=== PATIENT | female | born 1950 | race American Indian/Alaskan Native ===

== ENCOUNTER 2017-04-28 21:53 | Emergency (ER) | payer MEDICARE, MEDICAID ==
[2017-04-28 22:04] VITALS: BP 128/60
--- NOTE | 2017-04-28 22:42 | EDM.PDOC ---
ED HPI GENERAL MEDICAL PROBLEM - General Chief Complaint: Respiratory Problem Stated Complaint: VALERIA, [id number] Time Seen by Provider: 04/28/17 22:39 Source of Information: Reports: Patient History Limitations: Reports: No Limitations - History of Present Illness INITIAL COMMENTS - FREE TEXT/NARRATIVE: SOB past 2 days, no chest pains, been using nebs at home but has no energy feels weak in legs, denies fever/chills but been feeling hot sometimes. had pneumonia last year and [facility] in [facility]. been nauseous on-off no vomiting. - Related Data Allergies Allergy/AdvReac Type Severity Reaction Status Date / Time codeine Allergy Unknown Cannot Verified 04/28/17 22:05 Remember simvastatin [From Zocor] Allergy Muscle Verified 04/28/17 22:05 Aches Home Meds: Home Meds Aspirin 81 mg PO DAILY 05/22/14 [History] Levothyroxine 125 mcg PO DAILY 05/22/14 [History] glipiZIDE [Glipizide] 10 mg PO BID 07/09/15 [History] Omeprazole 20 mg PO DAILY 04/15/16 [History] Albuterol [IJD: Ventolin HFA] 2 puff INH ASDIRECTED PRN 05/18/16 [History] Cyanocobalamin (Vitamin B-12) [Cyanocobalamin Injection] 1,000 mcg SUBCUT ASDIRECTED 05/18/16 [History] Carvedilol 6.25 mg PO BID 07/23/16 [History] Bumetanide [Bumex] 1 mg PO DAILY 08/07/16 [History] metFORMIN HCl [Metformin HCl] 500 mg PO BID 08/07/16 [History] Lisinopril 2.5 mg PO DAILY 11/13/16 [History] Past Medical History HEENT History: Reports: Impaired Vision Other HEENT History: wears glasses Cardiovascular History: Reports: Hypertension Respiratory History: Reports: Bronchitis, Recurrent, Other (See Below) Other Respiratory History: congested cough Gastrointestinal History: Reports: GERD Genitourinary History: Reports: UTI, Recurrent 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 Musculoskeletal History: Reports: Fracture Neurological History: Reports: None Psychiatric History: Reports: None Endocrine/Metabolic History: Reports: Hypothyroidism Hematologic History: Reports: B12 Deficiency, Iron Deficiency Immunologic History: Reports: None Oncologic (Cancer) History: Reports: None Dermatologic History: Reports: None - Infectious Disease History Infectious Disease History: Reports: Chicken Pox, Measles, Mumps - Past Surgical History Head Surgeries/Procedures: Reports: None Cardiovascular Surgical History: Reports: AICD GI Surgical History: Reports: Appendectomy, Cholecystectomy Social & Family History - Family History Family Medical History: Noncontributory - Tobacco Use Smoking Status *Q: Former Smoker Years of Tobacco use: 40 Packs/Tins Daily: 1.5 Used Tobacco, but Quit: Yes Month Tobacco Last Used: 03/2016 Second Hand Smoke Exposure: No - Caffeine Use Caffeine Use: Reports: Tea - Alcohol Use Days Per Week of Alcohol Use: 0 - Recreational Drug Use Recreational Drug Use: No - Living Situation & Occupation Occupation: Retired ED ROS GENERAL - Review of Systems Review Of Systems: ROS reveals no pertinent complaints other than HPI. ED EXAM, GENERAL - Physical Exam Exam: See Below Exam Limited By: Altered Mental Status General Appearance: Alert, WD/WN, Mild Distress, Other (distraught) Ears: Hearing Grossly Normal Throat/Mouth: Normal Voice, No Airway Compromise Head: Atraumatic Neck: Non-Tender, Full Range of Motion Respiratory/Chest: No Respiratory Distress, No Accessory Muscle Use, Rhonchi. No: Decreased Breath Sounds Cardiovascular: Regular Rate, Rhythm GI/Abdominal: Soft, Non-Tender Extremities: No Pedal Edema Neurological: Alert, Oriented, Normal Cognition, Normal Gait, No Motor/Sensory Deficits Psychiatric: Flat Affect Skin Exam: Warm, Dry, Normal Color Lymphatic: No Adenopathy Course - Vital Signs Last Recorded V/S: Last Vital Signs Temp 35.8 C 04/28/17 22:02 Pulse 75 04/28/17 22:02 Resp 20 04/28/17 22:02 BP 128/60 04/28/17 22:02 Pulse Ox 99 04/28/17 22:02 - Orders/Labs/Meds Orders: Active Orders 24 hr Category Date Time Status EKG 12 Lead [EKG Documentation Completion] [RC] STAT Care 04/28/17 23:29 Active Sodium Chloride 0.9% [Normal Saline] 1,000 ml Med 04/29/17 00:27 Active IV .BOLUS Medication Orders Sodium Chloride (Normal Saline) 1,000 mls @ 250 mls/hr IV .BOLUS ONE Stop: 04/29/17 04:26 Last Admin: 04/29/17 00:53 Dose: 250 mls/hr Labs: Laboratory Tests 04/28/17 04/28/17 04/28/17 Range/Units 22:55 22:55 22:55 WBC 8.9 (5.0-10.0) 10^3/uL RBC 3.29 L (4.2-5.4) 10^6/uL Hgb 7.3 L (12.0-16.0) g/dL Hct 24.5 L (37.0-47.0) % MCV 74.5 L (80-100) fL MCH 22.2 L (27.0-34.0) pg MCHC 29.8 L (33.0-35.0) g/dL Plt Count 374 (150-450) 10^3/uL Neut % (Auto) 65.8 (42.2-75.2) % Lymph % (Auto) 22.8 (20.5-50.1) % [place] % (Auto) 8.1 H (2-8) % Eos % (Auto) 2.9 (1.0-3.0) % Baso % (Auto) 0.4 (0.0-1.0) % D-Dimer, Quantitative 1170 H (0-400) ng/mL Sodium 131 L (135-145) mmol/L Potassium 4.4 (3.6-5.0) mmol/L Chloride 98 L (101-111) mmol/L Carbon Dioxide 22.0 (21.0-31.0) mmol/L Anion Gap 15.4 BUN 24 H (7-18) mg/dL Creatinine 1.1 (0.6-1.3) mg/dL Est Cr Clr Drug Dosing 42.27 mL/min Estimated GFR (MDRD) 49 BUN/Creatinine Ratio 21.81 Glucose 268 H (74-105) mg/dL Calcium 9.0 (8.4-10.2) mg/dl Total Bilirubin 0.5 (0.2-1.0) mg/dL AST 25 (10-42) IU/L ALT 23 (10-60) IU/L Alkaline Phosphatase 100 (42-121) IU/L Troponin I 0.04 H* (0.00-0.02) ng/ml B-Natriuretic Peptide 691 H (0-100) pg/ml Total Protein 8.1 (6.7-8.2) g/dl Albumin 3.6 (3.2-5.5) g/dl Globulin 4.5 Albumin/Globulin Ratio 0.80 Meds: Medications Generic Name Dose Route Start Last Admin Trade Name Freq PRN Reason Stop Dose Admin Sodium Chloride 1,000 mls @ 250 mls/hr 04/29/17 00:27 04/29/17 00:53 Normal Saline IV 04/29/17 04:26 250 mls/hr .BOLUS ONE Administration Discontinued Medications Generic Name Dose Route Start Last Admin Trade Name Freq PRN Reason Stop Dose Admin Iopamidol 100 ml 04/29/17 00:09 04/29/17 00:19 Isovue-370 (76%) IVPUSH 04/29/17 00:10 100 ml ONETIME ONE Administration - Re-Assessments/Exams Free Text/Narrative Re-Assessment/Exam: 04/29/17 01:[address] Kolb @ who kindly accepted pt. Departure - Departure Time of Disposition: 01:45 Disposition: DC/Tfer to Acute Hospital 02 Condition: Fair Clinical Impression: COPD exacerbation, Elevated troponin, Hyponatremia, Pleural effusion CHF (congestive heart failure) Qualifiers: Congestive heart failure type: unspecified congestive heart failure type Congestive heart failure chronicity: acute on chronic Qualified Code(s): I50.9 - Heart failure, unspecified Anemia Qualifiers: Anemia type: unspecified type Qualified Code(s): D64.9 - Anemia, unspecified - Discharge Information Forms: Interfacility Transfer EMTALA - My Orders Last 24 Hours: My Active Orders 04/28/17 23:29 EKG 12 Lead [EKG Documentation Completion] [RC] STAT 04/29/17 00:27 Sodium Chloride 0.9% [Normal Saline] 1,000 ml IV .BOLUS - Assessment/Plan Last 24 Hours: My Active Orders 04/28/17 23:29 EKG 12 Lead [EKG Documentation Completion] [RC] STAT 04/29/17 00:27 Sodium Chloride 0.9% [Normal Saline] 1,000 ml IV .BOLUS
[2017-04-29] MEDS ORDERED: Iopamidol 755 Mg/ML 100 ML Bottle IVPUSH ONE (00:09)
[2017-04-29] MEDS ORDERED: Sodium Chloride 0.9% 1,000 ML IV ONE (00:27)
--- NOTE | 2017-05-04 09:04 | EKG ---
04/28/2017- AMA CHILDRESS - EKG done on the 67-year-old female showing sinus rhythm, heart rate of 78 beats per minute, normal axis, normal intervals, no acute ST-T wave changes. [facility] /[id number]
== END 2017-04-29 02:29 ==
LOC: DL.ED 21:53
DX: J44.1 Chronic obstructive pulmonary disease with (acute) exacerbation (principal); E87.1 Hypo-osmolality and hyponatremia; J90 Pleural effusion, not elsewhere classified; D64.9 Anemia, unspecified; I11.0 Hypertensive heart disease with heart failure; I50.9 Heart failure, unspecified; K21.9 Gastro-esophageal reflux disease without esophagitis; E03.9 Hypothyroidism, unspecified; Z87.440 Personal history of urinary (tract) infections; Z90.49 Acquired absence of other specified parts of digestive tract; Z95.810 Presence of automatic (implantable) cardiac defibrillator; Z87.891 Personal history of nicotine dependence; Z79.899 Other long term (current) drug therapy; Z79.82 Long term (current) use of aspirin; Z88.5 Allergy status to narcotic agent; Z88.8 Allergy status to other drugs, medicaments and biological substances
CPT/HCPCS: 36415; 71010; 71260; 80053; 83880; 84484; 85025; 85379; 93005; 93010; 96365; 96366; 99285; J7030; Q9967

== ENCOUNTER 2017-08-09 08:58 | Day surgery (SDC) | payer MEDICARE, MEDICAID ==
[~2017-08-09 08:58] MED LIST: Cataract Ophth Solution EYELF ONE; Lidocaine 4% 5 ML Amp EYELF ONE; Moxifloxacin 0.5% Ophth Soln 3 ML Bottle EYELF ONE; Sodium Chloride 0.9% 10 ML Syringe FLUSH PRN
[2017-08-09] MEDS ORDERED: Midazolam 1 MG/ML 2 ML SDV IV ONE (08:59)
[2017-08-09] MEDS ORDERED: EPINEPHrine 1 MG/ML SDV ONE (11:50)
[2017-08-09] MEDS ORDERED: Povidone-Iodine 5% Sterile Ophth Soln 30 ML Bottle EYELF ONE (11:50)
[2017-08-09] MEDS ORDERED: prednisoLONE Acetate 1% Ophth Susp 5 ML Bottle EYELF ONE (11:50)
[2017-08-09] MEDS ORDERED: Lidocaine 1% 30 ML SDV ONE (11:51)
[2017-08-09] MEDS ORDERED: Balanced Salt Solution Ophth Irrig 500 ML Bottle IOCULAR ONE (11:51)
[2017-08-09] MEDS ORDERED: Moxifloxacin 0.5% Ophth Soln 3 ML Bottle EYELF ONE (11:51)
[2017-08-09] MEDS ORDERED: Lidocaine 4% 5 ML Amp EYELF ONE (11:51)
--- NOTE | 2017-08-09 12:07 | PCM.OPNOTE ---
- General Post-Op/Procedure Note Date of Surgery/Procedure: 08/09/17 Operative Procedure(s): Cataract extraction with lens implant, left eye Findings: As above Pre Op Diagnosis: Cataract left eye Post-Op Diagnosis: Same Anesthesia Technique: MAC Primary Surgeon: Cliff Nettles Anesthesia Provider: Angel Pathology: None EBL in mLs: 0 Complications: None Condition: Good Free Text/Narrative:: PROCEDURE: After the risks and benefits of the procedure were explained informed consent was obtained from the patient and the patient was taken to the operating room. The patient was given topical Lidocaine 4% drops in the left eye. The patient was then prepped and draped in the sterile [facility] fashion. A wire lid speculum was placed in the left eye. A clear cornea temporal approach was used. A 7515 [place] blade was used to make a paracentesis site around 5:00. Preservative-free Lidocaine 1% was injected intracamerally. Viscoelastic was placed in the anterior chamber. A 2.65 mm keratome blade was used to make a clear corneal incision around 3:00. A cystotome needle and Utrata forceps were used to perform continuous curvilinear capsulorhexis. Balanced Salt Solution was used to perform hydrodissection and hydrodelineation. The lens nucleus was removed using the divide and conquer phacoemulsification technique. Cumulative dissipated energy was 7.10. Remaining cortex was removed using irrigation- aspiration. Viscoelastic was placed in the capsular bag. PCBOO 19.0 diopter lens was then placed in the capsular bag. Remaining viscoelastic was removed using irrigation-aspiration. The lens was well centered in the capsular bag. The paracentesis and corneal incision were found to be water-tight. The patient was given topical Prednisolone and Vigamox drops. The speculum was removed and a shield was placed over the left eye. The patient was taken to recovery in stable condition. I certify that I was present for and performed the entire operative procedure. Cliff Nettles M.D.
[2017-08-09 13:44] VITALS: BP 109/52
== END 2017-08-09 13:01 | disposition home or self-care (01) ==
LOC: DL.SDS 08:58
PROVIDERS: ATTEND Ophthalmology
DX: H25.12 Age-related nuclear cataract, left eye (principal); I50.9 Heart failure, unspecified; E53.8 Deficiency of other specified B group vitamins; I10 Essential (primary) hypertension; E78.5 Hyperlipidemia, unspecified; E03.9 Hypothyroidism, unspecified; E11.9 Type 2 diabetes mellitus without complications; Z90.49 Acquired absence of other specified parts of digestive tract; Z95.810 Presence of automatic (implantable) cardiac defibrillator; Z88.8 Allergy status to other drugs, medicaments and biological substances; Z87.891 Personal history of nicotine dependence
CPT/HCPCS: 00142; 66984; A9270; J0171; J2250; J7050; V2632

== ENCOUNTER 2017-09-06 07:26 | Day surgery (SDC) | payer MEDICARE, MEDICAID ==
[~2017-09-06 07:26] MED LIST changes: -Cataract Ophth Solution EYELF ONE; +Cataract Ophth Solution EYERT SCH; -Lidocaine 4% 5 ML Amp EYELF ONE; +Lidocaine 4% 5 ML Amp EYERT SCH; -Moxifloxacin 0.5% Ophth Soln 3 ML Bottle EYELF ONE; +Moxifloxacin 0.5% Ophth Soln 3 ML Bottle EYERT SCH
[2017-09-06] MEDS ORDERED: Sodium Chloride 0.9% 10 ML Syringe IV ONE (07:27)
[2017-09-06] MEDS ORDERED: Midazolam 1 MG/ML 2 ML SDV IV ONE (07:27)
[2017-09-06] MEDS ORDERED: Cyclopentolate 2% Ophth Soln 5 ML Bottle ONE (09:18)
[2017-09-06] MEDS ORDERED: Cyclopentolate 2% Ophth Soln 5 ML Bottle EYERT ONE (09:20)
[2017-09-06] MEDS ORDERED: Lidocaine 4% 5 ML Amp ONE (09:38)
[2017-09-06] MEDS ORDERED: Lidocaine 1% 30 ML SDV INJECT ONE (09:39)
[2017-09-06] MEDS ORDERED: EPINEPHrine 1 MG/ML SDV ONE (09:40)
[2017-09-06] MEDS ORDERED: prednisoLONE Acetate 1% Ophth Susp 5 ML Bottle EYERT ONE (09:40)
[2017-09-06] MEDS ORDERED: Balanced Salt Solution Ophth Irrig 500 ML Bottle IOCULAR ONE (09:40)
[2017-09-06] MEDS ORDERED: Moxifloxacin 0.5% Ophth Soln 3 ML Bottle EYERT ONE (09:40)
[2017-09-06] MEDS ORDERED: Povidone-Iodine 5% Sterile Ophth Soln 30 ML Bottle EYERT ONE (09:41)
[2017-09-06] MEDS ORDERED: Chondroitin/Hyaluronate Sodium Ophth Inj 0.5/0.55 ML Kit IOCULAR ONE ×2 (09:41)
--- NOTE | 2017-09-06 10:00 | PCM.OPNOTE ---
- General Post-Op/Procedure Note Date of Surgery/Procedure: 09/06/17 Operative Procedure(s): Cataract extraction with intraocular lens implant right eye Findings: as above Pre Op Diagnosis: Cataract right eye Post-Op Diagnosis: Same Anesthesia Technique: MAC Primary Surgeon: Cliff Nettles Anesthesia Provider: Seamus Jones Pathology: None EBL in mLs: 0 Complications: None Condition: Good Free Text/Narrative:: PROCEDURE: After the risks and benefits of the procedure were explained informed consent was obtained from the patient and the patient was taken to the operating room. The patient was given topical Lidocaine 4% drops in the right eye. The patient was then prepped and draped in the sterile [facility] fashion. A wire lid speculum was placed in the right eye. A clear cornea temporal approach was used. A 7515 nez perce blade was used to make a paracentesis site around 11:00. Preservative-free Lidocaine 1% was injected intracamerally. Viscoelastic was placed in the anterior chamber. A 2.65 mm keratome blade was used to make a clear corneal incision around 9:00. A cystotome needle and Utrata forceps were used to perform continuous curvilinear capsulorhexis. Balanced Salt Solution was used to perform hydrodissection and hydrodelineation. The lens nucleus was removed using the divide and conquer phacoemulsification technique. Cumulative dissipated energy was 8.01. Remaining cortex was removed using irrigation- aspiration. Viscoelastic was placed in the capsular bag. PCBOO 19.5 diopter lens was then placed in the capsular bag. Remaining viscoelastic was removed using irrigation-aspiration. The lens was well centered in the capsular bag. The paracentesis and corneal incision were found to be water-tight. The patient was given topical Prednisolone and Vigamox drops. The speculum was removed and a shield was placed over the right eye. The patient was taken to recovery in stable condition. I certify that I was present for and performed the entire operative procedure. Cliff Nettles M.D.
[2017-09-06 10:56] VITALS: BP 141/73
== END 2017-09-06 10:57 | disposition home or self-care (01) ==
LOC: DL.SDS 07:26
PROVIDERS: ATTEND Ophthalmology
DX: H25.811 Combined forms of age-related cataract, right eye (principal); I10 Essential (primary) hypertension; E78.5 Hyperlipidemia, unspecified; E03.9 Hypothyroidism, unspecified; I50.9 Heart failure, unspecified; E53.8 Deficiency of other specified B group vitamins; J18.9 Pneumonia, unspecified organism; E11.9 Type 2 diabetes mellitus without complications; Z90.49 Acquired absence of other specified parts of digestive tract; Z95.810 Presence of automatic (implantable) cardiac defibrillator; Z87.891 Personal history of nicotine dependence; Z79.899 Other long term (current) drug therapy
CPT/HCPCS: 00142; 66984; 82962; A9270; J0171; J2250; J7050; V2632

== ENCOUNTER 2017-09-11 16:36 | Emergency (ER) | payer MEDICARE, MEDICAID ==
[2017-09-11] MEDS ORDERED: Sodium Chloride 0.9% 10 ML Syringe FLUSH PRN (16:46)
[2017-09-11 16:48] VITALS: BP 136/66
--- NOTE | 2017-09-11 17:30 | EDM.PDOC ---
ED HPI GENERAL MEDICAL PROBLEM - General Chief Complaint: General Stated Complaint: HARD TIME BREATHING [id number] Time Seen by Provider: 09/11/17 16:45 Source of Information: Reports: Patient, RN, RN Notes Reviewed - History of Present Illness INITIAL COMMENTS - FREE TEXT/NARRATIVE: Pt presents to the ER with c/o increased SOB and a burning "heartburn" sensation in the left chest. She states on morning she felt as if her heart pounded very hard for a few beats. She states she has become increasingly short of breath over the past few days. She denies fever, chills, N/V/D, sore throat. She admits to a cough at times, the burning chest pain, and sob. Pt admits to history of CHF, COPD, AR, and pacemaker, as well as diabetes. Onset: Gradual Onset Date: 09/09/17 Location: Reports: Chest Quality: Reports: Pressure Severity: Moderate Improves with: Reports: None Worsens with: Reports: None Associated Symptoms: Reports: Chest Pain - Related Data Allergies Allergy/AdvReac Type Severity Reaction Status Date / Time codeine Allergy Unknown Cannot Verified 09/11/17 16:43 Remember sacubitril [From Entresto] Allergy Dizziness Verified 09/11/17 16:43 simvastatin [From Zocor] Allergy Muscle Verified 09/11/17 16:43 Aches valsartan [From Entresto] Allergy Dizziness Verified 09/11/17 16:43 Home Meds: Home Meds Levothyroxine 112 mcg PO DAILY 05/22/14 [History] glipiZIDE [Glipizide] 10 mg PO BID 07/09/15 [History] Omeprazole 20 mg PO DAILY 04/15/16 [History] Albuterol [IJD: Ventolin HFA] 2 puff INH Q6H PRN 05/18/16 [History] Cyanocobalamin (Vitamin B-12) [Cyanocobalamin Injection] 1,000 mcg IM ASDIRECTED 05/18/16 [History] Carvedilol 6.25 mg PO BID 07/23/16 [History] Bumetanide [Bumex] 1 mg PO DAILY 08/07/16 [History] metFORMIN HCl [Metformin HCl] 500 mg PO BID 08/07/16 [History] Lisinopril 2.5 mg PO DAILY 11/13/16 [History] Acetaminophen 1 - 2 tab PO ASDIRECTED PRN 08/08/17 [History] Albuterol [Proventil Neb Soln] 1 unit NEB ASDIRECTED 08/08/17 [History] Ferrous Sulfate 325 mg PO BID 08/08/17 [History] Nepafenac [Nevanac] 1 drop EYELF DAILY 08/08/17 [History] Ofloxacin [Ocuflox 0.3% Ophth Soln] 1 drop EYELF DAILY 08/08/17 [History] prednisoLONE Acetate [Pred Forte 1% Ophth Susp] 1 drop EYELF DAILY 08/08/17 [ History] Past Medical History HEENT History: Reports: Cataract, Impaired Vision Other HEENT History: wears glasses Cardiovascular History: Reports: Cardiomyopathy, Heart Failure, High Cholesterol , Hypertension, Pacemaker Other Cardiovascular History: CARDIAC DIFIBRILLATOR PLACEMENT (2017), NONISCHEMIC CARDIOMYOPATHY Respiratory History: Reports: Bronchitis, Recurrent, COPD, Pneumonia, Recurrent , Other (See Below) Gastrointestinal History: Reports: Cholelithiasis, GERD Genitourinary History: Reports: Renal Disease, UTI, Recurrent Other Genitourinary History: CKD 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 OB/BYN History: HAS 3 KIDS Musculoskeletal History: Reports: Arthritis, Fracture Other Musculoskeletal History: SHOULDER PAIN, BILATERAL Neurological History: Reports: None Psychiatric History: Reports: None, Addiction Endocrine/Metabolic History: Reports: Diabetes, Type II, Hypothyroidism Hematologic History: Reports: Anemia, B12 Deficiency, Iron Deficiency Immunologic History: Reports: None Oncologic (Cancer) History: Reports: None Dermatologic History: Reports: None - Infectious Disease History Infectious Disease History: Reports: Chicken Pox, Measles, Mumps, Rubella - Past Surgical History Head Surgeries/Procedures: Reports: None HEENT Surgical History: Reports: Cataract Surgery Cardiovascular Surgical History: Reports: AICD GI Surgical History: Reports: Appendectomy, Cholecystectomy Social & Family History - Family History Family Medical History: Noncontributory - Tobacco Use Smoking Status *Q: Former Smoker Years of Tobacco use: 40 Packs/Tins Daily: 1 Used Tobacco, but Quit: Yes Month Tobacco Last Used: april Second Hand Smoke Exposure: No - Caffeine Use Caffeine Use: Reports: Coffee, Tea Caffeine Use Comment: decaf products - Alcohol Use Days Per Week of Alcohol Use: 0 - Recreational Drug Use Recreational Drug Use: No Drug Use in Last 12 Months: No - Living Situation & Occupation Occupation: Retired ED ROS GENERAL - Review of Systems Review Of Systems: ROS reveals no pertinent complaints other than HPI. ED EXAM, GENERAL - Physical Exam Exam: See Below Exam Limited By: No Limitations General Appearance: Alert, WD/WN, Mild Distress Eye Exam: Bilateral Eye: EOMI, Normal Inspection Ears: Normal External Exam, Hearing Grossly Normal Nose: Normal Inspection Throat/Mouth: Normal Inspection, Normal Lips, Normal Teeth, Normal Gums, Normal Oropharynx, Normal Voice, No Airway Compromise Head: Atraumatic, Normocephalic Neck: Normal Inspection, Supple, Non-Tender, Full Range of Motion Respiratory/Chest: No Accessory Muscle Use, Respiratory Distress (mild), Decreased Breath Sounds (throughout), Crackles (right base) Cardiovascular: Normal Peripheral Pulses, Regular Rate, Rhythm, No Edema, No Gallop, No JVD, No Murmur, No Rub Peripheral Pulses: 2+: Radial (L), Radial (R) GI/Abdominal: Normal Bowel Sounds, Soft, Non-Tender, No Organomegaly, No Abnormal Bruit, No Mass, Distended (Female) Exam: Deferred Rectal (Female) Exam: Deferred Back Exam: Normal Inspection, Full Range of Motion Extremities: Normal Inspection, Normal Range of Motion, Non-Tender, No Pedal Edema, Normal Capillary Refill Neurological: Alert, Oriented, Normal Cognition, Normal Gait, No Motor/Sensory Deficits Psychiatric: Normal Affect, Normal Mood Skin Exam: Warm, Dry, Intact, Normal Color, No Rash Lymphatic: No Adenopathy EKG INTERPRETATION EKG Date: 09/11/17 Time: 16:48 Rhythm: NSR Rate (Beats/Min): 69 [place]: Normal P-Wave: Present QRS: Normal ST-T: Normal QT: Normal Comparison: No Change Course - Vital Signs Last Recorded V/S: Last Vital Signs Temp 96.4 F 09/11/17 16:43 Pulse 71 09/11/17 16:43 Resp 16 09/11/17 16:43 BP 136/66 09/11/17 16:43 Pulse Ox 100 09/11/17 16:43 - Orders/Labs/Meds Orders: Active Orders 24 hr Category Date Time Status EKG Documentation Completion [RC] STAT Care 09/11/17 16:46 Active Peripheral IV Care [RC] . DIRECTED Care 09/11/17 16:48 Active Chest 1V Frontal [CR] Stat Exams 09/11/17 16:47 Taken Peripheral IV Insertion Adult [OM.PC] Stat Oth 09/11/17 16:46 Ordered Labs: Laboratory Tests 09/11/17 09/11/17 09/11/17 Range/Units 16:57 17:00 17:00 WBC 6.8 (5.0-10.0) 10^3/uL RBC 4.56 (4.2-5.4) 10^6/uL Hgb 11.7 L D (12.0-16.0) g/dL Hct 37.7 (37.0-47.0) % MCV 82.7 D (80-100) fL MCH 25.7 L (27.0-34.0) pg MCHC 31.0 L (33.0-35.0) g/dL Plt Count 120 L D (150-450) 10^3/uL Neut % (Auto) 70.4 (42.2-75.2) % Lymph % (Auto) 20.2 L (20.5-50.1) % [place] % (Auto) 7.4 (2-8) % Eos % (Auto) 1.9 (1.0-3.0) % Baso % (Auto) 0.1 (0.0-1.0) % D-Dimer, Quantitative (0-400) ng/mL Sodium 135 (135-145) mmol/L Potassium 3.9 (3.6-5.0) mmol/L Chloride 102 (101-111) mmol/L Carbon Dioxide 24.0 (21.0-31.0) mmol/L Anion Gap 12.9 BUN 23 H (7-18) mg/dL Creatinine 0.9 (0.6-1.3) mg/dL Est Cr Clr Drug Dosing 52.75 mL/min Estimated GFR (MDRD) > 60 BUN/Creatinine Ratio 25.55 Glucose 240 H (74-105) mg/dL Lactic Acid (0.5-2.2) mmol/L Calcium 9.1 (8.4-10.2) mg/dl Total Bilirubin 0.6 (0.2-1.0) mg/dL AST 18 (10-42) IU/L ALT 9 L (10-60) IU/L Alkaline Phosphatase 151 H (42-121) IU/L Troponin I 0.04 H* (0.00-0.02) ng/ml B-Natriuretic Peptide 726 H (0-100) pg/ml Total Protein 8.5 H (6.7-8.2) g/dl Albumin 3.8 (3.2-5.5) g/dl Globulin 4.7 Albumin/Globulin Ratio 0.81 Urine Color Yellow (YELLOW) Urine Appearance Slightly cloudy (CLEAR) Urine pH 5.5 (5.0-9.0) Ur Specific [place] 1.010 (1.005-1.030) Urine Protein 30 H (NEGATIVE) Urine Glucose (UA) Negative (NEGATIVE) Urine Ketones Negative (NEGATIVE) Urine Occult Blood Negative (NEGATIVE) Urine Nitrite Negative (NEGATIVE) Urine Bilirubin Negative (NEGATIVE) Urine Urobilinogen 0.2 (0.2-1.0) mg/dL Ur Leukocyte Esterase Small H (NEGATIVE) Urine RBC 0-5 /HPF Urine WBC 10-20 H (0-5/HPF) /HPF Ur Epithelial Cells Few /HPF Urine Bacteria Many H (0-FEW/HPF) /HPF 09/11/17 09/11/17 Range/Units 17:00 17:00 WBC (5.0-10.0) 10^3/uL RBC (4.2-5.4) 10^6/uL Hgb (12.0-16.0) g/dL Hct (37.0-47.0) % MCV (80-100) fL MCH (27.0-34.0) pg MCHC (33.0-35.0) g/dL Plt Count (150-450) 10^3/uL Neut % (Auto) (42.2-75.2) % Lymph % (Auto) (20.5-50.1) % [place] % (Auto) (2-8) % Eos % (Auto) (1.0-3.0) % Baso % (Auto) (0.0-1.0) % D-Dimer, Quantitative 942 H (0-400) ng/mL Sodium (135-145) mmol/L Potassium (3.6-5.0) mmol/L Chloride (101-111) mmol/L Carbon Dioxide (21.0-31.0) mmol/L Anion Gap BUN (7-18) mg/dL Creatinine (0.6-1.3) mg/dL Est Cr Clr Drug Dosing mL/min Estimated GFR (MDRD) BUN/Creatinine Ratio Glucose (74-105) mg/dL Lactic Acid 1.9 (0.5-2.2) mmol/L Calcium (8.4-10.2) mg/dl Total Bilirubin (0.2-1.0) mg/dL AST (10-42) IU/L ALT (10-60) IU/L Alkaline Phosphatase (42-121) IU/L Troponin I (0.00-0.02) ng/ml B-Natriuretic Peptide (0-100) pg/ml Total Protein (6.7-8.2) g/dl Albumin (3.2-5.5) g/dl Globulin Albumin/Globulin Ratio Urine Color (YELLOW) Urine Appearance (CLEAR) Urine pH (5.0-9.0) Ur Specific [place] (1.005-1.030) Urine Protein (NEGATIVE) Urine Glucose (UA) (NEGATIVE) Urine Ketones (NEGATIVE) Urine Occult Blood (NEGATIVE) Urine Nitrite (NEGATIVE) Urine Bilirubin (NEGATIVE) Urine Urobilinogen (0.2-1.0) mg/dL Ur Leukocyte Esterase (NEGATIVE) Urine RBC /HPF Urine WBC (0-5/HPF) /HPF Ur Epithelial Cells /HPF Urine Bacteria (0-FEW/HPF) /HPF Meds: Medications Discontinued Medications Generic Name Dose Route Start Last Admin Trade Name Freq PRN Reason Stop Dose Admin Sodium Chloride 10 ml 09/11/17 16:46 09/11/17 17:03 Saline Flush FLUSH 10 ml ASDIRECTED PRN Administration Keep Vein Open - Radiology Interpretation Free Text/Narrative:: Chest xray: diffuse heart enlargement See rad report Departure - Departure Time of Disposition: 18:03 Disposition: DC/Tfer to Acute Hospital 02 Condition: Fair Clinical Impression: Hyperglycemia, CHF, Congestive heart failure, Elevated troponin, Elevated d- dimer Diabetes Qualifiers: Diabetes mellitus type: type 2 Diabetes mellitus complication status: without complication Diabetes mellitus halfway insulin use: without terminal carman use Qualified Code(s): E11.9 - Type 2 diabetes mellitus without complications - Discharge Information Referrals: PCP,Unobtain [Primary Care Provider] - Forms: ED Department Discharge, Interfacility Transfer EMTALA - My Orders Last 24 Hours: My Active Orders 09/11/17 16:46 EKG Documentation Completion [RC] STAT Peripheral IV Insertion Adult [OM.PC] Stat 09/11/17 16:47 Chest 1V Frontal [CR] Stat 09/11/17 16:48 Peripheral IV Care [RC] . DIRECTED - Assessment/Plan Last 24 Hours: My Active Orders 09/11/17 16:46 EKG Documentation Completion [RC] STAT Peripheral IV Insertion Adult [OM.PC] Stat 09/11/17 16:47 Chest 1V Frontal [CR] Stat 09/11/17 16:48 Peripheral IV Care [RC] . DIRECTED
[2017-09-11 17:39] LABS: CHLORIDE,CL 102 mmol/L (101-111); SODIUM,NA 135 mmol/L (135-145)
--- NOTE | 2017-09-13 12:18 | EKG ---
09/11/2017 - AMA CHILDRESS - This 12-lead EKG shows normal sinus rhythm with no significant ST elevation or ST depression. Nonspecific ST-T wave changes noted on lead V2, V3. Heart rate of 69. [facility] /[id number]
== END 2017-09-11 18:39 ==
LOC: DL.ED 16:36
DX: I13.0 Hypertensive heart and chronic kidney disease with heart failure and stage 1 through stage 4 chronic kidney disease, or unspecified chronic kidney disease (principal); E11.65 Type 2 diabetes mellitus with hyperglycemia; E11.22 Type 2 diabetes mellitus with diabetic chronic kidney disease; I50.9 Heart failure, unspecified; N18.9 Chronic kidney disease, unspecified; Z88.5 Allergy status to narcotic agent; Z88.8 Allergy status to other drugs, medicaments and biological substances; Z87.891 Personal history of nicotine dependence; Z79.899 Other long term (current) drug therapy; Z79.84 Long term (current) use of oral hypoglycemic drugs
CPT/HCPCS: 36415; 71010; 80053; 81001; 83605; 83880; 84484; 85025; 85379; 93005; 93010; 99285; J7050; 99283

== ENCOUNTER 2017-10-23 09:43 | Emergency (ER) | payer MEDICARE, MEDICAID ==
[2017-10-23 11:00] VITALS: BP 125/68
--- NOTE | 2017-10-23 11:54 | EDM.PDOC ---
Scribed by Kristyn Abebe 10/23/17 1153 for Iris Dueñas NP ED HPI GENERAL MEDICAL PROBLEM - General Chief Complaint: Respiratory Problem Stated Complaint: [id number] TROUBLE BREATHING Time Seen by Provider: 10/23/17 11:15 Source of Information: Reports: Patient, RN, RN Notes Reviewed History Limitations: Reports: No Limitations - History of Present Illness INITIAL COMMENTS - FREE TEXT/NARRATIVE: Patient presents to ER with complaint of not feeling well beginning yesterday. Shortness of breath and productive cough which is green/white, chest pain only with cough. Nausea last night. Sore throat. Denies fever, chills,vomiting and diarrhea. She has tried inhaler,nebulizer, and cough medicine. Son is also sick. Onset Date: 10/22/17 Duration: Constant Location: Reports: Chest Quality: Reports: Ache Severity: Moderate Improves with: Reports: None Worsens with: Reports: None Associated Symptoms: Reports: No Other Symptoms - Related Data Allergies Allergy/AdvReac Type Severity Reaction Status Date / Time codeine Allergy Unknown Cannot Verified 09/11/17 16:43 Remember sacubitril [From Entresto] Allergy Dizziness Verified 09/11/17 16:43 simvastatin [From Zocor] Allergy Muscle Verified 09/11/17 16:43 Aches valsartan [From Entresto] Allergy Dizziness Verified 09/11/17 16:43 metal Allergy Mild Rash Uncoded 10/23/17 11:02 Home Meds: Home Meds Levothyroxine 112 mcg PO DAILY 05/22/14 [History] glipiZIDE [Glipizide] 10 mg PO BID 07/09/15 [History] Omeprazole 20 mg PO DAILY 04/15/16 [History] Albuterol [IJD: Ventolin HFA] 2 puff INH Q6H PRN 05/18/16 [History] Cyanocobalamin (Vitamin B-12) [Cyanocobalamin Injection] 1,000 mcg IM ASDIRECTED 05/18/16 [History] Carvedilol 6.25 mg PO BID 07/23/16 [History] Bumetanide [Bumex] 1 mg PO DAILY 08/07/16 [History] metFORMIN HCl [Metformin HCl] 500 mg PO BID 08/07/16 [History] Lisinopril 2.5 mg PO DAILY 11/13/16 [History] Acetaminophen 1 - 2 tab PO ASDIRECTED PRN 08/08/17 [History] Albuterol [Proventil Neb Soln] 1 unit NEB ASDIRECTED 08/08/17 [History] Ferrous Sulfate 325 mg PO BID 08/08/17 [History] Nepafenac [Nevanac] 1 drop EYERT DAILY 08/08/17 [History] Ofloxacin [Ocuflox 0.3% Ophth Soln] 1 drop EYERT DAILY 08/08/17 [History] prednisoLONE Acetate [Pred Forte 1% Ophth Susp] 1 drop EYELF DAILY 08/08/17 [ History] Potassium Chloride 2 tab PO BID 10/23/17 [History] Past Medical History HEENT History: Reports: Cataract, Impaired Vision Other HEENT History: wears glasses Cardiovascular History: Reports: Cardiomyopathy, Heart Failure, High Cholesterol , Hypertension, Pacemaker, Other (See Below) Other Cardiovascular History: CARDIAC DIFIBRILLATOR PLACEMENT (2017), NONISCHEMIC CARDIOMYOPATHY Respiratory History: Reports: Bronchitis, Recurrent, COPD, Pneumonia, Recurrent Gastrointestinal History: Reports: Cholelithiasis, GERD Genitourinary History: Reports: Renal Disease, UTI, Recurrent, Other (See Below) Other Genitourinary History: CKD 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 OB/BYN History: HAS 3 KIDS Musculoskeletal History: Reports: Arthritis, Fracture, Other (See Below) Other Musculoskeletal History: SHOULDER PAIN, BILATERAL Neurological History: Reports: None Psychiatric History: Reports: None, Addiction Endocrine/Metabolic History: Reports: Diabetes, Type II, Hypothyroidism Hematologic History: Reports: Anemia, B12 Deficiency, Iron Deficiency Immunologic History: Reports: None Oncologic (Cancer) History: Reports: None Dermatologic History: Reports: None - Infectious Disease History Infectious Disease History: Reports: Chicken Pox, Measles, Mumps, Rubella - Past Surgical History Head Surgeries/Procedures: Reports: None HEENT Surgical History: Reports: Cataract Surgery Cardiovascular Surgical History: Reports: AICD GI Surgical History: Reports: Appendectomy, Cholecystectomy Social & Family History - Family History Family Medical History: Noncontributory - Tobacco Use Smoking Status *Q: Former Smoker Years of Tobacco use: 40 Packs/Tins Daily: 1 Used Tobacco, but Quit: Yes Month Tobacco Last Used: 24 Second Hand Smoke Exposure: No - Caffeine Use Caffeine Use: Reports: Coffee, Tea Caffeine Use Comment: decaf products - Alcohol Use Days Per Week of Alcohol Use: 0 - Recreational Drug Use Recreational Drug Use: No Drug Use in Last 12 Months: No - Living Situation & Occupation Occupation: Retired ED ROS GENERAL - Review of Systems Review Of Systems: ROS reveals no pertinent complaints other than HPI. ED EXAM, GENERAL - Physical Exam Exam: See Below Exam Limited By: No Limitations General Appearance: Alert, WD/WN, No Apparent Distress Eye Exam: Bilateral Eye: Normal Inspection Ears: Other (TM without erythema. Right ear draining. ) Nose: Normal Inspection, Normal Mucosa, No Blood Throat/Mouth: Normal Inspection, Normal Lips, Normal Teeth, Normal Gums, Normal Oropharynx, Normal Voice, No Airway Compromise Head: Atraumatic, Normocephalic Neck: Normal Inspection, Supple, Non-Tender, Full Range of Motion Respiratory/Chest: Lungs Clear Cardiovascular: Other (pacemaker) GI/Abdominal: Normal Bowel Sounds, Soft, Non-Tender, No Organomegaly, No Distention, No Abnormal Bruit, No Mass (Female) Exam: Deferred Rectal (Female) Exam: Deferred Back Exam: Normal Inspection, Full Range of Motion, NT Extremities: Normal Inspection, Normal Range of Motion, Non-Tender, Normal Capillary Refill, No Pedal Edema Neurological: Alert, Oriented, CN II-XII Intact, Normal Cognition, Normal Gait, Normal Reflexes, No Motor/Sensory Deficits Psychiatric: Normal Affect, Normal Mood Skin Exam: Warm, Dry, Intact, Normal Color, No Rash Lymphatic: No Adenopathy Course - Vital Signs Last Recorded V/S: Last Vital Signs Temp 97.4 F 10/23/17 09:45 Pulse 78 10/23/17 09:45 Resp 20 10/23/17 09:45 BP 125/68 10/23/17 09:45 Pulse Ox 98 10/23/17 09:45 - Orders/Labs/Meds Orders: Active Orders 24 hr Category Date Time Status CULTURE STREP A CONFIRMATION [] Stat Lab 10/23/17 11:12 Results STREP SCRN A RAPID W CULT CONF [] Stat Lab 10/23/17 11:12 Results Labs: Rapid strep: Negative. Influenza A and B: Negative. Departure - Departure Time of Disposition: 11:47 Disposition: Home, Self-Care 01 Condition: Fair Clinical Impression: Upper respiratory infection Qualifiers: URI type: unspecified viral URI Qualified Code(s): J06.9 - Acute upper respiratory infection, unspecified; B97.89 - Other viral agents as the cause of diseases classified elsewhere; B97.89 - Other viral agents as the cause of diseases classified elsewhere - Discharge Information Instructions: Upper Respiratory Infection, Adult, [id number], Chronic Obstructive Pulmonary Disease Exacerbation, [id number] Forms: ED Department Discharge Additional Instructions: Continue using your albuterol inhaler and albuterol nebulizer RX: Prednisone Follow up with your primary care facility this week - My Orders Last 24 Hours: My Active Orders 10/23/17 11:12 CULTURE STREP A CONFIRMATION [RM] Stat STREP SCRN A RAPID W CULT CONF [RM] Stat - Assessment/Plan Last 24 Hours: My Active Orders 10/23/17 11:12 CULTURE STREP A CONFIRMATION [RM] Stat STREP SCRN A RAPID W CULT CONF [RM] Stat I have read and agree with the documentation that has been completed regarding this visit. By signing this record, I attest that the documentation was completed in my physical presence and is an accurate record of the encounter.
== END 2017-10-23 12:08 | disposition home or self-care (01) ==
LOC: DL.ED 09:43
DX: J06.9 Acute upper respiratory infection, unspecified (principal); I13.0 Hypertensive heart and chronic kidney disease with heart failure and stage 1 through stage 4 chronic kidney disease, or unspecified chronic kidney disease; E11.22 Type 2 diabetes mellitus with diabetic chronic kidney disease; N18.9 Chronic kidney disease, unspecified; I50.9 Heart failure, unspecified; K21.9 Gastro-esophageal reflux disease without esophagitis; E03.9 Hypothyroidism, unspecified; E78.00 Pure hypercholesterolemia, unspecified; Z87.891 Personal history of nicotine dependence; Z95.810 Presence of automatic (implantable) cardiac defibrillator; Z79.2 Long term (current) use of antibiotics; Z79.899 Other long term (current) drug therapy; Z79.84 Long term (current) use of oral hypoglycemic drugs; Z88.5 Allergy status to narcotic agent; Z88.8 Allergy status to other drugs, medicaments and biological substances; Z91.048 Other nonmedicinal substance allergy status
CPT/HCPCS: 87081; 87430; 87804; 99283; 99285

== ENCOUNTER 2017-10-28 23:10 | Emergency (ER) | payer MEDICARE, MEDICAID ==
--- NOTE | 2017-10-28 23:19 | EDM.PDOC ---
ED HPI GENERAL MEDICAL PROBLEM - General Chief Complaint: General Stated Complaint: AMBULANCE Time Seen by Provider: 10/28/17 23:16 Source of Information: Reports: Patient History Limitations: Reports: No Limitations - History of Present Illness INITIAL COMMENTS - FREE TEXT/NARRATIVE: states was here Tuesday for same and Dx with URI given ABX & pred but still not any better, now coughing more and back of chest hurts too. Upper Back Pain Score (Numeric/FACES): 6 - Related Data Allergies Allergy/AdvReac Type Severity Reaction Status Date / Time codeine Allergy Unknown Cannot Verified 10/28/17 23:20 Remember sacubitril [From Entresto] Allergy Dizziness Verified 10/28/17 23:20 simvastatin [From Zocor] Allergy Muscle Verified 10/28/17 23:20 Aches valsartan [From Entresto] Allergy Dizziness Verified 10/28/17 23:20 metal Allergy Mild Rash Uncoded 10/28/17 23:20 Home Meds: Home Meds Levothyroxine 112 mcg PO DAILY 05/22/14 [History] glipiZIDE [Glipizide] 10 mg PO BID 07/09/15 [History] Omeprazole 20 mg PO DAILY 04/15/16 [History] Albuterol [IJD: Ventolin HFA] 2 puff INH Q6H PRN 05/18/16 [History] Cyanocobalamin (Vitamin B-12) [Cyanocobalamin Injection] 1,000 mcg IM ASDIRECTED 05/18/16 [History] Carvedilol 6.25 mg PO BID 07/23/16 [History] Bumetanide [Bumex] 1 mg PO DAILY 08/07/16 [History] metFORMIN HCl [Metformin HCl] 500 mg PO BID 08/07/16 [History] Lisinopril 2.5 mg PO DAILY 11/13/16 [History] Acetaminophen 1 - 2 tab PO ASDIRECTED PRN 08/08/17 [History] Albuterol [Proventil Neb Soln] 1 unit NEB ASDIRECTED 08/08/17 [History] Ferrous Sulfate 325 mg PO BID 08/08/17 [History] prednisoLONE Acetate [Pred Forte 1% Ophth Susp] 1 drop EYELF DAILY 08/08/17 [ History] Potassium Chloride 2 tab PO BID 10/23/17 [History] Insulin Aspart [NovoLOG] 5 units SUBCUT TID 10/28/17 [History] Insulin Detemir [Levemir] 15 units SUBCUT DAILY 10/28/17 [History] Past Medical History HEENT History: Reports: Cataract, Impaired Vision Other HEENT History: wears glasses Cardiovascular History: Reports: Cardiomyopathy, Heart Failure, High Cholesterol , Hypertension, Pacemaker, Other (See Below) Other Cardiovascular History: CARDIAC DIFIBRILLATOR PLACEMENT (2017), NONISCHEMIC CARDIOMYOPATHY Respiratory History: Reports: Bronchitis, Recurrent, COPD, Pneumonia, Recurrent Gastrointestinal History: Reports: Cholelithiasis, GERD Genitourinary History: Reports: Renal Disease, UTI, Recurrent, Other (See Below) Other Genitourinary History: CKD 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/BYN History: HAS 3 KIDS Musculoskeletal History: Reports: Arthritis, Fracture, Other (See Below) Other Musculoskeletal History: SHOULDER PAIN, BILATERAL Neurological History: Reports: None Psychiatric History: Reports: None, Addiction Endocrine/Metabolic History: Reports: Diabetes, Type II, Hypothyroidism Hematologic History: Reports: Anemia, B12 Deficiency, Iron Deficiency Immunologic History: Reports: None Oncologic (Cancer) History: Reports: None Dermatologic History: Reports: None - Infectious Disease History Infectious Disease History: Reports: Chicken Pox, Measles, Mumps, Rubella - Past Surgical History Head Surgeries/Procedures: Reports: None HEENT Surgical History: Reports: Cataract Surgery Cardiovascular Surgical History: Reports: AICD GI Surgical History: Reports: Appendectomy, Cholecystectomy Social & Family History - Family History Family Medical History: Noncontributory - Tobacco Use Smoking Status *Q: Former Smoker Years of Tobacco use: 40 Packs/Tins Daily: 1 Used Tobacco, but Quit: Yes Month Tobacco Last Used: 24 Second Hand Smoke Exposure: No - Caffeine Use Caffeine Use: Reports: Coffee, Tea Caffeine Use Comment: decaf products - Alcohol Use Days Per Week of Alcohol Use: 0 - Recreational Drug Use Recreational Drug Use: No Drug Use in Last 12 Months: No - Living Situation & Occupation Occupation: Retired ED ROS GENERAL - Review of Systems Review Of Systems: ROS reveals no pertinent complaints other than HPI. ED EXAM, GENERAL - Physical Exam Exam: See Below Exam Limited By: No Limitations General Appearance: Alert, WD/WN, Mild Distress, Other (upset) Ears: Hearing Grossly Normal Throat/Mouth: Normal Voice, No Airway Compromise Head: Atraumatic Neck: Non-Tender, Full Range of Motion Respiratory/Chest: No Respiratory Distress, No Accessory Muscle Use, Rhonchi. No: Decreased Breath Sounds, Retractions Cardiovascular: Regular Rate, Rhythm GI/Abdominal: Soft, Non-Tender Neurological: Alert, Oriented, Normal Cognition, Normal Gait, No Motor/Sensory Deficits Psychiatric: Flat Affect Skin Exam: Warm, Dry, Normal Color Lymphatic: No Adenopathy Course - Vital Signs Last Recorded V/S: Last Vital Signs Temp 37.3 C 10/28/17 23:12 Pulse 86 10/28/17 23:12 Resp 20 10/28/17 23:12 BP 129/83 10/28/17 23:12 Pulse Ox 96 10/28/17 23:12 - Orders/Labs/Meds Orders: Active Orders 24 hr Category Date Time Status RT Aerosol Therapy [RC] ASDIRECTED Care 10/29/17 00:34 Ordered CULTURE BLOOD [BC] Stat Lab 10/28/17 23:30 Received Albuterol/Ipratropium [DuoNeb 3.0-0.5 MG/3 ML] Med 10/29/17 00:34 Once 3 ml NEB ONETIME ONE Levofloxacin [Levaquin] Med 10/29/17 00:34 Once 500 mg PO ONETIME ONE Medication Orders Levofloxacin (Levaquin) 500 mg PO ONETIME ONE Stop: 10/29/17 00:35 Labs: Laboratory Tests 10/28/17 10/28/17 10/28/17 Range/Units 23:30 23:30 23:30 WBC 10.1 H (5.0-10.0) 10^3/uL RBC 4.07 L (4.2-5.4) 10^6/uL Hgb 11.0 L (12.0-16.0) g/dL Hct 33.5 L (37.0-47.0) % MCV 82.3 (80-100) fL MCH 27.0 (27.0-34.0) pg MCHC 32.8 L (33.0-35.0) g/dL Plt Count 229 D (150-450) 10^3/uL Neut % (Auto) 73.2 (42.2-75.2) % Lymph % (Auto) 16.4 L (20.5-50.1) % Routt % (Auto) 7.7 (2-8) % Eos % (Auto) 2.5 (1.0-3.0) % Baso % (Auto) 0.2 (0.0-1.0) % Sodium 132 L (135-145) mmol/L Potassium 4.0 (3.6-5.0) mmol/L Chloride 101 (101-111) mmol/L Carbon Dioxide 24.0 (21.0-31.0) mmol/L Anion Gap 11.0 BUN 23 H (7-18) mg/dL Creatinine 0.9 (0.6-1.3) mg/dL Est Cr Clr Drug Dosing 51.66 mL/min Estimated GFR (MDRD) > 60 BUN/Creatinine Ratio 25.55 Glucose 207 H (74-105) mg/dL Lactic Acid 0.9 (0.5-2.2) mmol/L Calcium 8.5 (8.4-10.2) mg/dl Total Bilirubin 0.5 (0.2-1.0) mg/dL AST 12 (10-42) IU/L ALT 10 (10-60) IU/L Alkaline Phosphatase 126 H (42-121) IU/L Troponin I (0.00-0.02) ng/ml B-Natriuretic Peptide (0-100) pg/ml Total Protein 7.7 (6.7-8.2) g/dl Albumin 3.5 (3.2-5.5) g/dl Globulin 4.2 Albumin/Globulin Ratio 0.83 01/26/18 Range/Units 23:30 WBC (5.0-10.0) 10^3/uL RBC (4.2-5.4) 10^6/uL Hgb (12.0-16.0) g/dL Hct (37.0-47.0) % MCV (80-100) fL MCH (27.0-34.0) pg MCHC (33.0-35.0) g/dL Plt Count (150-450) 10^3/uL Neut % (Auto) (42.2-75.2) % Lymph % (Auto) (20.5-50.1) % Routt % (Auto) (2-8) % Eos % (Auto) (1.0-3.0) % Baso % (Auto) (0.0-1.0) % Sodium (135-145) mmol/L Potassium (3.6-5.0) mmol/L Chloride (101-111) mmol/L Carbon Dioxide (21.0-31.0) mmol/L Anion Gap BUN (7-18) mg/dL Creatinine (0.6-1.3) mg/dL Est Cr Clr Drug Dosing mL/min Estimated GFR (MDRD) BUN/Creatinine Ratio Glucose (74-105) mg/dL Lactic Acid (0.5-2.2) mmol/L Calcium (8.4-10.2) mg/dl Total Bilirubin (0.2-1.0) mg/dL AST (10-42) IU/L ALT (10-60) IU/L Alkaline Phosphatase (42-121) IU/L Troponin I 0.02 (0.00-0.02) ng/ml B-Natriuretic Peptide 454 H (0-100) pg/ml Total Protein (6.7-8.2) g/dl Albumin (3.2-5.5) g/dl Globulin Albumin/Globulin Ratio Meds: Medications Generic Name Dose Route Start Last Admin Trade Name Freq PRN Reason Stop Dose Admin Levofloxacin 500 mg 10/29/17 00:34 Levaquin PO 10/29/17 00:35 ONETIME ONE Discontinued Medications Generic Name Dose Route Start Last Admin Trade Name Freq PRN Reason Stop Dose Admin Albuterol/Ipratropium 3 ml 10/29/17 00:34 Duoneb 3.0-0.5 Mg/3 Ml NEB 10/29/17 00:35 ONETIME ONE - Re-Assessments/Exams Free Text/Narrative Re-Assessment/Exam: 10/29/17 00:40 results discussed with pt. Departure - Departure Time of Disposition: 00:37 Disposition: Home, Self-Care 01 Condition: Good Clinical Impression: COPD exacerbation, Acute bronchitis with bronchospasm, CHF, Congestive heart failure - Discharge Information Instructions: Acute Bronchitis, [id number] Forms: ED Department Discharge Additional Instructions: 1) rest 2) don't sleep flat at night 3) take neb treatment 3 times daily for cough 4) recheck as needed rx given; levaquin 250mg bid x 5 days - My Orders Last 24 Hours: My Active Orders 10/28/17 23:30 CULTURE BLOOD [BC] Stat 10/29/17 00:34 RT Aerosol Therapy [RC] ASDIRECTED Albuterol/Ipratropium [DuoNeb 3.0-0.5 MG/3 ML] 3 ml NEB ONETIME ONE Levofloxacin [Levaquin] 500 mg PO ONETIME ONE - Assessment/Plan Last 24 Hours: My Active Orders 10/28/17 23:30 CULTURE BLOOD [BC] Stat 10/29/17 00:34 RT Aerosol Therapy [RC] ASDIRECTED Albuterol/Ipratropium [DuoNeb 3.0-0.5 MG/3 ML] 3 ml NEB ONETIME ONE Levofloxacin [Levaquin] 500 mg PO ONETIME ONE
[2017-10-28 23:54] LABS: CHLORIDE,CL 101 mmol/L (101-111); SODIUM,NA 132 mmol/L (135-145)
[2017-10-29] MEDS ORDERED: Albuterol/Ipratropium 3.0-0.5 MG/3 ML Neb Soln NEB ONE (00:34)
[2017-10-29] MEDS ORDERED: Levofloxacin 500 MG Tab PO ONE (00:34)
[2017-10-29 00:41] VITALS: BP 121/67
== END 2017-10-29 00:54 | disposition home or self-care (01) ==
LOC: DL.ED 23:10
DX: J44.1 Chronic obstructive pulmonary disease with (acute) exacerbation (principal); J44.0 Chronic obstructive pulmonary disease with (acute) lower respiratory infection; J20.9 Acute bronchitis, unspecified; I13.0 Hypertensive heart and chronic kidney disease with heart failure and stage 1 through stage 4 chronic kidney disease, or unspecified chronic kidney disease; E11.22 Type 2 diabetes mellitus with diabetic chronic kidney disease; N18.9 Chronic kidney disease, unspecified; I50.9 Heart failure, unspecified; K21.9 Gastro-esophageal reflux disease without esophagitis; E03.9 Hypothyroidism, unspecified; E78.00 Pure hypercholesterolemia, unspecified; Z95.810 Presence of automatic (implantable) cardiac defibrillator; Z87.891 Personal history of nicotine dependence; Z79.4 Long term (current) use of insulin; Z79.899 Other long term (current) drug therapy; Z88.5 Allergy status to narcotic agent; Z88.8 Allergy status to other drugs, medicaments and biological substances; Z91.048 Other nonmedicinal substance allergy status
CPT/HCPCS: 36415; 71045; 80053; 83605; 83880; 84484; 85025; 87040; 99284; A9270; 99283

== ENCOUNTER 2017-11-13 14:11 | Emergency (ER) | payer MEDICARE, MEDICAID ==
[2017-11-13 14:21] VITALS: BP 122/57
[2017-11-13 15:40] LABS: ANION GAP 14.1; CHLORIDE,CL 98 mmol/L (101-111); SODIUM,NA 134 mmol/L (135-145)
--- NOTE | 2017-11-13 16:46 | EDM.PDOC ---
Scribed by Kristyn Abebe 11/13/17 [id number] for Dave Goyal MD ED HPI GENERAL MEDICAL PROBLEM - General Chief Complaint: ENT Problem Stated Complaint: DIZZY, FEELS FUNNY LIKE BLACKING OUT Time Seen by Provider: 11/13/17 14:31 Source of Information: Reports: Patient, RN, RN Notes Reviewed History Limitations: Reports: No Limitations - History of Present Illness INITIAL COMMENTS - FREE TEXT/NARRATIVE: Patient complained of recurrent dizziness x1 week. Patient reports left ear pain x4 days. Denies fever, chills, headache or cough. Admits to mild nausea with dizziness. Duration: Getting Worse Location: Reports: Head Quality: Reports: Ache Severity: Moderate Improves with: Reports: None Worsens with: Reports: None Associated Symptoms: Reports: No Other Symptoms - Related Data Allergies Allergy/AdvReac Type Severity Reaction Status Date / Time codeine Allergy Unknown Cannot Verified 11/13/17 14:17 Remember sacubitril [From Entresto] Allergy Dizziness Verified 11/13/17 14:17 simvastatin [From Zocor] Allergy Muscle Verified 11/13/17 14:17 Aches valsartan [From Entresto] Allergy Dizziness Verified 11/13/17 14:17 metal Allergy Mild Rash Uncoded 11/13/17 14:17 Home Meds: Home Meds Levothyroxine 112 mcg PO DAILY 05/22/14 [History] glipiZIDE [Glipizide] 10 mg PO BID 07/09/15 [History] Omeprazole 20 mg PO DAILY 04/15/16 [History] Albuterol [IJD: Ventolin HFA] 2 puff INH Q6H PRN 05/18/16 [History] Cyanocobalamin (Vitamin B-12) [Cyanocobalamin Injection] 1,000 mcg IM ASDIRECTED 05/18/16 [History] Carvedilol 6.25 mg PO BID 07/23/16 [History] Bumetanide [Bumex] 1 mg PO DAILY 08/07/16 [History] metFORMIN HCl [Metformin HCl] 500 mg PO BID 08/07/16 [History] Lisinopril 2.5 mg PO DAILY 11/13/16 [History] Acetaminophen 1 - 2 tab PO ASDIRECTED PRN 08/08/17 [History] Albuterol [Proventil Neb Soln] 1 unit NEB ASDIRECTED 08/08/17 [History] Ferrous Sulfate 325 mg PO BID 08/08/17 [History] prednisoLONE Acetate [Pred Forte 1% Ophth Susp] 1 drop EYELF DAILY 08/08/17 [ History] Potassium Chloride 2 tab PO BID 10/23/17 [History] Insulin Aspart [NovoLOG] 5 units SUBCUT TID 10/28/17 [History] Insulin Detemir [Levemir] 15 units SUBCUT DAILY 10/28/17 [History] Past Medical History HEENT History: Reports: Cataract, Impaired Vision Other HEENT History: wears glasses Cardiovascular History: Reports: Cardiomyopathy, Heart Failure, High Cholesterol , Hypertension, Pacemaker, Other (See Below) Other Cardiovascular History: CARDIAC DIFIBRILLATOR PLACEMENT (2017), NONISCHEMIC CARDIOMYOPATHY Respiratory History: Reports: Bronchitis, Recurrent, COPD, Pneumonia, Recurrent Gastrointestinal History: Reports: Cholelithiasis, GERD Genitourinary History: Reports: Renal Disease, UTI, Recurrent, Other (See Below) Other Genitourinary History: CKD 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 OB/BYN History: HAS 3 KIDS Musculoskeletal History: Reports: Arthritis, Fracture, Other (See Below) Other Musculoskeletal History: SHOULDER PAIN, BILATERAL Neurological History: Reports: None Psychiatric History: Reports: Addiction Endocrine/Metabolic History: Reports: Diabetes, Type II, Hypothyroidism Hematologic History: Reports: Anemia, B12 Deficiency, Iron Deficiency Immunologic History: Reports: None Oncologic (Cancer) History: Reports: None Dermatologic History: Reports: None - Infectious Disease History Infectious Disease History: Reports: Chicken Pox, Measles, Mumps, Rubella - Past Surgical History Head Surgeries/Procedures: Reports: None HEENT Surgical History: Reports: Cataract Surgery Cardiovascular Surgical History: Reports: AICD GI Surgical History: Reports: Appendectomy, Cholecystectomy Social & Family History - Family History Family Medical History: Noncontributory - Tobacco Use Smoking Status *Q: Never Smoker Years of Tobacco use: 40 Packs/Tins Daily: 1 Used Tobacco, but Quit: Yes Month Tobacco Last Used: 24 Second Hand Smoke Exposure: No - Caffeine Use Caffeine Use: Reports: None Caffeine Use Comment: decaf products - Alcohol Use Days Per Week of Alcohol Use: 0 - Recreational Drug Use Recreational Drug Use: No Drug Use in Last 12 Months: No - Living Situation & Occupation Occupation: Retired ED ROS GENERAL - Review of Systems Review Of Systems: ROS reveals no pertinent complaints other than HPI. ED EXAM, DIZZINESS - Physical Exam Exam: See Below Exam Limited By: No Limitations General Appearance: Alert, WD/WN, No Apparent Distress Eye Exam: Bilateral Eye: Nystagmus (lateral gaze ) Ears: Other (left TM with clear fluid,dull,noerythema. Right TM normal. ) Nose: Normal Inspection, Normal Mucosa, No Blood Throat/Mouth: Normal Inspection, Normal Lips, Normal Teeth, Normal Gums, Normal Oropharynx, Normal Voice, No Airway Compromise Head Exam: Atraumatic, Normocephalic Neck: Normal Inspection Respiratory/Chest: No Respiratory Distress, Lungs Clear, Normal Breath Sounds, No Accessory Muscle Use, Chest Non-Tender Cardiovascular: Normal Peripheral Pulses, Regular Rate, Rhythm, No Edema, No Gallop, No JVD, No Murmur, No Rub GI/Abdominal: Normal Bowel Sounds, Soft, Non-Tender, No Organomegaly, No Distention, No Abnormal Bruit, No Mass (Female) Exam: Deferred Rectal (Female) Exam: Deferred Neurological: Alert, Normal Mood/Affect, Normal Dorsiflexion, CN II-XII Intact, Normal Plantar Flexion, Normal Gait, Normal Reflexes, No Motor/Sensory Deficits , Oriented x 3 Back Exam: Normal Inspection, Full Range of Motion, NT Extremities: Normal Inspection, Normal Range of Motion, Non-Tender, No Pedal Edema, Normal Capillary Refill Psychiatric: Anxious Skin Exam: Warm, Dry, Intact, Normal Color, No Rash Course - Vital Signs Last Recorded V/S: Last Vital Signs Temp 36.4 C 11/13/17 14:19 Pulse 70 11/13/17 14:19 Resp 16 11/13/17 14:19 BP 122/57 L 11/13/17 14:19 Pulse Ox 98 11/13/17 14:19 Orthostatic Blood Pressure [ 130/54 Standing] Orthostatic Blood Pressure [ 123/46 Sitting] Orthostatic Blood Pressure [ 130/58 Supine] - Orders/Labs/Meds Orders: Active Orders 24 hr Category Date Time Status Orthostatic Vital Signs [RC] ASDIRECTED Care 11/13/17 15:01 Active Labs: Laboratory Tests 11/13/17 11/13/17 11/13/17 Range/Units 15:02 15:10 15:10 WBC 8.0 (5.0-10.0) 10^3/uL RBC 4.00 L (4.2-5.4) 10^6/uL Hgb 10.8 L (12.0-16.0) g/dL Hct 33.7 L (37.0-47.0) % MCV 84.3 (80-100) fL MCH 27.0 (27.0-34.0) pg MCHC 32.0 L (33.0-35.0) g/dL Plt Count 309 D (150-450) 10^3/uL Neut % (Auto) 70.6 (42.2-75.2) % Lymph % (Auto) 18.6 L (20.5-50.1) % [place] % (Auto) 7.5 (2-8) % Eos % (Auto) 3.0 (1.0-3.0) % Baso % (Auto) 0.3 (0.0-1.0) % Sodium 134 L (135-145) mmol/L Potassium 4.1 (3.6-5.0) mmol/L Chloride 98 L (101-111) mmol/L Carbon Dioxide 26.0 (21.0-31.0) mmol/L Anion Gap 14.1 BUN 14 (7-18) mg/dL Creatinine 0.9 (0.6-1.3) mg/dL Est Cr Clr Drug Dosing 51.66 mL/min Estimated GFR (MDRD) > 60 BUN/Creatinine Ratio 15.55 Glucose 119 H (74-105) mg/dL Calcium 9.4 (8.4-10.2) mg/dl Total Bilirubin 0.6 (0.2-1.0) mg/dL AST 20 (10-42) IU/L ALT 12 (10-60) IU/L Alkaline Phosphatase 127 H (42-121) IU/L Total Protein 8.5 H (6.7-8.2) g/dl Albumin 3.8 (3.2-5.5) g/dl Globulin 4.7 Albumin/Globulin Ratio 0.81 Urine Color Yellow (YELLOW) Urine Appearance Clear (CLEAR) Urine pH 5.5 (5.0-9.0) Ur Specific [place] <= 1.005 (1.005-1.030) Urine Protein Negative (NEGATIVE) Urine Glucose (UA) Negative (NEGATIVE) Urine Ketones Negative (NEGATIVE) Urine Occult Blood Negative (NEGATIVE) Urine Nitrite Negative (NEGATIVE) Urine Bilirubin Negative (NEGATIVE) Urine Urobilinogen 0.2 (0.2-1.0) mg/dL Ur Leukocyte Esterase Negative (NEGATIVE) Urine RBC Not seen /HPF Urine WBC 0-5 (0-5/HPF) /HPF Ur Epithelial Cells Rare /HPF Urine Bacteria Occasional (0-FEW/HPF) /HPF Departure - Departure Time of Disposition: 15:59 Disposition: Home, Self-Care 01 Condition: Good Clinical Impression: Vertigo, Labyrinthitis - Discharge Information Instructions: Vertigo, [id number], Labyrinthitis, [id number] Referrals: PCP,None [Primary Care Provider] - Forms: ED Department Discharge Additional Instructions: RX: Meclizine 25mg. Follow up in clinic for recheck in 3 to 4 days. - My Orders Last 24 Hours: My Active Orders 11/13/17 15:01 Orthostatic Vital Signs [RC] ASDIRECTED - Assessment/Plan Last 24 Hours: My Active Orders 11/13/17 15:01 Orthostatic Vital Signs [RC] ASDIRECTED I have read and agree with the documentation that has been completed regarding this visit. By signing this record, I attest that the documentation was completed in my physical presence and is an accurate record of the encounter.
== END 2017-11-13 16:10 | disposition home or self-care (01) ==
LOC: DL.ED 14:11
DX: H83.02 Labyrinthitis, left ear (principal); I11.0 Hypertensive heart disease with heart failure; I50.9 Heart failure, unspecified; E78.00 Pure hypercholesterolemia, unspecified; E11.9 Type 2 diabetes mellitus without complications; Z88.5 Allergy status to narcotic agent; Z88.8 Allergy status to other drugs, medicaments and biological substances; Z79.899 Other long term (current) drug therapy; Z79.4 Long term (current) use of insulin; Z87.891 Personal history of nicotine dependence
CPT/HCPCS: 36415; 80053; 81001; 85025; 99283; 99284

== ENCOUNTER 2017-12-06 23:48 | Emergency (ER) | payer MEDICARE, MEDICAID ==
[2017-12-06 23:55] VITALS: BP 128/65
--- NOTE | 2017-12-07 00:04 | EDM.PDOC ---
ED HPI GENERAL MEDICAL PROBLEM - General Chief Complaint: Respiratory Problem Stated Complaint: IN BY AMBULANCE Time Seen by Provider: 12/07/17 00:01 Source of Information: Reports: Patient, RN Notes Reviewed History Limitations: Reports: No Limitations - History of Present Illness INITIAL COMMENTS - FREE TEXT/NARRATIVE: ED with c/o headache back of neck across shoulders, that was relieved with tylenol, has been feeling weaker and dizzy. Is taking iron for low Hgb. Transfusion around xmas. No fever or chills. No cough. Hx DM, CHF, COPD. - Related Data Allergies Allergy/AdvReac Type Severity Reaction Status Date / Time codeine Allergy Unknown Cannot Verified 12/07/17 00:01 Remember sacubitril [From Entresto] Allergy Dizziness Verified 12/07/17 00:01 simvastatin [From Zocor] Allergy Muscle Verified 12/07/17 00:01 Aches valsartan [From Entresto] Allergy Dizziness Verified 12/07/17 00:01 metal Allergy Mild Rash Uncoded 12/07/17 00:01 Home Meds: Home Meds Levothyroxine 112 mcg PO DAILY 05/22/14 [History] glipiZIDE [Glipizide] 10 mg PO BID 07/09/15 [History] Omeprazole 20 mg PO DAILY 04/15/16 [History] Albuterol [IJD: Ventolin HFA] 2 puff INH Q6H PRN 05/18/16 [History] Cyanocobalamin (Vitamin B-12) [Cyanocobalamin Injection] 1,000 mcg IM ASDIRECTED 05/18/16 [History] Carvedilol 6.25 mg PO BID 07/23/16 [History] Bumetanide [Bumex] 1 mg PO DAILY 08/07/16 [History] metFORMIN HCl [Metformin HCl] 500 mg PO BID 08/07/16 [History] Lisinopril 2.5 mg PO DAILY 11/13/16 [History] Acetaminophen 1 - 2 tab PO ASDIRECTED PRN 08/08/17 [History] Albuterol [Proventil Neb Soln] 1 unit NEB ASDIRECTED 08/08/17 [History] Ferrous Sulfate 325 mg PO BID 08/08/17 [History] Insulin Aspart [NovoLOG] 5 units SUBCUT TID 10/28/17 [History] Insulin Detemir [Levemir] 15 units SUBCUT DAILY 10/28/17 [History] Past Medical History HEENT History: Reports: Cataract, Impaired Vision Other HEENT History: wears glasses Cardiovascular History: Reports: Cardiomyopathy, Heart Failure, High Cholesterol , Hypertension, Pacemaker, Other (See Below) Other Cardiovascular History: CARDIAC DIFIBRILLATOR PLACEMENT (2017), NONISCHEMIC CARDIOMYOPATHY Respiratory History: Reports: Bronchitis, Recurrent, COPD, Pneumonia, Recurrent Gastrointestinal History: Reports: Cholelithiasis, GERD Genitourinary History: Reports: Renal Disease, UTI, Recurrent, Other (See Below) Other Genitourinary History: CKD 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 OB/BYN History: HAS 3 KIDS Musculoskeletal History: Reports: Arthritis, Fracture, Other (See Below) Other Musculoskeletal History: SHOULDER PAIN, BILATERAL Neurological History: Reports: None Psychiatric History: Reports: Addiction Endocrine/Metabolic History: Reports: Diabetes, Type II, Hypothyroidism Hematologic History: Reports: Anemia, B12 Deficiency, Iron Deficiency Immunologic History: Reports: None Oncologic (Cancer) History: Reports: None Dermatologic History: Reports: None - Infectious Disease History Infectious Disease History: Reports: Chicken Pox, Measles, Mumps, Rubella - Past Surgical History Head Surgeries/Procedures: Reports: None HEENT Surgical History: Reports: Cataract Surgery Cardiovascular Surgical History: Reports: AICD GI Surgical History: Reports: Appendectomy, Cholecystectomy Social & Family History - Family History Family Medical History: Noncontributory - Tobacco Use Smoking Status *Q: Never Smoker Years of Tobacco use: 40 Packs/Tins Daily: 1 Used Tobacco, but Quit: Yes Month Tobacco Last Used: 24 Second Hand Smoke Exposure: No - Caffeine Use Caffeine Use: Reports: None Caffeine Use Comment: decaf products - Alcohol Use Days Per Week of Alcohol Use: 0 - Recreational Drug Use Recreational Drug Use: No Drug Use in Last 12 Months: No - Living Situation & Occupation Occupation: Retired ED ROS GENERAL - Review of Systems Review Of Systems: See Below Constitutional: Reports: Malaise, Weakness, Decreased Appetite HEENT: Reports: No Symptoms Respiratory: Reports: No Symptoms Cardiovascular: Reports: No Symptoms GI/Abdominal: Reports: Black Stool (on iron not noticed any blood or recent change in stool). Denies: Abdominal Pain : Reports: No Symptoms Musculoskeletal: Reports: Neck Pain ( radiating from right shoulder resolved with tylenol) Skin: Reports: No Symptoms Neurological: Reports: Headache ED EXAM, GENERAL - Physical Exam Exam: See Below Exam Limited By: No Limitations General Appearance: Alert, No Apparent Distress Eye Exam: Bilateral Eye: EOMI, PERRL Ears: Normal External Exam, Normal TMs Nose: Normal Inspection Throat/Mouth: Normal Inspection Head: Atraumatic, Normocephalic Neck: Normal Inspection, Full Range of Motion. No: Tender Lateral, Tender Midline Respiratory/Chest: Decreased Breath Sounds (bases), Other (exertional dyspnea when up to Bathroom) Cardiovascular: Normal Peripheral Pulses, Regular Rate, Rhythm GI/Abdominal: Normal Bowel Sounds, Soft, Non-Tender Rectal (Female) Exam: Heme + Stool Back Exam: Normal Inspection Extremities: Pedal Edema (trace) Psychiatric: Normal Affect, Normal Mood Skin Exam: Warm, Dry, Intact, Normal Color Course - Vital Signs Last Recorded V/S: Last Vital Signs Temp 97.5 F 12/06/17 23:55 Pulse 81 12/06/17 23:55 Resp 18 12/06/17 23:55 BP 128/65 12/06/17 23:55 Pulse Ox 94 L 12/06/17 23:55 Orthostatic Blood Pressure [ 136/57 Standing] Orthostatic Blood Pressure [ 134/61 Sitting] Orthostatic Blood Pressure [ 135/72 Supine] - Orders/Labs/Meds Orders: Active Orders 24 hr Category Date Time Status CXR [Chest 1V Frontal] [CR] Urgent Exams 12/07/17 00:16 Taken Head wo Cont [CT] Urgent Exams 12/07/17 00:19 Taken Labs: Laboratory Tests 12/07/17 12/07/17 12/07/17 Range/Units 00:20 00:20 00:29 WBC 7.8 (5.0-10.0) 10^3/uL RBC 3.27 L (4.2-5.4) 10^6/uL Hgb 8.8 L D (12.0-16.0) g/dL Hct 27.8 L (37.0-47.0) % MCV 85.0 (80-100) fL MCH 26.9 L (27.0-34.0) pg MCHC 31.7 L (33.0-35.0) g/dL Plt Count 307 (150-450) 10^3/uL Neut % (Auto) 75.5 H (42.2-75.2) % Lymph % (Auto) 13.9 L (20.5-50.1) % [place] % (Auto) 7.4 (2-8) % Eos % (Auto) 3.1 H (1.0-3.0) % Baso % (Auto) 0.1 (0.0-1.0) % Sodium 129 L (135-145) mmol/L Potassium 4.3 (3.6-5.0) mmol/L Chloride 96 L (101-111) mmol/L Carbon Dioxide 24.0 (21.0-31.0) mmol/L Anion Gap 13.3 BUN 20 H (7-18) mg/dL Creatinine 1.0 (0.6-1.3) mg/dL Est Cr Clr Drug Dosing 46.50 mL/min Estimated GFR (MDRD) 55 BUN/Creatinine Ratio 20.00 Glucose 258 H (74-105) mg/dL Calcium 8.5 (8.4-10.2) mg/dl Magnesium 1.2 L (1.8-2.5) mg/dL Total Bilirubin 0.5 (0.2-1.0) mg/dL AST 16 (10-42) IU/L ALT 7 L (10-60) IU/L Alkaline Phosphatase 131 H (42-121) IU/L B-Natriuretic Peptide 546 H (0-100) pg/ml Total Protein 7.7 (6.7-8.2) g/dl Albumin 2.8 L (3.2-5.5) g/dl Globulin 4.9 Albumin/Globulin Ratio 0.57 Urine Color Yellow (YELLOW) Urine Appearance Slightly cloudy (CLEAR) Urine pH 5.0 (5.0-9.0) Ur Specific [place] 1.020 (1.005-1.030) Urine Protein 100 H (NEGATIVE) Urine Glucose (UA) Negative (NEGATIVE) Urine Ketones Trace H (NEGATIVE) Urine Occult Blood Negative (NEGATIVE) Urine Nitrite Negative (NEGATIVE) Urine Bilirubin Small H (NEGATIVE) Urine Urobilinogen 0.2 (0.2-1.0) mg/dL Ur Leukocyte Esterase Negative (NEGATIVE) Urine RBC 0-5 /HPF Urine WBC 0-5 (0-5/HPF) /HPF Ur Epithelial Cells Moderate H /HPF Urine Bacteria Moderate H (0-FEW/HPF) /HPF Urine Mucus Few H /LPF - Radiology Interpretation Free Text/Narrative:: head CT:chronic changes, no acute intracranial process CXR:Suspect mild interstitial edema - Re-Assessments/Exams Free Text/Narrative Re-Assessment/Exam: 12/07/17 02:[address] Navarrete recommend patient be transferred for further evaluation of weakness with drop in Hgb in past 2 weeks (10.8 on 11/13/17) and recent hx of transfusion. Dr. Sim accepting of patient. Tx via [facility] in stable condition. 12/07/17 02:36 Departure - Departure Time of Disposition: 02:38 Disposition: DC/Tfer to Acute Hospital 02 Condition: Good Clinical Impression: Dizzy, Weakness, COPD not affecting current episode of care Anemia Qualifiers: Anemia type: unspecified type Qualified Code(s): D64.9 - Anemia, unspecified CHF (congestive heart failure) Qualifiers: Qualified Code(s): I50.9 - Heart failure, unspecified - Discharge Information Forms: ED Department Discharge - My Orders Last 24 Hours: My Active Orders 12/07/17 00:16 CXR [Chest 1V Frontal] [CR] Urgent 12/07/17 00:19 Head wo Cont [CT] Urgent - Assessment/Plan Last 24 Hours: My Active Orders 12/07/17 00:16 CXR [Chest 1V Frontal] [CR] Urgent 12/07/17 00:19 Head wo Cont [CT] Urgent
== END 2017-12-07 03:15 ==
LOC: DL.ED 23:48
DX: I13.0 Hypertensive heart and chronic kidney disease with heart failure and stage 1 through stage 4 chronic kidney disease, or unspecified chronic kidney disease (principal); I50.9 Heart failure, unspecified; N18.9 Chronic kidney disease, unspecified; D64.9 Anemia, unspecified; E11.22 Type 2 diabetes mellitus with diabetic chronic kidney disease; E03.9 Hypothyroidism, unspecified; J44.9 Chronic obstructive pulmonary disease, unspecified; Z88.5 Allergy status to narcotic agent; Z88.8 Allergy status to other drugs, medicaments and biological substances; Z79.899 Other long term (current) drug therapy; Z79.84 Long term (current) use of oral hypoglycemic drugs; Z79.4 Long term (current) use of insulin; Z87.891 Personal history of nicotine dependence
CPT/HCPCS: 36415; 70450; 71045; 80053; 81001; 82272; 83735; 83880; 85025; 99285

== ENCOUNTER 2017-12-29 17:29 | Emergency (ER) | payer MEDICARE, MEDICAID ==
[2017-12-29] MEDS ORDERED: Sodium Chloride 0.9% 10 ML Syringe FLUSH PRN (18:01)
--- NOTE | 2017-12-29 18:14 | EDM.PDOC ---
<DueñasAlexeyIris - Last Filed: 12/29/17 18:53> ED HPI GENERAL MEDICAL PROBLEM - General Chief Complaint: Chest Pain Stated Complaint: [id number] CHEST PAINS HEARTBURN Time Seen by Provider: 12/29/17 19:05 - History of Present Illness Treatments GARDE MANAGER: Reports: EKG, Other (see below) Other Treatments GARDE MANAGER: lab - Related Data Allergies Allergy/AdvReac Type Severity Reaction Status Date / Time codeine Allergy Unknown Cannot Verified 12/29/17 18:18 Remember sacubitril [From Entresto] Allergy Dizziness Verified 12/29/17 18:18 simvastatin [From Zocor] Allergy Muscle Verified 12/29/17 18:18 Aches valsartan [From Entresto] Allergy Dizziness Verified 12/29/17 18:18 metal Allergy Mild Rash Uncoded 12/29/17 18:18 Home Meds: Home Meds Levothyroxine 112 mcg PO DAILY 05/22/14 [History] glipiZIDE [Glipizide] 10 mg PO BID 07/09/15 [History] Omeprazole 20 mg PO DAILY 04/15/16 [History] Albuterol [IJD: Ventolin HFA] 2 puff INH Q6H PRN 05/18/16 [History] Cyanocobalamin (Vitamin B-12) [Cyanocobalamin Injection] 1,000 mcg IM ASDIRECTED 05/18/16 [History] Carvedilol 6.25 mg PO BID 07/23/16 [History] Bumetanide [Bumex] 1 mg PO DAILY 08/07/16 [History] metFORMIN HCl [Metformin HCl] 800 mg PO BID 08/07/16 [History] Lisinopril 2.5 mg PO DAILY 11/13/16 [History] Acetaminophen 1 - 2 tab PO ASDIRECTED PRN 08/08/17 [History] Albuterol [Proventil Neb Soln] 1 unit NEB ASDIRECTED 08/08/17 [History] Ferrous Sulfate 325 mg PO BID 08/08/17 [History] Insulin Aspart [NovoLOG] 5 units SUBCUT TID 10/28/17 [History] Past Medical History HEENT History: Reports: Cataract, Impaired Vision Other HEENT History: wears glasses Cardiovascular History: Reports: Cardiomyopathy, Heart Failure, High Cholesterol , Hypertension, Pacemaker, Other (See Below) Other Cardiovascular History: CARDIAC DIFIBRILLATOR PLACEMENT (2017), NONISCHEMIC CARDIOMYOPATHY Respiratory History: Reports: Bronchitis, Recurrent, COPD, Pneumonia, Recurrent Gastrointestinal History: Reports: Cholelithiasis, GERD Genitourinary History: Reports: Renal Disease, UTI, Recurrent, Other (See Below) Other Genitourinary History: CKD [employer] 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 OB/BYN History: HAS 3 KIDS Musculoskeletal History: Reports: Arthritis, Fracture, Other (See Below) Other Musculoskeletal History: SHOULDER PAIN, BILATERAL Neurological History: Reports: None Psychiatric History: Reports: Addiction Endocrine/Metabolic History: Reports: Diabetes, Type II, Hypothyroidism Hematologic History: Reports: Anemia, B12 Deficiency, Iron Deficiency Immunologic History: Reports: None Oncologic (Cancer) History: Reports: None Dermatologic History: Reports: None - Infectious Disease History Infectious Disease History: Reports: Chicken Pox, Measles, Mumps, Rubella - Past Surgical History Head Surgeries/Procedures: Reports: None HEENT Surgical History: Reports: Cataract Surgery Cardiovascular Surgical History: Reports: AICD GI Surgical History: Reports: Appendectomy, Cholecystectomy Social & Family History - Family History Family Medical History: Noncontributory - Tobacco Use Smoking Status *Q: Former Smoker Years of Tobacco use: 40 Packs/Tins Daily: 1 Used Tobacco, but Quit: Yes Month/Year Tobacco Last Used: 01 Second Hand Smoke Exposure: No - Caffeine Use Caffeine Use: Reports: Coffee Caffeine Use Comment: decaf products - Alcohol Use Days Per Week of Alcohol Use: 0 - Recreational Drug Use Recreational Drug Use: No Drug Use in Last 12 Months: No - Living Situation & Occupation Occupation: Retired EKG INTERPRETATION EKG Date: 12/29/17 Time: 17:54 Rhythm: NSR Rate (Beats/Min): 61 [place]: Normal P-Wave: Present QRS: Normal ST-T: Normal QT: Normal Comparison: No Change Course - Vital Signs Last Recorded V/S: Last Vital Signs Temp 36.3 C 12/29/17 17:55 Pulse 62 12/29/17 17:55 Resp 18 12/29/17 17:55 BP 119/45 L 12/29/17 17:55 Pulse Ox 97 12/29/17 17:55 - Orders/Labs/Meds Orders: Active Orders 24 hr Category Date Time Status EKG Documentation Completion [RC] STAT Care 12/29/17 18:00 Active Peripheral IV Care [RC] . DIRECTED Care 12/29/17 18:01 Active Chest 1V Frontal [CR] Stat Exams 12/29/17 18:01 Taken Sodium Chloride 0.9% [Saline Flush] Med 12/29/17 18:01 Active 10 ml FLUSH ASDIRECTED PRN Peripheral IV Insertion Adult [OM.PC] Stat Oth 12/29/17 18:01 Ordered Medication Orders Sodium Chloride (Saline Flush) 10 ml FLUSH ASDIRECTED PRN PRN Reason: Keep Vein Open Last Admin: 12/29/17 18:23 Dose: 10 ml Labs: Laboratory Tests 12/29/17 12/29/17 12/29/17 Range/Units 18:05 18:05 18:05 WBC 6.8 (5.0-10.0) 10^3/uL RBC 3.58 L (4.2-5.4) 10^6/uL Hgb 9.4 L (12.0-16.0) g/dL Hct 30.4 L (37.0-47.0) % MCV 84.9 (80-100) fL MCH 26.3 L (27.0-34.0) pg MCHC 30.9 L (33.0-35.0) g/dL Plt Count 245 (150-450) 10^3/uL Neut % (Auto) 77.5 H (42.2-75.2) % Lymph % (Auto) 13.0 L (20.5-50.1) % [place] % (Auto) 5.3 (2-8) % Eos % (Auto) 4.1 H (1.0-3.0) % Baso % (Auto) 0.1 (0.0-1.0) % Sodium 132 L (135-145) mmol/L Potassium 3.8 (3.6-5.0) mmol/L Chloride 100 L (101-111) mmol/L Carbon Dioxide 23.0 (21.0-31.0) mmol/L Anion Gap 12.8 BUN 31 H (7-18) mg/dL Creatinine 1.1 (0.6-1.3) mg/dL Est Cr Clr Drug Dosing 42.76 mL/min Estimated GFR (MDRD) 49 BUN/Creatinine Ratio 28.18 Glucose 164 H (74-105) mg/dL Calcium 8.4 (8.4-10.2) mg/dl Total Bilirubin 0.6 (0.2-1.0) mg/dL AST 18 (10-42) IU/L ALT 12 (10-60) IU/L Alkaline Phosphatase 139 H (42-121) IU/L Troponin I 0.02 (0.00-0.02) ng/ml B-Natriuretic Peptide 292 H (0-100) pg/ml Total Protein 7.5 (6.7-8.2) g/dl Albumin 2.8 L (3.2-5.5) g/dl Globulin 4.7 Albumin/Globulin Ratio 0.60 Meds: Medications Generic Name Dose Route Start Last Admin Trade Name Freq PRN Reason Stop Dose Admin Sodium Chloride 10 ml 12/29/17 18:01 12/29/17 18:23 Saline Flush FLUSH 10 ml ASDIRECTED PRN Administration Keep Vein Open - Radiology Interpretation Free Text/Narrative:: chest xray: See rad report Departure - Departure Disposition: Home, Self-Care 01 Clinical Impression: Esophagitis Instructions: Nonspecific Chest Pain, [id number] Forms: ED Department Discharge Additional Instructions: 1) avoid sports drinks or anything with too much salt 2) rest 3) follow up at clinic or recheck if there is any change or concern <Gerry Gomez - Last Filed: 12/29/17 19:31> ED HPI GENERAL MEDICAL PROBLEM - General Source of Information: Reports: Patient History Limitations: Reports: No Limitations - History of Present Illness INITIAL COMMENTS - FREE TEXT/NARRATIVE: states took a drink of gatorade which she normally doesn't, then noticed the bottle label said there is a lot of salt in it then suddenly she developed heartburn that wasn't going away, then called home health nurse who came to eval ' her and called EMS who came to re-eval' told her all's well but should get checked in ER and take some TUMS. took some TUMS and it must have finally worked because her heartburn is now gone and have no chest discomfort. ED ROS GENERAL - Review of Systems Review Of Systems: ROS reveals no pertinent complaints other than HPI. ED EXAM, GENERAL - Physical Exam Exam: See Below Exam Limited By: No Limitations General Appearance: Alert, WD/WN, No Apparent Distress, Anxious Ears: Hearing Grossly Normal Throat/Mouth: Normal Voice, No Airway Compromise Head: Atraumatic Neck: Non-Tender, Full Range of Motion Respiratory/Chest: No Respiratory Distress, No Accessory Muscle Use, Rhonchi. No: Decreased Breath Sounds Cardiovascular: Regular Rate, Rhythm GI/Abdominal: Soft, Non-Tender Neurological: Alert, Oriented, Normal Cognition, Normal Gait, No Motor/Sensory Deficits Psychiatric: Anxious Skin Exam: Warm, Dry, Normal Color Lymphatic: No Adenopathy Course - Re-Assessments/Exams Free Text/Narrative Re-Assessment/Exam: 12/29/17 19:28 results discussed with pt who remains discomfort free. Departure - Departure Time of Disposition: 19:30 Condition: Good
[2017-12-29 19:45] VITALS: BP 113/58
--- NOTE | 2018-01-01 12:37 | EKG ---
12/29/2017 - AMA CHILDRESS - This 12-lead EKG shows normal sinus rhythm with no significant ST elevation or ST depression noted on this 12-lead EKG. [facility] /[id number]
== END 2017-12-29 19:39 | disposition home or self-care (01) ==
LOC: DL.ED 17:29
DX: K20.9 Esophagitis, unspecified (principal); I13.0 Hypertensive heart and chronic kidney disease with heart failure and stage 1 through stage 4 chronic kidney disease, or unspecified chronic kidney disease; I50.9 Heart failure, unspecified; E78.00 Pure hypercholesterolemia, unspecified; E11.22 Type 2 diabetes mellitus with diabetic chronic kidney disease; N18.9 Chronic kidney disease, unspecified; E03.9 Hypothyroidism, unspecified; Z87.891 Personal history of nicotine dependence; Z88.5 Allergy status to narcotic agent; Z88.8 Allergy status to other drugs, medicaments and biological substances; Z91.048 Other nonmedicinal substance allergy status; Z79.899 Other long term (current) drug therapy
CPT/HCPCS: 36415; 71045; 80053; 83880; 84484; 85025; 93005; 93010; 99285; J7050; 99282

== ENCOUNTER 2018-11-24 08:56 | Emergency (ER) | payer MEDICARE, MEDICAID ==
--- NOTE | 2018-11-24 09:32 | EDM.PDOC ---
ED HPI GENERAL MEDICAL PROBLEM - General Chief Complaint: Gastrointestinal Problem Stated Complaint: POSSIBLE HERNIA [id number] Time Seen by Provider: 11/24/18 09:20 Source of Information: Reports: Patient History Limitations: Reports: No Limitations - History of Present Illness INITIAL COMMENTS - FREE TEXT/NARRATIVE: This 68 yo female patient reports to the ED with diffuse abdominal pain. The patient reports she has noticed her abdomen was tight for the past month, but today she had increased abdominal pain (mostly lateral abdominal pains). The patient reports she was seen by Dia Martins about 1 month ago due to some diffuse abdominal pain and tightness. The patient reports she was advised that she has a small hernia, but was sent to [place] for some fluid on her lungs and an infection in her kidneys. The patient reports she has continued to notice the tightness in her abdomen with some intermittent pains, but today her pains got worse. Onset: Gradual Duration: Constant, Getting Worse Location: Reports: Abdomen Quality: Reports: Ache, Dull Severity: Moderate Improves with: Reports: None Worsens with: Reports: None Context: 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 Associated Symptoms: Reports: No Other Symptoms - Related Data Allergies Allergy/AdvReac Type Severity Reaction Status Date / Time codeine Allergy Unknown Cannot Verified 11/24/18 09:08 Remember sacubitril [From Entresto] Allergy Dizziness Verified 11/24/18 09:08 simvastatin [From Zocor] Allergy Muscle Verified 11/24/18 09:08 Aches valsartan [From Entresto] Allergy Dizziness Verified 11/24/18 09:08 metal Allergy Mild Rash Uncoded 11/24/18 09:08 Home Meds: Home Meds Levothyroxine 112 mcg PO DAILY 05/22/14 [History] glipiZIDE [Glipizide] 10 mg PO BID 07/09/15 [History] Omeprazole 20 mg PO DAILY 04/15/16 [History] Albuterol [IJD: Ventolin HFA] 2 puff INH Q6H PRN 05/18/16 [History] Cyanocobalamin (Vitamin B-12) [Cyanocobalamin Injection] 1,000 mcg IM ASDIRECTED 05/18/16 [History] Carvedilol 6.25 mg PO BID 07/23/16 [History] Bumetanide [Bumex] 1 mg PO DAILY 08/07/16 [History] metFORMIN HCl [Metformin HCl] 800 mg PO BID 08/07/16 [History] Lisinopril 2.5 mg PO DAILY 11/13/16 [History] Acetaminophen 1 - 2 tab PO ASDIRECTED PRN 08/08/17 [History] Albuterol [Proventil Neb Soln] 1 unit NEB ASDIRECTED 08/08/17 [History] Ferrous Sulfate 325 mg PO BID 08/08/17 [History] Insulin Aspart [NovoLOG] 5 units SUBCUT TID 10/28/17 [History] Past Medical History HEENT History: Reports: Cataract, Impaired Vision Other HEENT History: wears glasses Cardiovascular History: Reports: Cardiomyopathy, Heart Failure, High Cholesterol , Hypertension, Pacemaker, Other (See Below) Other Cardiovascular History: CARDIAC DIFIBRILLATOR PLACEMENT (2017), NONISCHEMIC CARDIOMYOPATHY Respiratory History: Reports: Bronchitis, Recurrent, COPD, Pneumonia, Recurrent Gastrointestinal History: Reports: Cholelithiasis, GERD Genitourinary History: Reports: Renal Disease, UTI, Recurrent, Other (See Below) Other Genitourinary History: CKD [employer] 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 [employer] History: HAS 3 KIDS Musculoskeletal History: Reports: Arthritis, Fracture, Other (See Below) Other Musculoskeletal History: SHOULDER PAIN, BILATERAL Neurological History: Reports: None Psychiatric History: Reports: Addiction Endocrine/Metabolic History: Reports: Diabetes, Type II, Hypothyroidism Hematologic History: Reports: Anemia, B12 Deficiency, Iron Deficiency Immunologic History: Reports: None Oncologic (Cancer) History: Reports: None Dermatologic History: Reports: None - Infectious Disease History Infectious Disease History: Reports: Chicken Pox, Measles, Mumps, Rubella - Past Surgical History Head Surgeries/Procedures: Reports: None HEENT Surgical History: Reports: Cataract Surgery Cardiovascular Surgical History: Reports: AICD GI Surgical History: Reports: Appendectomy, Cholecystectomy Social & Family History - Family History Family Medical History: Noncontributory - Tobacco Use Smoking Status *Q: Never Smoker - Caffeine Use Caffeine Use: Reports: Coffee Caffeine Use Comment: decaf products - Recreational Drug Use Recreational Drug Use: No - Living Situation & Occupation Occupation: Retired ED ROS GENERAL - Review of Systems Review Of Systems: ROS reveals no pertinent complaints other than HPI. ED EXAM, GI/ABD - Physical Exam Exam: See Below Exam Limited By: No Limitations General Appearance: Alert, WD/WN, Moderate Distress Eyes: Bilateral: Normal Appearance, EOMI Ears: Normal External Exam, Normal Canal, Hearing Grossly Normal, Normal TMs Nose: Normal Inspection, Normal Mucosa, No Blood Throat/Mouth: Normal Inspection, Normal Lips, Normal Teeth, Normal Gums, Normal Oropharynx, Normal Voice, No Airway Compromise Head: Atraumatic, Normocephalic Neck: Normal Inspection, Supple, Non-Tender, Full Range of Motion Respiratory/Chest: No Respiratory Distress, Lungs Clear, Normal Breath Sounds, No Accessory Muscle Use, Chest Non-Tender Cardiovascular: Normal Peripheral Pulses, Regular Rate, Rhythm, No Edema, No Gallop, No JVD, No Murmur, No Rub GI/Abdominal Exam: Normal Bowel Sounds, Soft, Distended, Tender (Female) Exam: Deferred Rectal (Female) Exam: Deferred Back Exam: Normal Inspection, Full Range of Motion, NT Extremities: Normal Inspection, Normal Range of Motion, Non-Tender, Normal Capillary Refill, No Pedal Edema Neurological: Alert, Oriented, CN II-XII Intact, Normal Cognition, Normal Gait, Normal Reflexes, No Motor/Sensory Deficits Psychiatric: Normal Affect, Normal Mood Skin Exam: Warm, Dry, Intact, Normal Color, No Rash Lymphatic: No Adenopathy Course - Vital Signs Last Recorded V/S: Last Vital Signs Temp 36.2 C 11/24/18 10:43 Pulse 67 11/24/18 10:43 Resp 16 11/24/18 10:43 BP 120/55 L 11/24/18 10:43 Pulse Ox 96 11/24/18 10:43 - Orders/Labs/Meds Orders: Active Orders 24 hr Category Date Time Status Abdomen Pelvis w Cont [CT] Urgent Exams 11/24/18 09:58 Ordered CULTURE URINE [RM] Urgent Lab 11/24/18 09:27 Received Labs: Laboratory Tests 11/24/18 11/24/18 11/24/18 Range/Units 09:15 09:15 09:15 WBC 5.4 (5.0-10.0) 10^3/uL RBC 4.08 L (4.2-5.4) 10^6/uL Hgb 11.1 L D (12.0-16.0) g/dL Hct 35.1 L (37.0-47.0) % MCV 86.0 (80-100) fL MCH 27.2 (27.0-34.0) pg MCHC 31.6 L (33.0-35.0) g/dL Plt Count 122 L D (150-450) 10^3/uL Neut % (Auto) 74.2 (42.2-75.2) % Lymph % (Auto) 14.1 L (20.5-50.1) % [place] % (Auto) 7.2 (2-8) % Eos % (Auto) 4.3 H (1.0-3.0) % Baso % (Auto) 0.2 (0.0-1.0) % Sodium (135-145) mmol/L Potassium (3.6-5.0) mmol/L Chloride (101-111) mmol/L Carbon Dioxide (21.0-31.0) mmol/L Anion Gap BUN (7-18) mg/dL Creatinine (0.6-1.3) mg/dL Est Cr Clr Drug Dosing mL/min Estimated GFR (MDRD) BUN/Creatinine Ratio Glucose (74-105) mg/dL Calcium (8.4-10.2) mg/dl Total Bilirubin (0.2-1.0) mg/dL AST (10-42) IU/L ALT (10-60) IU/L Alkaline Phosphatase (42-121) IU/L Ammonia 27 (11-35) umol/L Total Protein (6.7-8.2) g/dl Albumin (3.2-5.5) g/dl Globulin Albumin/Globulin Ratio Amylase 36 (28-100) U/L Lipase 36 (22-51) U/L Urine Color (YELLOW) Urine Appearance (CLEAR) Urine pH (5.0-9.0) Ur Specific [place] (1.005-1.030) Urine Protein (NEGATIVE) Urine Glucose (UA) (NEGATIVE) Urine Ketones (NEGATIVE) Urine Occult Blood (NEGATIVE) Urine Nitrite (NEGATIVE) Urine Bilirubin (NEGATIVE) Urine Urobilinogen (0.2-1.0) mg/dL Ur Leukocyte Esterase (NEGATIVE) Urine RBC /HPF Urine WBC (0-5/HPF) /HPF Ur Epithelial Cells /HPF Urine Bacteria (0-FEW/HPF) /HPF Urinalysis Comment Acetaminophen < 10.0 ug/mL 11/24/18 11/24/18 Range/Units 09:15 09:27 WBC (5.0-10.0) 10^3/uL RBC (4.2-5.4) 10^6/uL Hgb (12.0-16.0) g/dL Hct (37.0-47.0) % MCV (80-100) fL MCH (27.0-34.0) pg MCHC (33.0-35.0) g/dL Plt Count (150-450) 10^3/uL Neut % (Auto) (42.2-75.2) % Lymph % (Auto) (20.5-50.1) % [place] % (Auto) (2-8) % Eos % (Auto) (1.0-3.0) % Baso % (Auto) (0.0-1.0) % Sodium 135 (135-145) mmol/L Potassium 4.2 (3.6-5.0) mmol/L Chloride 102 (101-111) mmol/L Carbon Dioxide 22.0 (21.0-31.0) mmol/L Anion Gap 15.2 BUN 33 H (7-18) mg/dL Creatinine 1.1 (0.6-1.3) mg/dL Est Cr Clr Drug Dosing 41.68 mL/min Estimated GFR (MDRD) 49 BUN/Creatinine Ratio 30.00 Glucose 109 H (74-105) mg/dL Calcium 8.9 (8.4-10.2) mg/dl Total Bilirubin 1.1 H (0.2-1.0) mg/dL AST 20 (10-42) IU/L ALT 8 L (10-60) IU/L Alkaline Phosphatase 185 H (42-121) IU/L Ammonia (11-35) umol/L Total Protein 8.1 (6.7-8.2) g/dl Albumin 3.6 (3.2-5.5) g/dl Globulin 4.5 Albumin/Globulin Ratio 0.80 Amylase (28-100) U/L Lipase (22-51) U/L Urine Color Yellow (YELLOW) Urine Appearance Cloudy (CLEAR) Urine pH 6.0 (5.0-9.0) Ur Specific [place] 1.010 (1.005-1.030) Urine Protein Trace H (NEGATIVE) Urine Glucose (UA) Negative (NEGATIVE) Urine Ketones Trace H (NEGATIVE) Urine Occult Blood Trace-intact H (NEGATIVE) Urine Nitrite Negative (NEGATIVE) Urine Bilirubin Small H (NEGATIVE) Urine Urobilinogen 2.0 H (0.2-1.0) mg/dL Ur Leukocyte Esterase Moderate H (NEGATIVE) Urine RBC 0-5 /HPF Urine WBC >100 H (0-5/HPF) /HPF Ur Epithelial Cells Many H /HPF Urine Bacteria Many H (0-FEW/HPF) /HPF Urinalysis Comment Acetaminophen ug/mL Meds: Medications Discontinued Medications Generic Name Dose Route Start Last Admin Trade Name Freq PRN Reason Stop Dose Admin Barium Sulfate 450 ml 11/24/18 10:00 11/24/18 10:41 Volumen 0.1% Susp PO 11/24/18 10:01 Not Given PREPRO ONE Barium Sulfate 450 ml 11/24/18 10:23 11/24/18 10:24 Readi-Cat 2 PO 11/24/18 10:24 225 ml ONETIME ONE Administration Iopamidol 75 ml 11/24/18 09:58 11/24/18 10:24 Isovue-300 (61%) IVPUSH 11/24/18 09:59 75 ml ONETIME ONE Administration Departure - Departure Time of Disposition: 11:11 Disposition: DC/Tfer to Acute Hospital 02 Condition: Poor Clinical Impression: Ascites Qualifiers: Ascites type: other type Qualified Code(s): R18.8 - Other ascites - Discharge Information *PRESCRIPTION DRUG MONITORING PROGRAM REVIEWED*: Not Applicable *COPY OF PRESCRIPTION DRUG MONITORING REPORT IN PATIENT VALERIE: Not Applicable Forms: Interfacility Transfer EMTALA Care Plan Goals: Discussed the examination, history, lab and CT results with Dr. Gaytan ( Hospitalist with [facility] in [place]). Dr. Gaytan accepted the patient for continued evaluation and further management. The patient will be transported by [facility]. - My Orders Last 24 Hours: My Active Orders 11/24/18 09:27 CULTURE URINE [RM] Urgent 11/24/18 09:58 Abdomen Pelvis w Cont [CT] Urgent - Assessment/Plan Last 24 Hours: My Active Orders 11/24/18 09:27 CULTURE URINE [RM] Urgent 11/24/18 09:58 Abdomen Pelvis w Cont [CT] Urgent
[2018-11-24 09:43] LABS: ANION GAP 15.2
[2018-11-24 09:45] LABS: ACETAMINOPHEN < 10.0 ug/mL
[2018-11-24] MEDS ORDERED: Iopamidol 612 MG/ML 75 ML Bottle IVPUSH ONE (09:58)
[2018-11-24] MEDS ORDERED: Barium Sulfate 0.1% Susp 450 ML Bottle PO ONE (10:00)
[2018-11-24] MEDS ORDERED: Barium Sulfate w/v 2.1% Oral Susp 450 ML Bottle PO ONE (10:23)
--- NOTE | 2018-11-24 11:21 | CT ---
Clinical history: 68-year-old hypertensive 133 pound diabetic female with abdominal pain and "bloating" who has had previous cholecystectomy and appendectomy (no known malignancies). Scan technique: Volume acquisition of data from the abdomen and pelvis obtained after oral ingestion 1 bottle Redicat barium and during/after intravenous infusion 75 cc nonionic Isovue contrast (3 cc/s via injector). Metformin should be withheld for 48 hours. All data archived in the [facility] system for storage, reformatting axial/sagittal/coronal planes and study. Interpretation: 1. Abnormally enlarged cardiac silhouette (pacemaker) and asymmetric dependent right subpulmonic pleural effusion. 2. Large volume free intraperitoneal ascitic fluid. 3. Enlarged liver is homogeneously dense without sign discrete intrahepatic cystic or solid mass lesion. No abnormal dilatation of the intra or extrahepatic biliary ducts. No epigastric varices and normal splenic size/configuration. 4. Densely calcified "cast" normal caliber aortoiliac vessels. No sign of aortic aneurysm or dissection. 5. Midline senescent uterus. No ovarian pelvic mass or abdominal lesion. No retroperitoneal lymphadenopathy. 6. No sign of mechanical bowel obstruction or free intraperitoneal air. Pancolonic diverticulosis. CONCLUSION: Abnormal liver and ascites. Pancolonic diverticulosis. Cholecystectomy. Cardiomegaly with right pleural effusion.
[2018-11-24 12:37] VITALS: BP 119/55
== END 2018-11-24 12:29 ==
LOC: DL.ED 08:56
DX: R18.8 Other ascites (principal); I11.0 Hypertensive heart disease with heart failure; I50.9 Heart failure, unspecified; Z95.0 Presence of cardiac pacemaker; E11.9 Type 2 diabetes mellitus without complications; E03.9 Hypothyroidism, unspecified; Z88.5 Allergy status to narcotic agent; Z88.8 Allergy status to other drugs, medicaments and biological substances; Z79.899 Other long term (current) drug therapy
CPT/HCPCS: 36415; 74177; 80053; 81001; 82140; 82150; 83690; 85025; 87086; 87088; 87186; 99285; G0480; Q9967

== ENCOUNTER 2019-01-21 19:38 | Emergency (ER) | payer MEDICARE, MEDICAID ==
[2019-01-21 20:56] VITALS: BP 140/46
[2019-01-21] MEDS ORDERED: Azithromycin 250 MG Tab PO ONE (21:32)
--- NOTE | 2019-01-21 21:36 | EDM.PDOC ---
ED HPI GENERAL MEDICAL PROBLEM - General Chief Complaint: Respiratory Problem Stated Complaint: BRONCHITIUS Time Seen by Provider: 01/21/19 21:33 Source of Information: Reports: Patient History Limitations: Reports: No Limitations - History of Present Illness INITIAL COMMENTS - FREE TEXT/NARRATIVE: gives recurrent h/o bronchitis and z-lashell did help. - Related Data Allergies Allergy/AdvReac Type Severity Reaction Status Date / Time codeine Allergy Unknown Cannot Verified 01/21/19 20:53 Remember sacubitril [From Entresto] Allergy Dizziness Verified 01/21/19 20:53 simvastatin [From Zocor] Allergy Muscle Verified 01/21/19 20:53 Aches valsartan [From Entresto] Allergy Dizziness Verified 01/21/19 20:53 metal Allergy Mild Rash Uncoded 01/21/19 20:53 Home Meds: Home Meds Levothyroxine 112 mcg PO DAILY 05/22/14 [History] glipiZIDE [Glipizide] 10 mg PO BID 07/09/15 [History] Omeprazole 20 mg PO DAILY 04/15/16 [History] Albuterol [IJD: Ventolin HFA] 2 puff INH Q6H PRN 05/18/16 [History] Cyanocobalamin (Vitamin B-12) [Cyanocobalamin Injection] 1,000 mcg IM ASDIRECTED 05/18/16 [History] Carvedilol 6.25 mg PO BID 07/23/16 [History] Bumetanide [Bumex] 1 mg PO DAILY 08/07/16 [History] metFORMIN HCl [Metformin HCl] 800 mg PO BID 08/07/16 [History] Lisinopril 2.5 mg PO DAILY 11/13/16 [History] Acetaminophen 1 - 2 tab PO ASDIRECTED PRN 08/08/17 [History] Albuterol [Proventil Neb Soln] 1 unit NEB ASDIRECTED 08/08/17 [History] Ferrous Sulfate 325 mg PO BID 08/08/17 [History] Insulin Aspart [NovoLOG] 5 units SUBCUT TID 10/28/17 [History] Past Medical History HEENT History: Reports: Cataract, Impaired Vision Other HEENT History: wears glasses Cardiovascular History: Reports: Cardiomyopathy, Heart Failure, High Cholesterol , Hypertension, Pacemaker, Other (See Below) Other Cardiovascular History: CARDIAC DIFIBRILLATOR PLACEMENT (2017), NONISCHEMIC CARDIOMYOPATHY Respiratory History: Reports: Bronchitis, Recurrent, COPD, Pneumonia, Recurrent Gastrointestinal History: Reports: Cholelithiasis, GERD Genitourinary History: Reports: Renal Disease, UTI, Recurrent, Other (See Below) Other Genitourinary History: CKD 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 Musculoskeletal History: Reports: Arthritis, Fracture, Other (See Below) Other Musculoskeletal History: SHOULDER PAIN, BILATERAL Neurological History: Reports: None Psychiatric History: Reports: Addiction Endocrine/Metabolic History: Reports: Diabetes, Type II, Hypothyroidism Hematologic History: Reports: Anemia, B12 Deficiency, Iron Deficiency Immunologic History: Reports: None Oncologic (Cancer) History: Reports: None Dermatologic History: Reports: None - Infectious Disease History Infectious Disease History: Reports: Chicken Pox, Measles, Mumps, Rubella - Past Surgical History Head Surgeries/Procedures: Reports: None HEENT Surgical History: Reports: Cataract Surgery Cardiovascular Surgical History: Reports: AICD GI Surgical History: Reports: Appendectomy, Cholecystectomy Social & Family History - Family History Family Medical History: Noncontributory - Tobacco Use Smoking Status *Q: Former Smoker Used Tobacco, but Quit: Yes Month/Year Tobacco Last Used: 2013 - Caffeine Use Caffeine Use: Reports: Coffee Caffeine Use Comment: decaf products - Recreational Drug Use Recreational Drug Use: No - Living Situation & Occupation Occupation: Retired ED ROS GENERAL - Review of Systems Review Of Systems: ROS reveals no pertinent complaints other than HPI. ED EXAM, GENERAL - Physical Exam Exam: See Below Exam Limited By: No Limitations General Appearance: Alert, WD/WN, No Apparent Distress Ears: Hearing Grossly Normal Throat/Mouth: Normal Voice, No Airway Compromise Head: Atraumatic Neck: Non-Tender, Full Range of Motion Respiratory/Chest: No Respiratory Distress, No Accessory Muscle Use, Rhonchi. No: Decreased Breath Sounds Cardiovascular: Regular Rate, Rhythm GI/Abdominal: Soft, Non-Tender Neurological: Alert, Oriented, Normal Cognition, Normal Gait, No Motor/Sensory Deficits Psychiatric: Normal Affect, Normal Mood Skin Exam: Warm, Dry, Normal Color Lymphatic: No Adenopathy Course - Vital Signs Last Recorded V/S: Last Vital Signs Temp 37.3 C 01/21/19 20:53 Pulse 66 01/21/19 20:53 Resp 18 01/21/19 20:53 BP 140/46 L 01/21/19 20:53 Pulse Ox 97 01/21/19 20:53 - Orders/Labs/Meds Meds: Medications Discontinued Medications Generic Name Dose Route Start Last Admin Trade Name Linh PRN Reason Stop Dose Admin Azithromycin 500 mg 01/21/19 21:32 Zithromax PO 01/21/19 21:33 ONETIME ONE Departure - Departure Time of Disposition: 21:34 Disposition: Home, Self-Care 01 Condition: Good Clinical Impression: COPD exacerbation, Bronchitis - Discharge Information Instructions: Acute Bronchitis, Adult, [id number] Additional Instructions: 1) continue with nebs 2) follow up at clinic rx given; z-lashell
== END 2019-01-21 21:41 | disposition home or self-care (01) ==
LOC: DL.ED 19:38
DX: J44.1 Chronic obstructive pulmonary disease with (acute) exacerbation (principal); I13.2 Hypertensive heart and chronic kidney disease with heart failure and with stage 5 chronic kidney disease, or end stage renal disease; I50.9 Heart failure, unspecified; E11.22 Type 2 diabetes mellitus with diabetic chronic kidney disease; N18.9 Chronic kidney disease, unspecified; D63.1 Anemia in chronic kidney disease; Z88.5 Allergy status to narcotic agent; Z88.8 Allergy status to other drugs, medicaments and biological substances; Z79.899 Other long term (current) drug therapy; Z87.891 Personal history of nicotine dependence
CPT/HCPCS: 99283; A9270

== ENCOUNTER 2019-06-26 17:44 | Emergency (ER) | payer MEDICARE, MEDICAID ==
--- NOTE | 2019-06-26 18:49 | EDM.PDOC ---
<Iris Dueñas - Last Filed: 06/26/19 18:44> ED HPI GENERAL MEDICAL PROBLEM - General Chief Complaint: Headache Stated Complaint: DIZZINESS, COUGHING Time Seen by Provider: 06/26/19 18:25 Source of Information: Reports: Patient, RN, RN Notes Reviewed History Limitations: Reports: No Limitations - History of Present Illness INITIAL COMMENTS - FREE TEXT/NARRATIVE: Pt to ER with c/o headache, dizziness, productive cough, fever, and low BP. Patient states she was at [facility] today and her BP was low. Patient states she has been feeling tired. States a month ago she was discharged from [facility] and her Bumex was doubled. Onset: Gradual Chest Pain Score (Numeric/FACES): 3 - Related Data Allergies Allergy/AdvReac Type Severity Reaction Status Date / Time codeine Allergy Unknown Cannot Verified 06/26/19 18:03 Remember adhesive tape Allergy Rash Verified 06/26/19 18:03 sacubitril [From Entresto] Allergy Dizziness Verified 06/26/19 18:03 simvastatin [From Zocor] Allergy Muscle Verified 06/26/19 18:03 Aches valsartan [From Entresto] Allergy Dizziness Verified 06/26/19 18:03 metal Allergy Mild Rash Uncoded 06/26/19 18:03 Home Meds: Home Meds glipiZIDE [Glipizide] 10 mg PO BIDMEALS 07/09/15 [History] Omeprazole 20 mg PO ACBREAKFAST 04/15/16 [History] Albuterol [IJD: Ventolin HFA] 2 puff INH Q6H PRN 05/18/16 [History] Carvedilol 6.25 mg PO BID 07/23/16 [History] metFORMIN HCl [Metformin HCl] 500 mg PO BIDMEALS 08/07/16 [History] Acetaminophen 1,000 mg PO BID PRN 08/08/17 [History] Albuterol [Proventil Neb Soln] 3 ml NEB Q6H PRN 08/08/17 [History] SitaGLIPtin [Januvia] 50 mg PO BEDTIME 04/11/19 [History] Insulin Detemir [Levemir Flextouch] 8 units SQ BEDTIME 04/30/19 [History] Ipratropium/Albuterol Sulfate [Iprat-Albut 0.5-3(2.5) mg/3 ml] 3 ml INH QID [History] Levothyroxine 150 mcg PO ACBREAKFAST 04/30/19 [History] Losartan [Cozaar] 12.5 mg PO BEDTIME 04/30/19 [History] Pravastatin Sodium 10 mg PO BEDTIME 04/30/19 [History] Bumetanide 1 mg PO BID 06/26/19 [History] Past Medical History HEENT History: Reports: Cataract, Impaired Vision Other HEENT History: wears glasses Cardiovascular History: Reports: Cardiomyopathy, Heart Failure, High Cholesterol , Hypertension, Pacemaker, Other (See Below) Other Cardiovascular History: CARDIAC DIFIBRILLATOR PLACEMENT (2017), NONISCHEMIC CARDIOMYOPATHY Respiratory History: Reports: Bronchitis, Recurrent, COPD, Pneumonia, Recurrent Gastrointestinal History: Reports: Cholelithiasis, GERD Genitourinary History: Reports: Renal Disease, UTI, Recurrent, Other (See Below) Other Genitourinary History: CKD CHUTE MAN 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 CHUTE MAN History: HAS 3 KIDS Musculoskeletal History: Reports: Arthritis, Fracture, Other (See Below) Other Musculoskeletal History: SHOULDER PAIN, BILATERAL Neurological History: Reports: None Psychiatric History: Reports: Addiction Endocrine/Metabolic History: Reports: Diabetes, Type II, Hypothyroidism Hematologic History: Reports: Anemia, B12 Deficiency, Iron Deficiency Immunologic History: Reports: None Oncologic (Cancer) History: Reports: None Dermatologic History: Reports: None - Infectious Disease History Infectious Disease History: Reports: Chicken Pox, Measles, Mumps, Rubella - Past Surgical History Head Surgeries/Procedures: Reports: None HEENT Surgical History: Reports: Cataract Surgery Cardiovascular Surgical History: Reports: AICD GI Surgical History: Reports: Appendectomy, Cholecystectomy Social & Family History - Family History Family Medical History: Noncontributory - Tobacco Use Smoking Status *Q: Never Smoker Second Hand Smoke Exposure: No - Caffeine Use Caffeine Use: Reports: None Caffeine Use Comment: decaf products - Recreational Drug Use Recreational Drug Use: No - Living Situation & Occupation Living situation: Reports: Alone Occupation: Employed ED ROS GENERAL - Review of Systems Review Of Systems: ROS reveals no pertinent complaints other than HPI. ED EXAM, GENERAL - Physical Exam Exam: See Below Exam Limited By: No Limitations General Appearance: Alert, WD/WN, No Apparent Distress Eye Exam: Bilateral Eye: EOMI, Normal Inspection Ears: Normal External Exam, Hearing Grossly Normal Nose: Normal Inspection Throat/Mouth: Normal Inspection, Normal Voice, No Airway Compromise Head: Atraumatic, Normocephalic Neck: Normal Inspection, Supple, Non-Tender, Full Range of Motion Respiratory/Chest: No Respiratory Distress, Crackles (bases bilaterally) Cardiovascular: Normal Peripheral Pulses, Regular Rate, Rhythm, No Edema, No Gallop, No JVD, No Murmur, No Rub Peripheral Pulses: 2+: Radial (L), Radial (R) GI/Abdominal: Normal Bowel Sounds, Soft, Non-Tender (Female) Exam: Deferred Rectal (Female) Exam: Deferred Back Exam: Normal Inspection, Full Range of Motion, NT Extremities: Normal Inspection, Normal Range of Motion, Non-Tender, Normal Capillary Refill, No Pedal Edema Neurological: Alert, Oriented, CN II-XII Intact, Normal Cognition, Normal Gait, Normal Reflexes, No Motor/Sensory Deficits Psychiatric: Normal Affect, Normal Mood Skin Exam: Warm, Dry, Intact, Normal Color, No Rash Lymphatic: No Adenopathy Course - Vital Signs Last Recorded V/S: Last Vital Signs Temp 98.4 F 06/26/19 20:18 Pulse 61 06/26/19 20:18 Resp 17 06/26/19 20:18 BP 107/61 06/26/19 20:18 Pulse Ox 100 06/26/19 20:18 - Orders/Labs/Meds Orders: Active Orders 24 hr Category Date Time Status RT Aerosol Therapy [RC] ASDIRECTED Care 06/26/19 20:04 Active Chest 2V [CR] Urgent Exams 06/26/19 18:43 Taken CULTURE URINE [RM] Stat Lab 06/26/19 19:32 Received Labs: Laboratory Tests 06/26/19 06/26/19 06/26/19 Range/Units 19:04 19:04 19:32 WBC 8.1 (5.0-10.0) 10^3/uL RBC 3.99 L (4.2-5.4) 10^6/uL Hgb 9.8 L (12.0-16.0) g/dL Hct 31.3 L (37.0-47.0) % MCV 78.4 L (80-100) fL MCH 24.6 L (27.0-34.0) pg MCHC 31.3 L (33.0-35.0) g/dL Plt Count 255 (150-450) 10^3/uL Neut % (Auto) 76.2 H (42.2-75.2) % Lymph % (Auto) 14.9 L (20.5-50.1) % [place] % (Auto) 4.5 (2-8) % Eos % (Auto) 4.3 H (1.0-3.0) % Baso % (Auto) 0.1 (0.0-1.0) % Sodium 134 L (135-145) mmol/L Potassium 4.1 (3.6-5.0) mmol/L Chloride 101 (101-111) mmol/L Carbon Dioxide 23.0 (21.0-31.0) mmol/L Anion Gap 14.1 BUN 38 H (7-18) mg/dL Creatinine 1.4 H (0.6-1.3) mg/dL Est Cr Clr Drug Dosing 32.29 mL/min Estimated GFR (MDRD) 37 BUN/Creatinine Ratio 27.14 Glucose 113 H (74-105) mg/dL Calcium 8.8 (8.4-10.2) mg/dl Total Bilirubin 0.5 (0.2-1.0) mg/dL AST 18 (10-42) IU/L ALT 11 (10-60) IU/L Alkaline Phosphatase 151 H (42-121) IU/L B-Natriuretic Peptide 121 H (0-100) pg/ml Total Protein 8.6 H (6.7-8.2) g/dl Albumin 3.5 (3.2-5.5) g/dl Globulin 5.1 Albumin/Globulin Ratio 0.69 Urine Color Yellow (YELLOW) Urine Appearance Cloudy (CLEAR) Urine pH 5.0 (5.0-9.0) Ur Specific [place] 1.015 (1.005-1.030) Urine Protein 30 H (NEGATIVE) Urine Glucose (UA) Negative (NEGATIVE) Urine Ketones Negative (NEGATIVE) Urine Occult Blood Negative (NEGATIVE) Urine Nitrite Negative (NEGATIVE) Urine Bilirubin Negative (NEGATIVE) Urine Urobilinogen 0.2 (0.2-1.0) mg/dL Ur Leukocyte Esterase Large H (NEGATIVE) Urine RBC 0-5 /HPF Urine WBC >100 H (0-5/HPF) /HPF Ur Epithelial Cells Few (NOT SEEN) /HPF Amorphous Sediment Occasional (NOT SEEN) /HPF Urine Bacteria Many H (0-FEW/HPF) /HPF Urine Mucus Not seen (NOT SEEN) /LPF Meds: Medications Discontinued Medications Generic Name Dose Route Start Last Admin Trade Name Linh PRN Reason Stop Dose Admin Albuterol/Ipratropium 3 ml 06/26/19 20:04 06/26/19 20:09 Duoneb 3.0-0.5 Mg/3 Ml NEB 06/26/19 20:05 3 ml ONETIME ONE Administration Amoxicillin/Clavulanate Potassium 1 tab 06/26/19 20:18 06/26/19 20:24 Augmentin 500 Mg\125 Mg PO 06/26/19 20:19 1 tab ONETIME ONE Administration Departure - Departure Disposition: Home, Self-Care 01 Clinical Impression: Cough, Bronchitis UTI (urinary tract infection) Qualifiers: Urinary tract infection type: site unspecified Hematuria presence: without hematuria Qualified Code(s): N39.0 - Urinary tract infection, site not specified - Discharge Information Instructions: Upper Respiratory Infection, Adult, [id number], Urinary Tract Infection, Adult, [id number] Forms: ED Department Discharge Additional Instructions: augmentin 500/125 one twice daily Nebulizer three times daily as needed for cough follow up with Tricia this week urgent follow up if symptoms worsen tylenol 500mg every 4 hours as needed continue tussin, may use every 4 hours as needed continue daily weight and bring to clinic appointment - My Orders Last 24 Hours: My Active Orders 06/26/19 20:04 RT Aerosol Therapy [RC] ASDIRECTED - Assessment/Plan Last 24 Hours: My Active Orders 06/26/19 20:04 RT Aerosol Therapy [RC] ASDIRECTED <Jovana Martinez - Last Filed: 06/26/19 20:39> Departure - Departure Time of Disposition: 20:34 Condition: Good - Discharge Information *PRESCRIPTION DRUG MONITORING PROGRAM REVIEWED*: No *COPY OF PRESCRIPTION DRUG MONITORING REPORT IN PATIENT VALERIE: No
[2019-06-26 19:42] LABS: ANION GAP 14.1
[2019-06-26] MEDS ORDERED: Albuterol/Ipratropium 3.0-0.5 MG/3 ML Neb Soln NEB ONE (20:04)
[2019-06-26] MEDS ORDERED: Amoxicillin/Clavulanate K 500-125 MG Tab PO ONE (20:18)
[2019-06-26 20:19] VITALS: BP 107/61; PULSE 61
== END 2019-06-26 20:45 | disposition home or self-care (01) ==
LOC: DL.ED 17:44
DX: J40 Bronchitis, not specified as acute or chronic (principal); N39.0 Urinary tract infection, site not specified; I13.0 Hypertensive heart and chronic kidney disease with heart failure and stage 1 through stage 4 chronic kidney disease, or unspecified chronic kidney disease; E11.22 Type 2 diabetes mellitus with diabetic chronic kidney disease; N18.9 Chronic kidney disease, unspecified; I50.9 Heart failure, unspecified; K21.9 Gastro-esophageal reflux disease without esophagitis; E03.9 Hypothyroidism, unspecified; Z88.8 Allergy status to other drugs, medicaments and biological substances; Z88.5 Allergy status to narcotic agent; Z91.048 Other nonmedicinal substance allergy status; Z79.899 Other long term (current) drug therapy; Z79.4 Long term (current) use of insulin
CPT/HCPCS: 36415; 71046; 80053; 81001; 83880; 85025; 87086; 87088; 87186; 94640; 99284-25; A9270-GY; J7620-GY

== ENCOUNTER 2019-08-05 20:26 | Emergency (ER) | payer MEDICARE, MEDICAID ==
[2019-08-05] MEDS ORDERED: Sodium Chloride 0.9% 10 ML Syringe FLUSH PRN (20:35)
[2019-08-05 21:04] LABS: ANION GAP 15.3; CHLORIDE,CL 97 mmol/L (101-111); SODIUM,NA 131 mmol/L (135-145)
--- NOTE | 2019-08-05 21:44 | EDM.PDOC ---
ED HPI GENERAL MEDICAL PROBLEM - General Chief Complaint: Neurological Problem Stated Complaint: AMBULANCE Time Seen by Provider: 08/05/19 20:45 Source of Information: Reports: Patient, EMS, EMS Notes Reviewed, RN, RN Notes Reviewed History Limitations: Reports: No Limitations - History of Present Illness INITIAL COMMENTS - FREE TEXT/NARRATIVE: patient presents to ER. [facility] with complaint of "strange" headache, and left earache. Patient states she took Tylenol at that time without help. Patient states at 5 PM this evening she was watching the news, when she felt her left hand became numb and tingly. This has resolved at this time, patient denies any numbness tingling. Patient denies chest pain, shortness of breath, nausea, vomiting, fever or chills. NIH scale was 0. Onset: Today, Sudden Left Ear Pain Score (Numeric/FACES): 1 - Related Data Allergies Allergy/AdvReac Type Severity Reaction Status Date / Time codeine Allergy Unknown Cannot Verified 08/05/19 20:27 Remember adhesive tape Allergy Rash Verified 08/05/19 20:27 sacubitril [From Entresto] Allergy Dizziness Verified 08/05/19 20:27 simvastatin [From Zocor] Allergy Muscle Verified 08/05/19 20:27 Aches valsartan [From Entresto] Allergy Dizziness Verified 08/05/19 20:27 metal Allergy Mild Rash Uncoded 08/05/19 20:27 Home Meds: Home Meds glipiZIDE [Glipizide] 10 mg PO BIDMEALS 07/09/15 [History] Omeprazole 20 mg PO ACBREAKFAST 04/15/16 [History] Albuterol [IJD: Ventolin HFA] 2 puff INH Q6H PRN 05/18/16 [History] Carvedilol 6.25 mg PO BID 07/23/16 [History] metFORMIN HCl [Metformin HCl] 500 mg PO BIDMEALS 08/07/16 [History] Acetaminophen 1,000 mg PO BID PRN 08/08/17 [History] Albuterol [Proventil Neb Soln] 3 ml NEB Q6H PRN 08/08/17 [History] SitaGLIPtin [Januvia] 50 mg PO BEDTIME 04/11/19 [History] Insulin Detemir [Levemir Flextouch] 8 units SQ BEDTIME 04/30/19 [History] Ipratropium/Albuterol Sulfate [Iprat-Albut 0.5-3(2.5) mg/3 ml] 3 ml INH QID [History] Levothyroxine 150 mcg PO ACBREAKFAST 04/30/19 [History] Losartan [Cozaar] 12.5 mg PO BEDTIME 04/30/19 [History] Pravastatin Sodium 10 mg PO BEDTIME 04/30/19 [History] Bumetanide 1 mg PO BID 06/26/19 [History] Past Medical History HEENT History: Reports: Cataract, Impaired Vision Other HEENT History: wears glasses Cardiovascular History: Reports: Cardiomyopathy, Heart Failure, High Cholesterol , Hypertension, Pacemaker, Other (See Below) Other Cardiovascular History: CARDIAC DIFIBRILLATOR PLACEMENT (2017), NONISCHEMIC CARDIOMYOPATHY Respiratory History: Reports: Bronchitis, Recurrent, COPD, Pneumonia, Recurrent Gastrointestinal History: Reports: Cholelithiasis, GERD Genitourinary History: Reports: Renal Disease, UTI, Recurrent, Other (See Below) Other Genitourinary History: CKD 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 Musculoskeletal History: Reports: Arthritis, Fracture, Other (See Below) Other Musculoskeletal History: SHOULDER PAIN, BILATERAL Neurological History: Reports: None Psychiatric History: Reports: Addiction Endocrine/Metabolic History: Reports: Diabetes, Type II, Hypothyroidism Hematologic History: Reports: Anemia, B12 Deficiency, Iron Deficiency Immunologic History: Reports: None Oncologic (Cancer) History: Reports: None Dermatologic History: Reports: None - Infectious Disease History Infectious Disease History: Reports: Chicken Pox, Measles, Mumps, Rubella - Past Surgical History Head Surgeries/Procedures: Reports: None HEENT Surgical History: Reports: Cataract Surgery Cardiovascular Surgical History: Reports: AICD GI Surgical History: Reports: Appendectomy, Cholecystectomy Social & Family History - Family History Family Medical History: Noncontributory - Tobacco Use Smoking Status *Q: Never Smoker - Caffeine Use Caffeine Use: Reports: None Caffeine Use Comment: decaf products - Recreational Drug Use Recreational Drug Use: No - Living Situation & Occupation Living situation: Reports: Alone Occupation: Employed ED ROS ENT - Review of Systems Review Of Systems: ROS reveals no pertinent complaints other than HPI. ED EXAM, ENT - Physical Exam Exam: See Below Exam Limited By: No Limitations General Appearance: Alert, WD/WN, No Apparent Distress Eye Exam: Bilateral Eye: EOMI, Normal Inspection Ears: Normal External Exam, Normal Canal, Hearing Grossly Normal, Normal TMs Nose: Normal Inspection Mouth/Throat: Normal Inspection, Normal Gums, Normal Lips, Normal Oropharynx Head: Atraumatic, Normocephalic Neck: Normal Inspection, Supple, Non-Tender, Full Range of Motion Respiratory/Chest: No Respiratory Distress, Lungs Clear, Normal Breath Sounds, No Accessory Muscle Use, Chest Non-Tender Cardiovascular: Normal Peripheral Pulses, Regular Rate, Rhythm, No Edema, No Gallop, No JVD, No Murmur, No Rub GI/Abdominal: Normal Bowel Sounds, Soft, Non-Tender (Female) Exam: Deferred Rectal (Female) Exam: Deferred Back: Normal Inspection, Full Range of Motion Extremities: Normal Inspection, Normal Range of Motion, Non-Tender, No Pedal Edema, Normal Capillary Refill Neurological: Alert, Oriented, Normal Cognition, No Motor/Sensory Deficits Psychiatric: Normal Affect, Normal Mood Skin: Warm, Dry, Intact, Normal Color, No Rash Lymphatic: No Adenopathy Course - Vital Signs Last Recorded V/S: Last Vital Signs Temp 96.8 F 08/05/19 23:39 Pulse 68 08/05/19 23:39 Resp 17 08/05/19 23:39 BP 143/76 H 08/05/19 23:39 Pulse Ox 96 08/05/19 23:39 - Orders/Labs/Meds Orders: Active Orders 24 hr Category Date Time Status EKG Documentation Completion [RC] STAT Care 08/05/19 20:35 Active Peripheral IV Care [RC] . DIRECTED Care 08/05/19 20:35 Active CULTURE URINE [RM] Stat Lab 08/05/19 21:58 Received Peripheral IV Insertion Adult [OM.PC] Stat Oth 08/05/19 20:35 Ordered Labs: Laboratory Tests 08/05/19 08/05/19 08/05/19 Range/Units 20:30 20:40 20:40 WBC 8.1 (5.0-10.0) 10^3/uL RBC 3.84 L (4.2-5.4) 10^6/uL Hgb 9.4 L (12.0-16.0) g/dL Hct 29.7 L (37.0-47.0) % MCV 77.3 L (80-100) fL MCH 24.5 L (27.0-34.0) pg MCHC 31.6 L (33.0-35.0) g/dL Plt Count 281 (150-450) 10^3/uL Neut % (Auto) 69.6 (42.2-75.2) % Lymph % (Auto) 20.4 L (20.5-50.1) % [place] % (Auto) 5.3 (2-8) % Eos % (Auto) 4.6 H (1.0-3.0) % Baso % (Auto) 0.1 (0.0-1.0) % PT 9.9 (9.0-12.0) SEC INR 1.0 (0.9-1.2) Sodium (135-145) mmol/L Potassium (3.6-5.0) mmol/L Chloride (101-111) mmol/L Carbon Dioxide (21.0-31.0) mmol/L Anion Gap BUN (7-18) mg/dL Creatinine (0.6-1.3) mg/dL Est Cr Clr Drug Dosing mL/min Estimated GFR (MDRD) BUN/Creatinine Ratio Glucose (74-105) mg/dL POC Glucose 98 (83-110) mg/dl Calcium (8.4-10.2) mg/dl Total Bilirubin (0.2-1.0) mg/dL AST (10-42) IU/L ALT (10-60) IU/L Alkaline Phosphatase (42-121) IU/L Troponin I (0.00-0.02) ng/ml Total Protein (6.7-8.2) g/dl Albumin (3.2-5.5) g/dl Globulin Albumin/Globulin Ratio Urine Color (YELLOW) Urine Appearance (CLEAR) Urine pH (5.0-9.0) Ur Specific [place] (1.005-1.030) Urine Protein (NEGATIVE) Urine Glucose (UA) (NEGATIVE) Urine Ketones (NEGATIVE) Urine Occult Blood (NEGATIVE) Urine Nitrite (NEGATIVE) Urine Bilirubin (NEGATIVE) Urine Urobilinogen (0.2-1.0) mg/dL Ur Leukocyte Esterase (NEGATIVE) Urine RBC /HPF Urine WBC (0-5/HPF) /HPF Ur Epithelial Cells (NOT SEEN) /HPF Urine Bacteria (0-FEW/HPF) /HPF Urine Opiates Screen (NEGATIVE) Ur Oxycodone Screen (NEGATIVE) Urine Methadone Screen (NEGATIVE) Ur Barbiturates Screen (NEGATIVE) U Tricyclic Antidepress (NEGATIVE) Ur Phencyclidine Scrn (NEGATIVE) Ur Amphetamine Screen (NEGATIVE) U Methamphetamines Scrn (NEGATIVE) Urine MDMA Screen (NEGATIVE) U Benzodiazepines Scrn (NEGATIVE) Urine Cocaine Screen (NEGATIVE) U Marijuana (THC) Screen (NEGATIVE) Ethyl Alcohol mg/dL 08/05/19 08/05/19 08/05/19 Range/Units 20:40 21:58 21:58 WBC (5.0-10.0) 10^3/uL RBC (4.2-5.4) 10^6/uL Hgb (12.0-16.0) g/dL Hct (37.0-47.0) % MCV (80-100) fL MCH (27.0-34.0) pg MCHC (33.0-35.0) g/dL Plt Count (150-450) 10^3/uL Neut % (Auto) (42.2-75.2) % Lymph % (Auto) (20.5-50.1) % [place] % (Auto) (2-8) % Eos % (Auto) (1.0-3.0) % Baso % (Auto) (0.0-1.0) % PT (9.0-12.0) SEC INR (0.9-1.2) Sodium 131 L (135-145) mmol/L Potassium 4.3 (3.6-5.0) mmol/L Chloride 97 L (101-111) mmol/L Carbon Dioxide 23.0 (21.0-31.0) mmol/L Anion Gap 15.3 BUN 37 H (7-18) mg/dL Creatinine 1.3 (0.6-1.3) mg/dL Est Cr Clr Drug Dosing 34.77 mL/min Estimated GFR (MDRD) 40 BUN/Creatinine Ratio 28.46 Glucose 109 H (74-105) mg/dL POC Glucose (83-110) mg/dl Calcium 8.9 (8.4-10.2) mg/dl Total Bilirubin 0.6 (0.2-1.0) mg/dL AST 19 (10-42) IU/L ALT 12 (10-60) IU/L Alkaline Phosphatase 154 H (42-121) IU/L Troponin I 0.02 (0.00-0.02) ng/ml Total Protein 8.4 H (6.7-8.2) g/dl Albumin 3.4 (3.2-5.5) g/dl Globulin 5.0 Albumin/Globulin Ratio 0.68 Urine Color Yellow (YELLOW) Urine Appearance Slightly cloudy (CLEAR) Urine pH 5.5 (5.0-9.0) Ur Specific [place] 1.010 (1.005-1.030) Urine Protein Negative (NEGATIVE) Urine Glucose (UA) Negative (NEGATIVE) Urine Ketones Negative (NEGATIVE) Urine Occult Blood Negative (NEGATIVE) Urine Nitrite Negative (NEGATIVE) Urine Bilirubin Negative (NEGATIVE) Urine Urobilinogen 0.2 (0.2-1.0) mg/dL Ur Leukocyte Esterase Moderate H (NEGATIVE) Urine RBC Not seen /HPF Urine WBC 20-30 H (0-5/HPF) /HPF Ur Epithelial Cells Few (NOT SEEN) /HPF Urine Bacteria Many H (0-FEW/HPF) /HPF Urine Opiates Screen Negative (NEGATIVE) Ur Oxycodone Screen Negative (NEGATIVE) Urine Methadone Screen Negative (NEGATIVE) Ur Barbiturates Screen Negative (NEGATIVE) U Tricyclic Antidepress Negative (NEGATIVE) Ur Phencyclidine Scrn Negative (NEGATIVE) Ur Amphetamine Screen Negative (NEGATIVE) U Methamphetamines Scrn Negative (NEGATIVE) Urine MDMA Screen Negative (NEGATIVE) U Benzodiazepines Scrn Negative (NEGATIVE) Urine Cocaine Screen Negative (NEGATIVE) U Marijuana (THC) Screen Negative (NEGATIVE) Ethyl Alcohol < 5 mg/dL Meds: Medications Discontinued Medications Generic Name Dose Route Start Last Admin Trade Name Freq PRN Reason Stop Dose Admin Nitrofurantoin Macrocrystals 100 mg 08/05/19 23:31 08/05/19 23:38 Macrobid PO 08/05/19 23:32 100 mg ONETIME ONE Administration Sodium Chloride 10 ml 08/05/19 20:35 08/05/19 20:58 Saline Flush FLUSH 10 ml ASDIRECTED PRN Administration Keep Vein Open - Radiology Interpretation Free Text/Narrative:: Head CT wo contrast: FINDINGS: Brain: Typical for age. No hemorrhage. No evidence of acute infarct. No mass. Ventricles: No ventriculomegaly. Bones/joints: Unremarkable. Sinuses: No sinus fluid. Mastoid air cells: Unremarkable. Soft tissues: Unremarkable. IMPRESSION: No acute intracranial abnormality. Thank you for allowing us to participate in the care of your patient. Dictated and Authenticated by: Seamus Rey MD 08/05/2019 10:42 PM Central Time ([place] & [place]) See rad report Departure - Departure Time of Disposition: 23:29 Disposition: Home, Self-Care 01 Condition: Fair Clinical Impression: Ear pain, left UTI (urinary tract infection) Qualifiers: Urinary tract infection type: site unspecified Hematuria presence: without hematuria Qualified Code(s): N39.0 - Urinary tract infection, site not specified - Discharge Information *PRESCRIPTION DRUG MONITORING PROGRAM REVIEWED*: No *COPY OF PRESCRIPTION DRUG MONITORING REPORT IN PATIENT VALERIE: No Instructions: Urinary Tract Infection, Adult, [id number], Earache, Adult Referrals: PCP,None [Ordering Only Provider] - Forms: ED Department Discharge Additional Instructions: Rx: Macrobid 100 mg twice daily orally for 10 days Follow-up with your primary care provider Jannie HAHN over the counter as directed - My Orders Last 24 Hours: My Active Orders 08/05/19 20:35 EKG Documentation Completion [RC] STAT Peripheral IV Care [RC] . DIRECTED Peripheral IV Insertion Adult [OM.PC] Stat 08/05/19 21:58 CULTURE URINE [RM] Stat - Assessment/Plan Last 24 Hours: My Active Orders 08/05/19 20:35 EKG Documentation Completion [RC] STAT Peripheral IV Care [RC] . DIRECTED Peripheral IV Insertion Adult [OM.PC] Stat 08/05/19 21:58 CULTURE URINE [RM] Stat
[2019-08-05 22:11] VITALS: PULSE 68
[2019-08-05] MEDS ORDERED: Nitrofurantoin Monohydrate/Macrocrystalline 100 MG Cap PO ONE (23:31)
[2019-08-05 23:40] VITALS: BP 143/76
== END 2019-08-05 23:48 | disposition home or self-care (01) ==
LOC: DL.ED 20:26
DX: H92.02 Otalgia, left ear (principal); N39.0 Urinary tract infection, site not specified; I13.0 Hypertensive heart and chronic kidney disease with heart failure and stage 1 through stage 4 chronic kidney disease, or unspecified chronic kidney disease; N18.9 Chronic kidney disease, unspecified; I50.9 Heart failure, unspecified; J44.9 Chronic obstructive pulmonary disease, unspecified; K21.9 Gastro-esophageal reflux disease without esophagitis; E78.00 Pure hypercholesterolemia, unspecified; Z88.5 Allergy status to narcotic agent; Z91.048 Other nonmedicinal substance allergy status; Z88.8 Allergy status to other drugs, medicaments and biological substances; Z79.899 Other long term (current) drug therapy; Z79.4 Long term (current) use of insulin
CPT/HCPCS: 36415; 70450; 80053; 80305; 81001; 82962; 84484; 85025; 85610; 87086; 87088; 87186; 93005; 99283; 99284; A9270; G0480

== ENCOUNTER 2019-09-01 11:07 | Emergency (ER) | payer MEDICARE, MEDICAID ==
[2019-09-01 11:19] VITALS: PULSE 60
[2019-09-01 11:48] LABS: ANION GAP 13.3
--- NOTE | 2019-09-01 12:41 | EDM.PDOC ---
Scribed by Kristyn Abebe 09/01/19 1237 for Kenneth Casillas PA ED HPI GENERAL MEDICAL PROBLEM - General Chief Complaint: ENT Problem Stated Complaint: STREP THROAT Time Seen by Provider: 09/01/19 11:30 Source of Information: Reports: Patient, RN, RN Notes Reviewed History Limitations: Reports: No Limitations - History of Present Illness INITIAL COMMENTS - FREE TEXT/NARRATIVE: Patient is a 69-year-old female who presents to ER with a sore throat that started this a.m. and cough. She had chest pain this a.m. as well. Her grandson was diagnosed with strep throat. She took a cough drop last night. This a.m. she took an Tylenol which helped her chest. She also took a neb treatment. She took Robitussin cough medication and an inhaler on the way here. She is also complaining of left ear pain x1 month. The patient has an appointment to see Dia Martins on Tuesday. Onset Date: 08/31/19 Duration: Getting Worse Location: Reports: Generalized Quality: Reports: Ache Severity: Moderate Improves with: Reports: None Worsens with: Reports: None Associated Symptoms: Reports: No Other Symptoms Epigastric Pain Score (Numeric/FACES): 2 - Related Data Allergies Allergy/AdvReac Type Severity Reaction Status Date / Time codeine Allergy Unknown Cannot Verified 09/01/19 11:21 Remember adhesive tape Allergy Rash Verified 09/01/19 11:21 sacubitril [From Entresto] Allergy Dizziness Verified 09/01/19 11:21 simvastatin [From Zocor] Allergy Muscle Verified 09/01/19 11:21 Aches valsartan [From Entresto] Allergy Dizziness Verified 09/01/19 11:21 metal Allergy Mild Rash Uncoded 09/01/19 11:21 Home Meds: Home Meds glipiZIDE [Glipizide] 10 mg PO BIDMEALS 07/09/15 [History] Omeprazole 20 mg PO ACBREAKFAST 04/15/16 [History] Albuterol [IJD: Ventolin HFA] 2 puff INH Q6H PRN 05/18/16 [History] carvediloL [Carvedilol] 6.25 mg PO BID 07/23/16 [History] metFORMIN HCl [Metformin HCl] 500 mg PO BIDMEALS 08/07/16 [History] Acetaminophen 1,000 mg PO BID PRN 08/08/17 [History] Albuterol [Proventil Neb Soln] 3 ml NEB Q6H PRN 08/08/17 [History] SitaGLIPtin [Januvia] 50 mg PO BEDTIME 04/11/19 [History] Insulin Detemir [Levemir Flextouch] 8 units SQ BEDTIME 04/30/19 [History] Ipratropium/Albuterol Sulfate [Iprat-Albut 0.5-3(2.5) mg/3 ml] 3 ml INH QID [History] Levothyroxine 150 mcg PO ACBREAKFAST 04/30/19 [History] Losartan [Cozaar] 12.5 mg PO BEDTIME 04/30/19 [History] Pravastatin Sodium 10 mg PO BEDTIME 04/30/19 [History] Bumetanide 1 mg PO BID 06/26/19 [History] Past Medical History HEENT History: Reports: Cataract, Impaired Vision Other HEENT History: wears glasses Cardiovascular History: Reports: Cardiomyopathy, Heart Failure, High Cholesterol , Hypertension, Pacemaker, Other (See Below) Other Cardiovascular History: CARDIAC DIFIBRILLATOR PLACEMENT (2017), NONISCHEMIC CARDIOMYOPATHY Respiratory History: Reports: Bronchitis, Recurrent, COPD, Pneumonia, Recurrent Gastrointestinal History: Reports: Cholelithiasis, GERD Genitourinary History: Reports: Renal Disease, UTI, Recurrent, Other (See Below) Other Genitourinary History: CKD [employer]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 Musculoskeletal History: Reports: Arthritis, Fracture, Other (See Below) Other Musculoskeletal History: SHOULDER PAIN, BILATERAL Neurological History: Reports: None Psychiatric History: Reports: Addiction Endocrine/Metabolic History: Reports: Diabetes, Type II, Hypothyroidism Hematologic History: Reports: Anemia, B12 Deficiency, Iron Deficiency Immunologic History: Reports: None Oncologic (Cancer) History: Reports: None Dermatologic History: Reports: None - Infectious Disease History Infectious Disease History: Reports: Chicken Pox, Measles, Mumps, Rubella - Past Surgical History Head Surgeries/Procedures: Reports: None HEENT Surgical History: Reports: Cataract Surgery Cardiovascular Surgical History: Reports: AICD GI Surgical History: Reports: Appendectomy, Cholecystectomy Social & Family History - Family History Family Medical History: Noncontributory - Tobacco Use Smoking Status *Q: Never Smoker - Caffeine Use Caffeine Use: Reports: Tea Caffeine Use Comment: decaf products - Recreational Drug Use Recreational Drug Use: No - Living Situation & Occupation Living situation: Reports: Alone Occupation: Employed ED ROS GENERAL - Review of Systems Review Of Systems: Comprehensive ROS is negative, except as noted in HPI. ED EXAM, GENERAL - Physical Exam Exam: See Below Exam Limited By: No Limitations General Appearance: Alert, WD/WN, No Apparent Distress Eye Exam: Bilateral Eye: EOMI, Normal Inspection, PERRL Ears: Normal External Exam, Normal Canal, Hearing Grossly Normal, Normal TMs Nose: Normal Inspection, Normal Mucosa, No Blood Throat/Mouth: Normal Inspection, Normal Lips, Normal Teeth, Normal Gums, Normal Oropharynx, Normal Voice, No Airway Compromise Head: Atraumatic, Normocephalic Neck: Normal Inspection, Supple, Non-Tender, Full Range of Motion Respiratory/Chest: Other (atilectatic bases. ). No: Rales, Rhonchi Cardiovascular: Normal Peripheral Pulses, Regular Rate, Rhythm, No Edema, No Gallop, No JVD, No Murmur, No Rub GI/Abdominal: Normal Bowel Sounds, Soft, Non-Tender, No Organomegaly, No Distention, No Abnormal Bruit, No Mass (Female) Exam: Deferred Rectal (Female) Exam: Deferred Back Exam: Normal Inspection, Full Range of Motion, NT Extremities: Normal Inspection, Normal Range of Motion, Non-Tender, Normal Capillary Refill, No Pedal Edema Neurological: Alert, Oriented, CN II-XII Intact, Normal Cognition, Normal Gait, Normal Reflexes, No Motor/Sensory Deficits Psychiatric: Normal Affect, Normal Mood Skin Exam: Warm, Dry, Intact, Normal Color, No Rash Lymphatic: No Adenopathy Course - Vital Signs Last Recorded V/S: Last Vital Signs Temp 36.6 C 09/01/19 11:10 Pulse 60 09/01/19 11:10 Resp 20 09/01/19 11:10 BP 130/42 L 09/01/19 11:10 Pulse Ox 94 L 09/01/19 11:10 - Orders/Labs/Meds Orders: Active Orders 24 hr Category Date Time Status EKG Documentation Completion [RC] URGENT Care 09/01/19 11:17 Active CULTURE STREP A CONFIRMATION [RM] Stat Lab 09/01/19 11:13 Results STREP SCRN A RAPID W CULT CONF [RM] Stat Lab 09/01/19 11:13 Results Labs: Laboratory Tests 09/01/19 09/01/19 Range/Units 11:24 11:24 WBC 8.8 (5.0-10.0) 10^3/uL RBC 3.51 L (4.2-5.4) 10^6/uL Hgb 8.7 L (12.0-16.0) g/dL Hct 27.5 L (37.0-47.0) % MCV 78.3 L (80-100) fL MCH 24.8 L (27.0-34.0) pg MCHC 31.6 L (33.0-35.0) g/dL Plt Count 290 (150-450) 10^3/uL Neut % (Auto) 80.5 H (42.2-75.2) % Lymph % (Auto) 12.7 L (20.5-50.1) % [place] % (Auto) 3.5 (2-8) % Eos % (Auto) 3.2 H (1.0-3.0) % Baso % (Auto) 0.1 (0.0-1.0) % Sodium 131 L (135-145) mmol/L Potassium 4.3 (3.6-5.0) mmol/L Chloride 98 L (101-111) mmol/L Carbon Dioxide 24.0 (21.0-31.0) mmol/L Anion Gap 13.3 BUN 31 H (7-18) mg/dL Creatinine 1.2 (0.6-1.3) mg/dL Est Cr Clr Drug Dosing 37.67 mL/min Estimated GFR (MDRD) 44 BUN/Creatinine Ratio 25.83 Glucose 166 H (74-105) mg/dL Calcium 8.9 (8.4-10.2) mg/dl Total Bilirubin 0.5 (0.2-1.0) mg/dL AST 15 (10-42) IU/L ALT 9 L (10-60) IU/L Alkaline Phosphatase 141 H (42-121) IU/L Troponin I 0.02 (0.00-0.02) ng/ml Total Protein 8.8 H (6.7-8.2) g/dl Albumin 3.2 (3.2-5.5) g/dl Globulin 5.6 Albumin/Globulin Ratio 0.57 Departure - Departure Time of Disposition: 12:39 Disposition: Home, Self-Care 01 Condition: Fair Clinical Impression: COPD exacerbation - Discharge Information *PRESCRIPTION DRUG MONITORING PROGRAM REVIEWED*: Not Applicable *COPY OF PRESCRIPTION DRUG MONITORING REPORT IN PATIENT VALERIE: Not Applicable Instructions: Chronic Obstructive Pulmonary Disease, [id number] Forms: ED Department Discharge Care Plan Goals: The patient was advised of the examination, lab and EKG results during the visit. The patient was discharged with a script for Augmentin (500/125) to take 1 by mouth 2 times per day for 10 days. The patient should continue to take her home medications as directed. If the patient has any additional symptoms or concerns, the patient should either return to the emergency department or visit her primary care facility. - My Orders Last 24 Hours: My Active Orders 09/01/19 11:13 CULTURE STREP A CONFIRMATION [RM] Stat STREP SCRN A RAPID W CULT CONF [RM] Stat 09/01/19 11:17 EKG Documentation Completion [RC] URGENT - Assessment/Plan Last 24 Hours: My Active Orders 09/01/19 11:13 CULTURE STREP A CONFIRMATION [RM] Stat STREP SCRN A RAPID W CULT CONF [RM] Stat 09/01/19 11:17 EKG Documentation Completion [RC] URGENT I have read and agree with the documentation that has been completed regarding this visit. By signing this record, I attest that the documentation was completed in my physical presence and is an accurate record of the encounter.
[2019-09-01 12:59] VITALS: BP 110/43
== END 2019-09-01 12:59 | disposition home or self-care (01) ==
LOC: DL.ED 11:07
DX: J44.1 Chronic obstructive pulmonary disease with (acute) exacerbation (principal); I13.0 Hypertensive heart and chronic kidney disease with heart failure and stage 1 through stage 4 chronic kidney disease, or unspecified chronic kidney disease; E11.22 Type 2 diabetes mellitus with diabetic chronic kidney disease; N18.9 Chronic kidney disease, unspecified; I50.9 Heart failure, unspecified; D64.9 Anemia, unspecified; E03.9 Hypothyroidism, unspecified; E78.00 Pure hypercholesterolemia, unspecified
CPT/HCPCS: 36415; 80053; 84484; 85025; 87081; 87430; 93005; 99283; 99285-25

== ENCOUNTER 2019-10-08 23:33 | Emergency (ER) | payer MEDICARE, MEDICAID ==
[2019-10-08 23:38] VITALS: BP 153/48; PULSE 60
--- NOTE | 2019-10-09 00:24 | EDM.PDOC ---
ED HPI GENERAL MEDICAL PROBLEM - General Chief Complaint: Cardiovascular Problem Stated Complaint: UNKNOWN Time Seen by Provider: 10/09/19 00:15 Source of Information: Reports: Patient History Limitations: Reports: No Limitations - History of Present Illness INITIAL COMMENTS - FREE TEXT/NARRATIVE: This 69 yo female patient reports to the ED with dizziness this evening. The patient was seen with similar symptoms on 09/21/19. The patient was supposed to follow-up with Dia Martins in the clinic, but missed her appointment. The patient reports she forgot to take her Coreg this morning and took 2 this evening just prior to her symptom onset. The patient also reports she has a headache at this time. Onset: Today Duration: Minutes:, Other Quality: 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 Severity: Moderate Improves with: Reports: None Worsens with: Reports: None Context: 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 Associated Symptoms: Reports: No Other Symptoms - Related Data Allergies Allergy/AdvReac Type Severity Reaction Status Date / Time codeine Allergy Unknown Cannot Verified 09/21/19 17:10 Remember adhesive tape Allergy Rash Verified 09/21/19 17:10 sacubitril [From Entresto] Allergy Dizziness Verified 09/21/19 17:10 simvastatin [From Zocor] Allergy Muscle Verified 09/21/19 17:10 Aches valsartan [From Entresto] Allergy Dizziness Verified 09/21/19 17:10 metal Allergy Mild Rash Uncoded 09/01/19 11:21 Home Meds: Home Meds glipiZIDE [Glipizide] 10 mg PO BIDMEALS 07/09/15 [History] Omeprazole 20 mg PO ACBREAKFAST 04/15/16 [History] Albuterol [IJD: Ventolin HFA] 2 puff INH Q6H PRN 05/18/16 [History] carvediloL [Carvedilol] 6.25 mg PO BID 07/23/16 [History] metFORMIN HCl [Metformin HCl] 500 mg PO BIDMEALS 08/07/16 [History] Acetaminophen 1,000 mg PO BID PRN 08/08/17 [History] Albuterol [Proventil Neb Soln] 3 ml NEB Q6H PRN 08/08/17 [History] SitaGLIPtin [Januvia] 50 mg PO BEDTIME 04/11/19 [History] Insulin Detemir [Levemir Flextouch] 8 units SQ BEDTIME 04/30/19 [History] Ipratropium/Albuterol Sulfate [Iprat-Albut 0.5-3(2.5) mg/3 ml] 3 ml INH QID [History] Levothyroxine 150 mcg PO ACBREAKFAST 04/30/19 [History] Losartan [Cozaar] 12.5 mg PO BEDTIME 04/30/19 [History] Pravastatin Sodium 10 mg PO BEDTIME 04/30/19 [History] Bumetanide 1 mg PO DAILY 06/26/19 [History] Past Medical History HEENT History: Reports: Cataract, Impaired Vision Other HEENT History: wears glasses Cardiovascular History: Reports: Cardiomyopathy, Heart Failure, High Cholesterol , Hypertension, Pacemaker, Other (See Below) Other Cardiovascular History: CARDIAC DIFIBRILLATOR PLACEMENT (2017), NONISCHEMIC CARDIOMYOPATHY Respiratory History: Reports: Bronchitis, Recurrent, COPD, Pneumonia, Recurrent Gastrointestinal History: Reports: Cholelithiasis, GERD Genitourinary History: Reports: Renal Disease, UTI, Recurrent, Other (See Below) Other Genitourinary History: CKD 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 Musculoskeletal History: Reports: Arthritis, Fracture, Other (See Below) Other Musculoskeletal History: SHOULDER PAIN, BILATERAL Neurological History: Reports: None Psychiatric History: Reports: Addiction Endocrine/Metabolic History: Reports: Diabetes, Type II, Hypothyroidism Hematologic History: Reports: Anemia, B12 Deficiency, Iron Deficiency Immunologic History: Reports: None Oncologic (Cancer) History: Reports: None Dermatologic History: Reports: None - Infectious Disease History Infectious Disease History: Reports: Chicken Pox, Measles, Mumps, Rubella - Past Surgical History Head Surgeries/Procedures: Reports: None HEENT Surgical History: Reports: Cataract Surgery Cardiovascular Surgical History: Reports: AICD GI Surgical History: Reports: Appendectomy, Cholecystectomy Social & Family History - Family History Family Medical History: Noncontributory - Tobacco Use Smoking Status *Q: Never Smoker Second Hand Smoke Exposure: No - Caffeine Use Caffeine Use: Reports: Tea Caffeine Use Comment: decaf products - Recreational Drug Use Recreational Drug Use: No - Living Situation & Occupation Living situation: Reports: Alone Occupation: Employed ED ROS GENERAL - Review of Systems Review Of Systems: Comprehensive ROS is negative, except as noted in HPI. ED EXAM, GENERAL - Physical Exam Exam: See Below Exam Limited By: No Limitations General Appearance: Alert, WD/WN, No Apparent Distress, Thin Eye Exam: Bilateral Eye: EOMI, Normal Inspection, PERRL Ears: Normal External Exam, Normal Canal, Hearing Grossly Normal, Normal TMs Nose: Normal Inspection, Normal Mucosa, No Blood Throat/Mouth: Normal Inspection, Normal Lips, Normal Teeth, Normal Gums, Normal Oropharynx, Normal Voice, No Airway Compromise Head: Atraumatic, Normocephalic Neck: Normal Inspection, Supple, Non-Tender, Full Range of Motion Respiratory/Chest: No Respiratory Distress, Lungs Clear, Normal Breath Sounds, No Accessory Muscle Use, Chest Non-Tender Cardiovascular: Normal Peripheral Pulses, Regular Rate, Rhythm, No Edema, No Gallop, No JVD, No Murmur, No Rub GI/Abdominal: Normal Bowel Sounds, Soft, Non-Tender, No Organomegaly, No Distention, No Abnormal Bruit, No Mass (Female) Exam: Deferred Rectal (Female) Exam: Deferred Back Exam: Normal Inspection, Full Range of Motion, NT Extremities: Normal Inspection, Normal Range of Motion, Non-Tender, Normal Capillary Refill, No Pedal Edema Neurological: Alert, Oriented, CN II-XII Intact, Normal Cognition, Normal Gait, Normal Reflexes, No Motor/Sensory Deficits Psychiatric: Normal Affect, Normal Mood Skin Exam: Warm, Dry, Intact, Normal Color, No Rash Lymphatic: No Adenopathy Course - Vital Signs Last Recorded V/S: Last Vital Signs Temp 36.6 C 10/08/19 23:33 Pulse 60 10/08/19 23:33 Resp 18 10/08/19 23:33 BP 153/48 H 10/08/19 23:33 Pulse Ox 96 10/08/19 23:33 Orthostatic Blood Pressure [ 143/42 Standing] Orthostatic Blood Pressure [ 137/47 Sitting] Orthostatic Blood Pressure [ 144/50 Supine] - Orders/Labs/Meds Orders: Active Orders 24 hr Category Date Time Status EKG Documentation Completion [RC] URGENT Care 10/08/19 23:49 Active Labs: Laboratory Tests 10/08/19 10/08/19 Range/Units 00:00 00:00 WBC 8.0 (5.0-10.0) 10^3/uL RBC 3.19 L (4.2-5.4) 10^6/uL Hgb 7.9 L (12.0-16.0) g/dL Hct 25.1 L (37.0-47.0) % MCV 78.7 L (80-100) fL MCH 24.8 L (27.0-34.0) pg MCHC 31.5 L (33.0-35.0) g/dL Plt Count 309 (150-450) 10^3/uL Neut % (Auto) 77.2 H (42.2-75.2) % Lymph % (Auto) 12.9 L (20.5-50.1) % [place] % (Auto) 6.3 (2-8) % Eos % (Auto) 3.6 H (1.0-3.0) % Baso % (Auto) 0.0 (0.0-1.0) % Sodium 133 L (135-145) mmol/L Potassium 3.9 (3.6-5.0) mmol/L Chloride 103 (101-111) mmol/L Carbon Dioxide 22.0 (21.0-31.0) mmol/L Anion Gap 11.9 BUN 17 (7-18) mg/dL Creatinine 0.9 (0.6-1.3) mg/dL Est Cr Clr Drug Dosing 50.23 mL/min Estimated GFR (MDRD) > 60 BUN/Creatinine Ratio 18.88 Glucose 167 H (74-105) mg/dL Calcium 8.5 (8.4-10.2) mg/dl Total Bilirubin 0.5 (0.2-1.0) mg/dL AST 14 (10-42) IU/L ALT 10 (10-60) IU/L Alkaline Phosphatase 148 H (42-121) IU/L Troponin I < 0.02 (0.00-0.02) ng/ml Total Protein 8.0 (6.7-8.2) g/dl Albumin 2.9 L (3.2-5.5) g/dl Globulin 5.1 Albumin/Globulin Ratio 0.57 Departure - Departure Time of Disposition: 00:33 Disposition: Home, Self-Care 01 Condition: Fair Clinical Impression: Near syncope Instructions: Near-Syncope, [id number] Forms: ED Department Discharge Care Plan Goals: The patient was advised of the examination, lab and EKG results during the visit. The patient was encouraged to take her medications as prescribed. The patient should follow-up with her primary care facility for continued evaluation and further management. If the patient has any additional symptoms or concerns, the patient should either return to the emergency department or visit her primary care facility. Sepsis Event Note - Evaluation Sepsis Screening Result: No Definite Risk - Focused Exam Vital Signs: Vital Signs Temp Pulse Resp BP Pulse Ox 10/08/19 23:33 36.6 C 60 18 153/48 H 96 Date Exam was Performed: 10/09/19 Time Exam was Performed: 00:37 - My Orders Last 24 Hours: My Active Orders 10/08/19 23:49 EKG Documentation Completion [RC] URGENT - Assessment/Plan Last 24 Hours: My Active Orders 10/08/19 23:49 EKG Documentation Completion [RC] URGENT
[2019-10-09 00:28] LABS: ANION GAP 11.9; CHLORIDE,CL 103 mmol/L (101-111); SODIUM,NA 133 mmol/L (135-145)
== END 2019-10-09 00:40 | disposition home or self-care (01) ==
LOC: DL.ED 23:33
DX: R55 Syncope and collapse (principal); I11.0 Hypertensive heart disease with heart failure; I50.9 Heart failure, unspecified; E11.22 Type 2 diabetes mellitus with diabetic chronic kidney disease; N18.9 Chronic kidney disease, unspecified; Z79.4 Long term (current) use of insulin; Z91.048 Other nonmedicinal substance allergy status; Z88.8 Allergy status to other drugs, medicaments and biological substances; Z88.5 Allergy status to narcotic agent; Z79.899 Other long term (current) drug therapy
CPT/HCPCS: 36415; 80053; 84484; 85025; 93005; 99284-25

== ENCOUNTER 2019-11-03 17:54 | Emergency (ER) | payer MEDICARE, MEDICAID ==
[2019-11-03 18:32] VITALS: BP 118/32; PULSE 59
[2019-11-03 19:06] LABS: ANION GAP 10.1; CHLORIDE,CL 103 mmol/L (101-111); SODIUM,NA 133 mmol/L (135-145)
--- NOTE | 2019-11-03 19:44 | EDM.PDOC ---
ED HPI GENERAL MEDICAL PROBLEM - General Chief Complaint: Respiratory Problem Stated Complaint: RIGHT SIDE IS HURTING, SICK, AMONIA Time Seen by Provider: 11/03/19 19:00 Source of Information: Reports: Patient History Limitations: Reports: No Limitations - History of Present Illness INITIAL COMMENTS - FREE TEXT/NARRATIVE: patient comes emergency department today with complaints of right-sided chest pain increasing shortness breath cough and wheezing. this patient for the past week has had increasing wheezing and shortness of breath with physical exertion. She does have a history of COPD. She has been using her nebulizers without much improvement. Over the past couple of days she has had some sharp shooting stabb pain on the right midaxillary line about the fifth 6 intercostal space. She has no more cough. She has subjective fever and chills. No midsternal chest pain. No weakness dizziness lightheadedness. No syncope. No abdominal pain. No fever no chills.No recent falls trauma or injury to her chest. No hemoptysis. Right Chest Pain Score (Numeric/FACES): 6 - Related Data Allergies Allergy/AdvReac Type Severity Reaction Status Date / Time codeine Allergy Unknown Cannot Verified 11/03/19 18:37 Remember adhesive tape Allergy Rash Verified 11/03/19 18:37 sacubitril [From Entresto] Allergy Dizziness Verified 11/03/19 18:37 simvastatin [From Zocor] Allergy Muscle Verified 11/03/19 18:37 Aches valsartan [From Entresto] Allergy Dizziness Verified 11/03/19 18:37 metal Allergy Mild Rash Uncoded 09/01/19 11:21 Home Meds: Home Meds glipiZIDE [Glipizide] 10 mg PO BIDMEALS 07/09/15 [History] Omeprazole 20 mg PO ACBREAKFAST 04/15/16 [History] Albuterol [IJD: Ventolin HFA] 2 puff INH Q6H PRN 05/18/16 [History] carvediloL [Carvedilol] 6.25 mg PO BID 07/23/16 [History] metFORMIN HCl [Metformin HCl] 500 mg PO BIDMEALS 08/07/16 [History] Acetaminophen 1,000 mg PO BID PRN 08/08/17 [History] Albuterol [Proventil Neb Soln] 3 ml NEB Q6H PRN 08/08/17 [History] SitaGLIPtin [Januvia] 50 mg PO BEDTIME 04/11/19 [History] Insulin Detemir [Levemir Flextouch] 8 units SQ BEDTIME 04/30/19 [History] Ipratropium/Albuterol Sulfate [Iprat-Albut 0.5-3(2.5) mg/3 ml] 3 ml INH QID [History] Levothyroxine 150 mcg PO ACBREAKFAST 04/30/19 [History] Losartan [Cozaar] 12.5 mg PO BEDTIME 04/30/19 [History] Pravastatin Sodium 10 mg PO BEDTIME 04/30/19 [History] Bumetanide 1 mg PO DAILY 06/26/19 [History] Past Medical History HEENT History: Reports: Cataract, Impaired Vision Other HEENT History: wears glasses Cardiovascular History: Reports: Cardiomyopathy, Heart Failure, High Cholesterol , Hypertension, Pacemaker, Other (See Below) Other Cardiovascular History: CARDIAC DIFIBRILLATOR PLACEMENT (2016), NONISCHEMIC CARDIOMYOPATHY Respiratory History: Reports: Bronchitis, Recurrent, COPD, Pneumonia, Recurrent Gastrointestinal History: Reports: Cholelithiasis, GERD Genitourinary History: Reports: Renal Disease, UTI, Recurrent, Other (See Below) Other Genitourinary History: CKD 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 Musculoskeletal History: Reports: Arthritis, Fracture, Other (See Below) Other Musculoskeletal History: SHOULDER PAIN, BILATERAL Neurological History: Reports: None Psychiatric History: Reports: Addiction Endocrine/Metabolic History: Reports: Diabetes, Type II, Hypothyroidism Hematologic History: Reports: Anemia, B12 Deficiency, Iron Deficiency Immunologic History: Reports: None Oncologic (Cancer) History: Reports: None Dermatologic History: Reports: None - Infectious Disease History Infectious Disease History: Reports: Chicken Pox, Measles, Mumps, Rubella - Past Surgical History Head Surgeries/Procedures: Reports: None HEENT Surgical History: Reports: Cataract Surgery Cardiovascular Surgical History: Reports: AICD GI Surgical History: Reports: Appendectomy, Cholecystectomy Social & Family History - Family History Family Medical History: Noncontributory - Tobacco Use Smoking Status *Q: Former Smoker Used Tobacco, but Quit: Yes Month/Year Tobacco Last Used: 2013 - Caffeine Use Caffeine Use: Reports: Tea Caffeine Use Comment: decaf products - Recreational Drug Use Recreational Drug Use: No - Living Situation & Occupation Living situation: Reports: Alone Occupation: Employed ED ROS GENERAL - Review of Systems Review Of Systems: Comprehensive ROS is negative, except as noted in HPI. ED EXAM, GENERAL - Physical Exam Exam: See Below Exam Limited By: No Limitations General Appearance: Alert, WD/WN, No Apparent Distress Throat/Mouth: Normal Inspection, Normal Lips Head: Atraumatic, Normocephalic Neck: Normal Inspection, Supple Respiratory/Chest: No Respiratory Distress, Lungs Clear, No Accessory Muscle Use , Chest Non-Tender (no bruising swelling ecchymosis tenderness on the superficial aspect of the rib cage.), Decreased Breath Sounds (throughout without any wheezes rhonchi or rales.). No: Accessory Muscle Use Cardiovascular: Normal Peripheral Pulses, Regular Rate, Rhythm, Bradycardia Peripheral Pulses: 2+: Radial (L), Radial (R), Posterior Tibial (L), Posterior Tibial (R), Dorsalis Pedis (L), Dorsalis Pedis (R) GI/Abdominal: Normal Bowel Sounds, Soft, Non-Tender Back Exam: Normal Inspection Extremities: Normal Inspection, Normal Range of Motion, Normal Capillary Refill Neurological: Alert, Oriented, Normal Cognition, No Motor/Sensory Deficits Psychiatric: Normal Affect Skin Exam: Warm, Dry, Intact, Normal Color Lymphatic: No Adenopathy Course - Vital Signs Last Recorded V/S: Last Vital Signs Temp 36.9 C 11/03/19 18:30 Pulse 59 L 11/03/19 18:30 Resp 18 11/03/19 18:30 BP 118/32 L 11/03/19 18:30 Pulse Ox 98 11/03/19 18:30 - Orders/Labs/Meds Labs: Laboratory Tests 11/03/19 11/03/19 Range/Units 18:25 18:38 WBC 9.6 (5.0-10.0) 10^3/uL RBC 3.15 L (4.2-5.4) 10^6/uL Hgb 7.8 L (12.0-16.0) g/dL Hct 25.1 L (37.0-47.0) % MCV 79.7 L (80-100) fL MCH 24.8 L (27.0-34.0) pg MCHC 31.1 L (33.0-35.0) g/dL Plt Count 286 (150-450) 10^3/uL Neut % (Auto) 82.5 H (42.2-75.2) % Lymph % (Auto) 10.7 L (20.5-50.1) % [place] % (Auto) 3.8 (2-8) % Eos % (Auto) 3.0 (1.0-3.0) % Baso % (Auto) 0.0 (0.0-1.0) % Sodium 133 L (135-145) mmol/L Potassium 4.1 (3.6-5.0) mmol/L Chloride 103 (101-111) mmol/L Carbon Dioxide 24.0 (21.0-31.0) mmol/L Anion Gap 10.1 BUN 18 (7-18) mg/dL Creatinine 0.9 (0.6-1.3) mg/dL Est Cr Clr Drug Dosing 50.23 mL/min Estimated GFR (MDRD) > 60 BUN/Creatinine Ratio 20.00 Glucose 126 H (74-105) mg/dL Calcium 8.5 (8.4-10.2) mg/dl Total Bilirubin 0.3 (0.2-1.0) mg/dL AST 12 (10-42) IU/L ALT 7 L (10-60) IU/L Alkaline Phosphatase 130 H (42-121) IU/L Total Protein 7.8 (6.7-8.2) g/dl Albumin 2.7 L (3.2-5.5) g/dl Globulin 5.1 Albumin/Globulin Ratio 0.53 Meds: Medications Discontinued Medications Generic Name Dose Route Start Last Admin Trade Name Freq PRN Reason Stop Dose Admin Prednisone 40 mg 11/03/19 19:54 11/03/19 19:58 Prednisone PO 11/03/19 19:55 40 mg ONETIME ONE Administration - Radiology Interpretation Free Text/Narrative:: chest x-ray per radiology an enlarging mass noted to the right mid chest Currently 7+ centimeters in diameter. suspect malignancy. Moderate COPD emphysema noted which places this patient at risk for malignancy. This mass was noted previously June 26, 2019 although it is substantially larger strongly suspect neoplastic mass or process. - Re-Assessments/Exams Free Text/Narrative Re-Assessment/Exam: 11/03/19 23:08 I reviewed the laboratory evaluation with the patient. As well as the finding of the expanding mass in her chest. She was not aware of a mass previously in her chest. We'll treat her with some prednisone steroids inhalers and antibiotics for COPD exacerbation. She has a appointment with her primary care doctor on Tuesday and she would rather have her CAT scan completed at that time for further evaluation of this possible malignancy. I feel is appropriate at this time. Nothing new or worse she is to return. She is comfortable with this plan and her her questions were answered. Departure - Departure Time of Disposition: 19:44 Disposition: Home, Self-Care Clinical Impression: COPD exacerbation, Mass of right lung - Discharge Information Instructions: Chronic Obstructive Pulmonary Disease Exacerbation, [id number] Forms: ED Department Discharge Additional Instructions: Doxycycline 1 capsule twice daily for the next 7 days. RX given to the patient. #14. Prednisone 40mg a day for the next 5 days. RX given to the patient. Start Budesonide 0.5mg nebulizer twice daily for maintenance of your COPD. #60. Continue with other previous nebulizers and therapies. Tylenol as needed for pain. If pain not controlled with above. Tramadol 1 tablet twice daily as needed for pain caution sedation. #10, no refills. See your PCP on tuesday as planned and start evaluation of the growing mass in your right lung. Return to the ED if new or worsening symptoms. Sepsis Event Note - Evaluation Sepsis Screening Result: No Definite Risk - Focused Exam Vital Signs: Vital Signs Temp Pulse Resp BP Pulse Ox 11/03/19 18:30 36.9 C 59 L 18 118/32 L 98 Date Exam was Performed: 11/03/19 Time Exam was Performed: 23:05 - Assessment/Plan Assessment:: COPD exacerbation mild Enlarging right lung mass concerning for malignancy. Plan: Doxycycline 1 capsule twice daily for the next 7 days. RX given to the patient. #14. Prednisone 40mg a day for the next 5 days. RX given to the patient. Start Budesonide 0.5mg nebulizer twice daily for maintenance of your COPD. #60. Continue with other previous nebulizers and therapies. Tylenol as needed for pain. If pain not controlled with above. Tramadol 1 tablet twice daily as needed for pain caution sedation. #10, no refills. See your PCP on tuesday as planned and start evaluation of the growing mass in your right lung. Return to the ED if new or worsening symptoms.
[2019-11-03] MEDS ORDERED: predniSONE 20 MG Tab PO ONE (19:54)
== END 2019-11-03 20:05 | disposition home or self-care (01) ==
LOC: DL.ED 17:54
DX: J44.1 Chronic obstructive pulmonary disease with (acute) exacerbation (principal); R91.8 Other nonspecific abnormal finding of lung field; E03.9 Hypothyroidism, unspecified; M19.90 Unspecified osteoarthritis, unspecified site; E78.00 Pure hypercholesterolemia, unspecified; I12.9 Hypertensive chronic kidney disease with stage 1 through stage 4 chronic kidney disease, or unspecified chronic kidney disease; E11.22 Type 2 diabetes mellitus with diabetic chronic kidney disease; N18.9 Chronic kidney disease, unspecified; K21.9 Gastro-esophageal reflux disease without esophagitis; Z79.4 Long term (current) use of insulin; Z79.899 Other long term (current) drug therapy; Z88.5 Allergy status to narcotic agent; Z87.891 Personal history of nicotine dependence
CPT/HCPCS: 36415; 71046; 80053; 85025; 87804; 99285; A9270; 99284

== ENCOUNTER 2019-11-26 12:51 | Emergency (ER) | payer MEDICARE, MEDICAID ==
[2019-11-26 13:22] VITALS: BP 141/43; PULSE 63
--- NOTE | 2019-11-26 14:03 | EDM.PDOC ---
<Rojelio Davis - Last Filed: 11/26/19 17:47> ED HPI GENERAL MEDICAL PROBLEM - General Chief Complaint: Respiratory Problem Stated Complaint: CANT BREATH Time Seen by Provider: 11/26/19 13:51 Source of Information: Reports: Patient, RN, RN Notes Reviewed History Limitations: Reports: No Limitations - History of Present Illness INITIAL COMMENTS - FREE TEXT/NARRATIVE: Patient presents to the ER for complaint of shortness of breath, RUQ pain. She reports having been diagnosed for possible pneumonia in October and was also told she has a mass in her right lung. She was seen in clinic on Tuesday the and was given a prescription for Azithromycin and was told she had bronchitis. She only took part of Tuesday and Tuesday morning dose of her azithromycin and hasn't taken it since because she "has not felt quite right". She has an appointment in [place] for her mass on her right lung on the 05 of December. She states that she has not had fevers but has had chills. The pain is in her RUQ and rates it at an 8/10. It is in the same spot as her lung mass and has had this pain since June. She has not taken anything for the pain other than tylenol and it has not helped the pain much. She also states that she is constipated and hasn't had a BM in 4-5 days. Has taken tramadol for her RUQ pain but stopped taking due to constipation and is also on iron supplements. Right Abdomen Pain Score (Numeric/FACES): 8 - Related Data Allergies Allergy/AdvReac Type Severity Reaction Status Date / Time codeine Allergy Unknown Cannot Verified 11/26/19 13:22 Remember adhesive tape Allergy Rash Verified 11/26/19 13:22 sacubitril [From Entresto] Allergy Dizziness Verified 11/26/19 13:22 simvastatin [From Zocor] Allergy Muscle Verified 11/26/19 13:22 Aches valsartan [From Entresto] Allergy Dizziness Verified 11/26/19 13:22 metal Allergy Mild Rash Uncoded 11/26/19 13:22 Home Meds: Home Meds glipiZIDE [Glipizide] 10 mg PO BIDMEALS 07/09/15 [History] Omeprazole 20 mg PO ACBREAKFAST 04/15/16 [History] Albuterol [IJD: Ventolin HFA] 2 puff INH Q6H PRN 05/18/16 [History] carvediloL [Carvedilol] 6.25 mg PO BID 07/23/16 [History] metFORMIN HCl [Metformin HCl] 500 mg PO BIDMEALS 08/07/16 [History] Acetaminophen 1,000 mg PO BID PRN 08/08/17 [History] Albuterol [Proventil Neb Soln] 3 ml NEB Q6H PRN 08/08/17 [History] SitaGLIPtin [Januvia] 50 mg PO BEDTIME 04/11/19 [History] Insulin Detemir [Levemir Flextouch] 8 units SQ BEDTIME 04/30/19 [History] Ipratropium/Albuterol Sulfate [Iprat-Albut 0.5-3(2.5) mg/3 ml] 3 ml INH QID [History] Levothyroxine 150 mcg PO ACBREAKFAST 04/30/19 [History] Losartan [Cozaar] 12.5 mg PO BEDTIME 04/30/19 [History] Pravastatin Sodium 10 mg PO BEDTIME 04/30/19 [History] Bumetanide 1 mg PO DAILY 06/26/19 [History] Past Medical History HEENT History: Reports: Cataract, Impaired Vision Other HEENT History: wears glasses Cardiovascular History: Reports: Cardiomyopathy, Heart Failure, High Cholesterol , Hypertension, Pacemaker, Other (See Below) Other Cardiovascular History: CARDIAC DIFIBRILLATOR PLACEMENT (2017), NONISCHEMIC CARDIOMYOPATHY Respiratory History: Reports: Bronchitis, Recurrent, COPD, Pneumonia, Recurrent Gastrointestinal History: Reports: Cholelithiasis, GERD Genitourinary History: Reports: Renal Disease, UTI, Recurrent, Other (See Below) Other Genitourinary History: CKD SUPPLY PERSON 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 SUPPLY PERSON History: HAS 3 KIDS Musculoskeletal History: Reports: Arthritis, Fracture, Other (See Below) Other Musculoskeletal History: SHOULDER PAIN, BILATERAL Neurological History: Reports: None Psychiatric History: Reports: Addiction Endocrine/Metabolic History: Reports: Diabetes, Type II, Hypothyroidism Hematologic History: Reports: Anemia, B12 Deficiency, Iron Deficiency Immunologic History: Reports: None Oncologic (Cancer) History: Reports: None Dermatologic History: Reports: None - Infectious Disease History Infectious Disease History: Reports: Chicken Pox, Measles, Mumps, Rubella - Past Surgical History Head Surgeries/Procedures: Reports: None HEENT Surgical History: Reports: Cataract Surgery Cardiovascular Surgical History: Reports: AICD GI Surgical History: Reports: Appendectomy, Cholecystectomy Social & Family History - Family History Family Medical History: Noncontributory - Tobacco Use Smoking Status *Q: Former Smoker Years of Tobacco use: 40 Packs/Tins Daily: 0.5 Used Tobacco, but Quit: Yes Month/Year Tobacco Last Used: october Second Hand Smoke Exposure: No - Caffeine Use Caffeine Use: Reports: None Caffeine Use Comment: decaf products - Recreational Drug Use Recreational Drug Use: No - Living Situation & Occupation Living situation: Reports: Alone Occupation: Employed ED ROS GENERAL - Review of Systems Review Of Systems: Comprehensive ROS is negative, except as noted in HPI. ED EXAM, GENERAL - Physical Exam Exam: See Below Exam Limited By: No Limitations General Appearance: Alert, WD/WN, No Apparent Distress Throat/Mouth: Normal Inspection, Normal Lips, Normal Teeth, Normal Gums, Normal Oropharynx, Normal Voice, No Airway Compromise Head: Atraumatic, Normocephalic Neck: Normal Inspection, Supple, Non-Tender, Full Range of Motion Respiratory/Chest: No Respiratory Distress, Lungs Clear, Normal Breath Sounds, No Accessory Muscle Use, Chest Non-Tender Cardiovascular: Normal Peripheral Pulses, Regular Rate, Rhythm, No Edema, No Gallop, No JVD, No Murmur, No Rub GI/Abdominal: Normal Bowel Sounds, Soft, Non-Tender, No Organomegaly, No Distention, No Abnormal Bruit, No Mass Neurological: Alert, Oriented, CN II-XII Intact, Normal Cognition, Normal Gait, Normal Reflexes, No Motor/Sensory Deficits Course - Vital Signs Last Recorded V/S: Last Vital Signs Temp 37.3 C 11/26/19 13:16 Pulse 63 11/26/19 13:16 Resp 16 11/26/19 13:16 BP 141/43 H 11/26/19 13:16 Pulse Ox 96 11/26/19 13:16 - Orders/Labs/Meds Labs: Laboratory Tests 11/26/19 11/26/19 Range/Units 14:07 14:07 WBC 14.2 H (5.0-10.0) 10^3/uL RBC 3.45 L (4.2-5.4) 10^6/uL Hgb 8.3 L (12.0-16.0) g/dL Hct 26.9 L (37.0-47.0) % MCV 78.0 L (80-100) fL MCH 24.1 L (27.0-34.0) pg MCHC 30.9 L (33.0-35.0) g/dL Plt Count 296 (150-450) 10^3/uL Neut % (Auto) 88.4 H (42.2-75.2) % Lymph % (Auto) 6.3 L (20.5-50.1) % [place] % (Auto) 3.8 (2-8) % Eos % (Auto) 1.4 (1.0-3.0) % Baso % (Auto) 0.1 (0.0-1.0) % Sodium 130 L (135-145) mmol/L Potassium 4.0 (3.6-5.0) mmol/L Chloride 97 L (101-111) mmol/L Carbon Dioxide 26.0 (21.0-31.0) mmol/L Anion Gap 11.0 BUN 19 H (7-18) mg/dL Creatinine 0.8 (0.6-1.3) mg/dL Est Cr Clr Drug Dosing 56.50 mL/min Estimated GFR (MDRD) > 60 BUN/Creatinine Ratio 23.75 Glucose 227 H (74-105) mg/dL Calcium 8.8 (8.4-10.2) mg/dl Total Bilirubin 0.6 (0.2-1.0) mg/dL AST 12 (10-42) IU/L ALT 8 L (10-60) IU/L Alkaline Phosphatase 105 (42-121) IU/L Total Protein 7.7 (6.7-8.2) g/dl Albumin 2.7 L (3.2-5.5) g/dl Globulin 5.0 Albumin/Globulin Ratio 0.54 Amylase 17 L (28-100) U/L Lipase 24 (22-51) U/L Meds: Medications Discontinued Medications Generic Name Dose Route Start Last Admin Trade Name Freq PRN Reason Stop Dose Admin Ceftriaxone Sodium 1 gm/ 50 mls @ 100 mls/hr 11/26/19 16:46 11/26/19 17:04 Sodium Chloride IV 11/26/19 17:15 100 mls/hr ONETIME ONE Administration Departure - Departure Time of Disposition: 17:49 Disposition: Home, Self-Care 01 Condition: Good Clinical Impression: Bronchitis, Pneumonia - Discharge Information *PRESCRIPTION DRUG MONITORING PROGRAM REVIEWED*: Not Applicable *COPY OF PRESCRIPTION DRUG MONITORING REPORT IN PATIENT VALERIE: Not Applicable Instructions: Community-Acquired Pneumonia, Adult, Acute Bronchitis, Adult Forms: ED Department Discharge Additional Instructions: Rx: Keflex 500 mg Take the full course of the antibiotic Keflex 3 times daily for 10 days. Follow- up with your primary care provider tomorrow about refilling your Nebulizer supplies and medications. Follow-up with appointment in [place] regarding the mass on your lung for biopsy. If symptoms of shortness of breath or worsening of pain arise, either return to the ER or clinic for further evaluation. Sepsis Event Note - Evaluation Sepsis Screening Result: No Definite Risk - Focused Exam Vital Signs: Vital Signs Temp Pulse Resp BP Pulse Ox 11/26/19 13:16 37.3 C 63 16 141/43 H 96 Date Exam was Performed: 11/26/19 Time Exam was Performed: 17:47 <Kenneth Casillas - Last Filed: 11/26/19 18:12> Course - Re-Assessments/Exams Free Text/Narrative Re-Assessment/Exam: 11/26/19 18:11 I have examined the patient. I have discussed findings and treatment plan with the PA student. I agree with the assessment and plan in the following students note. Sepsis Event Note - Focused Exam Date Exam was Performed: 11/26/19 Time Exam was Performed: 18:11
[2019-11-26 14:42] LABS: CHLORIDE,CL 97 mmol/L (101-111); SODIUM,NA 130 mmol/L (135-145)
--- NOTE | 2019-11-26 16:39 | CR ---
EXAMINATION: Chest 2V SEX: Female AGE: 69 years CLINICAL HISTORY: 69-year-old hypertensive and diabetic female with COPD reported on 26 June 2019 and 03 November 2019 to have "enlarging mass lateral mid right hemithorax". INTERPRETATION: Abnormal but relatively stable and unchanged compared directly to one November 22, 2019 exam. 1. Peripheral wedge-shaped masslike infiltrate laterally right mid chest as noted. Some ipsilateral pleural reactive changes in the right base less prominent. 2. No new lung mass, peripheral infarct, focal lobar infiltrate or atelectasis. 3. Borderline cardiomegaly without increase venous congestion new cephalization of flow or signs of alveolar edema. 4. No dependent pleural effusion on the left. 5. Cardiac pacemaker leads (x2) intact. CONCLUSION: Decreased dependent right pleural effusion and pulmonary vascularity less congested i.e. improved. Peripheral midlung "mass" relatively unchanged (pseudotumor?).
[2019-11-26] MEDS ORDERED: cefTRIAXone 1 GM in Sodium Chloride 0.9% 50 ML IV ONE (16:46)
== END 2019-11-26 17:52 | disposition home or self-care (01) ==
LOC: DL.ED 12:51
DX: J18.9 Pneumonia, unspecified organism (principal); J40 Bronchitis, not specified as acute or chronic; I13.0 Hypertensive heart and chronic kidney disease with heart failure and stage 1 through stage 4 chronic kidney disease, or unspecified chronic kidney disease; E11.22 Type 2 diabetes mellitus with diabetic chronic kidney disease; N18.9 Chronic kidney disease, unspecified; I50.9 Heart failure, unspecified; Z88.5 Allergy status to narcotic agent; Z88.8 Allergy status to other drugs, medicaments and biological substances; Z91.048 Other nonmedicinal substance allergy status; Z79.899 Other long term (current) drug therapy; Z79.4 Long term (current) use of insulin; Z87.891 Personal history of nicotine dependence
CPT/HCPCS: 36415; 71046; 80053; 82150; 83690; 85025; 96365; 99284; J0696; J7050

== ENCOUNTER 2019-12-03 10:28 | Emergency (ER) | payer MEDICARE, MEDICAID ==
[2019-12-03 10:51] VITALS: BP 143/52; PULSE 58
[2019-12-03] MEDS ORDERED: Acetaminophen/oxyCODONE 325-5 MG Tab PO ONE (10:51)
--- NOTE | 2019-12-03 10:58 | EDM.PDOC ---
ED HPI GENERAL MEDICAL PROBLEM - General Chief Complaint: General Stated Complaint: PAIN IN RIB AND LUNG Time Seen by Provider: 12/03/19 10:55 Source of Information: Reports: Patient, Family, Old Records, RN, RN Notes Reviewed History Limitations: Reports: No Limitations - History of Present Illness INITIAL COMMENTS - FREE TEXT/NARRATIVE: Pt presents to ER from home with c/o ongoing right chest/rib/lung pain. 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 She has an appointment to see a specialist for evaluation of the mass in 3 days from now. She was prescribed Tramadol, but is caused stomach upset, constipation, and did not relieve her pain so she discontinued it. She denies cough, fever, or hemoptysis. Pt rates the pain 8/10. The pain is aggravated by breathing, exertion, and some movements of the chest wall. 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: Acetaminophen Left Thoracic Pain Score (Numeric/FACES): 10 - Related Data Allergies Allergy/AdvReac Type Severity Reaction Status Date / Time codeine Allergy Unknown Cannot Verified 11/26/19 13:22 Remember adhesive tape Allergy Rash Verified 11/26/19 13:22 sacubitril [From Entresto] Allergy Dizziness Verified 11/26/19 13:22 simvastatin [From Zocor] Allergy Muscle Verified 11/26/19 13:22 Aches valsartan [From Entresto] Allergy Dizziness Verified 11/26/19 13:22 metal Allergy Mild Rash Uncoded 11/26/19 13:22 Home Meds: Home Meds glipiZIDE [Glipizide] 10 mg PO BIDMEALS 07/09/15 [History] Omeprazole 20 mg PO ACBREAKFAST 04/15/16 [History] Albuterol [IJD: Ventolin HFA] 2 puff INH Q6H PRN 05/18/16 [History] carvediloL [Carvedilol] 6.25 mg PO BID 07/23/16 [History] metFORMIN HCl [Metformin HCl] 500 mg PO BIDMEALS 08/07/16 [History] Acetaminophen 1,000 mg PO BID PRN 08/08/17 [History] Albuterol [Proventil Neb Soln] 3 ml NEB Q6H PRN 08/08/17 [History] SitaGLIPtin [Januvia] 50 mg PO BEDTIME 04/11/19 [History] Insulin Detemir [Levemir Flextouch] 8 units SQ BEDTIME 04/30/19 [History] Ipratropium/Albuterol Sulfate [Iprat-Albut 0.5-3(2.5) mg/3 ml] 3 ml INH QID [History] Levothyroxine 150 mcg PO ACBREAKFAST 04/30/19 [History] Losartan [Cozaar] 12.5 mg PO BEDTIME 04/30/19 [History] Pravastatin Sodium 10 mg PO BEDTIME 04/30/19 [History] Bumetanide 1 mg PO DAILY 06/26/19 [History] Past Medical History HEENT History: Reports: Cataract, Impaired Vision Other HEENT History: wears glasses Cardiovascular History: Reports: Cardiomyopathy, Heart Failure, High Cholesterol , Hypertension, Pacemaker, Other (See Below) Other Cardiovascular History: CARDIAC DIFIBRILLATOR PLACEMENT (2017), NONISCHEMIC CARDIOMYOPATHY Respiratory History: Reports: Bronchitis, Recurrent, COPD, Pneumonia, Recurrent , Other (See Below) (Rt lung mass.) Gastrointestinal History: Reports: Cholelithiasis, GERD Genitourinary History: Reports: Renal Disease, UTI, Recurrent, Other (See Below) Other Genitourinary History: CKD GEOLOGIST PETROLEUM 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 GEOLOGIST PETROLEUM History: HAS 3 KIDS Musculoskeletal History: Reports: Arthritis, Fracture, Other (See Below) Other Musculoskeletal History: SHOULDER PAIN, BILATERAL Neurological History: Reports: None Psychiatric History: Reports: Addiction Endocrine/Metabolic History: Reports: Diabetes, Type II, Hypothyroidism Hematologic History: Reports: Anemia, B12 Deficiency, Iron Deficiency Immunologic History: Reports: None Oncologic (Cancer) History: Reports: None Dermatologic History: Reports: None - Infectious Disease History Infectious Disease History: Reports: Chicken Pox, Measles, Mumps, Rubella - Past Surgical History Head Surgeries/Procedures: Reports: None HEENT Surgical History: Reports: Cataract Surgery Cardiovascular Surgical History: Reports: AICD GI Surgical History: Reports: Appendectomy, Cholecystectomy Social & Family History - Family History Family Medical History: Noncontributory - Caffeine Use Caffeine Use: Reports: None Caffeine Use Comment: decaf products - Living Situation & Occupation Living situation: Reports: Alone Occupation: Employed ED ROS GENERAL - Review of Systems Review Of Systems: Comprehensive ROS is negative, except as noted in HPI. ED EXAM, GENERAL - Physical Exam Exam: See Below Exam Limited By: No Limitations General Appearance: Alert, No Apparent Distress, Thin Eye Exam: Bilateral Eye: Normal Inspection Nose: Normal Inspection Throat/Mouth: Normal Inspection, Normal Voice, No Airway Compromise Head: Atraumatic, Normocephalic Neck: Normal Inspection, Non-Tender, Full Range of Motion Respiratory/Chest: No Respiratory Distress, No Accessory Muscle Use, Decreased Breath Sounds, Crackles, Other (Rt lateral chest wall tenderness, no swelling, visible bruising, or deformity). No: Rales, Rhonchi, Wheezing, Stridor Cardiovascular: Regular Rate, Rhythm, No Edema GI/Abdominal: Normal Bowel Sounds, Soft, Non-Tender Back Exam: Normal Inspection Extremities: Normal Inspection Neurological: Alert, Oriented, No Motor/Sensory Deficits Psychiatric: Normal Mood Skin Exam: Warm, Dry, Intact, Normal Color, No Rash Course - Vital Signs Last Recorded V/S: Last Vital Signs Temp 97.8 F 12/03/19 10:46 Pulse 58 L 12/03/19 10:46 Resp 20 12/03/19 10:46 BP 143/52 H 12/03/19 10:46 Pulse Ox 98 12/03/19 10:46 - Orders/Labs/Meds Orders: Active Orders 24 hr Category Date Time Status B-TYPE NATRIURETIC PEPTIDE,BNP [CHEM] Stat Lab 12/03/19 11:00 Results COMPREHENSIVE METABOLIC PN,CMP [CHEM] Stat Lab 12/03/19 11:00 Results Labs: Laboratory Tests 12/03/19 12/03/19 Range/Units 11:00 11:00 WBC 12.4 H (5.0-10.0) 10^3/uL RBC 3.61 L (4.2-5.4) 10^6/uL Hgb 8.7 L (12.0-16.0) g/dL Hct 28.2 L (37.0-47.0) % MCV 78.1 L (80-100) fL MCH 24.1 L (27.0-34.0) pg MCHC 30.9 L (33.0-35.0) g/dL Plt Count 271 (150-450) 10^3/uL Neut % (Auto) 87.0 H (42.2-75.2) % Lymph % (Auto) 6.7 L (20.5-50.1) % [place] % (Auto) 4.2 (2-8) % Eos % (Auto) 2.0 (1.0-3.0) % Baso % (Auto) 0.1 (0.0-1.0) % Sodium 131 L (135-145) mmol/L Potassium 4.1 (3.6-5.0) mmol/L Chloride 95 L (101-111) mmol/L Carbon Dioxide 25.0 (21.0-31.0) mmol/L Anion Gap 15.1 BUN 24 H (7-18) mg/dL Creatinine 1.0 (0.6-1.3) mg/dL Est Cr Clr Drug Dosing 43.86 mL/min Estimated GFR (MDRD) 55 BUN/Creatinine Ratio 24.00 Glucose 250 H (74-105) mg/dL Calcium 8.9 (8.4-10.2) mg/dl Total Bilirubin 0.5 (0.2-1.0) mg/dL AST 10 (10-42) IU/L ALT 8 L (10-60) IU/L Alkaline Phosphatase 162 H (42-121) IU/L Total Protein 8.2 (6.7-8.2) g/dl Albumin 2.8 L (3.2-5.5) g/dl Globulin 5.4 Albumin/Globulin Ratio 0.52 Meds: Medications Discontinued Medications Generic Name Dose Route Start Last Admin Trade Name Freq PRN Reason Stop Dose Admin Oxycodone/Acetaminophen 1 tab 12/03/19 10:51 12/03/19 11:18 Percocet 325-5 Mg PO 12/03/19 10:52 1 tab ONETIME ONE Administration - Radiology Interpretation Free Text/Narrative:: XR Chest: stable Rt lung mass, no acute process, improved pulm. vasc. congestion compared to prior study, see Rad. report. Departure - Departure Time of Disposition: 11:58 Disposition: Home, Self-Care 01 Condition: Fair Clinical Impression: Mass of right lung, Pleuritic chest pain - Discharge Information *PRESCRIPTION DRUG MONITORING PROGRAM REVIEWED*: No *COPY OF PRESCRIPTION DRUG MONITORING REPORT IN PATIENT VALERIE: No Instructions: Chest Wall Pain, Pleurisy Forms: ED Department Discharge Additional Instructions: Rx: Percocet (Acetaminophen-Oxycodone) 5mg/325mg Rx: Lactulose Syrup as needed for constipation. Use over the counter Colace stool softener one capsule three times a day as needed. Eat prunes, drink prune juice, and drink plenty of water. Follow up with specialist in [place] this week as scheduled. Sepsis Event Note - Evaluation Sepsis Screening Result: No Definite Risk - Focused Exam Vital Signs: Vital Signs Temp Pulse Resp BP Pulse Ox 12/03/19 10:46 97.8 F 58 L 20 143/52 H 98 Date Exam was Performed: 12/03/19 Time Exam was Performed: 11:48 - My Orders Last 24 Hours: My Active Orders 12/03/19 11:00 B-TYPE NATRIURETIC PEPTIDE,BNP [CHEM] Stat COMPREHENSIVE METABOLIC PN,CMP [CHEM] Stat - Assessment/Plan Last 24 Hours: My Active Orders 12/03/19 11:00 B-TYPE NATRIURETIC PEPTIDE,BNP [CHEM] Stat COMPREHENSIVE METABOLIC PN,CMP [CHEM] Stat
--- NOTE | 2019-12-03 11:15 | CR ---
EXAMINATION: Chest 1V Frontal SEX: Female AGE: 69 years CLINICAL HISTORY: 69-year-old female with CHEST PAIN (Hx Rt lung mass). INTERPRETATION: 1. Reproducible pleural-based lobular mass lesion laterally right midlung probably unchanged since comparison films 26 November. 2. Chronic cardiomegaly and cardiac pacemaker (leads intact and unchanged). 3. No new pulmonary vascular congestion, cephalization of flow, alveolar edema or dependent pleural fluid accumulation. 4. No new lung mass, hilar lymphadenopathy or focal lobar consolidation (infiltrate/atelectasis). 5. No sign of pneumothorax or pneumomediastinum. CONCLUSION: No acute new cardiopulmonary abnormality (definite improvement pulmonary vascular congestion since November 22, 2019).
[2019-12-03 11:40] LABS: ANION GAP 15.1
== END 2019-12-03 12:25 | disposition home or self-care (01) ==
LOC: DL.ED 10:28
DX: R07.81 Pleurodynia (principal); R91.8 Other nonspecific abnormal finding of lung field; I13.0 Hypertensive heart and chronic kidney disease with heart failure and stage 1 through stage 4 chronic kidney disease, or unspecified chronic kidney disease; E11.22 Type 2 diabetes mellitus with diabetic chronic kidney disease; N18.9 Chronic kidney disease, unspecified; I50.9 Heart failure, unspecified; E78.00 Pure hypercholesterolemia, unspecified; J44.9 Chronic obstructive pulmonary disease, unspecified; K21.9 Gastro-esophageal reflux disease without esophagitis; M19.90 Unspecified osteoarthritis, unspecified site; E11.9 Type 2 diabetes mellitus without complications; E03.9 Hypothyroidism, unspecified; Z88.8 Allergy status to other drugs, medicaments and biological substances; Z88.5 Allergy status to narcotic agent; Z91.048 Other nonmedicinal substance allergy status; Z79.899 Other long term (current) drug therapy; Z79.84 Long term (current) use of oral hypoglycemic drugs
CPT/HCPCS: 36415; 71045; 80053; 83880; 85025; 99283; 99285; A9270

== ENCOUNTER 2019-12-09 07:48 | Emergency (ER) | payer MEDICARE, MEDICAID ==
[2019-12-09 07:27] VITALS: BP 142/46; PULSE 60
--- NOTE | 2019-12-09 08:04 | EDM.PDOC ---
ED HPI GENERAL MEDICAL PROBLEM - General Chief Complaint: Respiratory Problem Stated Complaint: UNKNOWN Time Seen by Provider: 12/09/19 07:59 Source of Information: Reports: Patient History Limitations: Reports: No Limitations - History of Present Illness INITIAL COMMENTS - FREE TEXT/NARRATIVE: states been having this chest pain on-off since Tuesday. was here and given Rx but made her feel weird. gives h/o lung mass and thought was suppose to have biopsy but didn't and isn't happy about it. hopes it's not cancer. did take tylenol yesterday and pain got better but it came back again. then this AM unable to breath, took neb got better for short time then felt worse, so called EMS. Right Pain Score (Numeric/FACES): 9 - Related Data Allergies Allergy/AdvReac Type Severity Reaction Status Date / Time codeine Allergy Unknown Cannot Verified 12/09/19 07:29 Remember adhesive tape Allergy Rash Verified 12/09/19 07:29 sacubitril [From Entresto] Allergy Dizziness Verified 12/09/19 07:29 simvastatin [From Zocor] Allergy Muscle Verified 12/09/19 07:29 Aches valsartan [From Entresto] Allergy Dizziness Verified 12/09/19 07:29 metal Allergy Mild Rash Uncoded 12/09/19 07:29 Home Meds: Home Meds glipiZIDE [Glipizide] 10 mg PO BIDMEALS 07/09/15 [History] Omeprazole 20 mg PO ACBREAKFAST 04/15/16 [History] Albuterol [IJD: Ventolin HFA] 2 puff INH Q6H PRN 05/18/16 [History] carvediloL [Carvedilol] 6.25 mg PO BID 07/23/16 [History] metFORMIN HCl [Metformin HCl] 500 mg PO BIDMEALS 08/07/16 [History] Acetaminophen 1,000 mg PO BID PRN 08/08/17 [History] Albuterol [Proventil Neb Soln] 3 ml NEB Q6H PRN 08/08/17 [History] SitaGLIPtin [Januvia] 50 mg PO BEDTIME 04/11/19 [History] Insulin Detemir [Levemir Flextouch] 8 units SQ BEDTIME 04/30/19 [History] Ipratropium/Albuterol Sulfate [Iprat-Albut 0.5-3(2.5) mg/3 ml] 3 ml INH QID [History] Levothyroxine 150 mcg PO ACBREAKFAST 04/30/19 [History] Losartan [Cozaar] 12.5 mg PO BEDTIME 04/30/19 [History] Pravastatin Sodium 10 mg PO BEDTIME 04/30/19 [History] Bumetanide 1 mg PO DAILY 06/26/19 [History] Past Medical History HEENT History: Reports: Cataract, Impaired Vision Other HEENT History: wears glasses Cardiovascular History: Reports: Cardiomyopathy, Heart Failure, High Cholesterol , Hypertension, Pacemaker, Other (See Below) Other Cardiovascular History: CARDIAC DIFIBRILLATOR PLACEMENT (2017), NONISCHEMIC CARDIOMYOPATHY Respiratory History: Reports: Bronchitis, Recurrent, COPD, Pneumonia, Recurrent , Other (See Below) Gastrointestinal History: Reports: Cholelithiasis, GERD Genitourinary History: Reports: Renal Disease, UTI, Recurrent, Other (See Below) Other Genitourinary History: CKD 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 Musculoskeletal History: Reports: Arthritis, Fracture, Other (See Below) Other Musculoskeletal History: SHOULDER PAIN, BILATERAL Neurological History: Reports: None Psychiatric History: Reports: Addiction Endocrine/Metabolic History: Reports: Diabetes, Type II, Hypothyroidism Hematologic History: Reports: Anemia, B12 Deficiency, Iron Deficiency Immunologic History: Reports: None Oncologic (Cancer) History: Reports: None Dermatologic History: Reports: None - Infectious Disease History Infectious Disease History: Reports: Chicken Pox, Measles, Mumps, Rubella - Past Surgical History Head Surgeries/Procedures: Reports: None HEENT Surgical History: Reports: Cataract Surgery Cardiovascular Surgical History: Reports: AICD GI Surgical History: Reports: Appendectomy, Cholecystectomy Social & Family History - Family History Family Medical History: Noncontributory - Tobacco Use Smoking Status *Q: Former Smoker Years of Tobacco use: 40 Packs/Tins Daily: 1 Used Tobacco, but Quit: Yes Month/Year Tobacco Last Used: october Second Hand Smoke Exposure: No - Caffeine Use Caffeine Use: Reports: None Caffeine Use Comment: decaf products - Recreational Drug Use Recreational Drug Use: No - Living Situation & Occupation Living situation: Reports: Alone Occupation: Employed ED ROS GENERAL - Review of Systems Review Of Systems: Comprehensive ROS is negative, except as noted in HPI. ED EXAM, GENERAL - Physical Exam Exam: See Below Exam Limited By: No Limitations General Appearance: Alert, WD/WN, Anxious, Mild Distress, Other (distraught) Ears: Hearing Grossly Normal Throat/Mouth: Normal Voice, No Airway Compromise Head: Atraumatic Neck: Non-Tender, Full Range of Motion Respiratory/Chest: No Accessory Muscle Use, Rales, Rhonchi Cardiovascular: Regular Rate, Rhythm GI/Abdominal: Soft, Non-Tender Neurological: Alert, Oriented, Normal Cognition, No Motor/Sensory Deficits Psychiatric: Anxious, Flat Affect Skin Exam: Warm, Dry, Normal Color Lymphatic: No Adenopathy Course - Vital Signs Last Recorded V/S: Last Vital Signs Temp 36.6 C 12/09/19 07:19 Pulse 60 12/09/19 07:19 Resp 18 12/09/19 07:19 BP 142/46 H 12/09/19 07:19 Pulse Ox 89 L 12/09/19 07:19 - Orders/Labs/Meds Orders: Active Orders 24 hr Category Date Time Status CULTURE BLOOD [BC] Stat Lab 12/09/19 08:08 Received Acetaminophen [Tylenol] Med 12/09/19 08:54 Once 325 mg PO NOW ONE Labs: Laboratory Tests 12/09/19 12/09/19 12/09/19 Range/Units 08:08 08:08 08:08 WBC 14.0 H (5.0-10.0) 10^3/uL RBC 4.09 L (4.2-5.4) 10^6/uL Hgb 9.8 L (12.0-16.0) g/dL Hct 32.2 L (37.0-47.0) % MCV 78.7 L (80-100) fL MCH 24.0 L (27.0-34.0) pg MCHC 30.4 L (33.0-35.0) g/dL Plt Count 333 (150-450) 10^3/uL Neut % (Auto) 86.6 H (42.2-75.2) % Lymph % (Auto) 7.6 L (20.5-50.1) % [place] % (Auto) 4.0 (2-8) % Eos % (Auto) 1.7 (1.0-3.0) % Baso % (Auto) 0.1 (0.0-1.0) % Sodium 129 L (135-145) mmol/L Potassium 4.1 (3.6-5.0) mmol/L Chloride 93 L (101-111) mmol/L Carbon Dioxide 26.0 (21.0-31.0) mmol/L Anion Gap 14.1 BUN 19 H (7-18) mg/dL Creatinine 1.0 (0.6-1.3) mg/dL Est Cr Clr Drug Dosing 43.26 mL/min Estimated GFR (MDRD) 55 BUN/Creatinine Ratio 19.00 Glucose 178 H (74-105) mg/dL Lactic Acid 0.9 (0.5-2.0) mmol/L Calcium 10.0 (8.4-10.2) mg/dl Total Bilirubin 1.0 (0.2-1.0) mg/dL AST 12 (10-42) IU/L ALT 7 L (10-60) IU/L Alkaline Phosphatase 165 H (42-121) IU/L Troponin I < 0.02 (0.00-0.02) ng/ml B-Natriuretic Peptide 128 H (0-100) pg/ml Total Protein 8.5 H (6.7-8.2) g/dl Albumin 2.7 L (3.2-5.5) g/dl Globulin 5.8 Albumin/Globulin Ratio 0.47 - Re-Assessments/Exams Free Text/Narrative Re-Assessment/Exam: 12/09/19 08:55 results discussed with pt who states feels better presently, will continue with tylenol since that doesn't cause her to have bad side effects like tramadol & percocet. Departure - Departure Time of Disposition: 08:56 Disposition: Home, Self-Care 01 Condition: Good Clinical Impression: Pleuritic chest pain, Lung mass - Discharge Information Instructions: Nonspecific Chest Pain, [id number] Forms: ED Department Discharge Additional Instructions: 1) continue with tylenol for chest pains 2) continue with neb treatments for shortness of breath 3) follow up with [place] specialist 4) recheck if there is any change or concern Sepsis Event Note - Evaluation Sepsis Screening Result: No Definite Risk - Focused Exam Vital Signs: Vital Signs Temp Pulse Resp BP Pulse Ox 12/09/19 07:19 36.6 C 60 18 142/46 H 89 L Date Exam was Performed: 12/09/19 Time Exam was Performed: 08:55 - My Orders Last 24 Hours: My Active Orders 12/09/19 08:08 CULTURE BLOOD [BC] Stat 12/09/19 08:54 Acetaminophen [Tylenol] 325 mg PO NOW ONE - Assessment/Plan Last 24 Hours: My Active Orders 12/09/19 08:08 CULTURE BLOOD [BC] Stat 12/09/19 08:54 Acetaminophen [Tylenol] 325 mg PO NOW ONE
[2019-12-09 08:45] LABS: ANION GAP 14.1; CHLORIDE,CL 93 mmol/L (101-111); SODIUM,NA 129 mmol/L (135-145)
[2019-12-09] MEDS ORDERED: Acetaminophen 325 MG Tab PO ONE (08:54)
== END 2019-12-09 09:50 | disposition home or self-care (01) ==
LOC: DL.ED 07:48
DX: R07.81 Pleurodynia (principal); R91.8 Other nonspecific abnormal finding of lung field; I13.0 Hypertensive heart and chronic kidney disease with heart failure and stage 1 through stage 4 chronic kidney disease, or unspecified chronic kidney disease; I50.9 Heart failure, unspecified; N18.9 Chronic kidney disease, unspecified; E78.00 Pure hypercholesterolemia, unspecified; K21.9 Gastro-esophageal reflux disease without esophagitis; E03.9 Hypothyroidism, unspecified; E11.22 Type 2 diabetes mellitus with diabetic chronic kidney disease; J44.9 Chronic obstructive pulmonary disease, unspecified; Z88.5 Allergy status to narcotic agent; Z88.8 Allergy status to other drugs, medicaments and biological substances; Z79.4 Long term (current) use of insulin; Z79.899 Other long term (current) drug therapy; Z87.891 Personal history of nicotine dependence
CPT/HCPCS: 36415; 80053; 83605; 83880; 84484; 85025; 87040; 99284; 99285; A9270

== ENCOUNTER 2019-12-22 11:56 | Observation (INO) | payer MEDICARE, MEDICAID ==
--- NOTE | 2019-12-22 14:19 | CR ---
EXAMINATION: Chest 2V SEX: Female AGE: 69 years CLINICAL HISTORY: 69-year-old female with peripheral pleural-based right lung mass documented 26 November and 03 December 2019 chest radiographs presents now with SOB (bronchoscopy three days ago). INTERPRETATION: Abnormal but relatively stable i.e. radiographic appearance unchanged since recent films.. 1. Lobular, smoothly contoured, peripheral pleural-based mass lesion, mid-lateral right hemithorax. 2. Borderline cardiomegaly also unchanged this patient with cardiac pacemaker (leads intact). No new evidence heart failure i.e. no pulmonary vascular congestion, alveolar edema or dependent pleural fluid accumulation. 3. No sign of post procedural pneumothorax or pneumomediastinum. Midline tracheal airway unremarkable. 4. No new lung mass (tiny triangular scar lingula), hilar lymphadenopathy or focal lobar pneumonia. (Chronic mild bronchitic pattern) 5. No atelectasis/collapse.
[2019-12-22 15:09] LABS: ANION GAP 9.6 mEq/L (7-13)
[2019-12-22] MEDS ORDERED: Sodium Chloride 0.9% 1,000 ML IV SCH (15:45)
--- NOTE | 2019-12-22 16:47 | EDM.PDOC ---
Scribed by Kristyn Abebe 12/22/19 [id number] for Faiza Verma NP ED HPI GENERAL MEDICAL PROBLEM - General Chief Complaint: Cardiovascular Problem Stated Complaint: DIZZY, HIGH BP Time Seen by Provider: 12/22/19 13:19 Source of Information: Reports: Patient, RN, RN Notes Reviewed History Limitations: Reports: No Limitations - History of Present Illness INITIAL COMMENTS - FREE TEXT/NARRATIVE: Patient presents to ER with her niece with complaint of the presence of hypotension. Patient reports EMS checked her blood pressure this morning and told her it was running in the 100/40. She states she had a bronchoscopy 2 days ago. She has been having dizzy ever since. Autology visit 4 days ago and it everything was normal. Her niece reports increased weakness for the past 3 weeks. Denies any fevers, chills but admits to shortness of breath. No chest pain except with coughing after the bronchoscopy. Cough is present but nonproductive. Onset: Gradual - Related Data Allergies Allergy/AdvReac Type Severity Reaction Status Date / Time codeine Allergy Unknown Cannot Verified 12/22/19 12:36 Remember adhesive tape Allergy Rash Verified 12/22/19 12:36 sacubitril [From Entresto] Allergy Dizziness Verified 12/22/19 12:36 simvastatin [From Zocor] Allergy Muscle Verified 12/22/19 12:36 Aches valsartan [From Entresto] Allergy Dizziness Verified 12/22/19 12:36 metal Allergy Mild Rash Uncoded 12/22/19 12:36 Home Meds: Home Meds glipiZIDE [Glipizide] 10 mg PO BIDMEALS 07/09/15 [History] Omeprazole 20 mg PO ACBREAKFAST 04/15/16 [History] Albuterol [IJD: Ventolin HFA] 2 puff INH Q6H PRN 05/18/16 [History] carvediloL [Carvedilol] 6.25 mg PO BID 07/23/16 [History] metFORMIN HCl [Metformin HCl] 500 mg PO BIDMEALS 08/07/16 [History] Acetaminophen 1,000 mg PO BID PRN 08/08/17 [History] Albuterol [Proventil Neb Soln] 3 ml NEB Q6H PRN 08/08/17 [History] SitaGLIPtin [Januvia] 50 mg PO BEDTIME 04/11/19 [History] Insulin Detemir [Levemir Flextouch] 8 units SQ BEDTIME 04/30/19 [History] Ipratropium/Albuterol Sulfate [Iprat-Albut 0.5-3(2.5) mg/3 ml] 3 ml INH QID [History] Levothyroxine 150 mcg PO ACBREAKFAST 04/30/19 [History] Losartan [Cozaar] 12.5 mg PO BEDTIME 04/30/19 [History] Pravastatin Sodium 10 mg PO BEDTIME 04/30/19 [History] Bumetanide 1 mg PO DAILY 06/26/19 [History] Past Medical History HEENT History: Reports: Cataract, Impaired Vision Other HEENT History: wears glasses Cardiovascular History: Reports: Cardiomyopathy, Heart Failure, High Cholesterol , Hypertension, Pacemaker, Other (See Below) Other Cardiovascular History: CARDIAC DIFIBRILLATOR PLACEMENT (2017), NONISCHEMIC CARDIOMYOPATHY Respiratory History: Reports: Bronchitis, Recurrent, COPD, Pneumonia, Recurrent , Other (See Below) Gastrointestinal History: Reports: Cholelithiasis, GERD Genitourinary History: Reports: Renal Disease, UTI, Recurrent, Other (See Below) Other Genitourinary History: CKD 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 Musculoskeletal History: Reports: Arthritis, Fracture, Other (See Below) Other Musculoskeletal History: SHOULDER PAIN, BILATERAL Neurological History: Reports: None Psychiatric History: Reports: Addiction Endocrine/Metabolic History: Reports: Diabetes, Type II, Hypothyroidism Hematologic History: Reports: Anemia, B12 Deficiency, Iron Deficiency Immunologic History: Reports: None Oncologic (Cancer) History: Reports: None Dermatologic History: Reports: None - Infectious Disease History Infectious Disease History: Reports: Chicken Pox, Measles, Mumps, Rubella - Past Surgical History Head Surgeries/Procedures: Reports: None HEENT Surgical History: Reports: Cataract Surgery Cardiovascular Surgical History: Reports: AICD GI Surgical History: Reports: Appendectomy, Cholecystectomy Social & Family History - Family History Family Medical History: Noncontributory - Tobacco Use Smoking Status *Q: Former Smoker Packs/Tins Daily: 1 Used Tobacco, but Quit: Yes Month/Year Tobacco Last Used: 10/2013 - Caffeine Use Caffeine Use: Reports: None Caffeine Use Comment: decaf products - Recreational Drug Use Recreational Drug Use: No - Living Situation & Occupation Living situation: Reports: Alone Occupation: Employed ED ROS GENERAL - Review of Systems Review Of Systems: Comprehensive ROS is negative, except as noted in HPI. ED EXAM, GENERAL - Physical Exam Exam: See Below Exam Limited By: No Limitations General Appearance: Alert, Mild Distress Eye Exam: Bilateral Eye: Normal Inspection Ears: Normal External Exam, Normal Canal, Hearing Grossly Normal, Normal TMs Head: Atraumatic, Normocephalic Neck: Normal Inspection, Supple, Non-Tender, Full Range of Motion Respiratory/Chest: No Respiratory Distress, Lungs Clear, No Accessory Muscle Use , Crackles (mild basilar crackles) Cardiovascular: Normal Peripheral Pulses, Regular Rate, Rhythm, No Edema, No Gallop, No JVD, No Murmur, No Rub Peripheral Pulses: 3+: Posterior Tibial (L), Posterior Tibial (R), Dorsalis Pedis (L), Dorsalis Pedis (R) GI/Abdominal: Normal Bowel Sounds, Soft, Non-Tender, No Organomegaly, No Distention, No Abnormal Bruit, No Mass (Female) Exam: Deferred Rectal (Female) Exam: Deferred Extremities: Non-Tender, No Pedal Edema, Normal Capillary Refill Neurological: Alert, Oriented Psychiatric: Normal Affect, Normal Mood Skin Exam: Warm, Dry Lymphatic: No Adenopathy EKG INTERPRETATION EKG Date: 12/22/19 Time: 12:41 Rate (Beats/Min): 60 EKG Interpretation Comments: paced rhythm. Course - Vital Signs Last Recorded V/S: Last Vital Signs Temp 97.3 F 12/22/19 16:07 Pulse 65 12/22/19 16:07 Resp 20 12/22/19 16:07 BP 141/56 H 12/22/19 16:07 Pulse Ox 93 L 12/22/19 16:07 - Orders/Labs/Meds Orders: Active Orders 24 hr Category Date Time Status Admission Diagnosis [ADT] Routine ADT 12/22/19 16:27 Ordered Patient Status [ADT] Routine ADT 12/22/19 16:27 Active Blood Glucose Check, Bedside [RC] ONETIME Care 12/22/19 12:36 Active EKG Documentation Completion [RC] STAT Care 12/22/19 12:36 Active Sodium Chloride 0.9% [Normal Saline] 1,000 ml Med 12/22/19 15:45 Active IV ASDIRECTED Medication Orders Sodium Chloride (Normal Saline) 1,000 mls @ 250 mls/hr IV ASDIRECTED HIGINIO Last Admin: 12/22/19 15:57 Dose: 250 mls/hr Labs: Laboratory Tests 12/22/19 12/22/19 12/22/19 Range/Units 13:45 13:49 13:49 WBC 15.3 H (5.0-10.0) 10^3/uL RBC 3.51 L (4.2-5.4) 10^6/uL Hgb 8.4 L (12.0-16.0) g/dL Hct 27.3 L (37.0-47.0) % MCV 77.8 L (80-100) fL MCH 23.9 L (27.0-34.0) pg MCHC 30.8 L (33.0-35.0) g/dL Plt Count 295 (150-450) 10^3/uL Neut % (Auto) 83.0 H (42.2-75.2) % Lymph % (Auto) 10.1 L (20.5-50.1) % [place] % (Auto) 5.2 (2-8) % Eos % (Auto) 1.6 (1.0-3.0) % Baso % (Auto) 0.1 (0.0-1.0) % Sodium 126 L (136-145) mmol/L Potassium 4.6 (3.5-5.1) mmol/L Chloride 91 L (98-107) mmol/L Carbon Dioxide 30 (21-32) mmol/L Anion Gap 9.6 (7-13) mEq/L BUN 24 H (7-18) mg/dL Creatinine 1.15 H (0.55-1.02) mg/dL Est Cr Clr Drug Dosing 36.44 mL/min Estimated GFR (MDRD) 47 BUN/Creatinine Ratio 20.9 (No establ ref range) Glucose 199 H (74-99) mg/dL Calcium 9.3 (8.5-10.1) mg/dL Total Bilirubin 0.4 (0.2-1.0) mg/dL AST 13 L (15-37) U/L ALT 7 L (14-59) U/L Alkaline Phosphatase 133 H (46-116) U/L Troponin I < 0.017 (0.000-0.056) ng/mL Total Protein 7.3 (6.4-8.2) g/dL Albumin 2.1 L (3.4-5.0) g/dL Globulin 5.2 Albumin/Globulin Ratio 0.40 Urine Color (YELLOW) Urine Appearance (CLEAR) Urine pH (5.0-9.0) Ur Specific [place] (1.005-1.030) Urine Protein (NEGATIVE) Urine Glucose (UA) (NEGATIVE) Urine Ketones (NEGATIVE) Urine Occult Blood (NEGATIVE) Urine Nitrite (NEGATIVE) Urine Bilirubin (NEGATIVE) Urine Urobilinogen (0.2-1.0) mg/dL Ur Leukocyte Esterase (NEGATIVE) 12/22/19 Range/Units 14:08 WBC (5.0-10.0) 10^3/uL RBC (4.2-5.4) 10^6/uL Hgb (12.0-16.0) g/dL Hct (37.0-47.0) % MCV (80-100) fL MCH (27.0-34.0) pg MCHC (33.0-35.0) g/dL Plt Count (150-450) 10^3/uL Neut % (Auto) (42.2-75.2) % Lymph % (Auto) (20.5-50.1) % [place] % (Auto) (2-8) % Eos % (Auto) (1.0-3.0) % Baso % (Auto) (0.0-1.0) % Sodium (136-145) mmol/L Potassium (3.5-5.1) mmol/L Chloride (98-107) mmol/L Carbon Dioxide (21-32) mmol/L Anion Gap (7-13) mEq/L BUN (7-18) mg/dL Creatinine (0.55-1.02) mg/dL Est Cr Clr Drug Dosing mL/min Estimated GFR (MDRD) BUN/Creatinine Ratio (No establ ref range) Glucose (74-99) mg/dL Calcium (8.5-10.1) mg/dL Total Bilirubin (0.2-1.0) mg/dL AST (15-37) U/L ALT (14-59) U/L Alkaline Phosphatase (46-116) U/L Troponin I (0.000-0.056) ng/mL Total Protein (6.4-8.2) g/dL Albumin (3.4-5.0) g/dL Globulin Albumin/Globulin Ratio Urine Color Dark yellow (YELLOW) Urine Appearance Slightly cloudy (CLEAR) Urine pH 5.0 (5.0-9.0) Ur Specific [place] 1.025 (1.005-1.030) Urine Protein Negative (NEGATIVE) Urine Glucose (UA) Negative (NEGATIVE) Urine Ketones Negative (NEGATIVE) Urine Occult Blood Negative (NEGATIVE) Urine Nitrite Negative (NEGATIVE) Urine Bilirubin Negative (NEGATIVE) Urine Urobilinogen 0.2 (0.2-1.0) mg/dL Ur Leukocyte Esterase Negative (NEGATIVE) Meds: Medications Generic Name Dose Route Start Last Admin Trade Name Freq PRN Reason Stop Dose Admin Sodium Chloride 1,000 mls @ 250 mls/hr 12/22/19 15:45 12/22/19 15:57 Normal Saline IV 250 mls/hr ASDIRECTED HIGINIO Administration - Radiology Interpretation Free Text/Narrative:: Chest x-ray: Abnormal but relatively stable i.e. radiographic appearance unchanged since recent films. Lobular, smoothly contoured, peripheral pleural- based mass lesions, mid-lateral right hemithorax. Borderline cardiomegaly also unchanged this patient with cardiac pacemaker (leads intact). No new evidence heart failure i.e. no pulmonary vascular congestion, alveolar edema or dependent pleural fluid accumulation. No sign of post procedural pneumothorax or pneumomediastinum. Midline tracheal airway unremarkable. No new lung mass ( tiny triangular scar lingula), hilar lymphadenopathy or focal lobar pneumonia. ( Chronic mild bronchitic pattern). No atelectasis/collapse. See rad report. - Re-Assessments/Exams Free Text/Narrative Re-Assessment/Exam: Reviewed lab results, UA and chest x-ray with patient and her son. Consulted with Dr. Ryan who accepted patient for observation. Departure - Departure Time of Disposition: 15:48 Disposition: Refer to Observation Condition: Fair, Poor Clinical Impression: Hyponatremia, Chronic anemia, Acute kidney injury Instructions: Acute Kidney Injury, Adult, Anemia Forms: ED Department Discharge Sepsis Event Note - Evaluation Sepsis Screening Result: No Definite Risk - Focused Exam Vital Signs: Vital Signs Temp Pulse Resp BP Pulse Ox 12/22/19 16:07 97.3 F 65 20 141/56 H 93 L 12/22/19 13:30 61 18 133/48 L 98 12/22/19 12:37 98.2 F 59 L 18 124/45 L 90 L Date Exam was Performed: 12/22/19 Time Exam was Performed: 16:44 - My Orders Last 24 Hours: My Active Orders 12/22/19 12:36 Blood Glucose Check, Bedside [RC] ONETIME EKG Documentation Completion [RC] STAT 12/22/19 15:45 Sodium Chloride 0.9% [Normal Saline] 1,000 ml IV ASDIRECTED 12/22/19 16:27 Admission Diagnosis [ADT] Routine Patient Status [ADT] Routine - Assessment/Plan Last 24 Hours: My Active Orders 12/22/19 12:36 Blood Glucose Check, Bedside [RC] ONETIME EKG Documentation Completion [RC] STAT 12/22/19 15:45 Sodium Chloride 0.9% [Normal Saline] 1,000 ml IV ASDIRECTED 12/22/19 16:27 Admission Diagnosis [ADT] Routine Patient Status [ADT] Routine I have read and agree with the documentation that has been completed regarding this visit. By signing this record, I attest that the documentation was completed in my physical presence and is an accurate record of the encounter.
--- NOTE | 2019-12-22 17:10 | PCM.HP ---
H&P History of Present Illness - General Date of Service: 12/22/19 Admit Problem/Dx: Admission Diagnosis/Problem Admission Diagnosis/Problem Hyponatremia Source of Information: Patient, Old Records History Limitations: Reports: No Limitations - History of Present Illness Initial Comments - Free Text/Narative: Ms. Gage is 69 years old and is found to have an enlarging peripheral right lung mass. She had a right pleural effusion last summer with a smaller mass which has enlarged. Pleural fluid last summer with increased mesothelial cells, and cytology negative. She also has AICD and history of Non-ischemic Cardiomyopathy, marked Anemia of chronic illness, Hypertension and Hypelipidemia , Diabetes II and history of CHF Ms. Gage is a lifelong smoker ( >40 years of smoking history) but also had some asbestos exposure from housing in old [employer] buildings used as housing in [facility]. Today she came with dizziness but later got better and her BP was in 120's, and has received IV fluids. on admission sodium was at 126 meq/L and she is chronically low in sodium pt had Rt Lung Biopsy by IR on 12/19/19 Onset of Symptoms: Reports: Gradual Duration of Symptoms: Reports: Getting Worse Severity: Mild Associated Symptoms: Reports: Weakness - Related Data Allergies/Adverse Reactions: Allergies Allergy/AdvReac Type Severity Reaction Status Date / Time codeine Allergy Unknown Cannot Verified 12/22/19 12:36 Remember adhesive tape Allergy Rash Verified 12/22/19 12:36 sacubitril [From Entresto] Allergy Dizziness Verified 12/22/19 12:36 simvastatin [From Zocor] Allergy Muscle Verified 12/22/19 12:36 Aches valsartan [From Entresto] Allergy Dizziness Verified 12/22/19 12:36 metal Allergy Mild Rash Uncoded 12/22/19 12:36 Home Medications: Home Meds glipiZIDE [Glipizide] 10 mg PO BIDMEALS 07/09/15 [History] Omeprazole 20 mg PO ACBREAKFAST 04/15/16 [History] Albuterol [IJD: Ventolin HFA] 2 puff INH Q6H PRN 05/18/16 [History] carvediloL [Carvedilol] 6.25 mg PO BID 07/23/16 [History] metFORMIN HCl [Metformin HCl] 500 mg PO BIDMEALS 08/07/16 [History] Acetaminophen 1,000 mg PO BID PRN 08/08/17 [History] Albuterol [Proventil Neb Soln] 3 ml NEB Q6H PRN 08/08/17 [History] SitaGLIPtin [Januvia] 50 mg PO BEDTIME 04/11/19 [History] Insulin Detemir [Levemir Flextouch] 8 units SQ BEDTIME 04/30/19 [History] Ipratropium/Albuterol Sulfate [Iprat-Albut 0.5-3(2.5) mg/3 ml] 3 ml INH QID [History] Levothyroxine 150 mcg PO ACBREAKFAST 04/30/19 [History] Losartan [Cozaar] 12.5 mg PO BEDTIME 04/30/19 [History] Pravastatin Sodium 10 mg PO BEDTIME 04/30/19 [History] Bumetanide 1 mg PO DAILY 06/26/19 [History] Past Medical History HEENT History: Reports: Cataract, Impaired Vision Other HEENT History: wears glasses Cardiovascular History: Reports: Cardiomyopathy, Heart Failure, High Cholesterol , Hypertension, Pacemaker, Other (See Below) Other Cardiovascular History: CARDIAC DIFIBRILLATOR PLACEMENT (2017), NONISCHEMIC CARDIOMYOPATHY Respiratory History: Reports: Bronchitis, Recurrent, COPD, Pneumonia, Recurrent , Other (See Below) Gastrointestinal History: Reports: Cholelithiasis, GERD Genitourinary History: Reports: Renal Disease, UTI, Recurrent, Other (See Below) Other Genitourinary History: CKD [employer] 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 OB/BYN History: HAS 3 KIDS Musculoskeletal History: Reports: Arthritis, Fracture, Other (See Below) Other Musculoskeletal History: SHOULDER PAIN, BILATERAL Neurological History: Reports: None Psychiatric History: Reports: Addiction Endocrine/Metabolic History: Reports: Diabetes, Type II, Hypothyroidism Hematologic History: Reports: Anemia, B12 Deficiency, Iron Deficiency Immunologic History: Reports: None Oncologic (Cancer) History: Reports: None Dermatologic History: Reports: None - Infectious Disease History Infectious Disease History: Reports: Chicken Pox, Measles, Mumps, Rubella - Past Surgical History Head Surgeries/Procedures: Reports: None HEENT Surgical History: Reports: Cataract Surgery Cardiovascular Surgical History: Reports: AICD GI Surgical History: Reports: Appendectomy, Cholecystectomy Social & Family History - Family History Family Medical History: Noncontributory - Tobacco Use Smoking Status *Q: Former Smoker Packs/Tins Daily: 1 Used Tobacco, but Quit: Yes Month/Year Tobacco Last Used: 10/2013 - Caffeine Use Caffeine Use: Reports: None Caffeine Use Comment: decaf products - Recreational Drug Use Recreational Drug Use: No - Living Situation & Occupation Living situation: Reports: Alone Occupation: Employed H&P Review of Systems - Review of Systems: Review Of Systems: See Below General: Reports: Weakness. Denies: Fever, Chills HEENT: Denies: Headaches, Sinus Congestion, Sore Throat Pulmonary: Reports: Cough. Denies: Shortness of Breath, Wheezing, Sputum Cardiovascular: Reports: Lightheadedness. Denies: Chest Pain, Dyspnea on Exertion Gastrointestinal: Denies: Abdominal Pain, Diarrhea, Nausea, Vomiting Genitourinary: Denies: Dysuria, Burning, Urgency, Flank Pain Skin: Denies: Cyanosis, Jaundice, Bruising Psychiatric: Denies: Confusion, Anxiety Neurological: Reports: Dizziness, Weakness. Denies: Confusion Hematologic/Lymphatic: Reports: Anemia (chronic) Immunologic: Reports: No Symptoms Exam - Exam Exam: See Below - Vital Signs Vital Signs: Last Vital Signs Temp 36.3 C 12/22/19 16:07 Pulse 65 12/22/19 16:07 Resp 20 12/22/19 16:07 BP 141/56 H 12/22/19 16:07 Pulse Ox 93 L 12/22/19 16:07 Weight: 50.712 kg - Exam Quality Assessment: DVT Prophylaxis. No: Supplemental Oxygen, Urinary Catheter General: Alert, Oriented, Cooperative HEENT: Conjunctiva Clear, EOMI, Hearing Intact, Mucosa Moist & [place] Neck: No: Lymphadenopathy, JVD, Thyromegaly Lungs: Clear to Auscultation, Normal Respiratory Effort. No: Crackles, Wheezing Cardiovascular: Irregular Rhythm, Systolic Murmur GI/Abdominal Exam: Normal Bowel Sounds, Soft, Non-Tender, No Distention (Female) Exam: Deferred Rectal (Female) Exam: Deferred Back Exam: Normal Inspection, Full Range of Motion Extremities: Normal Inspection, No Pedal Edema Neurological: Cranial Nerves Intact, Reflexes Equal Bilateral Neuro Extensive - Mental Status: Alert, Oriented x3, Normal Mood/Affect, Normal Cognition, Memory Intact Neuro Extensive - Motor, Sensory, Reflexes: CN II-XII Intact Psychiatric: Alert, Normal Affect, Normal Mood - Patient Data Lab Results Last 24 hrs: Laboratory Results - last 24 hr 12/22/19 12/22/19 12/22/19 Range/Units 13:45 13:49 13:49 WBC 15.3 H (5.0-10.0) 10^3/uL RBC 3.51 L (4.2-5.4) 10^6/uL Hgb 8.4 L (12.0-16.0) g/dL Hct 27.3 L (37.0-47.0) % MCV 77.8 L (80-100) fL MCH 23.9 L (27.0-34.0) pg MCHC 30.8 L (33.0-35.0) g/dL Plt Count 295 (150-450) 10^3/uL Neut % (Auto) 83.0 H (42.2-75.2) % Lymph % (Auto) 10.1 L (20.5-50.1) % [place] % (Auto) 5.2 (2-8) % Eos % (Auto) 1.6 (1.0-3.0) % Baso % (Auto) 0.1 (0.0-1.0) % Sodium 126 L (136-145) mmol/L Potassium 4.6 (3.5-5.1) mmol/L Chloride 91 L (98-107) mmol/L Carbon Dioxide 30 (21-32) mmol/L Anion Gap 9.6 (7-13) mEq/L BUN 24 H (7-18) mg/dL Creatinine 1.15 H (0.55-1.02) mg/dL Est Cr Clr Drug Dosing 36.44 mL/min Estimated GFR (MDRD) 47 BUN/Creatinine Ratio 20.9 (No establ ref range) Glucose 199 H (74-99) mg/dL Calcium 9.3 (8.5-10.1) mg/dL Total Bilirubin 0.4 (0.2-1.0) mg/dL AST 13 L (15-37) U/L ALT 7 L (14-59) U/L Alkaline Phosphatase 133 H (46-116) U/L Troponin I < 0.017 (0.000-0.056) ng/mL Total Protein 7.3 (6.4-8.2) g/dL Albumin 2.1 L (3.4-5.0) g/dL Globulin 5.2 Albumin/Globulin Ratio 0.40 Urine Color (YELLOW) Urine Appearance (CLEAR) Urine pH (5.0-9.0) Ur Specific [place] (1.005-1.030) Urine Protein (NEGATIVE) Urine Glucose (UA) (NEGATIVE) Urine Ketones (NEGATIVE) Urine Occult Blood (NEGATIVE) Urine Nitrite (NEGATIVE) Urine Bilirubin (NEGATIVE) Urine Urobilinogen (0.2-1.0) mg/dL Ur Leukocyte Esterase (NEGATIVE) 12/22/19 Range/Units 14:08 WBC (5.0-10.0) 10^3/uL RBC (4.2-5.4) 10^6/uL Hgb (12.0-16.0) g/dL Hct (37.0-47.0) % MCV (80-100) fL MCH (27.0-34.0) pg MCHC (33.0-35.0) g/dL Plt Count (150-450) 10^3/uL Neut % (Auto) (42.2-75.2) % Lymph % (Auto) (20.5-50.1) % [place] % (Auto) (2-8) % Eos % (Auto) (1.0-3.0) % Baso % (Auto) (0.0-1.0) % Sodium (136-145) mmol/L Potassium (3.5-5.1) mmol/L Chloride (98-107) mmol/L Carbon Dioxide (21-32) mmol/L Anion Gap (7-13) mEq/L BUN (7-18) mg/dL Creatinine (0.55-1.02) mg/dL Est Cr Clr Drug Dosing mL/min Estimated GFR (MDRD) BUN/Creatinine Ratio (No establ ref range) Glucose (74-99) mg/dL Calcium (8.5-10.1) mg/dL Total Bilirubin (0.2-1.0) mg/dL AST (15-37) U/L ALT (14-59) U/L Alkaline Phosphatase (46-116) U/L Troponin I (0.000-0.056) ng/mL Total Protein (6.4-8.2) g/dL Albumin (3.4-5.0) g/dL Globulin Albumin/Globulin Ratio Urine Color Dark yellow (YELLOW) Urine Appearance Slightly cloudy (CLEAR) Urine pH 5.0 (5.0-9.0) Ur Specific [place] 1.025 (1.005-1.030) Urine Protein Negative (NEGATIVE) Urine Glucose (UA) Negative (NEGATIVE) Urine Ketones Negative (NEGATIVE) Urine Occult Blood Negative (NEGATIVE) Urine Nitrite Negative (NEGATIVE) Urine Bilirubin Negative (NEGATIVE) Urine Urobilinogen 0.2 (0.2-1.0) mg/dL Ur Leukocyte Esterase Negative (NEGATIVE) Result Diagrams: 12/22/19 13:49 12/22/19 13:45 - Problem List (1) Hyponatremia SNOMED Code(s): 60114577 ICD Code: E87.1 - HYPO-OSMOLALITY AND HYPONATREMIA Status: Acute Current Visit: Yes (2) Mass of right lung SNOMED Code(s): 301155599 ICD Code: R91.8 - OTHER NONSPECIFIC ABNORMAL FINDING OF LUNG FIELD Status: Acute Current Visit: Yes (3) Weakness SNOMED Code(s): 95383608 ICD Code: R53.1 - WEAKNESS Status: Acute Current Visit: No (4) Hypertension SNOMED Code(s): 45803411 ICD Code: I10 - ESSENTIAL (PRIMARY) HYPERTENSION Status: Chronic Current Visit: No Problem List Initiated/Reviewed/Updated: Yes Orders Last 24hrs: Active Orders 24 hr Category Date Time Status Admission Diagnosis [ADT] Routine ADT 12/22/19 16:27 Ordered Patient Status [ADT] Routine ADT 12/22/19 16:27 Active Blood Glucose Check, Bedside [RC] ONETIME Care 12/22/19 12:36 Active EKG Documentation Completion [RC] STAT Care 12/22/19 12:36 Active Sodium Chloride 0.9% [Normal Saline] 1,000 ml Med 12/22/19 15:45 Active IV ASDIRECTED Medication Orders Sodium Chloride (Normal Saline) 1,000 mls @ 250 mls/hr IV ASDIRECTED HIGINIO Last Admin: 12/22/19 15:57 Dose: 250 mls/hr Assessment/Plan Comment:: Ms. Gage is 69 years old and is found to have an enlarging peripheral right lung mass. She had a right pleural effusion last summer with a smaller mass which has enlarged. Pleural fluid last summer with increased mesothelial cells, and cytology negative. She also has AICD and history of Non-ischemic Cardiomyopathy, marked Anemia of chronic illness, Hypertension and Hyperlipidemia, Diabetes II and history of CHF Ms. Gage is a lifelong smoker ( >40 years of smoking history) but also had some asbestos exposure from housing in old [employer] buildings used as housing in [facility].pt had Rt Lung Biopsy by IR on 12/19/19 Today she came with dizziness but later got better and her BP was in 120's, and has received IV fluids. on admission sodium was at 126 meq/L and she is chronically low in sodium Impression and Plan: 1. Hyponatremia: Pt has chronically lower sodium but now it is at lowest level and it is likely secondary to lung mass ( which is enlarging) - Will send labs for urine sodium, Urine osmolality, serum osmolality, and uric acid level ( these labs not done here, it is send out lab) -Will place her on fluid restriction 1200 ml/24 hrs -Will give IVF ( NS) only at 50 ml/hr and check sodium if not improving then will stop NS ( if the urine osmolality is >300 mOsm/kg then NS will lower sodium ) -will start her on salt tablet after monitoring the sodium trend ( if not improving with NS then will start salt tablet), she will not need 3% saline infusion as she does not have symptom of acute Hyponatremia 2. Hypertension: Her BP was acceptable and will continue coreg at 6.25 mg BID but will stop Losartan [ was at 25 mg daily] 3. Diabetes II ( Insulin Dependent): will continue Metformin and Glipizide, and also Levemit nightly 4. Rt Lung Mass: pt has long history of smoking and had Biopsy of Rt Lung mass on 12/19/19, she has tenderness at the biopsy site, continue Tylenol for pain control 5. DVT prophylaxis: continue subq heparin Code Status: discussed with pt and she is Full code.
[2019-12-22] MEDS ORDERED: Docusate Sodium 100 MG Cap PO PRN (17:34)
[2019-12-22] MEDS ORDERED: Albuterol 6.7 GM Inhaler INH PRN (17:40)
[2019-12-22] MEDS ORDERED: Albuterol 0.083% 2.5 MG/3 ML Neb Soln NEB PRN (17:40)
[2019-12-22] MEDS: glipiZIDE 5 MG Tab PO SCH (18:40)
[2019-12-22] MEDS: metFORMIN 500 MG Tab PO SCH (18:40)
[2019-12-22] MEDS: Bumetanide 1 MG Tab PO SCH (18:41)
[2019-12-22] MEDS: Carvedilol 6.25 MG Tab PO SCH (18:42)
[2019-12-22] MEDS: Insulin Lispro 100 Units/ML 3 ML Vial SUBCUT SCH ×2 (18:42→21:33)
[2019-12-22] MEDS ORDERED: Insulin Glarg,Human.Rec.Analog 100 Unit/ML SUBCUT SCH (21:00)
[2019-12-22] MEDS: Heparin Sodium 5,000 Units/ML Vial SUBCUT SCH (21:29)
[2019-12-22] MEDS: Acetaminophen 325 MG Tab PO PRN (21:30)
[2019-12-22] MEDS: Sodium Chloride 1 GM Tab PO SCH (21:50)
[2019-12-23] MEDS: Acetaminophen 325 MG Tab PO PRN ×2 (00:45→08:28)
[2019-12-23] MEDS: Heparin Sodium 5,000 Units/ML Vial SUBCUT SCH (05:23)
[2019-12-23] MEDS ORDERED: Omeprazole 20 MG Cap.CR PO SCH (06:00)
[2019-12-23] MEDS ORDERED: Levothyroxine 150 MCG Tab PO SCH (06:00)
[2019-12-23] MEDS: Bumetanide 1 MG Tab PO SCH (08:27)
[2019-12-23] MEDS: Sodium Chloride 1 GM Tab PO SCH (08:27)
[2019-12-23] MEDS ORDERED: Pravastatin 20 MG Tab PO SCH (09:00)
[2019-12-23 09:19] LABS: ANION GAP 10.7 mEq/L (7-13)
[2019-12-23] MEDS: glipiZIDE 5 MG Tab PO SCH (09:47)
[2019-12-23] MEDS: Insulin Lispro 100 Units/ML 3 ML Vial SUBCUT SCH (09:48)
[2019-12-23] MEDS: metFORMIN 500 MG Tab PO SCH (09:48)
[2019-12-23] MEDS: Carvedilol 6.25 MG Tab PO SCH (09:48)
--- NOTE | 2019-12-23 10:30 | PCM.DCSUM1 ---
Discharge Summary - Hospital Course Free Text/Narrative:: Ms. Gage is 69 years old and is found to have an enlarging peripheral right lung mass. She had a right pleural effusion last summer with a smaller mass which has enlarged. Pleural fluid last summer with increased mesothelial cells, and cytology negative. She also has AICD and history of Non-ischemic Cardiomyopathy, marked Anemia of chronic illness, Hypertension and Hypelipidemia , Diabetes II and history of CHF Ms. Gage is a lifelong smoker ( >40 years of smoking history) but also had some asbestos exposure from housing in old [employer] buildings used as housing in [facility]. she came to ER with dizziness but later got better and her BP was in 120's, and has received IV fluids. on admission sodium was at 126 meq/L and she is chronically low in sodium pt had Rt Lung Biopsy by IR on 12/19/19 After admission her losartan was placed on hold and NS continued only at 50 mlhr and started her on salt tablet at 1 gm 2 times a day. her sodium is improving and she needs to continue oral salt tablet and continue fluid restriction at 1500 ml/24 hrs ( 50 ounce/24 hrs). She needs to follow ith PMD in this week with BMP and needs close monitoring of her sodium. Likely Lung Mass causing Abnormal ADH release and that leads to free water retention by the kidney and lowering of sodium - Discharge Data Discharge Date: 12/23/19 Discharge Disposition: Home, Self-Care 01 Condition: Stable - Referral to Home Health Primary Care Physician: PCP Unobtainable - Discharge Diagnosis/Problem(s) (1) Hyponatremia SNOMED Code(s): 79596401 ICD Code: E87.1 - HYPO-OSMOLALITY AND HYPONATREMIA Status: Acute Current Visit: Yes (2) Mass of right lung SNOMED Code(s): 299074575 ICD Code: R91.8 - OTHER NONSPECIFIC ABNORMAL FINDING OF LUNG FIELD Status: Acute Current Visit: Yes (3) Weakness SNOMED Code(s): 63122502 ICD Code: R53.1 - WEAKNESS Status: Acute Current Visit: No (4) Hypertension SNOMED Code(s): 69539094 ICD Code: I10 - ESSENTIAL (PRIMARY) HYPERTENSION Status: Chronic Current Visit: No Qualifiers: Hypertension type: essential hypertension Qualified Code(s): I10 - Essential (primary) hypertension - Patient Instructions Diet: Diabetic Diet Fluid Restriction: 1500 mL Activity: As Tolerated Driving: Do Not Drive (today) Showering/Bathing: May Shower Notify Provider of: Fever, Nausea and/or Vomiting Other/Special Instructions: Ms. Gage is 69 years old and is found to have an enlarging peripheral right lung mass. She had a right pleural effusion last summer with a smaller mass which has enlarged. Pleural fluid last summer with increased mesothelial cells, and cytology negative. She also has AICD and history of Non-ischemic Cardiomyopathy, marked Anemia of chronic illness, Hypertension and Hypelipidemia, Diabetes II and history of CHF. Ms. Gage is a lifelong smoker ( >40 years of smoking history) but also had some asbestos exposure from housing in old [employer] buildings used as housing in [facility].. she came to ER with dizziness but later got better and her BP was in 120's, and has received IV fluids. on admission sodium was at 126 meq/ L and she is chronically low in sodium. pt had Rt Lung Biopsy by IR on . After admission her losartan was placed on hold and NS continued only at 50 mlhr and started her on salt tablet at 1 gm 2 times a day. her sodium is improving and she needs to continue oral salt tablet and continue fluid restriction at 1500 ml/24 hrs ( 50 ounce/24 hrs). She needs to follow ith PMD in this week with LISBETH and needs close monitoring of her sodium. Likely Lung Mass causing Abnormal ADH release and that leads to free water retention by the kidney and lowering of sodium. She will go home today and will follow with PMD this week with BMP and Labs need to be monitored by PMD initially every 3-4 days later weekly, she will go home on salt tablet 1 gm 2 times a day with meals - Discharge Plan Prescriptions/Med Rec: Sodium Chloride 1 gm PO BID #30 tablet Home Medications: Home Meds glipiZIDE [Glipizide] 10 mg PO BIDMEALS 07/09/15 [History] Omeprazole 20 mg PO ACBREAKFAST 04/15/16 [History] Albuterol [IJD: Ventolin HFA] 2 puff INH Q6H PRN 05/18/16 [History] carvediloL [Carvedilol] 6.25 mg PO BID 07/23/16 [History] metFORMIN HCl [Metformin HCl] 500 mg PO BIDMEALS 08/07/16 [History] Acetaminophen 1,000 mg PO BID PRN 08/08/17 [History] Albuterol [Proventil Neb Soln] 3 ml NEB Q6H PRN 08/08/17 [History] SitaGLIPtin [Januvia] 50 mg PO BEDTIME 04/11/19 [History] Insulin Detemir [Levemir Flextouch] 8 units SQ BEDTIME 04/30/19 [History] Levothyroxine 150 mcg PO ACBREAKFAST 04/30/19 [History] Pravastatin Sodium 10 mg PO DAILY 04/30/19 [History] Bumetanide 1 mg PO BIDMEALS 06/26/19 [History] Sodium Chloride 1 gm PO BID #30 tablet 12/23/19 [Rx] Oxygen Therapy Mode: Room Air Patient Handouts: Acute Kidney Injury, Adult, Anemia - Discharge Summary/Plan Comment DC Time >30 min.: Yes Discharge Summary/Plan Comment: Ms. Gage is 69 years old and is found to have an enlarging peripheral right lung mass. She had a right pleural effusion last summer with a smaller mass which has enlarged. Pleural fluid last summer with increased mesothelial cells, and cytology negative. She also has AICD and history of Non-ischemic Cardiomyopathy, marked Anemia of chronic illness, Hypertension and Hyperlipidemia, Diabetes II and history of CHF Ms. Gage is a lifelong smoker ( >40 years of smoking history) but also had some asbestos exposure from housing in old [employer] buildings used as housing in [facility].pt had Rt Lung Biopsy by IR on 12/19/19 She came to ER on 12/22/19 with dizziness but later got better and her BP was in 120's, and has received IV fluids. on admission sodium was at 126 meq/L and she is chronically low in sodium Impression and Plan: 1. Hyponatremia: Pt has chronically lower sodium but now it is at lowest level and it is likely secondary to lung mass ( which is enlarging) - labs for urine sodium, Urine osmolality, serum osmolality, and uric acid level ( were dayana but result no available, these labs not done here, it is send out lab) -Will continue her on fluid restriction 1500 ml/24 hrs ( 50 ounce/day) -Will continue salt tablet 1 gm 2 times a day with meals -Labs need to be monitored by PMD initially every 3-4 days later weekly 2. Hypertension: Her BP was acceptable and will continue coreg at 6.25 mg BID but will stop Losartan [ was at 25 mg daily] ( because of Low BP and dizziness] 3. Diabetes II ( Insulin Dependent): will continue Metformin and Glipizide, and also Levemit nightly 4. Rt Lung Mass: pt has long history of smoking and had Biopsy of Rt Lung mass on 12/19/19, she has tenderness at the biopsy site, continue Tylenol for pain control Disposition: She will go home today and will follow with PMD this week with BMP and Labs need to be monitored by PMD initially every 3-4 days later weekly - General Info Date of Service: 12/23/19 Admission Dx/Problem (Free Text: Admission Diagnosis/Problem Admission Diagnosis/Problem Hyponatremia Subjective Update: Today she is doing better, slept well and appetite is better and will be going home Functional Status: Reports: Pain Controlled - Review of Systems General: Reports: Weakness, Appetite (acceptable). Denies: Fever, Chills HEENT: Denies: Headaches, Sinus Congestion, Sore Throat, Visual Changes Pulmonary: Denies: Shortness of Breath, Cough, Wheezing Cardiovascular: Denies: Chest Pain, Lightheadedness Gastrointestinal: Denies: Abdominal Pain, Difficulty Swallowing, Nausea, Vomiting Genitourinary: Denies: Dysuria, Burning, Urgency, Flank Pain Musculoskeletal: Denies: Neck Pain, Shoulder Pain, Leg Pain Neurological: Denies: Confusion, Numbness, Tremors Psychiatric: Denies: Confusion, Anxiety - Patient Data Vitals - Most Recent: Last Vital Signs Temp 37.3 C 12/23/19 00:00 Pulse 60 12/23/19 09:48 Resp 20 12/23/19 00:00 BP 132/49 L 12/23/19 09:48 Pulse Ox 92 L 12/23/19 00:00 Weight - Most Recent: 50.712 kg I&O - Last 24 hours: Intake & Output 12/22/19 12/23/19 12/23/19 22:59 06:59 14:59 Intake Total 240 Output Total 450 Balance 240 -450 Lab Results - Last 24 hrs: Laboratory Results - last 24 hr 12/22/19 12/22/19 12/22/19 Range/Units 12:33 13:45 13:49 WBC 15.3 H (5.0-10.0) 10^3/uL RBC 3.51 L (4.2-5.4) 10^6/uL Hgb 8.4 L (12.0-16.0) g/dL Hct 27.3 L (37.0-47.0) % MCV 77.8 L (80-100) fL MCH 23.9 L (27.0-34.0) pg MCHC 30.8 L (33.0-35.0) g/dL Plt Count 295 (150-450) 10^3/uL Neut % (Auto) 83.0 H (42.2-75.2) % Lymph % (Auto) 10.1 L (20.5-50.1) % [place] % (Auto) 5.2 (2-8) % Eos % (Auto) 1.6 (1.0-3.0) % Baso % (Auto) 0.1 (0.0-1.0) % Sodium 126 L (136-145) mmol/L Potassium 4.6 (3.5-5.1) mmol/L Chloride 91 L (98-107) mmol/L Carbon Dioxide 30 (21-32) mmol/L Anion Gap 9.6 (7-13) mEq/L BUN 24 H (7-18) mg/dL Creatinine 1.15 H (0.55-1.02) mg/dL Est Cr Clr Drug Dosing 36.44 mL/min Estimated GFR (MDRD) 47 BUN/Creatinine Ratio 20.9 (No establ ref range) Glucose 199 H (74-99) mg/dL POC Glucose 190 H (83-110) mg/dl Uric Acid (2.6-6.0) mg/dL Calcium 9.3 (8.5-10.1) mg/dL Total Bilirubin 0.4 (0.2-1.0) mg/dL AST 13 L (15-37) U/L ALT 7 L (14-59) U/L Alkaline Phosphatase 133 H (46-116) U/L Troponin I (0.000-0.056) ng/mL Total Protein 7.3 (6.4-8.2) g/dL Albumin 2.1 L (3.4-5.0) g/dL Globulin 5.2 Albumin/Globulin Ratio 0.40 Urine Color (YELLOW) Urine Appearance (CLEAR) Urine pH (5.0-9.0) Ur Specific [place] (1.005-1.030) Urine Protein (NEGATIVE) Urine Glucose (UA) (NEGATIVE) Urine Ketones (NEGATIVE) Urine Occult Blood (NEGATIVE) Urine Nitrite (NEGATIVE) Urine Bilirubin (NEGATIVE) Urine Urobilinogen (0.2-1.0) mg/dL Ur Leukocyte Esterase (NEGATIVE) Ur Random Sodium (No establ.ref range) mmol/L 12/22/19 12/22/19 12/22/19 Range/Units 13:49 14:08 17:11 WBC (5.0-10.0) 10^3/uL RBC (4.2-5.4) 10^6/uL Hgb (12.0-16.0) g/dL Hct (37.0-47.0) % MCV (80-100) fL MCH (27.0-34.0) pg MCHC (33.0-35.0) g/dL Plt Count (150-450) 10^3/uL Neut % (Auto) (42.2-75.2) % Lymph % (Auto) (20.5-50.1) % Callahan % (Auto) (2-8) % Eos % (Auto) (1.0-3.0) % Baso % (Auto) (0.0-1.0) % Sodium (136-145) mmol/L Potassium (3.5-5.1) mmol/L Chloride (98-107) mmol/L Carbon Dioxide (21-32) mmol/L Anion Gap (7-13) mEq/L BUN (7-18) mg/dL Creatinine (0.55-1.02) mg/dL Est Cr Clr Drug Dosing mL/min Estimated GFR (MDRD) BUN/Creatinine Ratio (No establ ref range) Glucose (74-99) mg/dL POC Glucose 164 H (83-110) mg/dl Uric Acid (2.6-6.0) mg/dL Calcium (8.5-10.1) mg/dL Total Bilirubin (0.2-1.0) mg/dL AST (15-37) U/L ALT (14-59) U/L Alkaline Phosphatase (46-116) U/L Troponin I < 0.017 (0.000-0.056) ng/mL Total Protein (6.4-8.2) g/dL Albumin (3.4-5.0) g/dL Globulin Albumin/Globulin Ratio Urine Color Dark yellow (YELLOW) Urine Appearance Slightly cloudy (CLEAR) Urine pH 5.0 (5.0-9.0) Ur Specific [place] 1.025 (1.005-1.030) Urine Protein Negative (NEGATIVE) Urine Glucose (UA) Negative (NEGATIVE) Urine Ketones Negative (NEGATIVE) Urine Occult Blood Negative (NEGATIVE) Urine Nitrite Negative (NEGATIVE) Urine Bilirubin Negative (NEGATIVE) Urine Urobilinogen 0.2 (0.2-1.0) mg/dL Ur Leukocyte Esterase Negative (NEGATIVE) Ur Random Sodium (No establ.ref range) mmol/L 12/22/19 12/22/19 12/23/19 Range/Units 20:50 21:14 02:50 WBC (5.0-10.0) 10^3/uL RBC (4.2-5.4) 10^6/uL Hgb (12.0-16.0) g/dL Hct (37.0-47.0) % MCV (80-100) fL MCH (27.0-34.0) pg MCHC (33.0-35.0) g/dL Plt Count (150-450) 10^3/uL Neut % (Auto) (42.2-75.2) % Lymph % (Auto) (20.5-50.1) % Callahan % (Auto) (2-8) % Eos % (Auto) (1.0-3.0) % Baso % (Auto) (0.0-1.0) % Sodium 127 L 130 L (136-145) mmol/L Potassium (3.5-5.1) mmol/L Chloride (98-107) mmol/L Carbon Dioxide (21-32) mmol/L Anion Gap (7-13) mEq/L BUN (7-18) mg/dL Creatinine (0.55-1.02) mg/dL Est Cr Clr Drug Dosing mL/min Estimated GFR (MDRD) BUN/Creatinine Ratio (No establ ref range) Glucose (74-99) mg/dL POC Glucose 147 H (83-110) mg/dl Uric Acid (2.6-6.0) mg/dL Calcium (8.5-10.1) mg/dL Total Bilirubin (0.2-1.0) mg/dL AST (15-37) U/L ALT (14-59) U/L Alkaline Phosphatase (46-116) U/L Troponin I (0.000-0.056) ng/mL Total Protein (6.4-8.2) g/dL Albumin (3.4-5.0) g/dL Globulin Albumin/Globulin Ratio Urine Color (YELLOW) Urine Appearance (CLEAR) Urine pH (5.0-9.0) Ur Specific [place] (1.005-1.030) Urine Protein (NEGATIVE) Urine Glucose (UA) (NEGATIVE) Urine Ketones (NEGATIVE) Urine Occult Blood (NEGATIVE) Urine Nitrite (NEGATIVE) Urine Bilirubin (NEGATIVE) Urine Urobilinogen (0.2-1.0) mg/dL Ur Leukocyte Esterase (NEGATIVE) Ur Random Sodium (No establ.ref range) mmol/L 12/23/19 12/23/19 12/23/19 Range/Units 06:00 08:10 08:50 WBC (5.0-10.0) 10^3/uL RBC (4.2-5.4) 10^6/uL Hgb (12.0-16.0) g/dL Hct (37.0-47.0) % MCV (80-100) fL MCH (27.0-34.0) pg MCHC (33.0-35.0) g/dL Plt Count (150-450) 10^3/uL Neut % (Auto) (42.2-75.2) % Lymph % (Auto) (20.5-50.1) % [place]ahan % (Auto) (2-8) % Eos % (Auto) (1.0-3.0) % Baso % (Auto) (0.0-1.0) % Sodium 131 L (136-145) mmol/L Potassium 3.7 (3.5-5.1) mmol/L Chloride 97 L (98-107) mmol/L Carbon Dioxide 27 (21-32) mmol/L Anion Gap 10.7 (7-13) mEq/L BUN 16 (7-18) mg/dL Creatinine 1.01 (0.55-1.02) mg/dL Est Cr Clr Drug Dosing 41.49 mL/min Estimated GFR (MDRD) 54 BUN/Creatinine Ratio (No establ ref range) Glucose 103 H (74-99) mg/dL POC Glucose 66 L (83-110) mg/dl Uric Acid 8.0 H (2.6-6.0) mg/dL Calcium 9.4 (8.5-10.1) mg/dL Total Bilirubin (0.2-1.0) mg/dL AST (15-37) U/L ALT (14-59) U/L Alkaline Phosphatase (46-116) U/L Troponin I (0.000-0.056) ng/mL Total Protein (6.4-8.2) g/dL Albumin (3.4-5.0) g/dL Globulin Albumin/Globulin Ratio Urine Color (YELLOW) Urine Appearance (CLEAR) Urine pH (5.0-9.0) Ur Specific [place] (1.005-1.030) Urine Protein (NEGATIVE) Urine Glucose (UA) (NEGATIVE) Urine Ketones (NEGATIVE) Urine Occult Blood (NEGATIVE) Urine Nitrite (NEGATIVE) Urine Bilirubin (NEGATIVE) Urine Urobilinogen (0.2-1.0) mg/dL Ur Leukocyte Esterase (NEGATIVE) Ur Random Sodium 39 (No establ.ref range) mmol/L Med Orders - Current: Current Medications Acetaminophen (Tylenol) 650 mg PO Q4H PRN PRN Reason: Pain (mild 1-3 )/fever Last Admin: 12/23/19 08:28 Dose: 650 mg Albuterol (Proventil Hfa) 0 gm INH Q6H PRN PRN Reason: Dyspnea Albuterol (Proventil Neb Soln) 2.5 mg NEB Q6H PRN PRN Reason: Shortness of Breath Bumetanide (Bumex) 1 mg PO BIDMEALS [facility] Last Admin: 12/23/19 08:27 Dose: 1 mg Carvedilol (Coreg) 6.25 mg PO BIDMEALS [facility] Last Admin: 12/23/19 09:48 Dose: 6.25 mg Docusate Sodium (Colace) 100 mg PO DAILY PRN PRN Reason: Constipation Last Admin: 12/22/19 21:30 Dose: 100 mg Glipizide (Glucotrol) 10 mg PO BIDMEALS [facility] Last Admin: 12/23/19 09:47 Dose: 10 mg Heparin Sodium (Porcine) (Heparin Sodium) 5,000 units SUBCUT Q8H [facility] Last Admin: 12/23/19 05:23 Dose: 5,000 units Sodium Chloride (Normal Saline) 1,000 mls @ 50 mls/hr IV ASDIRECTED [facility] Last Infusion: 12/22/19 17:00 Dose: 50 mls/hr Insulin Glargine (Lantus) 8 unit SUBCUT BEDTIME [facility] Last Admin: 12/22/19 21:28 Dose: 8 units Insulin Human Lispro (Humalog) 0 unit SUBCUT WITHMEALSANDBED [facility]; Protocol Last Admin: 12/23/19 09:48 Dose: Not Given Levothyroxine Sodium (Levothyroxine) 150 mcg PO ACBREAKFAST [facility] Last Admin: 12/23/19 05:23 Dose: 150 mcg Metformin HCl (Glucophage) 500 mg PO BIDMEALS [facility] Last Admin: 12/23/19 09:48 Dose: 500 mg Omeprazole (Omeprazole) 20 mg PO ACBREAKFAST [facility] Last Admin: 12/23/19 05:23 Dose: 20 mg Pravastatin Sodium (Pravachol) 10 mg PO DAILY [facility] Last Admin: 12/23/19 08:27 Dose: 10 mg Sodium Chloride (Sodium Chloride) 1 gm PO BID [facility] Last Admin: 12/23/19 08:27 Dose: 1 gm - Exam Quality Assessment: Reports: DVT Prophylaxis. Denies: Supplemental Oxygen, Urine Catheter General: Reports: Alert, Oriented, Cooperative, No Acute Distress HEENT: Reports: Pupils Equal, Pupils Reactive, Mucous Membr. Moist/[place] Neck: Reports: Supple, No JVD, No Thyromegaly Lungs: Reports: Clear to Auscultation, Normal Respiratory Effort. Denies: Crackles, Wheezing Cardiovascular: Reports: Irregular Rhythm, Murmurs GI/Abdominal Exam: Normal Bowel Sounds, No Organomegaly, No Distention (Female) Exam: Deferred Rectal (Female) Exam: Deferred Back Exam: Reports: Normal Inspection, Full Range of Motion Extremities: Normal Inspection, No Pedal Edema Skin: Reports: Warm, Dry, Intact Neurological: Reports: No New Focal Deficit Psy/Mental Status: Reports: Alert, Normal Affect, Normal Mood
[2019-12-23 11:11] VITALS: BP 132/49; PULSE 60
== END 2019-12-23 11:51 | disposition home or self-care (01) ==
LOC: DL.ED 11:56 → DL.MS 16:27 → DL.ED 16:38
PROVIDERS: ADMIT Internal Medicine Nephrology; ATTEND Internal Medicine Nephrology
DX: E87.1 Hypo-osmolality and hyponatremia (principal); R91.8 Other nonspecific abnormal finding of lung field; J44.9 Chronic obstructive pulmonary disease, unspecified; E03.9 Hypothyroidism, unspecified; I13.0 Hypertensive heart and chronic kidney disease with heart failure and stage 1 through stage 4 chronic kidney disease, or unspecified chronic kidney disease; E11.22 Type 2 diabetes mellitus with diabetic chronic kidney disease; N18.9 Chronic kidney disease, unspecified; D63.1 Anemia in chronic kidney disease; N17.9 Acute kidney failure, unspecified; Z87.891 Personal history of nicotine dependence; Z79.4 Long term (current) use of insulin; Z79.899 Other long term (current) drug therapy; Z88.5 Allergy status to narcotic agent; Z88.8 Allergy status to other drugs, medicaments and biological substances; Z91.048 Other nonmedicinal substance allergy status; Z79.890 Hormone replacement therapy; Z86.79 Personal history of other diseases of the circulatory system; Z98.890 Other specified postprocedural states; Z95.810 Presence of automatic (implantable) cardiac defibrillator
CPT/HCPCS: 36415; 71046; 80048; 80053; 81003; 82962; 83930; 83935; 84295; 84300; 84484; 84550; 85025; 93005; 99284; 99285-25; A9270-GY; J1644; J1815; J1815-GY; J7050

== ENCOUNTER 2020-01-04 00:20 | Emergency (ER) | payer MEDICARE, MEDICAID ==
[2020-01-04 00:30] VITALS: BP 109/43; PULSE 73
--- NOTE | 2020-01-04 00:41 | EDM.PDOC ---
ED HPI GENERAL MEDICAL PROBLEM - General Stated Complaint: AMBULANCE Time Seen by Provider: 01/04/20 00:20 Source of Information: Reports: Patient, EMS History Limitations: Reports: No Limitations - History of Present Illness INITIAL COMMENTS - FREE TEXT/NARRATIVE: ED via [facility] with c/o high blood sugar, Recent chemo today first round for lung CA. Home health reportedly to have dropped off medications and did not. Patient Did not take evening Levimir. Initially stating did not have any then reported that she did have a bottle but family cleaned her room and she was not sure where it was at. BS for EMS 411. Recent placement of port cath for chemo on Tuesday at [facility]. Brief episode of discomfort around catheter after coughing. Resolved Had called son to check BP and 90/40 initially. RENAN 100-110 systolic for EMS. - Related Data Allergies Allergy/AdvReac Type Severity Reaction Status Date / Time codeine Allergy Unknown Cannot Verified 01/04/20 00:30 Remember adhesive tape Allergy Rash Verified 01/04/20 00:30 sacubitril [From Entresto] Allergy Dizziness Verified 01/04/20 00:30 simvastatin [From Zocor] Allergy Muscle Verified 01/04/20 00:30 Aches valsartan [From Entresto] Allergy Dizziness Verified 01/04/20 00:30 metal Allergy Mild Rash Uncoded 01/04/20 00:30 Home Meds: Home Meds glipiZIDE [Glipizide] 10 mg PO BIDMEALS 07/09/15 [History] Omeprazole 20 mg PO ACBREAKFAST 04/15/16 [History] Albuterol [IJD: Ventolin HFA] 2 puff INH Q6H PRN 05/18/16 [History] carvediloL [Carvedilol] 6.25 mg PO BID 07/23/16 [History] metFORMIN HCl [Metformin HCl] 500 mg PO BIDMEALS 08/07/16 [History] Acetaminophen 1,000 mg PO BID PRN 08/08/17 [History] Albuterol [Proventil Neb Soln] 3 ml NEB Q6H PRN 08/08/17 [History] SitaGLIPtin [Januvia] 50 mg PO BEDTIME 04/11/19 [History] Insulin Detemir [Levemir Flextouch] 8 units SQ BEDTIME 04/30/19 [History] Levothyroxine 150 mcg PO ACBREAKFAST 04/30/19 [History] Pravastatin Sodium 10 mg PO DAILY 04/30/19 [History] Bumetanide 1 mg PO BIDMEALS 06/26/19 [History] Sodium Chloride 1 gm PO BID #30 tablet 12/23/19 [Rx] Past Medical History HEENT History: Reports: Cataract, Impaired Vision Other HEENT History: wears glasses Cardiovascular History: Reports: Cardiomyopathy, Heart Failure, High Cholesterol , Hypertension, Pacemaker, Other (See Below) Other Cardiovascular History: CARDIAC DIFIBRILLATOR PLACEMENT (2017), NONISCHEMIC CARDIOMYOPATHY Respiratory History: Reports: Bronchitis, Recurrent, COPD, Pneumonia, Recurrent , Other (See Below) Gastrointestinal History: Reports: Cholelithiasis, GERD Genitourinary History: Reports: Renal Disease, UTI, Recurrent, Other (See Below) Other Genitourinary History: CKD 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 Musculoskeletal History: Reports: Arthritis, Fracture, Other (See Below) Other Musculoskeletal History: SHOULDER PAIN, BILATERAL Neurological History: Reports: None Psychiatric History: Reports: Addiction Other Psychiatric History: patient states she doesn't know if she was addicted to anything Endocrine/Metabolic History: Reports: Diabetes, Type II, Hypothyroidism Hematologic History: Reports: Anemia, B12 Deficiency, Iron Deficiency Immunologic History: Reports: None Oncologic (Cancer) History: Reports: None Dermatologic History: Reports: None - Infectious Disease History Infectious Disease History: Reports: Chicken Pox, Measles, Mumps, Rubella - Past Surgical History Head Surgeries/Procedures: Reports: None HEENT Surgical History: Reports: Cataract Surgery Cardiovascular Surgical History: Reports: AICD GI Surgical History: Reports: Appendectomy, Cholecystectomy Social & Family History - Family History Family Medical History: Noncontributory - Caffeine Use Caffeine Use: Reports: None Caffeine Use Comment: decaf products - Living Situation & Occupation Living situation: Reports: Alone Occupation: Employed ED ROS GENERAL - Review of Systems Review Of Systems: Comprehensive ROS is negative, except as noted in HPI. ED EXAM, GENERAL - Physical Exam Exam: See Below Exam Limited By: No Limitations General Appearance: Alert, No Apparent Distress, Thin Eye Exam: Bilateral Eye: EOMI Ears: Normal External Exam, Hearing Grossly Normal Nose: Normal Inspection Throat/Mouth: Normal Inspection Head: Atraumatic, Normocephalic Neck: Normal Inspection Respiratory/Chest: No Respiratory Distress, Decreased Breath Sounds (right) Cardiovascular: Normal Peripheral Pulses GI/Abdominal: Normal Bowel Sounds, Soft Back Exam: Full Range of Motion Extremities: Normal Range of Motion Neurological: Alert, Oriented, Normal Cognition Psychiatric: Normal Affect Skin Exam: Warm, Dry, Intact, Normal Color Course - Vital Signs Last Recorded V/S: Last Vital Signs Temp 97.9 F 01/04/20 00:48 Pulse 73 01/04/20 00:26 Resp 18 01/04/20 00:26 BP 109/43 L 01/04/20 00:26 Pulse Ox 92 L 01/04/20 00:26 - Orders/Labs/Meds Orders: Active Orders 24 hr Category Date Time Status Blood Glucose Check, Bedside [RC] ONETIME Care 01/04/20 00:21 Active Glucose [Blood Glucose Check, Bedside] [RC] ONETIME Care 01/04/20 01:44 Active CXR [Chest 1V Frontal] [CR] Urgent Exams 01/04/20 00:53 Taken CULTURE BLOOD [BC] Stat Lab 01/04/20 01:07 Received Labs: Laboratory Tests 01/04/20 01/04/20 01/04/20 Range/Units 00:25 00:29 00:29 WBC 41.9 H* (5.0-10.0) 10^3/uL RBC 3.26 L (4.2-5.4) 10^6/uL Hgb 8.2 L (12.0-16.0) g/dL Hct 25.9 L (37.0-47.0) % MCV 79.4 L (80-100) fL MCH 25.2 L (27.0-34.0) pg MCHC 31.7 L (33.0-35.0) g/dL Plt Count 337 (150-450) 10^3/uL Neut % (Auto) 96.8 H (42.2-75.2) % Lymph % (Auto) 1.4 L (20.5-50.1) % [place] % (Auto) 1.7 L (2-8) % Eos % (Auto) 0.0 L (1.0-3.0) % Baso % (Auto) 0.1 (0.0-1.0) % Add Manual Diff Yes Neutrophils % (Manual) 88 H (42-75) % Band Neutrophils % 9 % Lymphocytes % (Manual) 1 L (20-50) % Monocytes % (Manual) 2 (2-8) % Sodium 131 L (136-145) mmol/L Potassium 4.1 (3.5-5.1) mmol/L Chloride 95 L (98-107) mmol/L Carbon Dioxide 28 (21-32) mmol/L Anion Gap 12.1 (7-13) mEq/L BUN 31 H (7-18) mg/dL Creatinine 1.41 H (0.55-1.02) mg/dL Est Cr Clr Drug Dosing 30.04 mL/min Estimated GFR (MDRD) 37 BUN/Creatinine Ratio 22.0 (No establ ref range) Glucose 356 H (74-99) mg/dL POC Glucose 329 H (83-110) mg/dl Lactic Acid (0.4-2.0) mmol/L Calcium 7.9 L D (8.5-10.1) mg/dL Total Bilirubin 0.2 (0.2-1.0) mg/dL AST 14 L (15-37) U/L ALT 9 L (14-59) U/L Alkaline Phosphatase 195 H (46-116) U/L B-Natriuretic Peptide (0-100) pg/ml Total Protein 7.7 (6.4-8.2) g/dL Albumin 2.1 L (3.4-5.0) g/dL Globulin 5.6 Albumin/Globulin Ratio 0.38 Amylase 11 L (25-115) U/L Lipase 53 L (73-393) U/L Urine Color (YELLOW) Urine Appearance (CLEAR) Urine pH (5.0-9.0) Ur Specific [place] (1.005-1.030) Urine Protein (NEGATIVE) Urine Glucose (UA) (NEGATIVE) Urine Ketones (NEGATIVE) Urine Occult Blood (NEGATIVE) Urine Nitrite (NEGATIVE) Urine Bilirubin (NEGATIVE) Urine Urobilinogen (0.2-1.0) mg/dL Ur Leukocyte Esterase (NEGATIVE) Urine RBC /HPF Urine WBC (0-5/HPF) /HPF Ur Epithelial Cells (NOT SEEN) /HPF Amorphous Sediment (NOT SEEN) /HPF Urine Bacteria (0-FEW/HPF) /HPF Urine Mucus (NOT SEEN) /LPF 04/03/20 04/03/20 04/03/20 Range/Units 00:29 01:07 01:23 WBC (5.0-10.0) 10^3/uL RBC (4.2-5.4) 10^6/uL Hgb (12.0-16.0) g/dL Hct (37.0-47.0) % MCV (80-100) fL MCH (27.0-34.0) pg MCHC (33.0-35.0) g/dL Plt Count (150-450) 10^3/uL Neut % (Auto) (42.2-75.2) % Lymph % (Auto) (20.5-50.1) % [place] % (Auto) (2-8) % Eos % (Auto) (1.0-3.0) % Baso % (Auto) (0.0-1.0) % Add Manual Diff Neutrophils % (Manual) (42-75) % Band Neutrophils % % Lymphocytes % (Manual) (20-50) % Monocytes % (Manual) (2-8) % Sodium (136-145) mmol/L Potassium (3.5-5.1) mmol/L Chloride (98-107) mmol/L Carbon Dioxide (21-32) mmol/L Anion Gap (7-13) mEq/L BUN (7-18) mg/dL Creatinine (0.55-1.02) mg/dL Est Cr Clr Drug Dosing mL/min Estimated GFR (MDRD) BUN/Creatinine Ratio (No establ ref range) Glucose (74-99) mg/dL POC Glucose (83-110) mg/dl Lactic Acid 2.2 H* (0.4-2.0) mmol/L Calcium (8.5-10.1) mg/dL Total Bilirubin (0.2-1.0) mg/dL AST (15-37) U/L ALT (14-59) U/L Alkaline Phosphatase (46-116) U/L B-Natriuretic Peptide 239 H (0-100) pg/ml Total Protein (6.4-8.2) g/dL Albumin (3.4-5.0) g/dL Globulin Albumin/Globulin Ratio Amylase (25-115) U/L Lipase (73-393) U/L Urine Color Yellow (YELLOW) Urine Appearance Slightly cloudy (CLEAR) Urine pH 6.0 (5.0-9.0) Ur Specific [place] 1.020 (1.005-1.030) Urine Protein Trace H (NEGATIVE) Urine Glucose (UA) Negative (NEGATIVE) Urine Ketones Negative (NEGATIVE) Urine Occult Blood Negative (NEGATIVE) Urine Nitrite Negative (NEGATIVE) Urine Bilirubin Negative (NEGATIVE) Urine Urobilinogen 0.2 (0.2-1.0) mg/dL Ur Leukocyte Esterase Negative (NEGATIVE) Urine RBC Not seen /HPF Urine WBC 0-5 (0-5/HPF) /HPF Ur Epithelial Cells Few (NOT SEEN) /HPF Amorphous Sediment Rare (NOT SEEN) /HPF Urine Bacteria Few (0-FEW/HPF) /HPF Urine Mucus Few H (NOT SEEN) /LPF 01/04/20 Range/Units 01:51 WBC (5.0-10.0) 10^3/uL RBC (4.2-5.4) 10^6/uL Hgb (12.0-16.0) g/dL Hct (37.0-47.0) % MCV (80-100) fL MCH (27.0-34.0) pg MCHC (33.0-35.0) g/dL Plt Count (150-450) 10^3/uL Neut % (Auto) (42.2-75.2) % Lymph % (Auto) (20.5-50.1) % [place] % (Auto) (2-8) % Eos % (Auto) (1.0-3.0) % Baso % (Auto) (0.0-1.0) % Add Manual Diff Neutrophils % (Manual) (42-75) % Band Neutrophils % % Lymphocytes % (Manual) (20-50) % Monocytes % (Manual) (2-8) % Sodium (136-145) mmol/L Potassium (3.5-5.1) mmol/L Chloride (98-107) mmol/L Carbon Dioxide (21-32) mmol/L Anion Gap (7-13) mEq/L BUN (7-18) mg/dL Creatinine (0.55-1.02) mg/dL Est Cr Clr Drug Dosing mL/min Estimated GFR (MDRD) BUN/Creatinine Ratio (No establ ref range) Glucose (74-99) mg/dL POC Glucose 280 H (83-110) mg/dl Lactic Acid (0.4-2.0) mmol/L Calcium (8.5-10.1) mg/dL Total Bilirubin (0.2-1.0) mg/dL AST (15-37) U/L ALT (14-59) U/L Alkaline Phosphatase (46-116) U/L B-Natriuretic Peptide (0-100) pg/ml Total Protein (6.4-8.2) g/dL Albumin (3.4-5.0) g/dL Globulin Albumin/Globulin Ratio Amylase (25-115) U/L Lipase (73-393) U/L Urine Color (YELLOW) Urine Appearance (CLEAR) Urine pH (5.0-9.0) Ur Specific [place] (1.005-1.030) Urine Protein (NEGATIVE) Urine Glucose (UA) (NEGATIVE) Urine Ketones (NEGATIVE) Urine Occult Blood (NEGATIVE) Urine Nitrite (NEGATIVE) Urine Bilirubin (NEGATIVE) Urine Urobilinogen (0.2-1.0) mg/dL Ur Leukocyte Esterase (NEGATIVE) Urine RBC /HPF Urine WBC (0-5/HPF) /HPF Ur Epithelial Cells (NOT SEEN) /HPF Amorphous Sediment (NOT SEEN) /HPF Urine Bacteria (0-FEW/HPF) /HPF Urine Mucus (NOT SEEN) /LPF Meds: Medications Discontinued Medications Generic Name Dose Route Start Last Admin Trade Name Freq PRN Reason Stop Dose Admin Insulin Human Regular 5 unit 01/04/20 01:00 01/04/20 01:23 Humulin R SUBCUT 01/04/20 01:01 5 units ONETIME ONE Administration - Re-Assessments/Exams Free Text/Narrative Re-Assessment/Exam: 01/04/20 01:57 FARZAD Marrufo [employer] Oncology. Patient received Decadron and likely Neupogen with treatment. Patient does not appear septic. Discharge home glucose improving. Departure - Departure Time of Disposition: 01:45 Disposition: Home, Self-Care 01 Condition: Good Clinical Impression: Hyperglycemia due to diabetes mellitus Lung cancer Qualifiers: Laterality: right Lung location: middle lobe of lung Qualified Code(s): C34.2 - Malignant neoplasm of middle lobe, bronchus or lung Leukocytosis, unspecified Qualifiers: Leukocytosis type: unspecified Qualified Code(s): D72.829 - Elevated white blood cell count, unspecified - Discharge Information *PRESCRIPTION DRUG MONITORING PROGRAM REVIEWED*: No *COPY OF PRESCRIPTION DRUG MONITORING REPORT IN PATIENT VALERIE: No Instructions: Hyperglycemia Referrals: Angella Canseco MD [Primary Care Provider] - Forms: ED Department Discharge Additional Instructions: follow up with oncology tomorrow Recheck WBC take insulin as ordered urgent follow up if fever or sever shortness of breath Sepsis Event Note - Focused Exam Vital Signs: Vital Signs Temp Pulse Resp BP Pulse Ox 01/04/20 00:48 97.9 F 01/04/20 00:26 99.1 F 73 18 109/43 L 92 L Date Exam was Performed: 01/04/20 Time Exam was Performed: 02:54 - My Orders Last 24 Hours: My Active Orders 01/04/20 00:21 Blood Glucose Check, Bedside [RC] ONETIME 01/04/20 00:53 CXR [Chest 1V Frontal] [CR] Urgent 01/04/20 01:07 CULTURE BLOOD [BC] Stat 01/04/20 01:44 Glucose [Blood Glucose Check, Bedside] [RC] ONETIME - Assessment/Plan Last 24 Hours: My Active Orders 01/04/20 00:21 Blood Glucose Check, Bedside [RC] ONETIME 01/04/20 00:53 CXR [Chest 1V Frontal] [CR] Urgent 01/04/20 01:07 CULTURE BLOOD [BC] Stat 01/04/20 01:44 Glucose [Blood Glucose Check, Bedside] [RC] ONETIME
[2020-01-04 00:57] LABS: ANION GAP 12.1 mEq/L (7-13)
[2020-01-04] MEDS ORDERED: Insulin Regular, Human 100 Units/ML 3 ML Vial SUBCUT ONE (01:00)
== END 2020-01-04 01:58 | disposition home or self-care (01) ==
LOC: DL.ED 00:20
DX: I11.0 Hypertensive heart disease with heart failure (principal); I50.9 Heart failure, unspecified; E11.65 Type 2 diabetes mellitus with hyperglycemia; D72.829 Elevated white blood cell count, unspecified; C34.2 Malignant neoplasm of middle lobe, bronchus or lung; Z88.5 Allergy status to narcotic agent; Z88.8 Allergy status to other drugs, medicaments and biological substances; Z91.048 Other nonmedicinal substance allergy status; Z79.899 Other long term (current) drug therapy; Z79.4 Long term (current) use of insulin
CPT/HCPCS: 36415; 71045; 80053; 81001; 82150; 82962; 83605; 83690; 83880; 85025; 87040; 99284; 99285; J1815

== ENCOUNTER 2020-02-15 15:10 | Emergency (ER) | payer MEDICARE, MEDICAID ==
[2020-02-15 15:26] VITALS: BP 115/49; PULSE 66
--- NOTE | 2020-02-15 15:46 | EDM.PDOC ---
ED HPI GENERAL MEDICAL PROBLEM - General Chief Complaint: Diabetic Complaint Stated Complaint: SUGAR LEVEL LOW THEN UP AND DOWN PER PT Time Seen by Provider: 02/15/20 15:40 Source of Information: Reports: Patient History Limitations: Reports: No Limitations - History of Present Illness INITIAL COMMENTS - FREE TEXT/NARRATIVE: This 69 yo female patient reports to the ED due to a low blood sugar. The patient reports she called Dr. Canseco's nurse and told her that her blood sugar level was 128 and was advised to go to the ED due to a low blood sugar. The patient reports she had drank some grapefruit juice and had some chocolate covered raisins prior to calling the clinic. The patient reports she had eaten a peanut butter sandwich on her way to the ED and now feels fine. Onset: Today Duration: Constant Location: 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 Quality: 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 Severity: Moderate Improves with: Reports: None Worsens with: Reports: None Context: 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 Associated Symptoms: Reports: No Other Symptoms - Related Data Allergies Allergy/AdvReac Type Severity Reaction Status Date / Time codeine Allergy Unknown Cannot Verified 02/09/20 12:53 Remember adhesive tape Allergy Rash Verified 02/09/20 12:53 sacubitril [From Entresto] Allergy Dizziness Verified 02/09/20 12:53 simvastatin [From Zocor] Allergy Muscle Verified 02/09/20 12:53 Aches valsartan [From Entresto] Allergy Dizziness Verified 02/09/20 12:53 metal Allergy Mild Rash Uncoded 02/08/20 15:19 Home Meds: Home Meds glipiZIDE [Glipizide] 10 mg PO BIDMEALS 07/09/15 [History] Omeprazole 20 mg PO ACBREAKFAST 04/15/16 [History] Albuterol [IJD: Ventolin HFA] 2 puff INH Q6H PRN 05/18/16 [History] carvediloL [Carvedilol] 6.25 mg PO BID 07/23/16 [History] metFORMIN HCl [Metformin HCl] 500 mg PO BIDMEALS 08/07/16 [History] Acetaminophen 1,000 mg PO BID PRN 08/08/17 [History] Albuterol [Proventil Neb Soln] 3 ml NEB Q6H PRN 08/08/17 [History] SitaGLIPtin [Januvia] 50 mg PO BEDTIME 04/11/19 [History] Insulin Detemir [Levemir Flextouch] 8 units SQ BEDTIME 04/30/19 [History] Levothyroxine 150 mcg PO ACBREAKFAST 04/30/19 [History] Pravastatin Sodium 10 mg PO DAILY 04/30/19 [History] Bumetanide 1 mg PO BIDMEALS 06/26/19 [History] Sodium Chloride 1 gm PO BID #30 tablet 12/23/19 [Rx] B Complex With Vitamin C [B-Complex Plus Vitamin C] 1 each PO DAILY 02/09/20 [ History] Ferrous Sulfate 325 mg PO DAILY 02/09/20 [History] Folic Acid 1 mg PO DAILY 02/09/20 [History] Magnesium Oxide 400 mg PO DAILY 02/09/20 [History] Ondansetron [Zofran] 8 mg PO Q8H PRN 02/09/20 [History] Potassium Chloride [Klor-Con M20] 20 meq PO DAILY 02/09/20 [History] Prochlorperazine [Compazine] 10 mg PO Q6H PRN 02/09/20 [History] traMADol [Ultram] 50 mg PO BID PRN 02/09/20 [History] Past Medical History HEENT History: Reports: Cataract, Impaired Vision, Otitis Media Other HEENT History: wears glasses Cardiovascular History: Reports: Cardiomyopathy, Heart Failure, High Cholesterol , Hypertension, Pacemaker, Other (See Below) Other Cardiovascular History: CARDIAC DIFIBRILLATOR PLACEMENT (2017), NONISCHEMIC CARDIOMYOPATHY Respiratory History: Reports: Bronchitis, Recurrent, COPD, Pneumonia, Recurrent Gastrointestinal History: Reports: Cholelithiasis, GERD Genitourinary History: Reports: Renal Disease, UTI, Recurrent, Other (See Below) Other Genitourinary History: CKD 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 Musculoskeletal History: Reports: Arthritis, Fracture, Other (See Below) Other Musculoskeletal History: SHOULDER PAIN, BILATERAL Neurological History: Reports: None Psychiatric History: Reports: Addiction Other Psychiatric History: patient states she doesn't know if she was addicted to anything Endocrine/Metabolic History: Reports: Diabetes, Type II, Hypothyroidism Hematologic History: Reports: Anemia, B12 Deficiency, Iron Deficiency Immunologic History: Reports: None Oncologic (Cancer) History: Reports: Lung Dermatologic History: Reports: None - Infectious Disease History Infectious Disease History: Reports: Chicken Pox, Measles, Mumps, Rubella - Past Surgical History Head Surgeries/Procedures: Reports: None HEENT Surgical History: Reports: Cataract Surgery Cardiovascular Surgical History: Reports: AICD Respiratory Surgical History: Reports: None GI Surgical History: Reports: Appendectomy, Cholecystectomy Female Surgical History: Reports: None Endocrine Surgical History: Reports: None Musculoskeletal Surgical History: Reports: None Social & Family History - Family History Family Medical History: Noncontributory - Tobacco Use Smoking Status *Q: Never Smoker Second Hand Smoke Exposure: No - Caffeine Use Caffeine Use: Reports: None Caffeine Use Comment: decaf products - Recreational Drug Use Recreational Drug Use: No - Living Situation & Occupation Living situation: Reports: Alone Occupation: Employed ED ROS GENERAL - Review of Systems Review Of Systems: Comprehensive ROS is negative, except as noted in HPI. ED EXAM GENERAL NO PERIP PULSE - Physical Exam Exam: See Below Exam Limited By: No Limitations General Appearance: Alert, WD/WN, Anxious, Mild Distress, Thin Eye Exam: Bilateral Eye: EOMI, Normal Inspection, PERRL Ears: Normal External Exam, Normal Canal, Hearing Grossly Normal, Normal TMs Nose: Normal Inspection, Normal Mucosa, No Blood Throat/Mouth: Normal Inspection, Normal Lips, Normal Teeth, Normal Gums, Normal Oropharynx, Normal Voice, No Airway Compromise Head: Atraumatic, Normocephalic Neck: Normal Inspection, Supple, Non-Tender, Full Range of Motion Respiratory/Chest: No Respiratory Distress, Lungs Clear, Normal Breath Sounds, No Accessory Muscle Use, Chest Non-Tender Cardiovascular: Normal Peripheral Pulses, Regular Rate, Rhythm, No Edema, No Gallop, No JVD, No Murmur, No Rub GI/Abdominal: Normal Bowel Sounds, Soft, Non-Tender, No Organomegaly, No Distention, No Abnormal Bruit, No Mass (Female) Exam: Deferred Rectal (Female) Exam: Deferred Back Exam: Normal Inspection, Full Range of Motion, NT Extremities: Normal Inspection, Normal Range of Motion, Non-Tender, Normal Capillary Refill, No Pedal Edema Neurological: Alert, Oriented, CN II-XII Intact, Normal Cognition, Normal Gait, Normal Reflexes, No Motor/Sensory Deficits Psychiatric: Normal Affect, Normal Mood Skin Exam: Warm, Dry, Intact, Normal Color, No Rash Lymphatic: No Adenopathy Course - Vital Signs Last Recorded V/S: Last Vital Signs Temp 36.8 C 02/15/20 15:15 Pulse 66 02/15/20 15:15 Resp 18 02/15/20 15:15 BP 115/49 L 02/15/20 15:15 Pulse Ox 94 L 02/15/20 15:15 - Orders/Labs/Meds Orders: Active Orders 24 hr Category Date Time Status CBC WITH AUTO DIFF [HEME] Stat Lab 02/15/20 15:30 Ordered MANUAL DIFFERENTIAL QA/NC [HEME] Stat Lab 02/15/20 15:40 Results Labs: Laboratory Tests 02/15/20 02/15/20 Range/Units 15:40 15:40 WBC 4.6 L (5.0-10.0) 10^3/uL RBC 3.01 L (4.2-5.4) 10^6/uL Hgb 8.5 L (12.0-16.0) g/dL Hct 27.1 L (37.0-47.0) % MCV 90.0 D (80-100) fL MCH 28.2 (27.0-34.0) pg MCHC 31.4 L (33.0-35.0) g/dL Plt Count 155 D (150-450) 10^3/uL Neut % (Auto) 57.1 (42.2-75.2) % Lymph % (Auto) 27.6 (20.5-50.1) % [place] % (Auto) 12.7 H (2-8) % Eos % (Auto) 2.4 (1.0-3.0) % Baso % (Auto) 0.2 (0.0-1.0) % Add Manual Diff Yes Sodium 138 (136-145) mmol/L Potassium 4.3 (3.5-5.1) mmol/L Chloride 99 (98-107) mmol/L Carbon Dioxide 28 (21-32) mmol/L Anion Gap 15.3 H (7-13) mEq/L BUN 28 H (7-18) mg/dL Creatinine 1.38 H (0.55-1.02) mg/dL Est Cr Clr Drug Dosing 28.83 mL/min Estimated GFR (MDRD) 38 BUN/Creatinine Ratio 20.3 (No establ ref range) Glucose 84 (74-99) mg/dL Calcium 8.5 (8.5-10.1) mg/dL Total Bilirubin 0.2 (0.2-1.0) mg/dL AST 25 (15-37) U/L ALT 24 (14-59) U/L Alkaline Phosphatase 297 H (46-116) U/L Total Protein 8.3 H (6.4-8.2) g/dL Albumin 3.1 L (3.4-5.0) g/dL Globulin 5.2 Albumin/Globulin Ratio 0.60 Departure - Departure Time of Disposition: 16:35 Disposition: Home, Self-Care 01 Condition: Good Clinical Impression: Worried well - Discharge Information *PRESCRIPTION DRUG MONITORING PROGRAM REVIEWED*: Not Applicable *COPY OF PRESCRIPTION DRUG MONITORING REPORT IN PATIENT VALERIE: Not Applicable Forms: ED Department Discharge Care Plan Goals: The patient was advised of the examination and lab results during the visit. The patient was advised to visit her primary care facility for continued evaluation and management. The patient should eat a well balanced meal. If the patient has any additional symptoms or concerns, the patient should either visit her primary care facility or return to the emergency department. Sepsis Event Note - Evaluation Sepsis Screening Result: No Definite Risk - Focused Exam Vital Signs: Vital Signs Temp Pulse Resp BP Pulse Ox 02/15/20 15:15 36.8 C 66 18 115/49 L 94 L Date Exam was Performed: 02/15/20 Time Exam was Performed: 16:28 - My Orders Last 24 Hours: My Active Orders 02/15/20 15:30 CBC WITH AUTO DIFF [HEME] Stat 02/15/20 15:40 MANUAL DIFFERENTIAL QA/NC [HEME] Stat - Assessment/Plan Last 24 Hours: My Active Orders 02/15/20 15:30 CBC WITH AUTO DIFF [HEME] Stat 02/15/20 15:40 MANUAL DIFFERENTIAL QA/NC [HEME] Stat
[2020-02-15 16:08] LABS: ANION GAP 15.3 mEq/L (7-13)
== END 2020-02-15 16:41 | disposition home or self-care (01) ==
LOC: DL.ED 15:10
DX: Z71.1 Person with feared health complaint in whom no diagnosis is made (principal); Z88.5 Allergy status to narcotic agent; Z91.048 Other nonmedicinal substance allergy status; Z88.8 Allergy status to other drugs, medicaments and biological substances; Z91.09 Other allergy status, other than to drugs and biological substances; I13.0 Hypertensive heart and chronic kidney disease with heart failure and stage 1 through stage 4 chronic kidney disease, or unspecified chronic kidney disease; I50.9 Heart failure, unspecified; N18.9 Chronic kidney disease, unspecified; E78.00 Pure hypercholesterolemia, unspecified; J44.9 Chronic obstructive pulmonary disease, unspecified; K21.9 Gastro-esophageal reflux disease without esophagitis; E11.22 Type 2 diabetes mellitus with diabetic chronic kidney disease; E03.9 Hypothyroidism, unspecified; Z79.899 Other long term (current) drug therapy; Z79.4 Long term (current) use of insulin
CPT/HCPCS: 36415; 80053; 85025; 99282; 99284

== ENCOUNTER 2020-03-04 20:02 | Emergency (ER) | payer MEDICARE, MEDICAID ==
[2020-03-04 20:18] VITALS: BP 143/44; PULSE 68
[2020-03-04 21:29] LABS: ANION GAP 15.1 mEq/L (7-13); CHLORIDE,CL 105 mmol/L (98-107); SODIUM,NA 140 mmol/L (136-145)
--- NOTE | 2020-03-04 21:42 | CR ---
PROCEDURE INFORMATION: Exam: XR Chest, 1 View Exam date and time: 03/04/2020 8:37 PM Age: 70 years old Clinical indication: Other: Chest pain; Prior surgery; Surgery date: 6+ months; Surgery type: Pacemaker, history of lung cancer TECHNIQUE: Imaging protocol: XR of the chest Views: 1 view. COMPARISON: CR Chest 1V Frontal 01/04/2020 1:04 AM FINDINGS: Tubes, catheters and devices: Pacemaker, unchanged in position. Right internal jugular port catheter, unchanged in position. Lungs: 5.7 x 2.8 cm soft tissue density mass in the lateral right mid lung, smaller than on the prior study where it measured 7.7 x 5.4 cm. Pleural space: No pneumothorax. Heart/Mediastinum: Unremarkable. Vasculature: Atherosclerotic calcifications of the aorta. Bones/joints: 2 cm long defect in the posterior lateral right 6th rib, new, larger or better visualized than on the prior study. Mildly displaced fracture deformity of the posterior right 7th rib, new or better visualized compared to the prior study. Soft tissues: Unremarkable. IMPRESSION: 1. 5.7 x 2.8 cm soft tissue density mass in the lateral right mid lung, smaller than on the prior study where it measured 7.7 x 5.4 cm. Given the reported history of lung cancer, this finding is suspicious for malignancy. 2. 2 cm long defect in the posterior lateral right 6th rib, new, larger or better visualized than on the prior study. This may be postsurgical or may represent erosion of the rib by adjacent malignancy. 3. Mildly displaced fracture deformity of the posterior right 7th rib, new or better visualized compared to the prior study. This may be postsurgical or posttraumatic. Cannot exclude pathologic fracture.
--- NOTE | 2020-03-04 21:56 | EDM.PDOC ---
ED HPI GENERAL MEDICAL PROBLEM - General Chief Complaint: General Stated Complaint: CHEST COLD Time Seen by Provider: 03/04/20 20:30 Source of Information: Reports: Patient, RN, RN Notes Reviewed - History of Present Illness INITIAL COMMENTS - FREE TEXT/NARRATIVE: Patient presents to ER with complaint of cough with production of green thick sputum, some pain in the chest with breathing and coughing. Patient states she is currently undergoing chemo for lung cancer, and this week her chemo was canceled. Patient generally does chemo on a weekly basis on Wednesdays. Patient states she recently got a new dehumidifier which her grandson set up for her, but she does not feel it is working appropriately, and is putting off quite a bit of cold air, causing her to develop a bronchitis. Patient does have history of COPD. Patient states she does not have oxygen at home, uses inhalers and nebulizers. Patient does not appear short of breath, oxygen saturations 92-95% on room air. Onset: Gradual Duration: Constant, Getting Worse Location: Reports: Chest Severity: Mild Improves with: Reports: None Worsens with: Reports: None Associated Symptoms: Reports: Cough, cough w sputum, Fever/Chills, Headaches, Shortness of Breath Treatments SPECIAL ORDER JEWELER: Reports: Home Treatments - Related Data Allergies Allergy/AdvReac Type Severity Reaction Status Date / Time codeine Allergy Unknown Cannot Verified 03/04/20 21:00 Remember adhesive tape Allergy Rash Verified 03/04/20 21:00 sacubitril [From Entresto] Allergy Dizziness Verified 03/04/20 21:00 simvastatin [From Zocor] Allergy Muscle Verified 03/04/20 21:00 Aches valsartan [From Entresto] Allergy Dizziness Verified 03/04/20 21:00 metal Allergy Mild Rash Uncoded 03/04/20 21:00 Home Meds: Home Meds glipiZIDE [Glipizide] 10 mg PO BIDMEALS 07/09/15 [History] Omeprazole 20 mg PO ACBREAKFAST 04/15/16 [History] Albuterol [IJD: Ventolin HFA] 2 puff INH Q6H PRN 05/18/16 [History] carvediloL [Carvedilol] 6.25 mg PO BID 07/23/16 [History] metFORMIN HCl [Metformin HCl] 500 mg PO BIDMEALS 08/07/16 [History] Acetaminophen 1,000 mg PO BID PRN 08/08/17 [History] Albuterol [Proventil Neb Soln] 3 ml NEB Q6H PRN 08/08/17 [History] SitaGLIPtin [Januvia] 50 mg PO BEDTIME 04/11/19 [History] Insulin Detemir [Levemir Flextouch] 8 units SQ BEDTIME 04/30/19 [History] Levothyroxine 150 mcg PO ACBREAKFAST 04/30/19 [History] Pravastatin Sodium 10 mg PO DAILY 04/30/19 [History] Bumetanide 1 mg PO BIDMEALS 06/26/19 [History] Sodium Chloride 1 gm PO BID #30 tablet 12/23/19 [Rx] B Complex With Vitamin C [B-Complex Plus Vitamin C] 1 each PO DAILY 02/09/20 [ History] Ferrous Sulfate 325 mg PO DAILY 02/09/20 [History] Magnesium Oxide 400 mg PO DAILY 02/09/20 [History] Ondansetron [Zofran] 8 mg PO Q8H PRN 02/09/20 [History] Potassium Chloride [Klor-Con M20] 20 meq PO DAILY 02/09/20 [History] Prochlorperazine [Compazine] 10 mg PO Q6H PRN 02/09/20 [History] traMADol [Ultram] 50 mg PO BID PRN 02/09/20 [History] Past Medical History HEENT History: Reports: Cataract, Impaired Vision, Otitis Media Other HEENT History: wears glasses Cardiovascular History: Reports: Cardiomyopathy, Heart Failure, High Cholesterol , Hypertension, Pacemaker, Other (See Below) Other Cardiovascular History: CARDIAC DIFIBRILLATOR PLACEMENT (2017), NONISCHEMIC CARDIOMYOPATHY Respiratory History: Reports: Bronchitis, Recurrent, COPD, Pneumonia, Recurrent Gastrointestinal History: Reports: Cholelithiasis, GERD Genitourinary History: Reports: Renal Disease, UTI, Recurrent, Other (See Below) Other Genitourinary History: CKD FACING BASTER 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 FACING BASTER History: HAS 3 KIDS Musculoskeletal History: Reports: Arthritis, Fracture, Other (See Below) Other Musculoskeletal History: SHOULDER PAIN, BILATERAL Neurological History: Reports: None Psychiatric History: Reports: Addiction Other Psychiatric History: patient states she doesn't know if she was addicted to anything Endocrine/Metabolic History: Reports: Diabetes, Type II, Hypothyroidism Hematologic History: Reports: Anemia, B12 Deficiency, Iron Deficiency Immunologic History: Reports: None Oncologic (Cancer) History: Reports: Lung Dermatologic History: Reports: None - Infectious Disease History Infectious Disease History: Reports: Chicken Pox, Measles, Mumps, Rubella - Past Surgical History Head Surgeries/Procedures: Reports: None HEENT Surgical History: Reports: Cataract Surgery Cardiovascular Surgical History: Reports: AICD Respiratory Surgical History: Reports: None GI Surgical History: Reports: Appendectomy, Cholecystectomy Female Surgical History: Reports: None Endocrine Surgical History: Reports: None Musculoskeletal Surgical History: Reports: None Social & Family History - Family History Family Medical History: Noncontributory - Tobacco Use Smoking Status *Q: Former Smoker Used Tobacco, but Quit: Yes Month/Year Tobacco Last Used: 2011 - Caffeine Use Caffeine Use: Reports: None Caffeine Use Comment: decaf products - Recreational Drug Use Recreational Drug Use: No - Living Situation & Occupation Living situation: Reports: Alone Occupation: Employed ED ROS GENERAL - Review of Systems Review Of Systems: Comprehensive ROS is negative, except as noted in HPI. ED EXAM, GENERAL - Physical Exam Exam: See Below Exam Limited By: No Limitations General Appearance: Alert, WD/WN, No Apparent Distress Eye Exam: Bilateral Eye: EOMI, Normal Inspection Ears: Normal External Exam, Hearing Grossly Normal Nose: Normal Inspection Throat/Mouth: Normal Inspection, Normal Lips, Normal Teeth, Normal Gums, Normal Oropharynx, Normal Voice, No Airway Compromise Head: Atraumatic, Normocephalic Neck: Normal Inspection, Supple, Non-Tender, Full Range of Motion Respiratory/Chest: No Respiratory Distress, No Accessory Muscle Use, Chest Non- Tender, Crackles (Fine to the bases bilaterally) Cardiovascular: Normal Peripheral Pulses, Regular Rate, Rhythm, No Edema, No Gallop, No JVD, No Murmur, No Rub Peripheral Pulses: 2+: Radial (L), Radial (R) GI/Abdominal: Normal Bowel Sounds, Soft, Non-Tender (Female) Exam: Deferred Rectal (Female) Exam: Deferred Back Exam: Normal Inspection, Full Range of Motion Extremities: Normal Inspection, Normal Range of Motion, Non-Tender, Normal Capillary Refill, No Pedal Edema Neurological: Alert, Oriented, CN II-XII Intact, Normal Cognition, Normal Gait, Normal Reflexes, No Motor/Sensory Deficits Psychiatric: Normal Affect, Normal Mood Skin Exam: Warm, Dry, Intact, Normal Color, No Rash Lymphatic: No Adenopathy Course - Vital Signs Last Recorded V/S: Last Vital Signs Temp 98.1 F 03/04/20 20:16 Pulse 68 03/04/20 20:16 Resp 18 03/04/20 20:16 BP 143/44 H 03/04/20 20:16 Pulse Ox 94 L 03/04/20 20:16 - Orders/Labs/Meds Orders: Active Orders 24 hr Category Date Time Status EKG Documentation Completion [RC] STAT Care 03/04/20 20:36 Active Implanted Port Access [RC] QSHIFT Care 03/04/20 22:11 Active Implanted Port De-Access [RC] QSHIFT Care 03/04/20 22:11 Active CULTURE BLOOD [BC] Stat Lab 03/04/20 20:51 Received CULTURE BLOOD [BC] Stat Lab 03/04/20 21:59 Received CULTURE SPUTUM + SMEAR [RM] Stat Lab 03/04/20 21:21 Results Blood Culture x2 Reflex Set [OM.PC] Stat Oth 03/04/20 20:36 Ordered Labs: Laboratory Tests 03/04/20 03/04/20 03/04/20 Range/Units 20:38 20:51 20:51 WBC (5.0-10.0) 10^3/uL RBC (4.2-5.4) 10^6/uL Hgb (12.0-16.0) g/dL Hct (37.0-47.0) % MCV (80-100) fL MCH (27.0-34.0) pg MCHC (33.0-35.0) g/dL Plt Count (150-450) 10^3/uL Neut % (Auto) (42.2-75.2) % Lymph % (Auto) (20.5-50.1) % [place] % (Auto) (2-8) % Eos % (Auto) (1.0-3.0) % Baso % (Auto) (0.0-1.0) % Sodium 140 (136-145) mmol/L Potassium 4.1 (3.5-5.1) mmol/L Chloride 105 (98-107) mmol/L Carbon Dioxide 24 (21-32) mmol/L Anion Gap 15.1 H (7-13) mEq/L BUN 30 H (7-18) mg/dL Creatinine 1.27 H (0.55-1.02) mg/dL Est Cr Clr Drug Dosing TNP Estimated GFR (MDRD) 41 BUN/Creatinine Ratio 23.6 (No establ ref range) Glucose 115 H (74-99) mg/dL Lactic Acid 0.6 (0.4-2.0) mmol/L Calcium 8.8 (8.5-10.1) mg/dL Total Bilirubin 0.4 (0.2-1.0) mg/dL AST 20 (15-37) U/L ALT 24 (14-59) U/L Alkaline Phosphatase 250 H (46-116) U/L Troponin I < 0.017 (0.000-0.056) ng/mL B-Natriuretic Peptide 215 H (0-100) pg/ml Total Protein 7.7 (6.4-8.2) g/dL Albumin 2.8 L (3.4-5.0) g/dL Globulin 4.9 Albumin/Globulin Ratio 0.57 SARS-CoV-2 RNA (RT-PCR) Negative (NEGATIVE) 03/04/20 Range/Units 20:51 WBC 5.5 (5.0-10.0) 10^3/uL RBC 3.05 L (4.2-5.4) 10^6/uL Hgb 9.2 L (12.0-16.0) g/dL Hct 29.1 L (37.0-47.0) % MCV 95.4 D (80-100) fL MCH 30.2 (27.0-34.0) pg MCHC 31.6 L (33.0-35.0) g/dL Plt Count 81 L (150-450) 10^3/uL Neut % (Auto) 71.5 (42.2-75.2) % Lymph % (Auto) 16.4 L (20.5-50.1) % [place] % (Auto) 8.4 H (2-8) % Eos % (Auto) 3.5 H (1.0-3.0) % Baso % (Auto) 0.2 (0.0-1.0) % Sodium (136-145) mmol/L Potassium (3.5-5.1) mmol/L Chloride (98-107) mmol/L Carbon Dioxide (21-32) mmol/L Anion Gap (7-13) mEq/L BUN (7-18) mg/dL Creatinine (0.55-1.02) mg/dL Est Cr Clr Drug Dosing Estimated GFR (MDRD) BUN/Creatinine Ratio (No establ ref range) Glucose (74-99) mg/dL Lactic Acid (0.4-2.0) mmol/L Calcium (8.5-10.1) mg/dL Total Bilirubin (0.2-1.0) mg/dL AST (15-37) U/L ALT (14-59) U/L Alkaline Phosphatase (46-116) U/L Troponin I (0.000-0.056) ng/mL B-Natriuretic Peptide (0-100) pg/ml Total Protein (6.4-8.2) g/dL Albumin (3.4-5.0) g/dL Globulin Albumin/Globulin Ratio SARS-CoV-2 RNA (RT-PCR) (NEGATIVE) Meds: Medications Discontinued Medications Generic Name Dose Route Start Last Admin Trade Name Freq PRN Reason Stop Dose Admin Azithromycin 500 mg 03/04/20 22:04 03/04/20 22:13 Zithromax PO 03/04/20 22:05 500 mg ONETIME ONE Administration Heparin Sodium (Porcine) 500 units 03/04/20 22:12 03/04/20 22:15 Heparin Lock Flush 100 Units/Ml FLUSH 03/04/20 22:13 500 units ASDIRECTED ONE Administration - Radiology Interpretation Free Text/Narrative:: Chest xray: FINDINGS: Tubes, catheters and devices: Pacemaker, unchanged in position. Right internal jugular port catheter, unchanged in position. Lungs: 5.7 x 2.8 cm soft tissue density mass in the lateral right mid lung, smaller than on the prior study where it measured 7.7 x 5.4 cm. Pleural space: No pneumothorax. Heart/Mediastinum: Unremarkable. Vasculature: Atherosclerotic calcifications of the aorta. Bones/joints: 2 cm long defect in the posterior lateral right 6th rib, new, larger or better visualized than on the prior study. Mildly displaced fracture deformity of the posterior right 7th rib, new or better visualized compared to the prior study. Soft tissues: Unremarkable. IMPRESSION: 1. 5.7 x 2.8 cm soft tissue density mass in the lateral right mid lung, smaller than on the prior study where it measured 7.7 x 5.4 cm. Given the reported history of lung cancer, this finding is suspicious for malignancy. 2. 2 cm long defect in the posterior lateral right 6th rib, new, larger or better visualized than on the prior study. This may be postsurgical or may represent erosion of the rib by adjacent malignancy. 3. Mildly displaced fracture deformity of the posterior right 7th rib, new or better visualized compared to the prior study. This may be postsurgical or posttraumatic. Cannot exclude pathologic fracture. Thank you for allowing us to participate in the care of your patient. Dictated and Authenticated by: Bridgett Nguyen MD 03/04/2020 9:41 PM Central Time ([place] & [place]) See rad report Departure - Departure Time of Disposition: 22:05 Disposition: Home, Self-Care 01 Condition: Fair Clinical Impression: COPD exacerbation, Bronchitis - Discharge Information *PRESCRIPTION DRUG MONITORING PROGRAM REVIEWED*: No *COPY OF PRESCRIPTION DRUG MONITORING REPORT IN PATIENT VALERIE: No Instructions: Chronic Obstructive Pulmonary Disease Exacerbation, [id number] , Cough, Adult, [id number], Upper Respiratory Infection, Adult, [id number] Forms: ED Department Discharge Additional Instructions: RX: Azithromycin Continue taking nebulizers and inhalers as prescribed Rest Follow up with your primary care facility if no improvement Sepsis Event Note - Evaluation Sepsis Screening Result: No Definite Risk - Focused Exam Vital Signs: Vital Signs Temp Pulse Resp BP Pulse Ox 03/04/20 20:16 98.1 F 68 18 143/44 H 94 L Date Exam was Performed: 03/05/20 Time Exam was Performed: 05:41 - My Orders Last 24 Hours: My Active Orders 03/04/20 20:36 EKG Documentation Completion [RC] STAT Blood Culture x2 Reflex Set [OM.PC] Stat 03/04/20 20:51 CULTURE BLOOD [BC] Stat 03/04/20 21:21 CULTURE SPUTUM + SMEAR [RM] Stat 03/04/20 21:59 CULTURE BLOOD [BC] Stat 03/04/20 22:11 Implanted Port Access [RC] QSHIFT Implanted Port De-Access [RC] QSHIFT - Assessment/Plan Last 24 Hours: My Active Orders 03/04/20 20:36 EKG Documentation Completion [RC] STAT Blood Culture x2 Reflex Set [OM.PC] Stat 03/04/20 20:51 CULTURE BLOOD [BC] Stat 03/04/20 21:21 CULTURE SPUTUM + SMEAR [RM] Stat 03/04/20 21:59 CULTURE BLOOD [BC] Stat 03/04/20 22:11 Implanted Port Access [RC] QSHIFT Implanted Port De-Access [RC] QSHIFT
[2020-03-04] MEDS ORDERED: Azithromycin 250 MG Tab PO ONE (22:04)
== END 2020-03-04 22:23 | disposition home or self-care (01) ==
LOC: DL.ED 20:02
DX: J44.1 Chronic obstructive pulmonary disease with (acute) exacerbation (principal); J40 Bronchitis, not specified as acute or chronic; I13.0 Hypertensive heart and chronic kidney disease with heart failure and stage 1 through stage 4 chronic kidney disease, or unspecified chronic kidney disease; E11.22 Type 2 diabetes mellitus with diabetic chronic kidney disease; I50.9 Heart failure, unspecified; N18.9 Chronic kidney disease, unspecified; E78.00 Pure hypercholesterolemia, unspecified; E03.9 Hypothyroidism, unspecified; Z20.828 Contact with and (suspected) exposure to other viral communicable diseases; Z88.5 Allergy status to narcotic agent; Z88.8 Allergy status to other drugs, medicaments and biological substances; Z91.048 Other nonmedicinal substance allergy status; Z79.4 Long term (current) use of insulin; Z79.899 Other long term (current) drug therapy
CPT/HCPCS: 36415; 71045; 80053; 83605; 83880; 84484; 85025; 87040; 87070; 87077; 87205; 93005; 99284; A9270; J1642; U0002; 99283

== ENCOUNTER 2020-04-08 14:59 | Emergency (ER) | payer MEDICARE, MEDICAID ==
[2020-04-08 15:28] VITALS: BP 147/46; PULSE 63
--- NOTE | 2020-04-08 15:57 | EDM.PDOC ---
ED HPI GENERAL MEDICAL PROBLEM - General Chief Complaint: Respiratory Problem Stated Complaint: SOB/THINKS BRONCHITIS Time Seen by Provider: 04/08/20 15:40 Source of Information: Reports: Patient, RN, RN Notes Reviewed History Limitations: Reports: No Limitations - History of Present Illness INITIAL COMMENTS - FREE TEXT/NARRATIVE: Patient presents to ER with complaint of chest cold. Patient states she is prone to bronchitis. States she has history of lung cancer, is through with chemotherapy, and is getting immunotherapy every 3 weeks. Patient states she has not had fever chills, no nausea or vomiting, no diarrhea, no chest pains or shortness of breath. Patient states she has had somewhat productive cough. Patient states she has been using her albuterol nebulizers, and this helps for a while. Patient states since the heat and the humidity has been so bad the breathing has been worse. Onset: Gradual - Related Data Allergies Allergy/AdvReac Type Severity Reaction Status Date / Time codeine Allergy Unknown Cannot Verified 03/04/20 21:00 Remember adhesive tape Allergy Rash Verified 03/04/20 21:00 sacubitril [From Entresto] Allergy Dizziness Verified 03/04/20 21:00 simvastatin [From Zocor] Allergy Muscle Verified 03/04/20 21:00 Aches valsartan [From Entresto] Allergy Dizziness Verified 03/04/20 21:00 metal Allergy Mild Rash Uncoded 03/04/20 21:00 Home Meds: Home Meds glipiZIDE [Glipizide] 10 mg PO BIDMEALS 07/09/15 [History] Omeprazole 20 mg PO ACBREAKFAST 04/15/16 [History] Albuterol [IJD: Ventolin HFA] 2 puff INH Q6H PRN 05/18/16 [History] carvediloL [Carvedilol] 6.25 mg PO BID 07/23/16 [History] metFORMIN HCl [Metformin HCl] 500 mg PO BIDMEALS 08/07/16 [History] Acetaminophen 1,000 mg PO BID PRN 08/08/17 [History] Albuterol [Proventil Neb Soln] 3 ml NEB Q6H PRN 08/08/17 [History] SitaGLIPtin [Januvia] 50 mg PO BEDTIME 04/11/19 [History] Insulin Detemir [Levemir Flextouch] 8 units SQ BEDTIME 04/30/19 [History] Levothyroxine 150 mcg PO ACBREAKFAST 04/30/19 [History] Pravastatin Sodium 10 mg PO DAILY 04/30/19 [History] Bumetanide 1 mg PO BIDMEALS 06/26/19 [History] Sodium Chloride 1 gm PO BID #30 tablet 12/23/19 [Rx] B Complex With Vitamin C [B-Complex Plus Vitamin C] 1 each PO DAILY 02/09/20 [History] Ferrous Sulfate 325 mg PO DAILY 02/09/20 [History] Magnesium Oxide 400 mg PO DAILY 02/09/20 [History] Ondansetron [Zofran] 8 mg PO Q8H PRN 02/09/20 [History] Potassium Chloride [Klor-Con M20] 20 meq PO DAILY 02/09/20 [History] Prochlorperazine [Compazine] 10 mg PO Q6H PRN 02/09/20 [History] traMADol [Ultram] 50 mg PO BID PRN 02/09/20 [History] Past Medical History HEENT History: Reports: Cataract, Impaired Vision, Otitis Media Other HEENT History: wears glasses Cardiovascular History: Reports: Cardiomyopathy, Heart Failure, High Cholesterol, Hypertension, Pacemaker, Other (See Below) Other Cardiovascular History: CARDIAC DIFIBRILLATOR PLACEMENT (2017), NONISCHEMIC CARDIOMYOPATHY Respiratory History: Reports: Bronchitis, Recurrent, COPD, Pneumonia, Recurrent Gastrointestinal History: Reports: Cholelithiasis, GERD Genitourinary History: Reports: Renal Disease, UTI, Recurrent, Other (See Below) Other Genitourinary History: CKD PLASTICS HEAT WELDER 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 PLASTICS HEAT WELDER History: HAS 3 KIDS Musculoskeletal History: Reports: Arthritis, Fracture, Other (See Below) Other Musculoskeletal History: SHOULDER PAIN, BILATERAL Neurological History: Reports: None Psychiatric History: Reports: Addiction Other Psychiatric History: patient states she doesn't know if she was addicted to anything Endocrine/Metabolic History: Reports: Diabetes, Type II, Hypothyroidism Hematologic History: Reports: Anemia, B12 Deficiency, Iron Deficiency Immunologic History: Reports: None Oncologic (Cancer) History: Reports: Lung Dermatologic History: Reports: None - Infectious Disease History Infectious Disease History: Reports: Chicken Pox, Measles, Mumps, Rubella - Past Surgical History Head Surgeries/Procedures: Reports: None HEENT Surgical History: Reports: Cataract Surgery Cardiovascular Surgical History: Reports: AICD Respiratory Surgical History: Reports: None GI Surgical History: Reports: Appendectomy, Cholecystectomy Female Surgical History: Reports: None Endocrine Surgical History: Reports: None Musculoskeletal Surgical History: Reports: None Social & Family History - Family History Family Medical History: Noncontributory - Tobacco Use Smoking Status *Q: Never Smoker - Caffeine Use Caffeine Use: Reports: None Caffeine Use Comment: decaf products - Recreational Drug Use Recreational Drug Use: No - Living Situation & Occupation Living situation: Reports: Alone Occupation: Employed ED ROS GENERAL - Review of Systems Review Of Systems: Comprehensive ROS is negative, except as noted in HPI. ED EXAM, GENERAL - Physical Exam Exam: See Below Exam Limited By: No Limitations General Appearance: Alert, WD/WN, No Apparent Distress Eye Exam: Bilateral Eye: EOMI, Normal Inspection Ears: Normal External Exam, Hearing Grossly Normal Nose: Normal Inspection Throat/Mouth: Normal Inspection, Normal Voice, No Airway Compromise Head: Atraumatic, Normocephalic Neck: Normal Inspection, Supple, Non-Tender, Full Range of Motion Respiratory/Chest: No Respiratory Distress, Lungs Clear, No Accessory Muscle Use, Chest Non-Tender, Decreased Breath Sounds Cardiovascular: Normal Peripheral Pulses, Regular Rate, Rhythm, No Edema, No Gallop, No JVD, No Rub, Systolic Murmur GI/Abdominal: Normal Bowel Sounds, Soft, Non-Tender (Female) Exam: Deferred Rectal (Female) Exam: Deferred Back Exam: Normal Inspection, Full Range of Motion, NT Extremities: Normal Inspection, Normal Range of Motion, Non-Tender, Normal Capillary Refill, No Pedal Edema Neurological: Alert, Oriented, CN II-XII Intact, Normal Cognition, Normal Gait, Normal Reflexes, No Motor/Sensory Deficits Psychiatric: Normal Affect, Normal Mood Skin Exam: Warm, Dry, Intact, Normal Color, No Rash Lymphatic: No Adenopathy Course - Vital Signs Last Recorded V/S: Last Vital Signs Temp 99.1 F 04/08/20 15:26 Pulse 63 04/08/20 15:26 Resp 20 04/08/20 15:26 BP 147/46 H 04/08/20 15:26 Pulse Ox 93 L 04/08/20 15:26 - Orders/Labs/Meds Labs: Laboratory Tests 04/08/20 04/08/20 04/08/20 Range/Units 15:15 15:57 15:57 WBC 5.0 (5.0-10.0) 10^3/uL RBC 2.88 L (4.2-5.4) 10^6/uL Hgb 9.6 L (12.0-16.0) g/dL Hct 28.8 L (37.0-47.0) % MCV 100.0 D (80-100) fL MCH 33.3 (27.0-34.0) pg MCHC 33.3 (33.0-35.0) g/dL Plt Count 106 L (150-450) 10^3/uL Neut % (Auto) 68.9 (42.2-75.2) % Lymph % (Auto) 19.4 L (20.5-50.1) % [place] % (Auto) 6.7 (2-8) % Eos % (Auto) 4.8 H (1.0-3.0) % Baso % (Auto) 0.2 (0.0-1.0) % Sodium 130 L D (136-145) mmol/L Potassium 4.8 (3.5-5.1) mmol/L Chloride 96 L (98-107) mmol/L Carbon Dioxide 25 (21-32) mmol/L Anion Gap 13.8 H (7-13) mEq/L BUN 27 H (7-18) mg/dL Creatinine 1.27 H (0.55-1.02) mg/dL Est Cr Clr Drug Dosing 38.03 mL/min Estimated GFR (MDRD) 41 BUN/Creatinine Ratio 21.3 (No establ ref range) Glucose 116 H (74-99) mg/dL Lactic Acid (0.4-2.0) mmol/L Calcium 8.8 (8.5-10.1) mg/dL Total Bilirubin 0.4 (0.2-1.0) mg/dL AST 24 (15-37) U/L ALT 27 (14-59) U/L Alkaline Phosphatase 336 H (46-116) U/L Troponin I < 0.017 (0.000-0.056) ng/mL B-Natriuretic Peptide 236 H (0-100) pg/ml Total Protein 8.4 H (6.4-8.2) g/dL Albumin 3.3 L (3.4-5.0) g/dL Globulin 5.1 Albumin/Globulin Ratio 0.65 COVID-19 ([facility]) Negative (NEGATIVE) 04/08/20 Range/Units 15:57 WBC (5.0-10.0) 10^3/uL RBC (4.2-5.4) 10^6/uL Hgb (12.0-16.0) g/dL Hct (37.0-47.0) % MCV (80-100) fL MCH (27.0-34.0) pg MCHC (33.0-35.0) g/dL Plt Count (150-450) 10^3/uL Neut % (Auto) (42.2-75.2) % Lymph % (Auto) (20.5-50.1) % [place] % (Auto) (2-8) % Eos % (Auto) (1.0-3.0) % Baso % (Auto) (0.0-1.0) % Sodium (136-145) mmol/L Potassium (3.5-5.1) mmol/L Chloride (98-107) mmol/L Carbon Dioxide (21-32) mmol/L Anion Gap (7-13) mEq/L BUN (7-18) mg/dL Creatinine (0.55-1.02) mg/dL Est Cr Clr Drug Dosing mL/min Estimated GFR (MDRD) BUN/Creatinine Ratio (No establ ref range) Glucose (74-99) mg/dL Lactic Acid 0.5 (0.4-2.0) mmol/L Calcium (8.5-10.1) mg/dL Total Bilirubin (0.2-1.0) mg/dL AST (15-37) U/L ALT (14-59) U/L Alkaline Phosphatase (46-116) U/L Troponin I (0.000-0.056) ng/mL B-Natriuretic Peptide (0-100) pg/ml Total Protein (6.4-8.2) g/dL Albumin (3.4-5.0) g/dL Globulin Albumin/Globulin Ratio COVID-19 ([facility]) (NEGATIVE) - Radiology Interpretation Free Text/Narrative:: Chest x-ray: No acute new cardiopulmonary abnormality. No lobar pneumonia or new signs of heart failure. Chronic borderline cardiomegaly, pacemaker. Departure - Departure Time of Disposition: 16:56 Disposition: Home, Self-Care 01 Condition: Fair Clinical Impression: Bronchitis - Discharge Information *PRESCRIPTION DRUG MONITORING PROGRAM REVIEWED*: No *COPY OF PRESCRIPTION DRUG MONITORING REPORT IN PATIENT VALERIE: No Instructions: Chronic Obstructive Pulmonary Disease Exacerbation, [id number], Acute Bronchitis, Adult, [id number], Upper Respiratory Infection, Adult, [id number] Referrals: Angella Canseco MD [Primary Care Provider] - Forms: ED Department Discharge Additional Instructions: RX: Azithromycin, Prednisone Follow up with your primary care facility Continue to take other meds and nebulizers as directed Sepsis Event Note (ED) - Evaluation Sepsis Screening Result: No Definite Risk
--- NOTE | 2020-04-08 16:06 | CR ---
EXAMINATION: Chest 2V SEX: Female AGE: 70 years CLINICAL HISTORY: 70-year-old female complaining of COUGH (2 weeks). Patient is covid negative. INTERPRETATION: (Comparison exam to March 22, 2020) 1. Borderline cardiomegaly this patient with cardiac pacemaker (leads intact) and right supraclavicular central venous chemoinfusion catheter. 2. Lateral right chest deformity (old fractures and pleural reactive fibrosis) unchanged. Disc disease. 3. No new pulmonary vascular congestion, cephalization of flow, alveolar edema or dependent pleural fluid accumulation. 4. No new lung mass, hilar lymphadenopathy or focal lobar pneumonia. Mild peribronchial "cuffing". 5. No atelectasis/collapse. No pneumothorax or pneumomediastinum. CONCLUSION: No acute new cardiopulmonary abnormality. No lobar pneumonia or new signs of heart failure Chronic borderline cardiomegaly (pacemaker).
[2020-04-08 16:31] LABS: ANION GAP 13.8 mEq/L (7-13); CHLORIDE,CL 96 mmol/L (98-107); SODIUM,NA 130 mmol/L (136-145)
== END 2020-04-08 17:09 | disposition home or self-care (01) ==
LOC: DL.ED 14:59
DX: J40 Bronchitis, not specified as acute or chronic (principal); I13.0 Hypertensive heart and chronic kidney disease with heart failure and stage 1 through stage 4 chronic kidney disease, or unspecified chronic kidney disease; E11.22 Type 2 diabetes mellitus with diabetic chronic kidney disease; N18.9 Chronic kidney disease, unspecified; I50.9 Heart failure, unspecified; E78.00 Pure hypercholesterolemia, unspecified; K21.9 Gastro-esophageal reflux disease without esophagitis; M19.90 Unspecified osteoarthritis, unspecified site; E03.9 Hypothyroidism, unspecified; E53.8 Deficiency of other specified B group vitamins; D50.9 Iron deficiency anemia, unspecified; Z20.828 Contact with and (suspected) exposure to other viral communicable diseases; Z88.5 Allergy status to narcotic agent; Z88.8 Allergy status to other drugs, medicaments and biological substances; Z91.048 Other nonmedicinal substance allergy status; Z79.4 Long term (current) use of insulin; Z79.899 Other long term (current) drug therapy
CPT/HCPCS: 36415; 71046; 80053; 83605; 83880; 84484; 85025; 99285; U0002; 99283

== ENCOUNTER 2020-04-24 16:25 | Emergency (ER) | payer MEDICARE, MEDICAID ==
[2020-04-24 17:31] VITALS: BP 105/44; PULSE 74
--- NOTE | 2020-04-24 17:52 | EDM.PDOC ---
ED HPI GENERAL MEDICAL PROBLEM - General Chief Complaint: Respiratory Problem Stated Complaint: SOB Time Seen by Provider: 04/24/20 17:40 Source of Information: Reports: Patient History Limitations: Reports: No Limitations - History of Present Illness INITIAL COMMENTS - FREE TEXT/NARRATIVE: This 70 yo female patient reports to the ED due to a cough and shortness of breath. The patient reports her home health worker advised her to come to the ED due to the shortness of breath and cough. The patient reports she was tested for COVID yesterday (negative) in [facility] and wanted to go to the drive up testing again today. The patient reports she has been visiting family and one of her family members had a cough and coughed in her presence 2 days ago. The patient was at her primary care facility 1 week ago and was advised that things looked good. The patient did not attempt to get into the clinic today. Onset Date: 04/23/20 Duration: Constant Location: Reports: Chest Quality: 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 Severity: Moderate Improves with: Reports: Rest Worsens with: Reports: Movement Context: 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 Associated Symptoms: Reports: Cough - Related Data Allergies Allergy/AdvReac Type Severity Reaction Status Date / Time codeine Allergy Unknown Cannot Verified 04/24/20 17:31 Remember adhesive tape Allergy Rash Verified 04/24/20 17:31 sacubitril [From Entresto] Allergy Dizziness Verified 04/24/20 17:31 simvastatin [From Zocor] Allergy Muscle Verified 04/24/20 17:31 Aches valsartan [From Entresto] Allergy Dizziness Verified 04/24/20 17:31 metal Allergy Mild Rash Uncoded 04/24/20 17:31 Home Meds: Home Meds glipiZIDE [Glipizide] 10 mg PO BIDMEALS 07/09/15 [History] Omeprazole 20 mg PO ACBREAKFAST 04/15/16 [History] Albuterol [IJD: Ventolin HFA] 2 puff INH Q6H PRN 05/18/16 [History] carvediloL [Carvedilol] 6.25 mg PO BID 07/23/16 [History] metFORMIN HCl [Metformin HCl] 500 mg PO BIDMEALS 08/07/16 [History] Acetaminophen 1,000 mg PO BID PRN 08/08/17 [History] Albuterol [Proventil Neb Soln] 3 ml NEB Q6H PRN 08/08/17 [History] SitaGLIPtin [Januvia] 50 mg PO BEDTIME 04/11/19 [History] Insulin Detemir [Levemir Flextouch] 8 units SQ BEDTIME 04/30/19 [History] Levothyroxine 150 mcg PO ACBREAKFAST 04/30/19 [History] Pravastatin Sodium 10 mg PO DAILY 04/30/19 [History] Bumetanide 1 mg PO BIDMEALS 06/26/19 [History] Sodium Chloride 1 gm PO BID #30 tablet 12/23/19 [Rx] B Complex With Vitamin C [B-Complex Plus Vitamin C] 1 each PO DAILY 02/09/20 [History] Ferrous Sulfate 325 mg PO DAILY 02/09/20 [History] Magnesium Oxide 400 mg PO DAILY 02/09/20 [History] Ondansetron [Zofran] 8 mg PO Q8H PRN 02/09/20 [History] Potassium Chloride [Klor-Con M20] 20 meq PO DAILY 02/09/20 [History] Prochlorperazine [Compazine] 10 mg PO Q6H PRN 02/09/20 [History] traMADol [Ultram] 50 mg PO BID PRN 02/09/20 [History] Past Medical History HEENT History: Reports: Cataract, Impaired Vision, Otitis Media Other HEENT History: wears glasses Cardiovascular History: Reports: Cardiomyopathy, Heart Failure, High Cholesterol, Hypertension, Pacemaker, Other (See Below) Other Cardiovascular History: CARDIAC DIFIBRILLATOR PLACEMENT (2017), NONISCHEM IC CARDIOMYOPATHY Respiratory History: Reports: Bronchitis, Recurrent, COPD, Pneumonia, Recurrent Gastrointestinal History: Reports: Cholelithiasis, GERD Genitourinary History: Reports: Renal Disease, UTI, Recurrent, Other (See Below) Other Genitourinary History: CKD DATA SME 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 DATA SME History: HAS 3 KIDS Musculoskeletal History: Reports: Arthritis, Fracture, Other (See Below) Other Musculoskeletal History: SHOULDER PAIN, BILATERAL Neurological History: Reports: None Psychiatric History: Reports: Addiction Other Psychiatric History: patient states she doesn't know if she was addicted to anything Endocrine/Metabolic History: Reports: Diabetes, Type II, Hypothyroidism Hematologic History: Reports: Anemia, B12 Deficiency, Iron Deficiency Immunologic History: Reports: None Oncologic (Cancer) History: Reports: Lung Dermatologic History: Reports: None - Infectious Disease History Infectious Disease History: Reports: Chicken Pox, Measles, Mumps, Rubella - Past Surgical History Head Surgeries/Procedures: Reports: None HEENT Surgical History: Reports: Cataract Surgery Cardiovascular Surgical History: Reports: AICD Respiratory Surgical History: Reports: None GI Surgical History: Reports: Appendectomy, Cholecystectomy Female Surgical History: Reports: None Endocrine Surgical History: Reports: None Musculoskeletal Surgical History: Reports: None Social & Family History - Family History Family Medical History: Noncontributory - Tobacco Use Smoking Status *Q: Former Smoker Years of Tobacco use: 40 Packs/Tins Daily: 0.5 Used Tobacco, but Quit: Yes Month/Year Tobacco Last Used: october Hand Smoke Exposure: No - Caffeine Use Caffeine Use: Reports: None Caffeine Use Comment: decaf products - Recreational Drug Use Recreational Drug Use: No - Living Situation & Occupation Living situation: Reports: Alone Occupation: Employed ED ROS GENERAL - Review of Systems Review Of Systems: Comprehensive ROS is negative, except as noted in HPI. ED EXAM, GENERAL - Physical Exam Exam: See Below Exam Limited By: No Limitations General Appearance: Alert, WD/WN, No Apparent Distress Eye Exam: Bilateral Eye: EOMI, Normal Inspection, PERRL Ears: Normal External Exam, Normal Canal, Hearing Grossly Normal, Normal TMs Nose: Normal Inspection, Normal Mucosa, No Blood Throat/Mouth: Normal Inspection, Normal Lips, Normal Teeth, Normal Gums, Normal Oropharynx, Normal Voice, No Airway Compromise Head: Atraumatic, Normocephalic Neck: Normal Inspection, Supple, Non-Tender, Full Range of Motion Respiratory/Chest: Decreased Breath Sounds. No: Rales, Rhonchi, Wheezing Cardiovascular: Normal Peripheral Pulses, Regular Rate, Rhythm, No Edema, No Gallop, No JVD, No Murmur, No Rub GI/Abdominal: Normal Bowel Sounds, Soft, Non-Tender, No Organomegaly, No Distention, No Abnormal Bruit, No Mass (Female) Exam: Deferred Rectal (Female) Exam: Deferred Back Exam: Normal Inspection, Full Range of Motion, NT Extremities: Normal Inspection, Normal Range of Motion, Non-Tender, Normal Capillary Refill, No Pedal Edema Neurological: Alert, Oriented, CN II-XII Intact, Normal Cognition, Normal Gait, Normal Reflexes, No Motor/Sensory Deficits Psychiatric: Normal Affect, Normal Mood Skin Exam: Warm, Dry, Intact, Normal Color, No Rash Lymphatic: No Adenopathy Course - Vital Signs Last Recorded V/S: Last Vital Signs Temp 37.2 C 04/24/20 17:21 Pulse 74 04/24/20 17:21 Resp 16 04/24/20 17:21 BP 105/44 L 04/24/20 17:21 Pulse Ox 93 L 04/24/20 17:21 - Orders/Labs/Meds Orders: Active Orders 24 hr Category Date Time Status cephALEXin [Keflex] Med 04/24/20 18:29 Once 500 mg PO ONETIME ONE Labs: Laboratory Tests 04/24/20 04/24/20 Range/Units 18:00 18:00 WBC 8.8 (5.0-10.0) 10^3/uL RBC 3.33 L (4.2-5.4) 10^6/uL Hgb 11.4 L D (12.0-16.0) g/dL Hct 33.5 L (37.0-47.0) % MCV 100.6 H (80-100) fL MCH 34.2 H (27.0-34.0) pg MCHC 34.0 (33.0-35.0) g/dL Plt Count 173 (150-450) 10^3/uL Neut % (Auto) 81.0 H (42.2-75.2) % Lymph % (Auto) 9.5 L (20.5-50.1) % Bath % (Auto) 5.2 (2-8) % Eos % (Auto) 3.8 H (1.0-3.0) % Baso % (Auto) 0.5 (0.0-1.0) % Sodium 133 L (136-145) mmol/L Potassium 4.7 (3.5-5.1) mmol/L Chloride 97 L (98-107) mmol/L Carbon Dioxide 25 (21-32) mmol/L Anion Gap 15.7 H (7-13) mEq/L BUN 55 H D (7-18) mg/dL Creatinine 1.61 H (0.55-1.02) mg/dL Est Cr Clr Drug Dosing 25.47 mL/min Estimated GFR (MDRD) 32 BUN/Creatinine Ratio 34.2 (No establ ref range) Glucose 169 H (74-99) mg/dL Calcium 9.3 (8.5-10.1) mg/dL Total Bilirubin 0.4 (0.2-1.0) mg/dL AST 26 (15-37) U/L ALT 29 (14-59) U/L Alkaline Phosphatase 278 H (46-116) U/L Total Protein 8.7 H (6.4-8.2) g/dL Albumin 3.6 (3.4-5.0) g/dL Globulin 5.1 Albumin/Globulin Ratio 0.7 Departure - Departure Time of Disposition: 18:30 Disposition: Home, Self-Care 01 Condition: Fair Clinical Impression: COPD exacerbation - Discharge Information *PRESCRIPTION DRUG MONITORING PROGRAM REVIEWED*: Not Applicable *COPY OF PRESCRIPTION DRUG MONITORING REPORT IN PATIENT VALERIE: Not Applicable Instructions: Chronic Obstructive Pulmonary Disease Exacerbation, [id number] Forms: ED Department Discharge Care Plan Goals: The patient was advised of the examination, lab and x-ray results during the visit. The patient was given an oral dose of Keflex (500 mg) while in the ED. The patient was discharged with a script for Keflex (500 mg) #14 to take 1 by mouth 2 times per day for 7 days. The patient was advised to stay home and stay safe. If the patient has any additional symptoms or concerns, the patient should either visit her primary care facility or return to the emergency department. Sepsis Event Note (ED) - Evaluation Sepsis Screening Result: No Definite Risk - Focused Exam Vital Signs: Vital Signs Temp Pulse Resp BP Pulse Ox 04/24/20 17:21 37.2 C 74 16 105/44 L 93 L - My Orders Last 24 Hours: My Active Orders 04/24/20 18:29 cephALEXin [Keflex] 500 mg PO ONETIME ONE - Assessment/Plan Last 24 Hours: My Active Orders 04/24/20 18:29 cephALEXin [Keflex] 500 mg PO ONETIME ONE
[2020-04-24 18:24] LABS: ANION GAP 15.7 mEq/L (7-13)
--- NOTE | 2020-04-24 18:25 | CR ---
PROCEDURE INFORMATION: Exam: XR Chest, 1 View Exam date and time: 04/24/2020 6:12 PM Age: 70 years old Clinical indication: Shortness of breath; Additional info: Short of breath TECHNIQUE: Imaging protocol: XR of the chest Views: 1 view. COMPARISON: CR Chest 2V 04/08/2020 3:42 PM FINDINGS: Tubes, catheters and devices: A right infusion port is present. A pacemaker device is present and its leads are in appropriate position. Lungs: The lungs are normal. Pleural space: There are no pleural effusions present. Heart/Mediastinum: The heart is not enlarged. Bones/joints: There are healed right rib fractures. IMPRESSION: No acute abnormality.
[2020-04-24] MEDS ORDERED: Cephalexin 500 MG Cap PO ONE (18:29)
== END 2020-04-24 18:48 | disposition home or self-care (01) ==
LOC: DL.ED 16:25
DX: J44.1 Chronic obstructive pulmonary disease with (acute) exacerbation (principal); E78.00 Pure hypercholesterolemia, unspecified; K21.9 Gastro-esophageal reflux disease without esophagitis; I13.0 Hypertensive heart and chronic kidney disease with heart failure and stage 1 through stage 4 chronic kidney disease, or unspecified chronic kidney disease; E11.22 Type 2 diabetes mellitus with diabetic chronic kidney disease; I50.9 Heart failure, unspecified; N18.9 Chronic kidney disease, unspecified; E03.9 Hypothyroidism, unspecified; Z87.891 Personal history of nicotine dependence; Z88.5 Allergy status to narcotic agent; Z91.048 Other nonmedicinal substance allergy status; Z88.8 Allergy status to other drugs, medicaments and biological substances; Z79.899 Other long term (current) drug therapy
CPT/HCPCS: 36415; 71045; 80053; 85025; 99283; 99285; A9270

== ENCOUNTER 2020-04-25 02:28 | Emergency (ER) | payer MEDICARE, MEDICAID ==
--- NOTE | 2020-04-25 02:38 | EDM.PDOC ---
ED HPI GENERAL MEDICAL PROBLEM - General Chief Complaint: Respiratory Problem Stated Complaint: AMBULANCE Time Seen by Provider: 04/25/20 02:35 Source of Information: Reports: Patient, Old Records History Limitations: Reports: No Limitations - History of Present Illness INITIAL COMMENTS - FREE TEXT/NARRATIVE: pt states was here yesterday and eval and sent home with ABX but still feels SOB like before. had negative covid day before. states can't sleep. denies being anxious. states she doesn't feel good and can't catch her breath. gives h/o lung cancer and worried about covid. - Related Data Allergies Allergy/AdvReac Type Severity Reaction Status Date / Time codeine Allergy Unknown Cannot Verified 04/25/20 02:39 Remember adhesive tape Allergy Rash Verified 04/25/20 02:39 sacubitril [From Entresto] Allergy Dizziness Verified 04/25/20 02:39 simvastatin [From Zocor] Allergy Muscle Verified 04/25/20 02:39 Aches valsartan [From Entresto] Allergy Dizziness Verified 04/25/20 02:39 metal Allergy Mild Rash Uncoded 04/25/20 02:39 Home Meds: Home Meds glipiZIDE [Glipizide] 10 mg PO BIDMEALS 07/09/15 [History] Omeprazole 20 mg PO ACBREAKFAST 04/15/16 [History] Albuterol [IJD: Ventolin HFA] 2 puff INH Q6H PRN 05/18/16 [History] carvediloL [Carvedilol] 6.25 mg PO BID 07/23/16 [History] metFORMIN HCl [Metformin HCl] 500 mg PO BIDMEALS 08/07/16 [History] Acetaminophen 1,000 mg PO BID PRN 08/08/17 [History] Albuterol [Proventil Neb Soln] 3 ml NEB Q6H PRN 08/08/17 [History] SitaGLIPtin [Januvia] 50 mg PO BEDTIME 04/11/19 [History] Insulin Detemir [Levemir Flextouch] 8 units SQ BEDTIME 04/30/19 [History] Levothyroxine 150 mcg PO ACBREAKFAST 04/30/19 [History] Pravastatin Sodium 10 mg PO DAILY 04/30/19 [History] Bumetanide 1 mg PO BIDMEALS 06/26/19 [History] Sodium Chloride 1 gm PO BID #30 tablet 12/23/19 [Rx] B Complex With Vitamin C [B-Complex Plus Vitamin C] 1 each PO DAILY 02/09/20 [History] Ferrous Sulfate 325 mg PO DAILY 02/09/20 [History] Magnesium Oxide 400 mg PO DAILY 02/09/20 [History] Ondansetron [Zofran] 8 mg PO Q8H PRN 02/09/20 [History] Potassium Chloride [Klor-Con M20] 20 meq PO DAILY 02/09/20 [History] Prochlorperazine [Compazine] 10 mg PO Q6H PRN 02/09/20 [History] traMADol [Ultram] 50 mg PO BID PRN 02/09/20 [History] Past Medical History HEENT History: Reports: Cataract, Impaired Vision, Otitis Media Other HEENT History: wears glasses Cardiovascular History: Reports: Cardiomyopathy, Heart Failure, High Cholesterol, Hypertension, Pacemaker, Other (See Below) Other Cardiovascular History: CARDIAC DIFIBRILLATOR PLACEMENT (2017), NONISCHEMIC CARDIOMYOPATHY Respiratory History: Reports: Bronchitis, Recurrent, COPD, Pneumonia, Recurrent Gastrointestinal History: Reports: Cholelithiasis, GERD Genitourinary History: Reports: Renal Disease, UTI, Recurrent, Other (See Below) Other Genitourinary History: CKD MANAGEMENT REP 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 MANAGEMENT REP History: HAS 3 KIDS Musculoskeletal History: Reports: Arthritis, Fracture, Other (See Below) Other Musculoskeletal History: SHOULDER PAIN, BILATERAL Neurological History: Reports: None Psychiatric History: Reports: Addiction Other Psychiatric History: patient states she doesn't know if she was addicted to anything Endocrine/Metabolic History: Reports: Diabetes, Type II, Hypothyroidism Hematologic History: Reports: Anemia, B12 Deficiency, Iron Deficiency Immunologic History: Reports: None Oncologic (Cancer) History: Reports: Lung Dermatologic History: Reports: None - Infectious Disease History Infectious Disease History: Reports: Chicken Pox, Measles, Mumps, Rubella - Past Surgical History Head Surgeries/Procedures: Reports: None HEENT Surgical History: Reports: Cataract Surgery Cardiovascular Surgical History: Reports: AICD Respiratory Surgical History: Reports: None GI Surgical History: Reports: Appendectomy, Cholecystectomy Female Surgical History: Reports: None Endocrine Surgical History: Reports: None Musculoskeletal Surgical History: Reports: None Social & Family History - Family History Family Medical History: Noncontributory - Caffeine Use Caffeine Use: Reports: None Caffeine Use Comment: decaf products - Living Situation & Occupation Living situation: Reports: Alone Occupation: Employed ED ROS GENERAL - Review of Systems Review Of Systems: Comprehensive ROS is negative, except as noted in HPI. ED EXAM, GENERAL - Physical Exam Exam: See Below Exam Limited By: No Limitations General Appearance: Alert, WD/WN, Anxious, Mild Distress Ears: Hearing Grossly Normal Throat/Mouth: Normal Voice, No Airway Compromise Head: Atraumatic Neck: Non-Tender, Full Range of Motion Respiratory/Chest: No Respiratory Distress, No Accessory Muscle Use, Rhonchi Cardiovascular: Regular Rate, Rhythm GI/Abdominal: Soft, Non-Tender Neurological: Alert, Oriented, Normal Cognition, No Motor/Sensory Deficits Psychiatric: Normal Affect, Normal Mood Skin Exam: Warm, Dry, Normal Color Lymphatic: No Adenopathy Course - Vital Signs Last Recorded V/S: Last Vital Signs Temp 36.1 C 04/25/20 03:35 Pulse 71 04/25/20 03:35 Resp 21 H 04/25/20 03:35 BP 163/52 H 04/25/20 03:35 Pulse Ox 95 04/25/20 03:35 - Orders/Labs/Meds Labs: Laboratory Tests 04/25/20 04/25/20 04/25/20 Range/Units 02:45 02:45 02:45 WBC 8.4 (5.0-10.0) 10^3/uL RBC 3.17 L (4.2-5.4) 10^6/uL Hgb 10.8 L (12.0-16.0) g/dL Hct 31.8 L (37.0-47.0) % MCV 100.3 H (80-100) fL MCH 34.1 H (27.0-34.0) pg MCHC 34.0 (33.0-35.0) g/dL Plt Count 169 (150-450) 10^3/uL Neut % (Auto) 69.5 (42.2-75.2) % Lymph % (Auto) 15.9 L (20.5-50.1) % Johnson % (Auto) 7.5 (2-8) % Eos % (Auto) 6.6 H (1.0-3.0) % Baso % (Auto) 0.5 (0.0-1.0) % D-Dimer, Quantitative 930 H (0-400) ng/mL Sodium 134 L (136-145) mmol/L Potassium 4.2 (3.5-5.1) mmol/L Chloride 98 (98-107) mmol/L Carbon Dioxide 23 (21-32) mmol/L Anion Gap 17.2 H (7-13) mEq/L BUN 57 H (7-18) mg/dL Creatinine 1.57 H (0.55-1.02) mg/dL Est Cr Clr Drug Dosing 28.38 mL/min Estimated GFR (MDRD) 32 BUN/Creatinine Ratio 36.3 (No establ ref range) Glucose 176 H (74-99) mg/dL Lactic Acid (0.4-2.0) mmol/L Calcium 9.1 (8.5-10.1) mg/dL Total Bilirubin 0.5 (0.2-1.0) mg/dL AST 20 (15-37) U/L ALT 26 (14-59) U/L Alkaline Phosphatase 272 H (46-116) U/L Troponin I < 0.017 (0.000-0.056) ng/mL Total Protein 8.4 H (6.4-8.2) g/dL Albumin 3.4 (3.4-5.0) g/dL Globulin 5.0 Albumin/Globulin Ratio 0.7 07/24/20 Range/Units 02:45 WBC (5.0-10.0) 10^3/uL RBC (4.2-5.4) 10^6/uL Hgb (12.0-16.0) g/dL Hct (37.0-47.0) % MCV (80-100) fL MCH (27.0-34.0) pg MCHC (33.0-35.0) g/dL Plt Count (150-450) 10^3/uL Neut % (Auto) (42.2-75.2) % Lymph % (Auto) (20.5-50.1) % Johnson % (Auto) (2-8) % Eos % (Auto) (1.0-3.0) % Baso % (Auto) (0.0-1.0) % D-Dimer, Quantitative (0-400) ng/mL Sodium (136-145) mmol/L Potassium (3.5-5.1) mmol/L Chloride (98-107) mmol/L Carbon Dioxide (21-32) mmol/L Anion Gap (7-13) mEq/L BUN (7-18) mg/dL Creatinine (0.55-1.02) mg/dL Est Cr Clr Drug Dosing mL/min Estimated GFR (MDRD) BUN/Creatinine Ratio (No establ ref range) Glucose (74-99) mg/dL Lactic Acid 0.3 L (0.4-2.0) mmol/L Calcium (8.5-10.1) mg/dL Total Bilirubin (0.2-1.0) mg/dL AST (15-37) U/L ALT (14-59) U/L Alkaline Phosphatase (46-116) U/L Troponin I (0.000-0.056) ng/mL Total Protein (6.4-8.2) g/dL Albumin (3.4-5.0) g/dL Globulin Albumin/Globulin Ratio - Re-Assessments/Exams Free Text/Narrative Re-Assessment/Exam: 04/25/20 03:[address] Powers @ [facility] who kindly accepted pt for r/o PE. Departure - Departure Time of Disposition: 03:43 Disposition: DC/Tfer to Acute Hospital 02 Condition: Fair Clinical Impression: Hypoxemia, Elevated d-dimer Dyspnea Qualifiers: Dyspnea type: shortness of breath Qualified Code(s): R06.02 - Shortness of breath; R06.00 - Dyspnea, unspecified; R06.01 - Orthopnea - Discharge Information Forms: Interfacility Transfer EMTALA Sepsis Event Note (ED) - Focused Exam Vital Signs: Vital Signs Temp Pulse Resp BP Pulse Ox 04/25/20 03:35 36.1 C 71 21 H 163/52 H 95 04/25/20 02:33 35.6 C L 78 22 H 159/56 H 92 L
[2020-04-25 03:11] LABS: ANION GAP 17.2 mEq/L (7-13); CHLORIDE,CL 98 mmol/L (98-107); SODIUM,NA 134 mmol/L (136-145)
[2020-04-25 03:37] VITALS: BP 163/52; PULSE 71
== END 2020-04-25 04:20 ==
LOC: DL.ED 02:28
DX: R06.02 Shortness of breath (principal); R06.01 Orthopnea; R09.02 Hypoxemia; R79.1 Abnormal coagulation profile; I13.0 Hypertensive heart and chronic kidney disease with heart failure and stage 1 through stage 4 chronic kidney disease, or unspecified chronic kidney disease; I50.9 Heart failure, unspecified; N18.9 Chronic kidney disease, unspecified; E11.22 Type 2 diabetes mellitus with diabetic chronic kidney disease; E78.00 Pure hypercholesterolemia, unspecified; J44.9 Chronic obstructive pulmonary disease, unspecified; K21.9 Gastro-esophageal reflux disease without esophagitis; E03.9 Hypothyroidism, unspecified; Z88.5 Allergy status to narcotic agent; Z91.048 Other nonmedicinal substance allergy status; Z88.8 Allergy status to other drugs, medicaments and biological substances; Z91.09 Other allergy status, other than to drugs and biological substances; Z79.4 Long term (current) use of insulin
CPT/HCPCS: 36415; 80053; 83605; 84484; 85025; 85379; 99284; 99285

== ENCOUNTER 2020-08-09 14:45 | Emergency (ER) | payer MEDICARE, MEDICAID ==
[2020-08-09] MEDS ORDERED: Sodium Chloride 0.9% 10 ML Syringe FLUSH PRN (14:53)
--- NOTE | 2020-08-09 15:05 | CT ---
PROCEDURE INFORMATION: Exam: CT Head Without Contrast Exam date and time: 08/09/2020 2:43 PM Age: 70 years old Clinical indication: Other: Acute aphasia; Additional info: Stroke code: Acute aphasia TECHNIQUE: Imaging protocol: Computed tomography of the head without contrast. Radiation optimization: All CT scans at this facility use at least one of these dose optimization techniques: automated exposure control; mA and/or kV adjustment per patient size (includes targeted exams where dose is matched to clinical indication); or iterative reconstruction. Other technique: STROKE PROTOCOL was implemented. COMPARISON: CT Head wo Cont 08/05/2019 10:22 PM FINDINGS: Brain: No acute intracerebral abnormality or injury. No acute infarct or intracerebral bleed. Moderate generalized cerebral atrophy with extensive patchy periventricular leukomalacia in both cerebral hemispheres, consistent most likely with chronic underlying small vessel / microvascular ischemic disease. No significant interval change since the previous head CT from 08/05/2019. [place] Stroke Program Early CT Score (ASPECTS score) = 10. Cerebral ventricles: No ventriculomegaly. Bones/joints: Unremarkable. No acute fracture. Paranasal sinuses: Visualized sinuses are unremarkable. No fluid levels. Mastoid air cells: Visualized mastoid air cells are well aerated. Soft tissues: Unremarkable. IMPRESSION: 1. No acute intracerebral abnormality or injury. No acute infarct or intracerebral bleed. 2. Moderate generalized cerebral atrophy with extensive patchy periventricular leukomalacia in both cerebral hemispheres, consistent most likely with chronic underlying small vessel / microvascular ischemic disease. No significant interval change since the previous head CT from 08/05/2019. 3. [place] Stroke Program Early CT Score (ASPECTS score) = 10.
[2020-08-09 15:08] VITALS: BP 132/47; PULSE 67
--- NOTE | 2020-08-09 15:32 | CR ---
PROCEDURE INFORMATION: Exam: XR Chest, 1 View Exam date and time: 08/09/2020 2:57 PM Age: 70 years old Clinical indication: Other: Acute aphasia; Additional info: Acute aphasia, eval. For aspiration TECHNIQUE: Imaging protocol: XR of the chest Views: 1 view. COMPARISON: CT Chest w Cont 07/08/2020 2:13 PM FINDINGS: Tubes, catheters and devices: A right internal jugular central line is present with the distal tip of the line in the distal SVC. Lungs: Both lungs are otherwise slightly hyperinflated consistent with underlying COPD. Pleural space: Unremarkable. No pleural effusion. No pneumothorax. Heart/Mediastinum: The heart size is normal. A left subclavian dual-chamber pacemaker appears in satisfactory position. 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 Bony destructive changes of the right side ribs 7 and 8 are present with widening of the pleural space probably posterior to the mass. IMPRESSION: 1. 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 Bony destructive changes of the right side ribs 7 and 8 are present with widening of the pleural space probably posterior to the mass. 2. Both lungs are otherwise slightly hyperinflated consistent with underlying COPD. 3. The heart size is normal. A left subclavian dual-chamber pacemaker appears in satisfactory position. 4. A right internal jugular central line is present with the distal tip of the line in the distal SVC.
--- NOTE | 2020-08-09 15:35 | EDM.PDOC ---
"Scribed by Kristyn Abebe 08/09/20 1511 for Antonio Goyal MD ED HPI GENERAL MEDICAL PROBLEM - General Chief Complaint: Neurological Problem Stated Complaint: STROKE CODE AMBULANCE Time Seen by Provider: 08/09/20 14:45 Source of Information: Reports: Patient, EMS, EMS Notes Reviewed, Old Records, RN, RN Notes Reviewed History Limitations: Reports: No Limitations - History of Present Illness INITIAL COMMENTS - FREE TEXT/NARRATIVE: Patient arrives to ED by [facility] with report of possible stroke due to confusion and slurred speech. Patient states that she does not believe that she was having a stroke, but hypoglycemia which she has had before. She usually is able to care for her hypoglycemia at home by eating and taking surgery, but today she felt like her sugar was not coming up like it usually does so she called the ambulance. Before the ambulance arrives she drank an orange soda and ate a peanut butter sandwich and was beginning to feel better as EMS arrived. EMS found her with a blood sugar of 217. Patient did not measure her blood sugar when she felt it going low, she thought she should get sugar in and not delay. 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 - Related Data Allergies Allergy/AdvReac Type Severity Reaction Status Date / Time codeine Allergy Unknown Cannot Verified 08/09/20 15:15 Remember adhesive tape Allergy Rash Verified 08/09/20 15:15 sacubitril [From Entresto] Allergy Dizziness Verified 08/09/20 15:15 simvastatin [From Zocor] Allergy Muscle Verified 08/09/20 15:15 Aches valsartan [From Entresto] Allergy Dizziness Verified 08/09/20 15:15 metal Allergy Mild Rash Uncoded 04/25/20 02:39 Home Meds: Home Meds glipiZIDE [Glipizide] 10 mg PO BIDMEALS 07/09/15 [History] Omeprazole 20 mg PO ACBREAKFAST 04/15/16 [History] Albuterol [IJD: Ventolin HFA] 2 puff INH Q6H PRN 05/18/16 [History] carvediloL [Carvedilol] 6.25 mg PO BID 07/23/16 [History] metFORMIN HCl [Metformin HCl] 500 mg PO BIDMEALS 08/07/16 [History] Acetaminophen 1,000 mg PO BID PRN 08/08/17 [History] Albuterol [Proventil Neb Soln] 3 ml NEB Q6H PRN 08/08/17 [History] SitaGLIPtin [Januvia] 50 mg PO BEDTIME 04/11/19 [History] Insulin Detemir [Levemir Flextouch] 8 units SQ BEDTIME 04/30/19 [History] Levothyroxine 150 mcg PO ACBREAKFAST 04/30/19 [History] Pravastatin Sodium 10 mg PO DAILY 04/30/19 [History] Bumetanide 1 mg PO BIDMEALS 06/26/19 [History] Sodium Chloride 1 gm PO BID #30 tablet 12/23/19 [Rx] B-Complex with Vitamin C [B-Complex Plus Vitamin C] 1 each PO DAILY 02/09/20 [History] Ferrous Sulfate 325 mg PO DAILY 02/09/20 [History] Magnesium Oxide 400 mg PO DAILY 02/09/20 [History] Ondansetron [Zofran] 8 mg PO Q8H PRN 02/09/20 [History] Potassium Chloride [Klor-Con M20] 20 meq PO DAILY 02/09/20 [History] Prochlorperazine [Compazine] 10 mg PO Q6H PRN 02/09/20 [History] traMADol [Ultram] 50 mg PO BID PRN 02/09/20 [History] Past Medical History HEENT History: Reports: Cataract, Impaired Vision, Otitis Media Other HEENT History: wears glasses Cardiovascular History: Reports: Cardiomyopathy, Heart Failure, High Cholesterol, Hypertension, Pacemaker, Other (See Below) Other Cardiovascular History: CARDIAC DIFIBRILLATOR PLACEMENT (2017), NONISCHEMIC CARDIOMYOPATHY Respiratory History: Reports: Bronchitis, Recurrent, COPD, Pneumonia, Recurrent Gastrointestinal History: Reports: Cholelithiasis, GERD Genitourinary History: Reports: Renal Disease, UTI, Recurrent, Other (See Below) Other Genitourinary History: CKD MANAGER SWITCH 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 MANAGER SWITCH History: HAS 3 KIDS Musculoskeletal History: Reports: Arthritis, Fracture, Other (See Below) Other Musculoskeletal History: SHOULDER PAIN, BILATERAL Neurological History: Reports: None Psychiatric History: Reports: Addiction Other Psychiatric History: patient states she doesn't know if she was addicted to anything Endocrine/Metabolic History: Reports: Diabetes, Type II, Hypothyroidism Hematologic History: Reports: Anemia, B12 Deficiency, Iron Deficiency Immunologic History: Reports: None Oncologic (Cancer) History: Reports: Lung Dermatologic History: Reports: None - Infectious Disease History Infectious Disease History: Reports: Chicken Pox, Measles, Mumps, Rubella - Past Surgical History Head Surgeries/Procedures: Reports: None HEENT Surgical History: Reports: Cataract Surgery Cardiovascular Surgical History: Reports: AICD Respiratory Surgical History: Reports: None GI Surgical History: Reports: Appendectomy, Cholecystectomy Female Surgical History: Reports: None Endocrine Surgical History: Reports: None Musculoskeletal Surgical History: Reports: None Social & Family History - Family History Family Medical History: Noncontributory - Caffeine Use Caffeine Use: Reports: None Caffeine Use Comment: decaf products - Living Situation & Occupation Living situation: Reports: Alone Occupation: Employed ED ROS GENERAL - Review of Systems Review Of Systems: Comprehensive ROS is negative, except as noted in HPI. ED EXAM, NEURO - Physical Exam Exam: See Below Exam Limited By: No Limitations General Appearance: Alert, No Apparent Distress, Thin, Other (Chronically ill appearing) Eye Exam: Bilateral Eye: EOMI, Normal Inspection (Wears glasses), PERRL Ears: Hearing Grossly Normal Nose: Normal Inspection, Normal Mucosa, No Blood Throat/Mouth: Normal Inspection, Normal Lips, Normal Teeth, Normal Gums, Normal Oropharynx, Normal Voice, No Airway Compromise Head Exam: Atraumatic, Normocephalic Neck: Normal Inspection, Supple, Non-Tender, Full Range of Motion. No: Carotid Bruit Respiratory/Chest: No Respiratory Distress, No Accessory Muscle Use, Chest Non- Tender, Decreased Breath Sounds (Rt decreased more than left.), Crackles (Coarse breath sounds throughout B/L lung hallman.), Other (Pacer at Left upper chest wall) Cardiovascular: Regular Rate, Rhythm, No Edema GI/Abdominal: Normal Bowel Sounds, Soft, Non-Tender, No Organomegaly, No Distention, No Abnormal Bruit, No Mass Neurological: Alert, Normal Mood/Affect, Normal Dorsiflexion, CN II-XII Intact, Normal Plantar Flexion, Normal Gait, Normal Reflexes, No Motor/Sensory Deficits, Oriented x 3, Other (NIH Stroke Score: 0) Back Exam: Normal Inspection Extremities: Normal Inspection, Normal Range of Motion, Non-Tender, No Pedal Edema, Normal Capillary Refill Psychiatric: Normal Affect, Normal Mood Skin Exam: Warm, Dry, Intact, Normal Color, No Rash #1 Interpretation EKG Date: 08/09/20 Time: 15:04 Rhythm: Other (SR) Rate (Beats/Min): 63 [place]: Normal P-Wave: Present QRS: Other (borderline LVH) ST-T: Normal QT: Normal Comparison: NA - No Prior EKG Course - Vital Signs Last Recorded V/S: Last Vital Signs Temp 96.6 F L 08/09/20 15:06 Pulse 67 08/09/20 15:06 Resp 16 08/09/20 15:06 BP 132/47 L 08/09/20 15:06 Pulse Ox 100 08/09/20 15:06 - Orders/Labs/Meds Orders: Active Orders 24 hr Category Date Time Status Blood Glucose Check, Bedside [] ONETIME Care 08/09/20 14:53 Active Blood Glucose Check, Bedside [] ONETIME Care 08/09/20 15:55 Active EKG 12 Lead [EKG Documentation Completion] [] STAT Care 08/09/20 14:54 Active NIH Stroke Scale [RC] ASDIRECTED Care 08/09/20 14:53 Active Peripheral IV Care [] . DIRECTED Care 08/09/20 14:55 Active Sodium Chloride 0.9% [Saline Flush] Med 08/09/20 14:53 Active 10 ml FLUSH ASDIRECTED PRN Peripheral IV Insertion Adult [OM.PC] Stat Oth 08/09/20 14:54 Ordered Medication Orders Sodium Chloride (Saline Flush) 10 ml FLUSH ASDIRECTED PRN PRN Reason: Keep Vein Open Labs: Laboratory Tests 08/09/20 08/09/20 08/09/20 Range/Units 15:22 15:22 15:22 WBC 3.4 L (5.0-10.0) 10^3/uL RBC 2.93 L (4.2-5.4) 10^6/uL Hgb 8.8 L D (12.0-16.0) g/dL Hct 26.1 L (37.0-47.0) % MCV 89.1 D (80-100) fL MCH 30.0 (27.0-34.0) pg MCHC 33.7 (33.0-35.0) g/dL Plt Count 58 L D (150-450) 10^3/uL Neut % (Auto) 80.6 H (42.2-75.2) % Lymph % (Auto) 11.9 L (20.5-50.1) % [place] % (Auto) 2.4 (2-8) % Eos % (Auto) 4.8 H (1.0-3.0) % Baso % (Auto) 0.3 (0.0-1.0) % PT 9.9 (9.0-12.0) SEC INR 1.0 (0.9-1.2) APTT 25.8 (22.0-34.0) SEC Sodium 129 L (136-145) mmol/L Potassium 4.0 (3.5-5.1) mmol/L Chloride 96 L (98-107) mmol/L Carbon Dioxide 22 (21-32) mmol/L Anion Gap 15.0 H (7-13) mEq/L BUN 16 D (7-18) mg/dL Creatinine 0.98 (0.55-1.02) mg/dL Est Cr Clr Drug Dosing 39.73 mL/min Estimated GFR (MDRD) 56 BUN/Creatinine Ratio 16.3 (No establ ref range) Glucose 212 H (74-99) mg/dL Calcium 7.9 L (8.5-10.1) mg/dL Total Bilirubin 0.4 (0.2-1.0) mg/dL AST 16 (15-37) U/L ALT 13 L (14-59) U/L Alkaline Phosphatase 164 H (46-116) U/L Creatine Kinase 45 (16-191) U/L Troponin I < 0.017 (0.000-0.056) ng/mL C-Reactive Protein 8.4 H (0.0-0.9) mg/dL B-Natriuretic Peptide 140 H (0-100) pg/ml Total Protein 6.4 (6.4-8.2) g/dL Albumin 2.2 L (3.4-5.0) g/dL Globulin 4.2 Albumin/Globulin Ratio 0.52 Urine Color (YELLOW) Urine Appearance (CLEAR) Urine pH (5.0-9.0) Ur Specific [place] (1.005-1.030) Urine Protein (NEGATIVE) Urine Glucose (UA) (NEGATIVE) Urine Ketones (NEGATIVE) Urine Occult Blood (NEGATIVE) Urine Nitrite (NEGATIVE) Urine Bilirubin (NEGATIVE) Urine Urobilinogen (0.2-1.0) mg/dL Ur Leukocyte Esterase (NEGATIVE) Urine RBC /HPF Urine WBC (0-5/HPF) /HPF Ur Epithelial Cells (NOT SEEN) /HPF Amorphous Sediment (NOT SEEN) /HPF Urine Bacteria (0-FEW/HPF) /HPF Urine Mucus (NOT SEEN) /LPF Urine Opiates Screen (NEGATIVE) Ur Oxycodone Screen (NEGATIVE) Urine Methadone Screen (NEGATIVE) Ur Barbiturates Screen (NEGATIVE) U Tricyclic Antidepress (NEGATIVE) Ur Phencyclidine Scrn (NEGATIVE) Ur Amphetamine Screen (NEGATIVE) U Methamphetamines Scrn (NEGATIVE) Urine MDMA Screen (NEGATIVE) U Benzodiazepines Scrn (NEGATIVE) Urine Cocaine Screen (NEGATIVE) U Marijuana (THC) Screen (NEGATIVE) Ethyl Alcohol 3 (0) mg/dL 08/09/20 08/09/20 Range/Units 15:31 15:31 WBC (5.0-10.0) 10^3/uL RBC (4.2-5.4) 10^6/uL Hgb (12.0-16.0) g/dL Hct (37.0-47.0) % MCV (80-100) fL MCH (27.0-34.0) pg MCHC (33.0-35.0) g/dL Plt Count (150-450) 10^3/uL Neut % (Auto) (42.2-75.2) % Lymph % (Auto) (20.5-50.1) % [place] % (Auto) (2-8) % Eos % (Auto) (1.0-3.0) % Baso % (Auto) (0.0-1.0) % PT (9.0-12.0) SEC INR (0.9-1.2) APTT (22.0-34.0) SEC Sodium (136-145) mmol/L Potassium (3.5-5.1) mmol/L Chloride (98-107) mmol/L Carbon Dioxide (21-32) mmol/L Anion Gap (7-13) mEq/L BUN (7-18) mg/dL Creatinine (0.55-1.02) mg/dL Est Cr Clr Drug Dosing mL/min Estimated GFR (MDRD) BUN/Creatinine Ratio (No establ ref range) Glucose (74-99) mg/dL Calcium (8.5-10.1) mg/dL Total Bilirubin (0.2-1.0) mg/dL AST (15-37) U/L ALT (14-59) U/L Alkaline Phosphatase (46-116) U/L Creatine Kinase (16-191) U/L Troponin I (0.000-0.056) ng/mL C-Reactive Protein (0.0-0.9) mg/dL B-Natriuretic Peptide (0-100) pg/ml Total Protein (6.4-8.2) g/dL Albumin (3.4-5.0) g/dL Globulin Albumin/Globulin Ratio Urine Color Yellow (YELLOW) Urine Appearance Clear (CLEAR) Urine pH 6.5 (5.0-9.0) Ur Specific [place] 1.015 (1.005-1.030) Urine Protein 100 H (NEGATIVE) Urine Glucose (UA) Negative (NEGATIVE) Urine Ketones Negative (NEGATIVE) Urine Occult Blood Negative (NEGATIVE) Urine Nitrite Negative (NEGATIVE) Urine Bilirubin Negative (NEGATIVE) Urine Urobilinogen 0.2 (0.2-1.0) mg/dL Ur Leukocyte Esterase Negative (NEGATIVE) Urine RBC 0-5 /HPF Urine WBC 0-5 (0-5/HPF) /HPF Ur Epithelial Cells Occasional (NOT SEEN) /HPF Amorphous Sediment Rare (NOT SEEN) /HPF Urine Bacteria Rare (0-FEW/HPF) /HPF Urine Mucus Not seen (NOT SEEN) /LPF Urine Opiates Screen Negative (NEGATIVE) Ur Oxycodone Screen Negative (NEGATIVE) Urine Methadone Screen Negative (NEGATIVE) Ur Barbiturates Screen Negative (NEGATIVE) U Tricyclic Antidepress Negative (NEGATIVE) Ur Phencyclidine Scrn Negative (NEGATIVE) Ur Amphetamine Screen Negative (NEGATIVE) U Methamphetamines Scrn Negative (NEGATIVE) Urine MDMA Screen Negative (NEGATIVE) U Benzodiazepines Scrn Negative (NEGATIVE) Urine Cocaine Screen Negative (NEGATIVE) U Marijuana (THC) Screen Negative (NEGATIVE) Ethyl Alcohol (0) mg/dL Meds: Medications Generic Name Dose Route Start Last Admin Trade Name Freq PRN Reason Stop Dose Admin Sodium Chloride 10 ml 08/09/20 14:53 Saline Flush FLUSH ASDIRECTED PRN Keep Vein Open - Radiology Interpretation Free Text/Narrative:: [facility] [place] [facility] Final Radiology Report Call: [phone] assistance Online chat: [email or web address] Name: AMA CHILDRESS Age: 70Years F Date: 08/09/2020 SSN: -- : [id number] Study: CT HEAD WO CONT Requesting Physician: ANTONIO GOYAL Images: [id number] Addl Studies: Provided Clinical History: STROKE CODE: acute aphasia Contrast: Without Contrast Medium: Contrast Amount: Contrast Method: Page 1 of 2 PROCEDURE INFORMATION: Exam: CT Head Without Contrast Exam date and time: 08/09/2020 2:43 PM Age: 70 years old Clinical indication: Other: Acute aphasia; Additional info: Stroke code: Acute aphasia TECHNIQUE: Imaging protocol: Computed tomography of the head without contrast. Radiation optimization: All CT scans at this facility use at least one of these dose optimization techniques: automated exposure control; mA and/or kV adjustment per patient size (includes targeted exams where dose is matched to clinical indication); or iterative reconstruction. Other technique: STROKE PROTOCOL was implemented. COMPARISON: CT Head wo Cont 08/05/2019 10:22 PM FINDINGS: Brain: No acute intracerebral abnormality or injury. No acute infarct or intracerebral bleed. Moderate generalized cerebral atrophy with extensive patchy periventricular leukomalacia in both cerebral hemispheres, consistent most likely with chronic underlying small vessel / microvascular ischemic disease. No significant interval change since the previous head CT from 08/05/2019. [place] Stroke Program Early CT Score (ASPECTS score) = 10. Cerebral ventricles: No ventriculomegaly. Bones/joints: Unremarkable. No acute fracture. Paranasal sinuses: Visualized sinuses are unremarkable. No fluid levels. Mastoid air cells: Visualized mastoid air cells are well aerated. Soft tissues: Unremarkable. IMPRESSION: 1. No acute intracerebral abnormality or injury. No acute infarct or intracerebral bleed. AMA CHILDRESS | Final Radiology Report CONFIDENTIALITY STATEMENT This report is intended only for use by the referring physician, and only in accordance with law. If you received this in error, call [phone]. Page 2 of 2 2. Moderate generalized cerebral atrophy with extensive patchy periventricular leukomalacia in both cerebral hemispheres, consistent most likely with chronic underlying small vessel / microvascular ischemic disease. No significant interval change since the previous head CT from 08/05/2019. 3. [place] Stroke Program Early CT Score (ASPECTS score) = 10. Thank you for allowing us to participate in the care of your patient. Dictated and Authenticated by: Vikas Cross MD 08/09/2020 3:04 PM Central Time ([place] & [place]) [facility] Final Radiology Report Call: [phone] assistance Online chat: [email or web address] Name: AMA CHILDRESS Age: 70Years F Date: 08/09/2020 SSN: -- : [id number] Study: CR CHEST 1V FRONTAL Requesting Physician: ANTONIO GOYAL Images: 1 Addl Studies: Provided Clinical History: Acute aphasia, eval. for aspiration Contrast: Contrast Medium: Contrast Amount: Contrast Method: Page 1 of 2 PROCEDURE INFORMATION: Exam: XR Chest, 1 View Exam date and time: 08/09/2020 2:57 PM Age: 70 years old Clinical indication: Other: Acute aphasia; Additional info: Acute aphasia, eval. For aspiration TECHNIQUE: Imaging protocol: XR of the chest Views: 1 view. COMPARISON: CT Chest w Cont 07/08/2020 2:13 PM FINDINGS: Tubes, catheters and devices: A right internal jugular central line is present with the distal tip of the line in the distal SVC. Lungs: Both lungs are otherwise slightly hyperinflated consistent with underlying COPD. Pleural space: Unremarkable. No pleural effusion. No pneumothorax. Heart/Mediastinum: The heart size is normal. A left subclavian dual-chamber pacemaker appears in satisfactory position. 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 Bony destructive changes of the right side ribs 7 and 8 are present with widening of the pleural space probably posterior to the mass. IMPRESSION: 1. 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 Bony destructive changes of the right side ribs 7 and 8 are present with widening of the pleural space probably posterior to the mass. AMA CHILDRESS | Final Radiology Report CONFIDENTIALITY STATEMENT This report is intended only for use by the referring physician, and only in accordance with law. If you received this in error, call [phone]. Page 2 of 2 2. Both lungs are otherwise slightly hyperinflated consistent with underlying COPD. 3. The heart size is normal. A left subclavian dual-chamber pacemaker appears in satisfactory position. 4. A right internal jugular central line is present with the distal tip of the line in the distal SVC. Thank you for allowing us to participate in the care of your patient. Dictated and Authenticated by: Vikas Cross MD 08/09/2020 3:32 PM Central Time ([place] & [place]) - Re-Assessments/Exams Free Text/Narrative Re-Assessment/Exam: 08/09/20 16:06 Pt states she feels completely normal and intends on going home now. I find no compelling reason to keep her in ER any longer. She has no acute neurological changes, her labs are abnormal but near her baseline for anemia and Na+. Pt agrees to monitor her blood sugar closely and will f/u in clinic next week. Departure - Departure Time of Disposition: 16:08 Disposition: Home, Self-Care 01 Condition: Good Clinical Impression: Hypoglycemic reaction, Encounter for medical screening examination - Discharge Information *PRESCRIPTION DRUG MONITORING PROGRAM REVIEWED*: Not Applicable *COPY OF PRESCRIPTION DRUG MONITORING REPORT IN PATIENT VALERIE: Not Applicable Instructions: Hypoglycemia, Preventing Hypoglycemia Forms: ED Department Discharge Additional Instructions: Eat at least three meals a day. Keep some candy in you purse and candy or soda pop in the home to use in case of low blood sugar. Monitor you blood sugar closely. Follow up in clinic next week for recheck. Sepsis Event Note (ED) - Focused Exam Vital Signs: Vital Signs Temp Pulse Resp BP Pulse Ox 08/09/20 15:06 96.6 F L 67 16 132/47 L 100 - My Orders Last 24 Hours: My Active Orders 08/09/20 14:53 Blood Glucose Check, Bedside [RC] ONETIME NIH Stroke Scale [RC] ASDIRECTED Sodium Chloride 0.9% [Saline Flush] 10 ml FLUSH ASDIRECTED PRN 08/09/20 14:54 EKG 12 Lead [EKG Documentation Completion] [RC] STAT Peripheral IV Insertion Adult [OM.PC] Stat 08/09/20 14:55 Peripheral IV Care [RC] . DIRECTED 08/09/20 15:55 Blood Glucose Check, Bedside [RC] ONETIME - Assessment/Plan Last 24 Hours: My Active Orders 08/09/20 14:53 Blood Glucose Check, Bedside [RC] ONETIME NIH Stroke Scale [RC] ASDIRECTED Sodium Chloride 0.9% [Saline Flush] 10 ml FLUSH ASDIRECTED PRN 08/09/20 14:54 EKG 12 Lead [EKG Documentation Completion] [RC] STAT Peripheral IV Insertion Adult [OM.PC] Stat 08/09/20 14:55 Peripheral IV Care [RC] . DIRECTED 08/09/20 15:55 Blood Glucose Check, Bedside [RC] ONETIME I have read and agree with the documentation that has been completed regarding this visit. By signing this record, I attest that the documentation was completed in my physical presence and is an accurate record of the encounter."
[2020-08-09 15:54] LABS: PTT,PARTIAL THROMBOPLSTIN TIME 25.8 SEC (22.0-34.0)
[2020-08-09 15:55] LABS: CHLORIDE,CL 96 mmol/L (98-107); SODIUM,NA 129 mmol/L (136-145)
== END 2020-08-09 16:26 | disposition home or self-care (01) ==
LOC: DL.ED 14:45
DX: E11.649 Type 2 diabetes mellitus with hypoglycemia without coma (principal); E78.00 Pure hypercholesterolemia, unspecified; J44.9 Chronic obstructive pulmonary disease, unspecified; K21.9 Gastro-esophageal reflux disease without esophagitis; I13.0 Hypertensive heart and chronic kidney disease with heart failure and stage 1 through stage 4 chronic kidney disease, or unspecified chronic kidney disease; E11.22 Type 2 diabetes mellitus with diabetic chronic kidney disease; N18.9 Chronic kidney disease, unspecified; I50.9 Heart failure, unspecified; M19.90 Unspecified osteoarthritis, unspecified site; E03.9 Hypothyroidism, unspecified; Z90.89 Acquired absence of other organs; Z88.5 Allergy status to narcotic agent; Z88.8 Allergy status to other drugs, medicaments and biological substances; Z79.4 Long term (current) use of insulin; Z79.899 Other long term (current) drug therapy; Z90.49 Acquired absence of other specified parts of digestive tract
CPT/HCPCS: 36415; 70450; 71045; 80053; 80305-QW; 80307; 81001; 82550; 83880; 84484; 85025; 85610; 85730; 86140; 93005; 99285-25

== ENCOUNTER 2020-09-05 14:49 | Emergency (ER) | payer MEDICARE, MEDICAID ==
[2020-09-05 15:22] VITALS: BP 168/80; PULSE 78
[2020-09-05] MEDS ORDERED: Oxymetazoline 0.05% Nasal Spray 30 ML Bottle NAS ONE (15:23)
[2020-09-05] MEDS ORDERED: Lidocaine 1% with EPINEPHrine 1:100,000 20 ML MDV INJECT ONE (15:23)
[2020-09-05] MEDS ORDERED: Acetaminophen 500 MG Tab PO ONE (15:50)
[2020-09-05] MEDS ORDERED: Amoxicillin/Clavulanate K 875-125 MG Tab PO ONE (15:51)
--- NOTE | 2020-09-05 15:58 | EDM.PDOC ---
<Rosario Laguna - Last Filed: 09/05/20 16:33> ED HPI GENERAL MEDICAL PROBLEM - General Chief Complaint: ENT Problem Stated Complaint: BLOODY NOSE BLEEDING FOR ANHOUR Time Seen by Provider: 09/05/20 15:15 Source of Information: Reports: Patient, RN, RN Notes Reviewed History Limitations: Reports: No Limitations - History of Present Illness INITIAL COMMENTS - FREE TEXT/NARRATIVE: pt arrives to ER with c/o nose bleed. reports nose bleed this am that stopped spontaneously. pt was in [employer] and nose bleed reoccurred. initially called EMS, came to ER by POV. active nose bleed to left nare noted. denies pain, denies injury, fever, recent illness. states she has had nose bleed in past and was told to sleep with a humidifier. pt is currently undergoing radiation for cancer treatment with Dr. Lyn. Onset: Today, Sudden - Related Data Allergies Allergy/AdvReac Type Severity Reaction Status Date / Time codeine Allergy Unknown Cannot Verified 09/05/20 15:15 Remember adhesive tape Allergy Rash Verified 09/05/20 15:15 sacubitril [From Entresto] Allergy Dizziness Verified 09/05/20 15:15 simvastatin [From Zocor] Allergy Muscle Verified 09/05/20 15:15 Aches valsartan [From Entresto] Allergy Dizziness Verified 09/05/20 15:15 metal Allergy Mild Rash Uncoded 09/05/20 15:15 Home Meds: Home Meds glipiZIDE [Glipizide] 10 mg PO BIDMEALS 07/09/15 [History] Omeprazole 20 mg PO ACBREAKFAST 04/15/16 [History] Albuterol [IJD: Ventolin HFA] 2 puff INH Q6H PRN 05/18/16 [History] carvediloL [Carvedilol] 6.25 mg PO BID 07/23/16 [History] metFORMIN HCl [Metformin HCl] 500 mg PO BIDMEALS 08/07/16 [History] Acetaminophen 1,000 mg PO BID PRN 08/08/17 [History] Albuterol [Proventil Neb Soln] 3 ml NEB Q6H PRN 08/08/17 [History] SitaGLIPtin [Januvia] 50 mg PO BEDTIME 04/11/19 [History] Insulin Detemir [Levemir Flextouch] 8 units SQ BEDTIME 04/30/19 [History] Levothyroxine 150 mcg PO ACBREAKFAST 04/30/19 [History] Pravastatin Sodium 10 mg PO DAILY 04/30/19 [History] Bumetanide 1 mg PO BIDMEALS 06/26/19 [History] Sodium Chloride 1 gm PO BID #30 tablet 12/23/19 [Rx] B-Complex with Vitamin C [B-Complex Plus Vitamin C] 1 each PO DAILY 02/09/20 [History] Ferrous Sulfate 325 mg PO DAILY 02/09/20 [History] Magnesium Oxide 400 mg PO DAILY 02/09/20 [History] Ondansetron [Zofran] 8 mg PO Q8H PRN 02/09/20 [History] Potassium Chloride [Klor-Con M20] 20 meq PO DAILY 02/09/20 [History] Prochlorperazine [Compazine] 10 mg PO Q6H PRN 02/09/20 [History] traMADol [Ultram] 50 mg PO BID PRN 02/09/20 [History] Aspirin 325 mg PO DAILY 09/05/20 [History] Past Medical History HEENT History: Reports: Cataract, Impaired Vision, Otitis Media Other HEENT History: wears glasses Cardiovascular History: Reports: Cardiomyopathy, Heart Failure, High Cholesterol, Hypertension, Pacemaker, Other (See Below) Other Cardiovascular History: CARDIAC DIFIBRILLATOR PLACEMENT (2017), NONISCHEMIC CARDIOMYOPATHY Respiratory History: Reports: Bronchitis, Recurrent, COPD, Pneumonia, Recurrent, Other (See Below) Other Respiratory History: Lung CA with recent chemo and radiation Gastrointestinal History: Reports: Cholelithiasis, GERD Genitourinary History: Reports: Renal Disease, UTI, Recurrent, Other (See Below) Other Genitourinary History: CKD HEAD OF MAINTENANCE 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 HEAD OF MAINTENANCE History: HAS 3 KIDS Musculoskeletal History: Reports: Arthritis, Fracture, Other (See Below) Other Musculoskeletal History: SHOULDER PAIN, BILATERAL Neurological History: Reports: None Psychiatric History: Reports: Addiction Other Psychiatric History: patient states she doesn't know if she was addicted to anything Endocrine/Metabolic History: Reports: Diabetes, Type II, Hypothyroidism Hematologic History: Reports: Anemia, B12 Deficiency, Iron Deficiency Immunologic History: Reports: None Oncologic (Cancer) History: Reports: Lung Dermatologic History: Reports: None - Infectious Disease History Infectious Disease History: Reports: Chicken Pox, Measles, Mumps, Rubella - Past Surgical History Head Surgeries/Procedures: Reports: None HEENT Surgical History: Reports: Cataract Surgery Cardiovascular Surgical History: Reports: AICD GI Surgical History: Reports: Appendectomy, Cholecystectomy Female Surgical History: Reports: None Endocrine Surgical History: Reports: None Neurological Surgical History: Reports: None Musculoskeletal Surgical History: Reports: None Social & Family History - Family History Family Medical History: No Pertinent Family History - Tobacco Use Tobacco Use Status *Q: Unknown Ever Used Tobacco - Caffeine Use Caffeine Use: Reports: None Caffeine Use Comment: decaf products - Living Situation & Occupation Living situation: Reports: Alone Occupation: Employed ED ROS ENT - Review of Systems Review Of Systems: Comprehensive ROS is negative, except as noted in HPI. ED EXAM, ENT - Physical Exam Exam: See Below Exam Limited By: No Limitations General Appearance: Alert, WD/WN, No Apparent Distress Eye Exam: Bilateral Eye: EOMI, Normal Inspection Ears: Normal External Exam, Hearing Grossly Normal Nose: Active Bleeding (left nare) Mouth/Throat: Other (blood clot noted to posterior pharynx, blood to oral ca vity) Head: Atraumatic, Normocephalic Neck: Normal Inspection, Supple, Non-Tender, Full Range of Motion Respiratory/Chest: No Respiratory Distress, Lungs Clear, Normal Breath Sounds Cardiovascular: Normal Peripheral Pulses, Regular Rate, Rhythm, No Edema GI/Abdominal: Normal Bowel Sounds, Soft, Non-Tender (Female) Exam: Deferred Rectal (Female) Exam: Deferred Back: Normal Inspection, Full Range of Motion Extremities: Normal Inspection, Normal Range of Motion, Non-Tender Neurological: Alert, Oriented, CN II-XII Intact, Normal Cognition Psychiatric: Normal Affect, Normal Mood Skin: Warm, Dry, Intact, Normal Color, No Rash Lymphatic: No Adenopathy ED ENT PROCEDURES - Epistaxis Procedure Indication: Epistaxis, Uncontrolled Recent anticoagulants/antiplatlets: No Uncontrolled HTN: No Recent septal/nasal surgery: No Site of bleeding: Left Nare Clearing of clots: Patient Blew Nose Topical Meds: Phenylephrine Ice pack to area: No Posterior packing: Long Inflatable Nasal Tampon Departure - Departure Time of Disposition: 16:33 Disposition: Home, Self-Care 01 Condition: Good Clinical Impression: Epistaxis - Discharge Information *PRESCRIPTION DRUG MONITORING PROGRAM REVIEWED*: No *COPY OF PRESCRIPTION DRUG MONITORING REPORT IN PATIENT VALERIE: No Instructions: Nosebleed, [id number] Referrals: Angella Canseco MD [Primary Care Provider] - Forms: ED Department Discharge Additional Instructions: Leave nasal packing in over the weekend. Follow-up in clinic Tuesday for packing removal. Return to ER if packing becomes dislodged and uncontrolled bleeding returns or if you note continuous bleeding in your throat. RX: Augmentin 875/125 mg, take one tab by mouth twice a day for 7 days. Sepsis Event Note (ED) - Evaluation Sepsis Screening Result: No Definite Risk <Dave Goyal - Last Filed: 09/05/20 16:44> Course - Vital Signs Last Recorded V/S: Last Vital Signs Temp 98.4 F 09/05/20 15:21 Pulse 78 09/05/20 15:21 Resp 18 09/05/20 15:21 BP 168/80 H 09/05/20 15:21 Pulse Ox 97 09/05/20 15:21 - Orders/Labs/Meds Meds: Medications Discontinued Medications Generic Name Dose Route Start Last Admin Trade Name Freq PRN Reason Stop Dose Admin Acetaminophen 1,000 mg 09/05/20 15:50 09/05/20 16:00 Tylenol Extra Strength PO 09/05/20 15:51 500 mg ONETIME ONE Administration Amoxicillin/Clavulanate Potassium 1 tab 09/05/20 15:51 09/05/20 16:00 Augmentin 875 Mg/125 Mg PO 09/05/20 15:52 1 tab ONETIME ONE Administration Lidocaine/Epinephrine 20 ml 09/05/20 15:23 09/05/20 15:34 Xylocaine 1% With Epinephrine 1:100,000 INJECT 09/05/20 15:24 20 ml ONETIME ONE Administration Oxymetazoline HCl 0 ml 09/05/20 15:23 09/05/20 15:34 Nasal Decongestant [place] RADHAMES 09/05/20 15:24 30 ml ONETIME ONE Administration Tranexamic Acid 500 mg 09/05/20 15:39 09/05/20 15:45 Cyklokapron TOP 09/05/20 15:40 500 mg ONETIME ONE Administration - Re-Assessments/Exams Free Text/Narrative Re-Assessment/Exam: 09/05/20 16:43 I personally performed or re-performed the physical examination and medical decision making. I have verified all student documentation or findings, including history, physical exam and/or medical decision making. Sepsis Event Note (ED) - Focused Exam Vital Signs: Vital Signs Temp Pulse Resp BP Pulse Ox 09/05/20 15:21 98.4 F 78 18 168/80 H 97
== END 2020-09-05 16:29 | disposition home or self-care (01) ==
LOC: DL.ED 14:49
DX: R04.0 Epistaxis (principal); I13.0 Hypertensive heart and chronic kidney disease with heart failure and stage 1 through stage 4 chronic kidney disease, or unspecified chronic kidney disease; I50.9 Heart failure, unspecified; E11.22 Type 2 diabetes mellitus with diabetic chronic kidney disease; N18.9 Chronic kidney disease, unspecified; E78.00 Pure hypercholesterolemia, unspecified; J44.9 Chronic obstructive pulmonary disease, unspecified; K21.9 Gastro-esophageal reflux disease without esophagitis; M19.90 Unspecified osteoarthritis, unspecified site; Z88.5 Allergy status to narcotic agent; Z91.048 Other nonmedicinal substance allergy status; Z88.8 Allergy status to other drugs, medicaments and biological substances; Z79.82 Long term (current) use of aspirin; Z79.4 Long term (current) use of insulin; Z79.899 Other long term (current) drug therapy
CPT/HCPCS: 30903; 99283; A9270

== ENCOUNTER 2020-09-21 12:01 | Emergency (ER) | payer MEDICARE, MEDICAID ==
[2020-09-21] MEDS ORDERED: diphenhydrAMINE 50 MG/ML SDV IVPUSH ONE (12:02)
[2020-09-21 12:03] VITALS: BP 129/38; PULSE 66
--- NOTE | 2020-09-21 12:13 | EDM.PDOC ---
ED HPI GENERAL MEDICAL PROBLEM - General Chief Complaint: Allergic Reaction Stated Complaint: AMBULANCE Time Seen by Provider: 09/21/20 11:56 Source of Information: Reports: Patient History Limitations: Reports: No Limitations - History of Present Illness INITIAL COMMENTS - FREE TEXT/NARRATIVE: This 70 yo female patient was brought to the ED by [facility] due to diffuse hives that appeared this morning. The patient has been diagnosed with COVID and had an infusion of Bamlanivimab yesterday. The patient reports she has a lengthy medical history including cancer. Onset: Today Duration: Constant Location: Reports: Generalized Quality: 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 Severity: Moderate Improves with: Reports: None Worsens with: Reports: None Context: 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 Associated Symptoms: Reports: No Other Symptoms - Related Data Allergies Allergy/AdvReac Type Severity Reaction Status Date / Time codeine Allergy Unknown Cannot Verified 09/21/20 12:04 Remember adhesive tape Allergy Rash Verified 09/21/20 12:04 sacubitril [From Entresto] Allergy Dizziness Verified 09/21/20 12:04 simvastatin [From Zocor] Allergy Muscle Verified 09/21/20 12:04 Aches valsartan [From Entresto] Allergy Dizziness Verified 09/21/20 12:04 metal Allergy Mild Rash Uncoded 09/20/20 09:48 Home Meds: Home Meds glipiZIDE [Glipizide] 10 mg PO BIDMEALS 07/09/15 [History] Omeprazole 20 mg PO ACBREAKFAST 04/15/16 [History] Albuterol [IJD: Ventolin HFA] 2 puff INH Q6H PRN 05/18/16 [History] carvediloL [Carvedilol] 6.25 mg PO BID 07/23/16 [History] Acetaminophen 1,000 mg PO BID PRN 08/08/17 [History] Albuterol [Proventil Neb Soln] 3 ml NEB Q6H PRN 08/08/17 [History] SitaGLIPtin [Januvia] 50 mg PO BEDTIME 04/11/19 [History] Insulin Detemir [Levemir Flextouch] 8 units SQ BEDTIME 04/30/19 [History] Levothyroxine 137 mcg PO ACBREAKFAST 04/30/19 [History] Pravastatin Sodium 10 mg PO DAILY 04/30/19 [History] Bumetanide 1 mg PO BIDMEALS 06/26/19 [History] B-Complex with Vitamin C [B-Complex Plus Vitamin C] 1 each PO DAILY 02/09/20 [History] Ferrous Sulfate 325 mg PO DAILY 02/09/20 [History] Magnesium Oxide 400 mg PO DAILY 02/09/20 [History] Ondansetron [Zofran] 8 mg PO Q8H PRN 02/09/20 [History] Past Medical History HEENT History: Reports: Cataract, Impaired Vision, Otitis Media Other HEENT History: wears glasses Cardiovascular History: Reports: Cardiomyopathy, Heart Failure, High Cholesterol, Hypertension, Pacemaker, Other (See Below) Other Cardiovascular History: CARDIAC DIFIBRILLATOR PLACEMENT (2017), NONISCHEMIC CARDIOMYOPATHY Respiratory History: Reports: Bronchitis, Recurrent, COPD, Pneumonia, Recurrent, Other (See Below) Other Respiratory History: Lung CA with recent chemo and radiation Gastrointestinal History: Reports: Cholelithiasis, GERD Genitourinary History: Reports: Renal Disease, UTI, Recurrent, Other (See Below) Other Genitourinary History: CKD ROLL ICER 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 ROLL ICER History: HAS 3 KIDS Musculoskeletal History: Reports: Arthritis, Fracture, Other (See Below) Other Musculoskeletal History: SHOULDER PAIN, BILATERAL Neurological History: Reports: None Psychiatric History: Reports: Addiction Other Psychiatric History: patient states she doesn't know if she was addicted to anything Endocrine/Metabolic History: Reports: Diabetes, Type II, Hypothyroidism Hematologic History: Reports: Anemia, B12 Deficiency, Iron Deficiency Immunologic History: Reports: None Oncologic (Cancer) History: Reports: Lung Dermatologic History: Reports: None - Infectious Disease History Infectious Disease History: Reports: Measles - Past Surgical History Head Surgeries/Procedures: Reports: None HEENT Surgical History: Reports: Cataract Surgery Cardiovascular Surgical History: Reports: AICD Respiratory Surgical History: Reports: None GI Surgical History: Reports: Appendectomy, Cholecystectomy Female Surgical History: Reports: None Endocrine Surgical History: Reports: None Neurological Surgical History: Reports: None Musculoskeletal Surgical History: Reports: None Social & Family History - Family History Family Medical History: No Pertinent Family History - Caffeine Use Caffeine Use: Reports: None Caffeine Use Comment: decaf products - Living Situation & Occupation Living situation: Reports: Alone Occupation: Employed ED ROS ALLERGIC REACTION - Review of Systems Review Of Systems: Comprehensive ROS is negative, except as noted in HPI. ED EXAM GENERAL NO PERIP PULSE - Physical Exam Exam: See Below Exam Limited By: No Limitations General Appearance: Alert, WD/WN, Mild Distress Eye Exam: Bilateral Eye: EOMI, Normal Inspection, PERRL Ears: Normal External Exam, Normal Canal, Hearing Grossly Normal, Normal TMs Nose: Normal Inspection, Normal Mucosa, No Blood Throat/Mouth: Normal Inspection, Normal Lips, Normal Teeth, Normal Gums, Normal Oropharynx, Normal Voice, No Airway Compromise Head: Atraumatic, Normocephalic Neck: Normal Inspection, Supple, Non-Tender, Full Range of Motion Respiratory/Chest: No Respiratory Distress, Lungs Clear, Normal Breath Sounds, No Accessory Muscle Use, Chest Non-Tender Cardiovascular: Normal Peripheral Pulses, Regular Rate, Rhythm, No Edema, No Gallop, No JVD, No Murmur, No Rub (Female) Exam: Normal Speculum Exam, Normal Bimanual Exam, Other (Hives over abdomen) Rectal (Female) Exam: Deferred Back Exam: Other Extremities: Other (hives) Neurological: Alert, Oriented, CN II-XII Intact, Normal Cognition, Normal Gait, Normal Reflexes, No Motor/Sensory Deficits Psychiatric: Normal Affect, Normal Mood Skin Exam: Other (hives to upper extremities, lower extremities, abdomen and back) Lymphatic: No Adenopathy Course - Vital Signs Last Recorded V/S: Last Vital Signs Temp 36.6 C 09/21/20 12:02 Pulse 66 09/21/20 12:02 Resp 18 09/21/20 12:02 BP 129/38 L 09/21/20 12:02 Pulse Ox 98 09/21/20 12:02 - Orders/Labs/Meds Labs: Laboratory Tests 09/21/20 09/21/20 Range/Units 11:57 11:57 WBC 3.1 L (5.0-10.0) 10^3/uL RBC 2.79 L (4.2-5.4) 10^6/uL Hgb 9.1 L (12.0-16.0) g/dL Hct 26.9 L (37.0-47.0) % MCV 96.4 D (80-100) fL MCH 32.6 (27.0-34.0) pg MCHC 33.8 (33.0-35.0) g/dL Plt Count 104 L (150-450) 10^3/uL Neut % (Auto) 71.2 (42.2-75.2) % Lymph % (Auto) 17.9 L (20.5-50.1) % [place] % (Auto) 10.6 H (2-8) % Eos % (Auto) 0.0 L (1.0-3.0) % Baso % (Auto) 0.3 (0.0-1.0) % Sodium 135 L (136-145) mmol/L Potassium 3.2 L (3.5-5.1) mmol/L Chloride 98 (98-107) mmol/L Carbon Dioxide 27 (21-32) mmol/L Anion Gap 13.2 H (7-13) mEq/L BUN 28 H (7-18) mg/dL Creatinine 1.24 H (0.55-1.02) mg/dL Est Cr Clr Drug Dosing 31.05 mL/min Estimated GFR (MDRD) 43 BUN/Creatinine Ratio 22.6 (No establ ref range) Glucose 208 H (74-99) mg/dL Calcium 8.8 (8.5-10.1) mg/dL Total Bilirubin 0.3 (0.2-1.0) mg/dL AST 22 (15-37) U/L ALT 16 (14-59) U/L Alkaline Phosphatase 177 H (46-116) U/L Total Protein 7.5 (6.4-8.2) g/dL Albumin 2.9 L (3.4-5.0) g/dL Globulin 4.6 Albumin/Globulin Ratio 0.63 Meds: Medications Discontinued Medications Generic Name Dose Route Start Last Admin Trade Name Freq PRN Reason Stop Dose Admin Diphenhydramine HCl 50 mg 09/21/20 12:02 09/21/20 12:11 Benadryl IVPUSH 09/21/20 12:03 50 mg ONETIME ONE Administration Departure - Departure Time of Disposition: 14:08 Disposition: Home, Self-Care 01 Condition: Fair Clinical Impression: Hives - Discharge Information *PRESCRIPTION DRUG MONITORING PROGRAM REVIEWED*: Not Applicable *COPY OF PRESCRIPTION DRUG MONITORING REPORT IN PATIENT VALERIE: Not Applicable Instructions: Hives, [id number] Forms: ED Department Discharge Care Plan Goals: The patient was advised of the examination results during the visit. The patient was given an IV dose of Benadryl with some improvement in her symptoms. The patient was encouraged to continue to take Benadryl (25 mg) every 6 hours over the next couple of days. If the patient has any additional symptoms or concerns, the patient should either return to the emergency department or visit her primary care facility. Sepsis Event Note (ED) - Evaluation Sepsis Screening Result: No Definite Risk - Focused Exam Vital Signs: Vital Signs Temp Pulse Resp BP Pulse Ox 09/21/20 12:02 36.6 C 66 18 129/38 L 98
[2020-09-21 12:28] LABS: ANION GAP 13.2 mEq/L (7-13)
== END 2020-09-21 14:25 | disposition home or self-care (01) ==
LOC: DL.ED 12:01
DX: L50.9 Urticaria, unspecified (principal); E78.00 Pure hypercholesterolemia, unspecified; I13.0 Hypertensive heart and chronic kidney disease with heart failure and stage 1 through stage 4 chronic kidney disease, or unspecified chronic kidney disease; I50.9 Heart failure, unspecified; N18.9 Chronic kidney disease, unspecified; J44.9 Chronic obstructive pulmonary disease, unspecified; K21.9 Gastro-esophageal reflux disease without esophagitis; E11.22 Type 2 diabetes mellitus with diabetic chronic kidney disease; E03.9 Hypothyroidism, unspecified; Z79.4 Long term (current) use of insulin; Z88.5 Allergy status to narcotic agent; Z91.048 Other nonmedicinal substance allergy status; Z88.8 Allergy status to other drugs, medicaments and biological substances; Z79.899 Other long term (current) drug therapy
CPT/HCPCS: 36415; 80053; 85025; 96374; 99282; 99283-25; J1200

== ENCOUNTER 2020-09-23 18:58 | Observation (INO) | payer MEDICARE, MEDICAID ==
--- NOTE | 2020-09-23 19:39 | EDM.PDOC ---
ED HPI GENERAL MEDICAL PROBLEM - General Chief Complaint: Respiratory Problem Time Seen by Provider: 09/23/20 19:05 Source of Information: Reports: Patient History Limitations: Reports: No Limitations - History of Present Illness INITIAL COMMENTS - FREE TEXT/NARRATIVE: ED with c/o SOB today. Hx right lung cancer. Dx COVID on 09/19. Productive cough at times. T max 99. Oxygen sats dropped to 88 on Tuesday. has been home oxygen since at 2 L. Usually only wears at night. Immunotherapy for CA on 09/16 Slight rased rash to arms after, Received Bamlanivimab on 09/20 rash worse Was seen and told to use benadryl 25mg every 6 ours, now seeing shadows in corners. No chest pain. Diarrhea on Tuesday. No vomiting. Lost taste and smell today. COPD 40 year smoking hx. Pacemaker for low EF. Reports functioning only at 25%. - Related Data Allergies Allergy/AdvReac Type Severity Reaction Status Date / Time codeine Allergy Unknown Cannot Verified 09/23/20 18:53 Remember adhesive tape Allergy Rash Verified 09/23/20 18:53 sacubitril [From Entresto] Allergy Dizziness Verified 09/23/20 18:53 simvastatin [From Zocor] Allergy Muscle Verified 09/23/20 18:53 Aches valsartan [From Entresto] Allergy Dizziness Verified 09/23/20 18:53 metal Allergy Mild Rash Uncoded 09/20/20 09:48 Home Meds: Home Meds glipiZIDE [Glipizide] 10 mg PO BIDMEALS 07/09/15 [History] Omeprazole 20 mg PO ACBREAKFAST 04/15/16 [History] Albuterol [IJD: Ventolin HFA] 2 puff INH Q6H PRN 05/18/16 [History] carvediloL [Carvedilol] 6.25 mg PO BID 07/23/16 [History] Acetaminophen 1,000 mg PO BID PRN 08/08/17 [History] Albuterol [Proventil Neb Soln] 3 ml NEB Q6H PRN 08/08/17 [History] SitaGLIPtin [Januvia] 50 mg PO BEDTIME 04/11/19 [History] Insulin Detemir [Levemir Flextouch] 10 units SQ BEDTIME 04/30/19 [History] Levothyroxine 137 mcg PO ACBREAKFAST 04/30/19 [History] Pravastatin Sodium 10 mg PO DAILY 04/30/19 [History] Bumetanide 1 mg PO BIDMEALS 06/26/19 [History] B-Complex with Vitamin C [B-Complex Plus Vitamin C] 1 each PO DAILY 02/09/20 [History] Ferrous Sulfate 325 mg PO DAILY 02/09/20 [History] Magnesium Oxide 400 mg PO DAILY 02/09/20 [History] Ondansetron [Zofran] 8 mg PO Q8H PRN 02/09/20 [History] Amoxicillin/Clavulanate K [Augmentin 875-125 MG] 1 tab PO BID 09/23/20 [History] diphenhydrAMINE [Benadryl] 25 mg PO Q6H PRN 09/23/20 [History] predniSONE 40 mg PO WITHBREAKFAST 09/23/20 [History] Budesonide [Pulmicort] 0.5 mg IH BID 09/24/20 [History] Ipratropium [place] 1 spray NASBOTH TID 09/24/20 [History] Prochlorperazine [Compazine] 10 mg PO Q6H PRN 09/24/20 [History] Triamcinolone Acetonide [Triamcinolone Acetonide 0.1% Crm] 1 applic TOP TID PRN 09/24/20 [History] atorvaSTATin [Lipitor] 40 mg PO Q48H 09/24/20 [History] lisinopriL [Lisinopril] 2.5 mg PO DAILY 09/24/20 [History] metFORMIN [Glucophage] 500 mg PO BIDMEALS 09/24/20 [History] Past Medical History HEENT History: Reports: Cataract, Impaired Vision, Otitis Media Other HEENT History: wears glasses Cardiovascular History: Reports: Cardiomyopathy, Heart Failure, High Cholesterol, Hypertension, Pacemaker, Other (See Below) Other Cardiovascular History: CARDIAC DIFIBRILLATOR PLACEMENT (2017), NONISCHEMIC CARDIOMYOPATHY Respiratory History: Reports: Bronchitis, Recurrent, COPD, Pneumonia, Recurrent, Other (See Below) Other Respiratory History: Lung CA with recent chemo and radiation Gastrointestinal History: Reports: Cholelithiasis, GERD Genitourinary History: Reports: Renal Disease, UTI, Recurrent, Other (See Below) Other Genitourinary History: CKD [employer] 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 [employer] History: HAS 3 KIDS Musculoskeletal History: Reports: Arthritis, Fracture, Other (See Below) Other Musculoskeletal History: SHOULDER PAIN, BILATERAL Neurological History: Reports: None Psychiatric History: Reports: Addiction Other Psychiatric History: patient states she doesn't know if she was addicted to anything Endocrine/Metabolic History: Reports: Diabetes, Type II, Hypothyroidism Hematologic History: Reports: Anemia, B12 Deficiency, Iron Deficiency Immunologic History: Reports: None Oncologic (Cancer) History: Reports: Lung Dermatologic History: Reports: None - Infectious Disease History Infectious Disease History: Reports: Measles, Novel Coronavirus - Past Surgical History Head Surgeries/Procedures: Reports: None HEENT Surgical History: Reports: Cataract Surgery Cardiovascular Surgical History: Reports: AICD Respiratory Surgical History: Reports: None GI Surgical History: Reports: Appendectomy, Cholecystectomy Female Surgical History: Reports: None Endocrine Surgical History: Reports: None Neurological Surgical History: Reports: None Musculoskeletal Surgical History: Reports: None Social & Family History - Family History Family Medical History: No Pertinent Family History - Tobacco Use Tobacco Use Status *Q: Former Tobacco User Used Tobacco, but Quit: Yes Month/Year Tobacco Last Used: 10/2011 - Caffeine Use Caffeine Use: Reports: None Caffeine Use Comment: decaf products - Recreational Drug Use Recreational Drug Use: No - Living Situation & Occupation Living situation: Reports: Alone Occupation: Employed ED ROS GENERAL - Review of Systems Review Of Systems: Comprehensive ROS is negative, except as noted in HPI. ED EXAM, GENERAL - Physical Exam Exam: See Below Exam Limited By: No Limitations General Appearance: Alert, Anxious, Mild Distress, Thin Eye Exam: Bilateral Eye: EOMI Ears: Normal External Exam, Hearing Grossly Normal Nose: Normal Inspection Throat/Mouth: Normal Inspection, Normal Oropharynx, Normal Voice Head: Atraumatic, Normocephalic Neck: Normal Inspection Respiratory/Chest: No Respiratory Distress, Crackles (bilateral bases greater right lower) Cardiovascular: Normal Peripheral Pulses, Regular Rate, Rhythm GI/Abdominal: Normal Bowel Sounds, Soft Extremities: Normal Inspection, Normal Range of Motion Skin Exam: Warm, Dry, Intact, Rash (urticarial greater on arms and inner thighs back and chest itching) Course - Vital Signs Last Recorded V/S: Last Vital Signs Temp 98.0 F 09/24/20 15:06 Pulse 63 09/24/20 15:06 Resp 18 09/24/20 15:06 BP 163/73 H 09/24/20 15:06 Pulse Ox 99 09/24/20 15:06 - Orders/Labs/Meds Orders: Active Orders 24 hr Category Date Time Status Admission Diagnosis [ADT] Stat ADT 09/23/20 21:27 Ordered CULTURE BLOOD [BC] Stat Lab 09/23/20 19:27 Received Medication Orders Acetaminophen (Tylenol Extra Strength) 500 mg PO Q6H PRN PRN Reason: MILD PAIN(1-3) / FEVER >100.4F Albuterol (Proventil Hfa) 0 gm INH Q6H PRN PRN Reason: Dyspnea Albuterol (Proventil Neb Soln) 2.5 mg NEB Q6H PRN PRN Reason: Shortness of Breath Bumetanide (Bumex) 1 mg PO BIDMEALS [facility] Last Admin: 09/24/20 17:31 Dose: 1 mg Documented by: Admin: 09/24/20 08:46 Dose: 1 mg Documented by: RADHA Carvedilol (Coreg) 6.25 mg PO BID [facility] Last Admin: 09/24/20 08:47 Dose: 6.25 mg Documented by: RADHA Dexamethasone (Decadron) 6 mg IV BEDTIME [facility] Last Admin: 09/24/20 03:49 Dose: Not Given Documented by: TONIE Diphenhydramine HCl (Benadryl) 25 mg IV Q6H PRN PRN Reason: ITCHING Diphenhydramine HCl (Benadryl) 25 mg PO Q6H PRN PRN Reason: Itching Last Admin: 09/24/20 15:25 Dose: 25 mg Documented by: Admin: 09/24/20 08:44 Dose: 25 mg Documented by: RADHA Enoxaparin Sodium (Lovenox) 30 mg SUBCUT BEDTIME [facility] Last Admin: 09/24/20 03:49 Dose: Not Given Documented by: TONIE Ferrous Sulfate (Ferrous Sulfate) 325 mg PO DAILY [facility] Last Admin: 09/24/20 08:45 Dose: 325 mg Documented by: RADHA Glipizide (Glucotrol) 10 mg PO BIDMEALS [facility] Last Admin: 09/24/20 17:31 Dose: 10 mg Documented by: Admin: 09/24/20 08:47 Dose: 10 mg Documented by: RADHA Hydrocortisone (Hydrocortisone 1% Oint) 28 gm TOP Q4H PRN PRN Reason: Itching Azithromycin 500 mg/ Sodium (Chloride) 250 mls @ 250 mls/hr IV Q24H [facility] Last Admin: 09/24/20 03:50 Dose: Not Given Documented by: TONIE Ceftriaxone Sodium 1 gm/ (Sodium Chloride) 50 mls @ 100 mls/hr IV Q24H [facility] Last Admin: 09/24/20 03:49 Dose: Not Given Documented by: TONIE Levothyroxine Sodium (Levothyroxine) 112 mcg PO ACBREAKFAST [facility] Last Admin: 09/24/20 05:51 Dose: 112 mcg Documented by: ELISHA Levothyroxine Sodium (Levothyroxine) 25 mcg PO ACBREAKFAST [facility] Last Admin: 09/24/20 08:47 Dose: 25 mcg Documented by: RADHA Magnesium Oxide (Magnesium Oxide) 500 mg PO DAILY [facility] Non-Formulary Medication (Insulin Detemir) 8 units SQ BEDTIME [facility] Non-Formulary Medication (Sitagliptin [Januvia]) 50 mg PO BEDTIME [facility] Omeprazole (Omeprazole) 20 mg PO ACBREAKFAST [facility] Last Admin: 09/24/20 05:51 Dose: 20 mg Documented by: ELISHA Ondansetron HCl (Zofran) 4 mg IV Q6H PRN PRN Reason: VOMITING Pravastatin Sodium (Pravachol) 10 mg PO DAILY [facility] Last Admin: 09/24/20 08:44 Dose: 10 mg Documented by: RADHA Labs: Laboratory Tests 09/23/20 09/23/20 09/23/20 Range/Units 19:27 19:27 19:27 WBC 3.8 L (5.0-10.0) 10^3/uL RBC 2.88 L (4.2-5.4) 10^6/uL Hgb 9.4 L (12.0-16.0) g/dL Hct 27.9 L (37.0-47.0) % MCV 96.9 (80-100) fL MCH 32.6 (27.0-34.0) pg MCHC 33.7 (33.0-35.0) g/dL Plt Count 95 L (150-450) 10^3/uL Neut % (Auto) 89.3 H (42.2-75.2) % Lymph % (Auto) 8.5 L (20.5-50.1) % Charlton % (Auto) 1.9 L (2-8) % Eos % (Auto) 0.3 L (1.0-3.0) % Baso % (Auto) 0.0 (0.0-1.0) % PT (9.0-12.0) SEC INR (0.9-1.2) D-Dimer, Quantitative 4620 H (0-400) ng/mL Sodium 130 L (136-145) mmol/L Potassium 4.1 (3.5-5.1) mmol/L Chloride 96 L (98-107) mmol/L Carbon Dioxide 26 (21-32) mmol/L Anion Gap 12.1 (7-13) mEq/L BUN 31 H (7-18) mg/dL Creatinine 1.38 H (0.55-1.02) mg/dL Est Cr Clr Drug Dosing 27.85 mL/min Estimated GFR (MDRD) 38 BUN/Creatinine Ratio 22.5 (No establ ref range) Glucose 274 H (74-99) mg/dL Lactic Acid (0.4-2.0) mmol/L Calcium 8.4 L (8.5-10.1) mg/dL Total Bilirubin 0.4 (0.2-1.0) mg/dL AST 23 (15-37) U/L ALT 20 (14-59) U/L Alkaline Phosphatase 169 H (46-116) U/L C-Reactive Protein 0.7 (0.0-0.9) mg/dL B-Natriuretic Peptide 376 H (0-100) pg/ml Total Protein 7.6 (6.4-8.2) g/dL Albumin 3.0 L (3.4-5.0) g/dL Globulin 4.6 Albumin/Globulin Ratio 0.65 Amylase 27 (25-115) U/L Lipase 115 (73-393) U/L 09/23/20 09/23/20 Range/Units 19:27 19:27 WBC (5.0-10.0) 10^3/uL RBC (4.2-5.4) 10^6/uL Hgb (12.0-16.0) g/dL Hct (37.0-47.0) % MCV (80-100) fL MCH (27.0-34.0) pg MCHC (33.0-35.0) g/dL Plt Count (150-450) 10^3/uL Neut % (Auto) (42.2-75.2) % Lymph % (Auto) (20.5-50.1) % Charlton % (Auto) (2-8) % Eos % (Auto) (1.0-3.0) % Baso % (Auto) (0.0-1.0) % PT 9.7 (9.0-12.0) SEC INR 1.0 (0.9-1.2) D-Dimer, Quantitative (0-400) ng/mL Sodium (136-145) mmol/L Potassium (3.5-5.1) mmol/L Chloride (98-107) mmol/L Carbon Dioxide (21-32) mmol/L Anion Gap (7-13) mEq/L BUN (7-18) mg/dL Creatinine (0.55-1.02) mg/dL Est Cr Clr Drug Dosing mL/min Estimated GFR (MDRD) BUN/Creatinine Ratio (No establ ref range) Glucose (74-99) mg/dL Lactic Acid 1.1 (0.4-2.0) mmol/L Calcium (8.5-10.1) mg/dL Total Bilirubin (0.2-1.0) mg/dL AST (15-37) U/L ALT (14-59) U/L Alkaline Phosphatase (46-116) U/L C-Reactive Protein (0.0-0.9) mg/dL B-Natriuretic Peptide (0-100) pg/ml Total Protein (6.4-8.2) g/dL Albumin (3.4-5.0) g/dL Globulin Albumin/Globulin Ratio Amylase (25-115) U/L Lipase (73-393) U/L Meds: Medications Generic Name Dose Route Start Last Admin Trade Name Freq PRN Reason Stop Dose Admin Acetaminophen 500 mg 09/23/20 22:34 Tylenol Extra Strength PO Q6H PRN MILD PAIN(1-3) / FEVER >100.4F Albuterol 0 gm 09/24/20 05:01 Proventil Hfa INH Q6H PRN Dyspnea Albuterol 2.5 mg 09/24/20 05:01 Proventil Neb Soln NEB Q6H PRN Shortness of Breath Bumetanide 1 mg 09/24/20 08:00 09/24/20 17:31 Bumex PO 1 mg BIDMEALS [facility] Administration Carvedilol 6.25 mg 09/24/20 09:00 09/24/20 08:47 Coreg PO 6.25 mg BID [facility] Administration Dexamethasone 6 mg 09/23/20 23:15 09/24/20 03:49 Decadron IV Not Given BEDTIME [facility] Diphenhydramine HCl 25 mg 09/23/20 22:36 Benadryl IV Q6H PRN ITCHING Diphenhydramine HCl 25 mg 09/24/20 05:01 09/24/20 15:25 Benadryl PO 25 mg Q6H PRN Administration Itching Enoxaparin Sodium 30 mg 09/23/20 22:45 09/24/20 03:49 Lovenox SUBCUT Not Given BEDTIME [facility] Ferrous Sulfate 325 mg 09/24/20 09:00 09/24/20 08:45 Ferrous Sulfate PO 325 mg DAILY [facility] Administration Glipizide 10 mg 09/24/20 08:00 09/24/20 17:31 Glucotrol PO 10 mg BIDMEALS [facility] Administration Hydrocortisone 28 gm 09/24/20 05:01 Hydrocortisone 1% Oint TOP Q4H PRN Itching Azithromycin 500 mg/ Sodium 250 mls @ 250 mls/hr 09/24/20 00:00 09/24/20 03:50 Chloride IV Not Given Q24H [facility] Ceftriaxone Sodium 1 gm/ 50 mls @ 100 mls/hr 09/23/20 23:00 09/24/20 03:49 Sodium Chloride IV Not Given Q24H [facility] Levothyroxine Sodium 112 mcg 09/24/20 06:00 09/24/20 05:51 Levothyroxine PO 112 mcg ACBREAKFAST [facility] Administration Levothyroxine Sodium 25 mcg 09/24/20 09:00 09/24/20 08:47 Levothyroxine PO 25 mcg ACBREAKFAST [facility] Administration Magnesium Oxide 500 mg 09/25/20 09:00 Magnesium Oxide PO DAILY [facility] Non-Formulary Medication 8 units 09/24/20 21:00 Insulin Detemir SQ BEDTIME [facility] Non-Formulary Medication 50 mg 09/24/20 21:00 Sitagliptin [Januvia] PO BEDTIME [facility] Omeprazole 20 mg 09/24/20 06:00 09/24/20 05:51 Omeprazole PO 20 mg ACBREAKFAST [facility] Administration Ondansetron HCl 4 mg 09/23/20 22:36 Zofran IV Q6H PRN VOMITING Pravastatin Sodium 10 mg 09/24/20 09:00 09/24/20 08:44 Pravachol PO 10 mg DAILY [facility] Administration Discontinued Medications Generic Name Dose Route Start Last Admin Trade Name Linh PRN Reason Stop Dose Admin Dexamethasone Confirm 09/23/20 23:09 09/24/20 03:49 Decadron Administered 09/23/20 23:10 Not Given Dose 8 mg .ROUTE .STK-MED ONE Prednisone 40 mg 09/24/20 10:45 09/24/20 10:48 Prednisone PO 09/24/20 10:46 40 mg ONETIME ONE Administration Departure - Departure Time of Disposition: 22:20 Disposition: Refer to Observation Condition: Fair Clinical Impression: COVID-19 COPD (chronic obstructive pulmonary disease) Qualifiers: COPD type: chronic bronchitis Chronic bronchitis type: unspecified Qualified Code(s): J42 - Unspecified chronic bronchitis Lung cancer Qualifiers: Laterality: right Lung location: lower lobe of lung Qualified Code(s): C34.31 - Malignant neoplasm of lower lobe, right bronchus or lung Dyspnea Qualifiers: Dyspnea type: shortness of breath Qualified Code(s): R06.02 - Shortness of breath - Discharge Information Sepsis Event Note (ED) - Evaluation Sepsis Screening Result: No Definite Risk - My Orders Last 24 Hours: My Active Orders 09/23/20 19:27 CULTURE BLOOD [BC] Stat 09/23/20 21:27 Admission Diagnosis [ADT] Stat - Assessment/Plan Last 24 Hours: My Active Orders 09/23/20 19:27 CULTURE BLOOD [BC] Stat 09/23/20 21:27 Admission Diagnosis [ADT] Stat
[2020-09-23 19:53] LABS: ANION GAP 12.1 mEq/L (7-13)
--- NOTE | 2020-09-23 20:59 | CT ---
PROCEDURE INFORMATION: Exam: CT Head Without Contrast Exam date and time: 09/23/2020 8:07 PM Age: 70 years old Clinical indication: Covid TECHNIQUE: Imaging protocol: Computed tomography of the head without contrast. Radiation optimization: All CT scans at this facility use at least one of these dose optimization techniques: automated exposure control; mA and/or kV adjustment per patient size (includes targeted exams where dose is matched to clinical indication); or iterative reconstruction. COMPARISON: CT Head wo Cont 08/09/2020 2:43 PM FINDINGS: Brain: Age-related involutional changes and chronic microvascular ischemic disease. No evidence for acute transcortical infarct. No mass effect or midline shift. No extra-axial collection. No acute intracranial hemorrhage. Basal cisterns are patent. Cerebral ventricles: No ventriculomegaly. Bones/joints: Unremarkable. No acute fracture. Paranasal sinuses: Visualized sinuses are unremarkable. No fluid levels. Mastoid air cells: Visualized mastoid air cells are well aerated. Orbital cavity: Bilateral cataract surgery. Soft tissues: Unremarkable. IMPRESSION: No evidence for acute transcortical infarct, acute intracranial hemorrhage, or mass effect.
--- NOTE | 2020-09-23 21:12 | CT ---
PROCEDURE INFORMATION: Exam: CT Chest Without Contrast; Diagnostic Exam date and time: 09/23/2020 8:07 PM Age: 70 years old Clinical indication: Other: Covid, SOB TECHNIQUE: Imaging protocol: Diagnostic computed tomography of the chest without contrast. Radiation optimization: All CT scans at this facility use at least one of these dose optimization techniques: automated exposure control; mA and/or kV adjustment per patient size (includes targeted exams where dose is matched to clinical indication); or iterative reconstruction. COMPARISON: CT Chest w Cont 07/08/2020 2:13 PM FINDINGS: Tubes, catheters and devices: Left chest dual lead transvenous pacemaker well-positioned, the leads are intact. Lungs: Centrilobular emphysema with pulmonary hyperinflation. There has been interval development of scattered, peripheral areas of ground-glass opacification bilaterally. Imaging features can be seen with COVID-19 pneumonia, though are nonspecific and can occur with a variety of infectious and noninfectious processes. (Reference: Cedric) Pleural space: Unremarkable. No pneumothorax. No pleural effusion. Heart: Unremarkable. No cardiomegaly. No pericardial effusion. Aorta: Unremarkable. No aortic aneurysm. Lymph nodes: Unremarkable. No enlarged lymph nodes. Bones/joints: Unremarkable. No acute fracture. Soft tissues: Decrease in the size of the previously identified right lateral chest wall mass. On today's study, it measures 6.3 x 4.0 cm, compared to 8.3 x 7.7 cm on the prior study. IMPRESSION: 1. Decrease in the size of the destructive right lateral chest wall mass since the prior study dated 07/08/2020. 2. Interval development of peripheral patchy areas of ground-glass opacification, suggestive of COVID-19 pneumonia. REFERENCES: felecia Viveros al., [employer] [place] Expert Consensus Statement on Reporting Chest CT Findings Related to COVID-19. Endorsed by the [employer] of [employer], the [employer], and [employer]. Published December 26, 2019.
[2020-09-23] MEDS ORDERED: Acetaminophen 500 MG Tab PO PRN (22:34)
[2020-09-23] MEDS ORDERED: diphenhydrAMINE 50 MG/ML SDV IV PRN (22:36)
[2020-09-23] MEDS ORDERED: Ondansetron 4 MG/2 ML SDV IV PRN (22:36)
[2020-09-23] MEDS ORDERED: Dexamethasone 4 MG/ML SDV ONE (23:09)
[2020-09-23] MEDS ORDERED: Dexamethasone 4 MG/ML SDV IV ONE (23:55)
[2020-09-24] MEDS ORDERED: Enoxaparin 40 MG/0.4 ML Syringe SUBCUT ONE
[2020-09-24] MEDS ORDERED: cefTRIAXone 1 GM in Sodium Chloride 0.9% 50 ML IV ONE ×2
[2020-09-24] MEDS ORDERED: Azithromycin 500 MG in Sodium Chloride 0.9% 250 ML IV ONE (00:30)
[2020-09-24] MEDS: Enoxaparin 30 MG/0.3 ML Syringe SUBCUT SCH ×2 (03:49→21:18)
[2020-09-24] MEDS: cefTRIAXone 1 GM in Sodium Chloride 0.9% 50 ML IV SCH ×2 (03:49→23:23)
[2020-09-24] MEDS: Dexamethasone 4 MG/ML SDV IV SCH ×2 (03:49→21:21)
[2020-09-24] MEDS: Azithromycin 500 MG in Sodium Chloride 0.9% 250 ML IV SCH (03:50)
[2020-09-24] MEDS ORDERED: Hydrocortisone 1% Oint 28 GM Tube TOP PRN (05:01)
[2020-09-24] MEDS ORDERED: Albuterol 6.7 GM Inhaler INH PRN (05:01)
[2020-09-24] MEDS ORDERED: Albuterol 0.083% 2.5 MG/3 ML Neb Soln NEB PRN (05:01)
[2020-09-24] MEDS ORDERED: Acetaminophen 500 MG Tab PO PRN (05:01)
--- NOTE | 2020-09-24 05:08 | PCM.HP ---
H&P History of Present Illness - General Date of Service: 09/23/20 Admit Problem/Dx: Admission Diagnosis/Problem Admission Diagnosis/Problem Dyspnea Source of Information: Patient - History of Present Illness Initial Comments - Free Text/Narative: This is 70-year-old female with medical history of diabetes mellitus type 2, COPD, cardiomyopathy with ejection fraction 25%, history of right lung cancer on immunotherapy. The patient presented with cough and shortness of breath which has been going on for the past 1 week. Symptoms worsened and she was diagnosed with COVID-19 pneumonia. Patient was given intravenous monoclonal antibody as outpatient on 09/20/2020. Since then her symptoms also worsened and she developed increasing shortness of breath. She decided to seek medical attention. Initially at presentation oxygen saturation was at 88%. She was placed on oxygen which later improved to 98%. We were able to wean her off of oxygen. Patient is anxious. - Related Data Allergies/Adverse Reactions: Allergies Allergy/AdvReac Type Severity Reaction Status Date / Time codeine Allergy Unknown Cannot Verified 09/23/20 18:53 Remember adhesive tape Allergy Rash Verified 09/23/20 18:53 sacubitril [From Entresto] Allergy Dizziness Verified 09/23/20 18:53 simvastatin [From Zocor] Allergy Muscle Verified 09/23/20 18:53 Aches valsartan [From Entresto] Allergy Dizziness Verified 09/23/20 18:53 metal Allergy Mild Rash Uncoded 09/20/20 09:48 Home Medications: Home Meds glipiZIDE [Glipizide] 10 mg PO BIDMEALS 07/09/15 [History] Omeprazole 20 mg PO ACBREAKFAST 04/15/16 [History] Albuterol [IJD: Ventolin HFA] 2 puff INH Q6H PRN 05/18/16 [History] carvediloL [Carvedilol] 6.25 mg PO BID 07/23/16 [History] Acetaminophen 1,000 mg PO BID PRN 08/08/17 [History] Albuterol [Proventil Neb Soln] 3 ml NEB Q6H PRN 08/08/17 [History] SitaGLIPtin [Januvia] 50 mg PO BEDTIME 04/11/19 [History] Insulin Detemir [Levemir Flextouch] 8 units SQ BEDTIME 04/30/19 [History] Levothyroxine 137 mcg PO ACBREAKFAST 04/30/19 [History] Pravastatin Sodium 10 mg PO DAILY 04/30/19 [History] Bumetanide 1 mg PO BIDMEALS 06/26/19 [History] B-Complex with Vitamin C [B-Complex Plus Vitamin C] 1 each PO DAILY 02/09/20 [History] Ferrous Sulfate 325 mg PO DAILY 02/09/20 [History] Magnesium Oxide 400 mg PO DAILY 02/09/20 [History] Ondansetron [Zofran] 8 mg PO Q8H PRN 02/09/20 [History] Amoxicillin/Clavulanate K [Augmentin 875-125 MG] 1 tab PO BID 09/23/20 [History] Hydrocortisone [Hydrocortisone 1% Oint] 28 gm TOP Q4HR PRN 09/23/20 [History] diphenhydrAMINE [Benadryl] 25 mg PO Q6H PRN 09/23/20 [History] predniSONE 40 mg PO WITHBREAKFAST 09/23/20 [History] Past Medical History HEENT History: Reports: Cataract, Impaired Vision, Otitis Media Other HEENT History: wears glasses Cardiovascular History: Reports: Cardiomyopathy, Heart Failure, High Cholesterol, Hypertension, Pacemaker, Other (See Below) Other Cardiovascular History: CARDIAC DIFIBRILLATOR PLACEMENT (2017), NONISCHEMIC CARDIOMYOPATHY Respiratory History: Reports: Bronchitis, Recurrent, COPD, Pneumonia, Recurrent, Other (See Below) Other Respiratory History: Lung CA with recent chemo and radiation Gastrointestinal History: Reports: Cholelithiasis, GERD Genitourinary History: Reports: Renal Disease, UTI, Recurrent, Other (See Below) Other Genitourinary History: CKD 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 OB/BYN History: HAS 3 KIDS Musculoskeletal History: Reports: Arthritis, Fracture, Other (See Below) Other Musculoskeletal History: SHOULDER PAIN, BILATERAL Neurological History: Reports: None Psychiatric History: Reports: Addiction Other Psychiatric History: patient states she doesn't know if she was addicted to anything Endocrine/Metabolic History: Reports: Diabetes, Type II, Hypothyroidism Hematologic History: Reports: Anemia, B12 Deficiency, Iron Deficiency Immunologic History: Reports: None Oncologic (Cancer) History: Reports: Lung Dermatologic History: Reports: None - Infectious Disease History Infectious Disease History: Reports: Measles, Novel Coronavirus - Past Surgical History Head Surgeries/Procedures: Reports: None HEENT Surgical History: Reports: Cataract Surgery Cardiovascular Surgical History: Reports: AICD Respiratory Surgical History: Reports: None GI Surgical History: Reports: Appendectomy, Cholecystectomy Female Surgical History: Reports: None Endocrine Surgical History: Reports: None Neurological Surgical History: Reports: None Musculoskeletal Surgical History: Reports: None Social & Family History - Family History Family Medical History: No Pertinent Family History - Tobacco Use Tobacco Use Status *Q: Former Tobacco User Used Tobacco, but Quit: Yes Month/Year Tobacco Last Used: 10/2011 - Caffeine Use Caffeine Use: Reports: None Caffeine Use Comment: decaf products - Recreational Drug Use Recreational Drug Use: No - Living Situation & Occupation Living situation: Reports: Alone Occupation: Employed H&P Review of Systems - Review of Systems: Review Of Systems: See Below General: Reports: Weakness, Fatigue Pulmonary: Reports: Shortness of Breath, Cough Gastrointestinal: Reports: No Symptoms Musculoskeletal: Reports: No Symptoms Skin: Reports: No Symptoms Psychiatric: Reports: No Symptoms Exam - Exam Exam: See Below - Vital Signs Vital Signs: Last Vital Signs Temp 36.6 C 09/23/20 18:48 Pulse 65 09/23/20 18:48 Resp 20 09/23/20 18:48 BP 162/45 H 09/23/20 18:48 Pulse Ox 100 09/23/20 18:48 Weight: 47.174 kg - Exam General: Alert, Oriented, Cooperative Neck: Supple, Trachea Midline, 2 Lungs: Clear to Auscultation, Normal Respiratory Effort Cardiovascular: Regular Rate, Regular Rhythm (Female) Exam: Normal External Exam, Normal Speculum Exam, Normal Bimanual Exam Extremities: Normal Inspection, Normal Range of Motion, Non-Tender, No Pedal Edema, Normal Capillary Refill - Patient Data Lab Results Last 24 hrs: Laboratory Results - last 24 hr 09/23/20 09/23/20 09/23/20 Range/Units 19:27 19:27 19:27 WBC 3.8 L (5.0-10.0) 10^3/uL RBC 2.88 L (4.2-5.4) 10^6/uL Hgb 9.4 L (12.0-16.0) g/dL Hct 27.9 L (37.0-47.0) % MCV 96.9 (80-100) fL MCH 32.6 (27.0-34.0) pg MCHC 33.7 (33.0-35.0) g/dL Plt Count 95 L (150-450) 10^3/uL Neut % (Auto) 89.3 H (42.2-75.2) % Lymph % (Auto) 8.5 L (20.5-50.1) % Harper % (Auto) 1.9 L (2-8) % Eos % (Auto) 0.3 L (1.0-3.0) % Baso % (Auto) 0.0 (0.0-1.0) % PT (9.0-12.0) SEC INR (0.9-1.2) D-Dimer, Quantitative 4620 H (0-400) ng/mL Sodium 130 L (136-145) mmol/L Potassium 4.1 (3.5-5.1) mmol/L Chloride 96 L (98-107) mmol/L Carbon Dioxide 26 (21-32) mmol/L Anion Gap 12.1 (7-13) mEq/L BUN 31 H (7-18) mg/dL Creatinine 1.38 H (0.55-1.02) mg/dL Est Cr Clr Drug Dosing 27.85 mL/min Estimated GFR (MDRD) 38 BUN/Creatinine Ratio 22.5 (No establ ref range) Glucose 274 H (74-99) mg/dL Lactic Acid (0.4-2.0) mmol/L Calcium 8.4 L (8.5-10.1) mg/dL Total Bilirubin 0.4 (0.2-1.0) mg/dL AST 23 (15-37) U/L ALT 20 (14-59) U/L Alkaline Phosphatase 169 H (46-116) U/L C-Reactive Protein 0.7 (0.0-0.9) mg/dL B-Natriuretic Peptide 376 H (0-100) pg/ml Total Protein 7.6 (6.4-8.2) g/dL Albumin 3.0 L (3.4-5.0) g/dL Globulin 4.6 Albumin/Globulin Ratio 0.65 Amylase 27 (25-115) U/L Lipase 115 (73-393) U/L 09/23/20 09/23/20 Range/Units 19:27 19:27 WBC (5.0-10.0) 10^3/uL RBC (4.2-5.4) 10^6/uL Hgb (12.0-16.0) g/dL Hct (37.0-47.0) % MCV (80-100) fL MCH (27.0-34.0) pg MCHC (33.0-35.0) g/dL Plt Count (150-450) 10^3/uL Neut % (Auto) (42.2-75.2) % Lymph % (Auto) (20.5-50.1) % Harper % (Auto) (2-8) % Eos % (Auto) (1.0-3.0) % Baso % (Auto) (0.0-1.0) % PT 9.7 (9.0-12.0) SEC INR 1.0 (0.9-1.2) D-Dimer, Quantitative (0-400) ng/mL Sodium (136-145) mmol/L Potassium (3.5-5.1) mmol/L Chloride (98-107) mmol/L Carbon Dioxide (21-32) mmol/L Anion Gap (7-13) mEq/L BUN (7-18) mg/dL Creatinine (0.55-1.02) mg/dL Est Cr Clr Drug Dosing mL/min Estimated GFR (MDRD) BUN/Creatinine Ratio (No establ ref range) Glucose (74-99) mg/dL Lactic Acid 1.1 (0.4-2.0) mmol/L Calcium (8.5-10.1) mg/dL Total Bilirubin (0.2-1.0) mg/dL AST (15-37) U/L ALT (14-59) U/L Alkaline Phosphatase (46-116) U/L C-Reactive Protein (0.0-0.9) mg/dL B-Natriuretic Peptide (0-100) pg/ml Total Protein (6.4-8.2) g/dL Albumin (3.4-5.0) g/dL Globulin Albumin/Globulin Ratio Amylase (25-115) U/L Lipase (73-393) U/L Result Diagrams: 09/23/20 19:27 09/23/20 19:27 Problem List Initiated/Reviewed/Updated: Yes Orders Last 24hrs: Active Orders 24 hr Category Date Time Status Admission Diagnosis [ADT] Stat ADT 09/23/20 21:27 Ordered Admission Status [Patient Status] [ADT] Routine ADT 09/23/20 21:28 Active Glucose [Blood Glucose Check, Bedside] [RC] QIDACANDBED Care 09/24/20 05:03 Ordered RT Aerosol Therapy [RC] ASDIRECTED Care 09/24/20 05:02 Ordered RT Post Treatment Assessment [RC] Click to Edit Care 09/24/20 05:02 Ordered RT Pre-Treatment Assessment [RC] Click to Edit Care 09/24/20 05:02 Ordered Consistent Carbohydrate Diet [DIET] Diet 09/24/20 Breakfast Ordered CBC WITH AUTO DIFF [HEME] Routine Lab 09/24/20 06:00 Ordered COMPREHENSIVE METABOLIC PN,CMP [CHEM] Routine Lab 09/24/20 06:00 Ordered CULTURE BLOOD [BC] Stat Lab 09/23/20 19:27 Received D-DIMER QUANTITATIVE [COAG] Routine Lab 09/24/20 06:00 Ordered TROPONIN I [CHEM] Routine Lab 09/24/20 06:00 Ordered Acetaminophen [Tylenol Extra Strength] Med 09/24/20 05:01 Ordered 1,000 mg PO BID PRN Acetaminophen [Tylenol Extra Strength] Med 09/23/20 22:34 Active 500 mg PO Q6H PRN Albuterol [Proventil HFA] Med 09/24/20 05:01 Ordered 2 puff INH Q6H PRN Albuterol [Proventil Neb Soln] Med 09/24/20 05:01 Ordered 2.5 mg NEB Q6H PRN Azithromycin [Zithromax] 500 mg Med 09/24/20 00:00 Active Sodium Chloride 0.9% [Normal Saline (AdvBag)] 250 ml IV Q24H Bumetanide [Bumex] Med 09/24/20 08:00 Ordered 1 mg PO BIDMEALS Enoxaparin [Lovenox] Med 09/23/20 22:45 Active 30 mg SUBCUT BEDTIME Ferrous Sulfate Med 09/24/20 09:00 Ordered 325 mg PO DAILY Hydrocortisone [Hydrocortisone 1% Oint] Med 09/24/20 05:01 Ordered 28 gm TOP Q4HR PRN Insulin Detemir Med 09/24/20 21:00 Ordered 8 units SQ BEDTIME Levothyroxine Med 09/24/20 06:00 Ordered 137 mcg PO ACBREAKFAST Magnesium Oxide [Magnesium Oxide] Med 09/24/20 09:00 Ordered 400 mg PO DAILY Omeprazole Med 09/24/20 06:00 Ordered 20 mg PO ACBREAKFAST Ondansetron [Zofran] Med 09/23/20 22:36 Active 4 mg IV Q6H PRN Pravastatin Sodium [Pravastatin Sodium] Med 09/24/20 09:00 Ordered 10 mg PO DAILY SitaGLIPtin [Januvia] Med 09/24/20 21:00 Ordered 50 mg PO BEDTIME carvediloL [Coreg] Med 09/24/20 09:00 Ordered 6.25 mg PO BID cefTRIAXone [Rocephin] 1 gm Med 09/23/20 23:00 Active Sodium Chloride 0.9% [Normal Saline] 50 ml IV Q24H dexAMETHasone [Decadron] Med 09/23/20 23:15 Active 6 mg IV BEDTIME diphenhydrAMINE [Benadryl] Med 09/23/20 22:36 Active 25 mg IV Q6H PRN diphenhydrAMINE [Benadryl] Med 09/24/20 05:01 Ordered 25 mg PO Q6H PRN glipiZIDE [Glipizide] Med 09/24/20 08:00 Ordered 10 mg PO BIDMEALS Medication Orders Acetaminophen (Tylenol Extra Strength) 500 mg PO Q6H PRN PRN Reason: MILD PAIN(1-3) / FEVER >100.4F Acetaminophen (Tylenol Extra Strength) 1,000 mg PO BID PRN PRN Reason: Pain Albuterol (Proventil Hfa) gm INH Q6H PRN PRN Reason: Dyspnea Albuterol (Proventil Neb Soln) 2.5 mg NEB Q6H PRN PRN Reason: Shortness of Breath Bumetanide (Bumex) 1 mg PO BIDMEALS [facility] Carvedilol (Coreg) 6.25 mg PO BID [facility] Dexamethasone (Decadron) 6 mg IV BEDTIME [facility] Last Admin: 09/24/20 03:49 Dose: Not Given Documented by: TONIE Diphenhydramine HCl (Benadryl) 25 mg IV Q6H PRN PRN Reason: ITCHING Enoxaparin Sodium (Lovenox) 30 mg SUBCUT BEDTIME [facility] Last Admin: 09/24/20 03:49 Dose: Not Given Documented by: TONIE Ferrous Sulfate (Ferrous Sulfate) 325 mg PO DAILY [facility] Hydrocortisone (Hydrocortisone 1% Oint) 28 gm TOP Q4HR PRN PRN Reason: Itching Azithromycin 500 mg/ Sodium (Chloride) 250 mls @ 250 mls/hr IV Q24H [facility] Last Admin: 09/24/20 03:50 Dose: Not Given Documented by: TONIE Ceftriaxone Sodium 1 gm/ (Sodium Chloride) 50 mls @ 100 mls/hr IV Q24H [facility] Last Admin: 09/24/20 03:49 Dose: Not Given Documented by: TONIE Levothyroxine Sodium (Levothyroxine) 137 mcg PO ACBREAKFAST [facility] Non-Formulary Medication (Diphenhydramine [Benadryl]) 25 mg PO Q6H PRN PRN Reason: Itching Non-Formulary Medication (Glipizide [Glipizide]) 10 mg PO BIDMEALS [facility] Non-Formulary Medication (Insulin Detemir) 8 units SQ BEDTIME [facility] Non-Formulary Medication (Magnesium Oxide [Magnesium Oxide]) 400 mg PO DAILY [facility] Non-Formulary Medication (Pravastatin Sodium [Pravastatin Sodium]) 10 mg PO DAILY [facility] Non-Formulary Medication (Sitagliptin [Januvia]) 50 mg PO BEDTIME [facility] Omeprazole (Omeprazole) 20 mg PO ACBREAKFAST [facility] Ondansetron HCl (Zofran) 4 mg IV Q6H PRN PRN Reason: VOMITING Assessment/Plan Comment:: Assessment/plan: #. COVID-19 pneumonia Patient has been coughing and is short of breath #. Hypoxia Patient was transiently hypoxic No longer needing oxygen #. Cardiomyopathy Known to have ejection fraction of 25% #. Right lung cancer On immunotherapy #. Diabetes mellitus type 2 Patient is on insulin and oral hypoglycemic agents #. COPD Likely contributing to shortness of breath Plan: Admit patient to medical floor Intravenous dexamethasone Patient already received monoclonal antibody. Not a candidate for convalescent plasma Close hemodynamic monitoring. Monitor blood sugar before meals and at bedtime Restart patient on insulin therapy
[2020-09-24] MEDS: Levothyroxine 112 MCG Tab PO SCH (05:51)
[2020-09-24] MEDS: Omeprazole 20 MG Cap.CR PO SCH (05:51)
[2020-09-24 08:10] LABS: ANION GAP 12.9 mEq/L (7-13); CHLORIDE,CL 101 mmol/L (98-107); SODIUM,NA 137 mmol/L (136-145)
[2020-09-24] MEDS: diphenhydrAMINE 25 MG Tab PO PRN ×2 (08:44→15:25)
[2020-09-24] MEDS: Pravastatin 20 MG Tab PO SCH (08:44)
[2020-09-24] MEDS: Ferrous Sulfate 325 MG Tab PO SCH (08:45)
[2020-09-24] MEDS: Bumetanide 1 MG Tab PO SCH ×2 (08:46→17:31)
[2020-09-24] MEDS: glipiZIDE 5 MG Tab PO SCH ×2 (08:47→17:31)
[2020-09-24] MEDS: Levothyroxine 25 MCG Tab PO SCH (08:47)
[2020-09-24] MEDS: Carvedilol 6.25 MG Tab PO SCH ×2 (08:47→21:20)
[2020-09-24] MEDS ORDERED: predniSONE 20 MG Tab PO ONE (10:45)
--- NOTE | 2020-09-24 11:22 | PCM.PN ---
- General Info Date of Service: 09/24/20 Admission Dx/Problem (Free Text): Admission Diagnosis/Problem Admission Diagnosis/Problem Dyspnea Subjective Update: Pt was seen in room doing well Functional Status: Reports: Pain Controlled, Tolerating Diet, Ambulating, Urinating - Review of Systems General: Reports: Weakness, Appetite (acceptable). Denies: Fever, Chills HEENT: Denies: Headaches, Sinus Congestion, Sore Throat, Visual Changes Pulmonary: Denies: Shortness of Breath, Cough, Sputum, Wheezing Cardiovascular: Reports: Dyspnea on Exertion. Denies: Chest Pain, Edema Gastrointestinal: Reports: Decreased Appetite. Denies: Abdominal Pain, Difficulty Swallowing, Nausea, Vomiting Genitourinary: Denies: Dysuria, Burning, Urgency, Flank Pain Musculoskeletal: Denies: Neck Pain, Joint Pain, Joint Swelling Skin: Reports: Rash. Denies: Cyanosis, Jaundice, Bruising Neurological: Denies: Confusion, Dizziness, Numbness, Tremors Psychiatric: Denies: Confusion, Anxiety, Agitation - Patient Data Vitals - Most Recent: Last Vital Signs Temp 36.9 C 09/24/20 08:00 Pulse 66 09/24/20 08:47 Resp 18 09/24/20 08:00 BP 157/51 H 09/24/20 08:47 Pulse Ox 99 09/24/20 10:45 Weight - Most Recent: 47.174 kg I&O - Last 24 Hours: Intake & Output 09/23/20 09/24/20 09/24/20 22:59 06:59 14:59 Intake Total 300 450 Output Total 800 Balance -500 450 Lab Results Last 24 Hours: Laboratory Results - last 24 hr 09/23/20 09/23/20 09/23/20 Range/Units 19:27 19:27 19:27 WBC 3.8 L (5.0-10.0) 10^3/uL RBC 2.88 L (4.2-5.4) 10^6/uL Hgb 9.4 L (12.0-16.0) g/dL Hct 27.9 L (37.0-47.0) % MCV 96.9 (80-100) fL MCH 32.6 (27.0-34.0) pg MCHC 33.7 (33.0-35.0) g/dL Plt Count 95 L (150-450) 10^3/uL Neut % (Auto) 89.3 H (42.2-75.2) % Lymph % (Auto) 8.5 L (20.5-50.1) % Hale % (Auto) 1.9 L (2-8) % Eos % (Auto) 0.3 L (1.0-3.0) % Baso % (Auto) 0.0 (0.0-1.0) % PT (9.0-12.0) SEC INR (0.9-1.2) D-Dimer, Quantitative 4620 H (0-400) ng/mL Sodium 130 L (136-145) mmol/L Potassium 4.1 (3.5-5.1) mmol/L Chloride 96 L (98-107) mmol/L Carbon Dioxide 26 (21-32) mmol/L Anion Gap 12.1 (7-13) mEq/L BUN 31 H (7-18) mg/dL Creatinine 1.38 H (0.55-1.02) mg/dL Est Cr Clr Drug Dosing 27.85 mL/min Estimated GFR (MDRD) 38 BUN/Creatinine Ratio 22.5 (No establ ref range) Glucose 274 H (74-99) mg/dL POC Glucose (83-110) mg/dl Lactic Acid (0.4-2.0) mmol/L Calcium 8.4 L (8.5-10.1) mg/dL Total Bilirubin 0.4 (0.2-1.0) mg/dL AST 23 (15-37) U/L ALT 20 (14-59) U/L Alkaline Phosphatase 169 H (46-116) U/L Troponin I (0.000-0.056) ng/mL C-Reactive Protein 0.7 (0.0-0.9) mg/dL B-Natriuretic Peptide 376 H (0-100) pg/ml Total Protein 7.6 (6.4-8.2) g/dL Albumin 3.0 L (3.4-5.0) g/dL Globulin 4.6 Albumin/Globulin Ratio 0.65 Amylase 27 (25-115) U/L Lipase 115 (73-393) U/L 09/23/20 09/23/20 09/24/20 Range/Units 19:27 19:27 07:33 WBC 2.1 L (5.0-10.0) 10^3/uL RBC 2.68 L (4.2-5.4) 10^6/uL Hgb 8.8 L (12.0-16.0) g/dL Hct 25.7 L (37.0-47.0) % MCV 95.9 (80-100) fL MCH 32.8 (27.0-34.0) pg MCHC 34.2 (33.0-35.0) g/dL Plt Count 91 L (150-450) 10^3/uL Neut % (Auto) 77.7 H (42.2-75.2) % Lymph % (Auto) 19.4 L (20.5-50.1) % Hale % (Auto) 2.9 (2-8) % Eos % (Auto) 0.0 L (1.0-3.0) % Baso % (Auto) 0.0 (0.0-1.0) % PT 9.7 (9.0-12.0) SEC INR 1.0 (0.9-1.2) D-Dimer, Quantitative (0-400) ng/mL Sodium (136-145) mmol/L Potassium (3.5-5.1) mmol/L Chloride (98-107) mmol/L Carbon Dioxide (21-32) mmol/L Anion Gap (7-13) mEq/L BUN (7-18) mg/dL Creatinine (0.55-1.02) mg/dL Est Cr Clr Drug Dosing mL/min Estimated GFR (MDRD) BUN/Creatinine Ratio (No establ ref range) Glucose (74-99) mg/dL POC Glucose (83-110) mg/dl Lactic Acid 1.1 (0.4-2.0) mmol/L Calcium (8.5-10.1) mg/dL Total Bilirubin (0.2-1.0) mg/dL AST (15-37) U/L ALT (14-59) U/L Alkaline Phosphatase (46-116) U/L Troponin I (0.000-0.056) ng/mL C-Reactive Protein (0.0-0.9) mg/dL B-Natriuretic Peptide (0-100) pg/ml Total Protein (6.4-8.2) g/dL Albumin (3.4-5.0) g/dL Globulin Albumin/Globulin Ratio Amylase (25-115) U/L Lipase (73-393) U/L 09/24/20 09/24/20 09/24/20 Range/Units 07:33 07:33 07:49 WBC (5.0-10.0) 10^3/uL RBC (4.2-5.4) 10^6/uL Hgb (12.0-16.0) g/dL Hct (37.0-47.0) % MCV (80-100) fL MCH (27.0-34.0) pg MCHC (33.0-35.0) g/dL Plt Count (150-450) 10^3/uL Neut % (Auto) (42.2-75.2) % Lymph % (Auto) (20.5-50.1) % Hale % (Auto) (2-8) % Eos % (Auto) (1.0-3.0) % Baso % (Auto) (0.0-1.0) % PT (9.0-12.0) SEC INR (0.9-1.2) D-Dimer, Quantitative 3780 H (0-400) ng/mL Sodium 137 (136-145) mmol/L Potassium 3.9 (3.5-5.1) mmol/L Chloride 101 (98-107) mmol/L Carbon Dioxide 27 (21-32) mmol/L Anion Gap 12.9 (7-13) mEq/L BUN 28 H (7-18) mg/dL Creatinine 1.10 H (0.55-1.02) mg/dL Est Cr Clr Drug Dosing 34.93 mL/min Estimated GFR (MDRD) 49 BUN/Creatinine Ratio 25.5 (No establ ref range) Glucose 257 H (74-99) mg/dL POC Glucose 258 H (83-110) mg/dl Lactic Acid (0.4-2.0) mmol/L Calcium 8.4 L (8.5-10.1) mg/dL Total Bilirubin 0.2 (0.2-1.0) mg/dL AST 6 L (15-37) U/L ALT 14 (14-59) U/L Alkaline Phosphatase 140 H (46-116) U/L Troponin I < 0.017 (0.000-0.056) ng/mL C-Reactive Protein (0.0-0.9) mg/dL B-Natriuretic Peptide (0-100) pg/ml Total Protein 6.8 (6.4-8.2) g/dL Albumin 2.6 L (3.4-5.0) g/dL Globulin 4.2 Albumin/Globulin Ratio 0.62 Amylase (25-115) U/L Lipase (73-393) U/L Med Orders - Current: Current Medications Acetaminophen (Tylenol Extra Strength) 500 mg PO Q6H PRN PRN Reason: MILD PAIN(1-3) / FEVER >100.4F Albuterol (Proventil Hfa) 0 gm INH Q6H PRN PRN Reason: Dyspnea Albuterol (Proventil Neb Soln) 2.5 mg NEB Q6H PRN PRN Reason: Shortness of Breath Bumetanide (Bumex) 1 mg PO BIDMEALS [facility] Last Admin: 09/24/20 08:46 Dose: 1 mg Documented by: Carvedilol (Coreg) 6.25 mg PO BID [facility] Last Admin: 09/24/20 08:47 Dose: 6.25 mg Documented by: Dexamethasone (Decadron) 6 mg IV BEDTIME [facility] Last Admin: 09/24/20 03:49 Dose: Not Given Documented by: Diphenhydramine HCl (Benadryl) 25 mg IV Q6H PRN PRN Reason: ITCHING Diphenhydramine HCl (Benadryl) 25 mg PO Q6H PRN PRN Reason: Itching Last Admin: 09/24/20 08:44 Dose: 25 mg Documented by: Enoxaparin Sodium (Lovenox) 30 mg SUBCUT BEDTIME [facility] Last Admin: 09/24/20 03:49 Dose: Not Given Documented by: Ferrous Sulfate (Ferrous Sulfate) 325 mg PO DAILY [facility] Last Admin: 09/24/20 08:45 Dose: 325 mg Documented by: Glipizide (Glucotrol) 10 mg PO BIDMEALS [facility] Last Admin: 09/24/20 08:47 Dose: 10 mg Documented by: Hydrocortisone (Hydrocortisone 1% Oint) 28 gm TOP Q4H PRN PRN Reason: Itching Azithromycin 500 mg/ Sodium (Chloride) 250 mls @ 250 mls/hr IV Q24H [facility] Last Admin: 09/24/20 03:50 Dose: Not Given Documented by: Ceftriaxone Sodium 1 gm/ (Sodium Chloride) 50 mls @ 100 mls/hr IV Q24H [facility] Last Admin: 09/24/20 03:49 Dose: Not Given Documented by: Levothyroxine Sodium (Levothyroxine) 112 mcg PO ACBREAKFAST [facility] Last Admin: 09/24/20 05:51 Dose: 112 mcg Documented by: Levothyroxine Sodium (Levothyroxine) 25 mcg PO ACBREAKFAST [facility] Last Admin: 09/24/20 08:47 Dose: 25 mcg Documented by: Magnesium Oxide (Magnesium Oxide) 500 mg PO DAILY [facility] Non-Formulary Medication (Insulin Detemir) 8 units SQ BEDTIME [facility] Non-Formulary Medication (Sitagliptin [Januvia]) 50 mg PO BEDTIME [facility] Omeprazole (Omeprazole) 20 mg PO ACBREAKFAST [facility] Last Admin: 09/24/20 05:51 Dose: 20 mg Documented by: Ondansetron HCl (Zofran) 4 mg IV Q6H PRN PRN Reason: VOMITING Pravastatin Sodium (Pravachol) 10 mg PO DAILY [facility] Last Admin: 09/24/20 08:44 Dose: 10 mg Documented by: Discontinued Medications Dexamethasone (Decadron) Confirm Administered Dose 8 mg .ROUTE .STK-MED ONE Stop: 09/23/20 23:10 Last Admin: 09/24/20 03:49 Dose: Not Given Documented by: Prednisone (Prednisone) 40 mg PO ONETIME ONE Stop: 09/24/20 10:46 Last Admin: 09/24/20 10:48 Dose: 40 mg Documented by: - Exam Quality Assessment: DVT Prophylaxis. No: Supplemental Oxygen, Urine Catheter General: Alert, Oriented, Cooperative HEENT: Pupils Equal, Pupils Reactive, EOMI Neck: Supple, No JVD, No Thyromegaly Lungs: Clear to Auscultation, Normal Respiratory Effort. No: Wheezing Cardiovascular: Regular Rate, Regular Rhythm, Murmurs GI/Abdominal Exam: Normal Bowel Sounds, Soft, Non-Tender, No Distention (Female) Exam: Deferred Back Exam: Normal Inspection, Full Range of Motion Extremities: Normal Inspection, No Pedal Edema Skin: Warm, Dry, Rash Neurological: No New Focal Deficit Psy/Mental Status: Alert, Normal Affect, Normal Mood Sepsis Event Note - Evaluation Sepsis Screening Result: No Definite Risk - Focused Exam Vital Signs: Vital Signs Temp Pulse Pulse Resp BP BP Pulse Ox 09/24/20 10:45 09/24/20 08:47 66 157/51 H 09/24/20 08:00 36.9 C 66 18 157/51 H 100 09/24/20 04:00 37.0 C 60 24 H 165/53 H 100 09/24/20 00:00 36.6 C 71 20 157/71 H 100 Pulse Ox 09/24/20 10:45 99 09/24/20 08:47 09/24/20 08:00 09/24/20 04:00 09/24/20 00:00 - Problem List Review Problem List Initiated/Reviewed/Updated: Yes - My Orders Last 24 Hours: My Active Orders 09/24/20 07:33 PROCALCITONIN [REF] Routine - Plan Plan:: This is 70-year-old female with medical history of diabetes mellitus type 2, COPD, cardiomyopathy with ejection fraction 25%, history of right lung cancer on immunotherapy. The patient presented with cough and shortness of breath which has been going on for the past 1 week. Symptoms worsened and she was diagnosed with COVID-19 pneumonia. Patient was given intravenous monoclonal antibody as outpatient on 09/20/2020. Since then her symptoms also worsened and she developed increasing shortness of breath and rash with itching . She decided to seek medical attention. Initially at presentation oxygen saturation was at 88%. She was placed on oxygen which later improved to 98%. We were able to wean her off of oxygen. Patient is anxious. Assessment/plan: 1 COVID-19 pneumonia Patient has been coughing and is short of breath, continue Dexamethasone and Patient already received monoclonal antibody. Not a candidate for convalescent plasma 2. Hypoxia Patient was transiently hypoxic No longer needing oxygen 3. Cardiomyopathy Known to have ejection fraction of 25% 4. Right lung cancer On immunotherapy 5. Diabetes mellitus type 2 Patient is on insulin and oral hypoglycemic agents 6. COPD Likely contributing to shortness of breath and continue Nebs 8. Rash with Itching: This is likely from Monoclonal antibody, continue Benadryl and give a dose of [id number] 40 mg X 1 dose 7. DVT prophylaxis: Continue Enoxaparin
[2020-09-24] MEDS ORDERED: SITAGLIPTIN 50 MG PO SCH (21:00)
[2020-09-24] MEDS ORDERED: INSULIN DETEMIR 8 UNIT SQ SCH (21:00)
[2020-09-24] MEDS ORDERED: 50% Dextrose in Water 50 ML Syringe IV PRN (22:22)
[2020-09-24] MEDS ORDERED: Glucagon,Human Recombinant 1 MG Vial IM PRN (22:22)
[2020-09-24] MEDS: Insulin Lispro 100 Units/ML 3 ML Vial SUBCUT SCH (23:23)
[2020-09-25] MEDS: Azithromycin 500 MG in Sodium Chloride 0.9% 250 ML IV SCH (00:15)
[2020-09-25] MEDS: diphenhydrAMINE 25 MG Tab PO PRN (05:35)
[2020-09-25] MEDS: Levothyroxine 112 MCG Tab PO SCH (05:35)
[2020-09-25] MEDS: Omeprazole 20 MG Cap.CR PO SCH (05:36)
[2020-09-25] MEDS: Levothyroxine 25 MCG Tab PO SCH (05:37)
[2020-09-25] MEDS: glipiZIDE 5 MG Tab PO SCH (08:35)
[2020-09-25] MEDS: Bumetanide 1 MG Tab PO SCH (08:35)
[2020-09-25] MEDS: Carvedilol 6.25 MG Tab PO SCH (08:36)
[2020-09-25] MEDS: Ferrous Sulfate 325 MG Tab PO SCH (08:38)
[2020-09-25] MEDS: Pravastatin 20 MG Tab PO SCH (08:39)
[2020-09-25 08:43] VITALS: BP 164/62; PULSE 66
[2020-09-25] MEDS: Insulin Lispro 100 Units/ML 3 ML Vial SUBCUT SCH ×2 (08:50→12:37)
--- NOTE | 2020-09-25 12:09 | PCM.DCSUM1 ---
Discharge Summary - Hospital Course Free Text/Narrative:: This is 70-year-old female with medical history of diabetes mellitus type 2, COPD, cardiomyopathy with ejection fraction 25%, history of right lung cancer on immunotherapy. The patient presented with cough and shortness of breath which has been going on for the past 1 week. Symptoms worsened and she was diagnosed with COVID-19 pneumonia. Patient was given intravenous monoclonal antibody as outpatient on 09/20/2020. Since then her symptoms also worsened and she developed increasing shortness of breath and rash with itching . She decided to seek medical attention. Initially at presentation oxygen saturation was at 88%. She was placed on oxygen which later improved to 98%. We were able to wean her off of oxygen. Patient is anxious. Pt was admitted and started om Dexamethasone and given Benadryl but her itching is still present. she is not on supplemental oxygen and her appetite is good She will be going home today and follow with PMD in a week - Discharge Data Discharge Date: 09/25/20 Discharge Disposition: Home, Self-Care 01 Condition: Good - Referral to Home Health Primary Care Physician: PCP None - Patient Instructions Diet: Diabetic Diet Activity: As Tolerated Driving: Do Not Drive Showering/Bathing: May Shower Notify Provider of: Fever, Swelling and Redness, Nausea and/or Vomiting Other/Special Instructions: Advise pt to follow up with PMD next week ( week ob 09/29/20) . will give prescription for Hydroxyzine for itching X 10 days if helping then can get more from PMD - Discharge Plan Prescriptions/Med Rec: hydrOXYzine HCL [Atarax] 10 mg PO Q8H #15 tab Home Medications: Home Meds glipiZIDE [Glipizide] 10 mg PO BIDMEALS 07/09/15 [History] Omeprazole 20 mg PO ACBREAKFAST 04/15/16 [History] Albuterol [IJD: Ventolin HFA] 2 puff INH Q6H PRN 05/18/16 [History] carvediloL [Carvedilol] 6.25 mg PO BID 07/23/16 [History] Acetaminophen 1,000 mg PO BID PRN 08/08/17 [History] Albuterol [Proventil Neb Soln] 3 ml NEB Q6H PRN 08/08/17 [History] SitaGLIPtin [Januvia] 50 mg PO BEDTIME 04/11/19 [History] Insulin Detemir [Levemir Flextouch] 10 units SQ BEDTIME 04/30/19 [History] Levothyroxine 137 mcg PO ACBREAKFAST 04/30/19 [History] Pravastatin Sodium 10 mg PO DAILY 04/30/19 [History] Bumetanide 1 mg PO BIDMEALS 06/26/19 [History] B-Complex with Vitamin C [B-Complex Plus Vitamin C] 1 each PO DAILY 02/09/20 [History] Ferrous Sulfate 325 mg PO DAILY 02/09/20 [History] Magnesium Oxide 400 mg PO DAILY 02/09/20 [History] Ondansetron [Zofran] 8 mg PO Q8H PRN 02/09/20 [History] Amoxicillin/Clavulanate K [Augmentin 875-125 MG] 1 tab PO BID 09/23/20 [History] diphenhydrAMINE [Benadryl] 25 mg PO Q6H PRN 09/23/20 [History] predniSONE 40 mg PO WITHBREAKFAST 09/23/20 [History] Budesonide [Pulmicort] 0.5 mg IH BID 09/24/20 [History] Ipratropium [place] 1 spray NASBOTH TID 09/24/20 [History] Prochlorperazine [Compazine] 10 mg PO Q6H PRN 09/24/20 [History] Triamcinolone Acetonide [Triamcinolone Acetonide 0.1% Crm] 1 applic TOP TID PRN 09/24/20 [History] atorvaSTATin [Lipitor] 40 mg PO Q48H 09/24/20 [History] lisinopriL [Lisinopril] 2.5 mg PO DAILY 09/24/20 [History] metFORMIN [Glucophage] 500 mg PO BIDMEALS 09/24/20 [History] hydrOXYzine HCL [Atarax] 10 mg PO Q8H #15 tab 09/25/20 [Rx] Oxygen Therapy Mode: Room Air Patient Handouts: COVID-19 Frequently Asked Questions, Shortness of Breath, Adult, [id number], COVID-19: How to Protect Yourself and Others - CDC, Infection Prevention in the Home, Rash, Adult, [id number], Prevent the Spread of COVID-19 if You Are Sick - CDC Referrals: PCP,None [Primary Care Provider] - - Discharge Summary/Plan Comment DC Time >30 min.: Yes Discharge Summary/Plan Comment: This is 70-year-old female with medical history of diabetes mellitus type 2, COPD, cardiomyopathy with ejection fraction 25%, history of right lung cancer on immunotherapy. The patient presented with cough and shortness of breath which has been going on for the past 1 week. Symptoms worsened and she was diagnosed with COVID-19 pneumonia. Patient was given intravenous monoclonal antibody as outpatient on 09/20/2020. Since then her symptoms also worsened and she developed increasing shortness of breath and rash with itching . She decided to seek medical attention. Initially at presentation oxygen saturation was at 88%. She was placed on oxygen which later improved to 98%. We were able to wean her off of oxygen. Patient is anxious. she will be going home today and advise to follow with PMD Assessment/plan: 1 COVID-19 pneumonia Patient has been coughing and is short of breath, continue Dexamethasone and Patient already received monoclonal antibody. Not a candidate for convalescent plasma 2. Hypoxia Patient was transiently hypoxic No longer needing oxygen 3. Cardiomyopathy Known to have ejection fraction of 25% 4. Right lung cancer On immunotherapy 5. Diabetes mellitus type 2 Patient is on insulin and oral hypoglycemic agents 6. COPD Likely contributing to shortness of breath and continue Nebs 8. Rash with Itching: This is likely from Monoclonal antibody, continue Benadryl and give prescription for Hydroxyzine - General Info Date of Service: 09/25/20 Admission Dx/Problem (Free Text: Admission Diagnosis/Problem Admission Diagnosis/Problem Dyspnea Subjective Update: Pt was seen in room doing well and still has significant itching, appetite is good, No nausea or Vomiting Functional Status: Reports: Pain Controlled, Tolerating Diet, Ambulating, Urinating - Review of Systems General: Reports: Weakness, Appetite (acceptable). Denies: Fever, Chills HEENT: Denies: Headaches, Sinus Congestion, Visual Changes Pulmonary: Denies: Shortness of Breath, Cough, Wheezing Cardiovascular: Denies: Chest Pain, Dyspnea on Exertion, Edema, Lightheadedness Gastrointestinal: Denies: Abdominal Pain, Diarrhea, Melena, Nausea, Vomiting Genitourinary: Denies: Dysuria, Burning, Hematuria, Flank Pain Musculoskeletal: Denies: Neck Pain, Leg Pain, Foot Pain, Joint Pain Skin: Reports: Pruritis, Rash. Denies: Cyanosis, Jaundice, Bruising Neurological: Denies: Confusion, Numbness, Tremors Psychiatric: Denies: Confusion, Anxiety, Agitation - Patient Data Vitals - Most Recent: Last Vital Signs Temp 37.3 C 09/25/20 08:00 Pulse 66 09/25/20 08:36 Resp 18 09/25/20 08:00 BP 164/62 H 09/25/20 08:36 Pulse Ox 94 L 09/25/20 08:00 Weight - Most Recent: 47.174 kg I&O - Last 24 hours: Intake & Output 09/24/20 09/25/20 09/25/20 22:59 06:59 14:59 Intake Total 800 200 240 Balance 800 200 240 Lab Results - Last 24 hrs: Laboratory Results - last 24 hr 09/24/20 09/24/20 09/24/20 Range/Units 07:33 16:49 21:27 POC Glucose 231 H 326 H (83-110) mg/dl Procalcitonin 0.06 ng/mL 09/25/20 Range/Units 08:26 POC Glucose 181 H (83-110) mg/dl Procalcitonin ng/mL PAT Results - Last 24 hrs: Microbiology 09/23/20 19:27 Aerobic Blood Culture - Preliminary Blood - Port-A-Cath NO GROWTH AFTER 1 DAY Anaerobic Blood Culture - Preliminary NO GROWTH AFTER 1 DAY Med Orders - Current: Current Medications Acetaminophen (Tylenol Extra Strength) 500 mg PO Q6H PRN PRN Reason: MILD PAIN(1-3) / FEVER >100.4F Last Admin: 09/25/20 08:40 Dose: 500 mg Documented by: Albuterol (Proventil Hfa) 0 gm INH Q6H PRN PRN Reason: Dyspnea Albuterol (Proventil Neb Soln) 2.5 mg NEB Q6H PRN PRN Reason: Shortness of Breath Bumetanide (Bumex) 1 mg PO BIDMEALS [facility] Last Admin: 09/25/20 08:35 Dose: 1 mg Documented by: Carvedilol (Coreg) 6.25 mg PO BID [facility] Last Admin: 09/25/20 08:36 Dose: 6.25 mg Documented by: Dexamethasone (Decadron) 6 mg IV BEDTIME [facility] Last Admin: 09/24/20 21:21 Dose: 6 mg Documented by: Dextrose/Water (Dextrose 50% In Water) 50 ml IV ASDIRECTED PRN PRN Reason: Hypoglycemia Diphenhydramine HCl (Benadryl) 25 mg IV Q6H PRN PRN Reason: ITCHING Last Admin: 09/25/20 08:42 Dose: 25 mg Documented by: Diphenhydramine HCl (Benadryl) 25 mg PO Q6H PRN PRN Reason: Itching Last Admin: 09/25/20 05:35 Dose: 25 mg Documented by: Enoxaparin Sodium (Lovenox) 30 mg SUBCUT BEDTIME [facility] Last Admin: 09/24/20 21:18 Dose: 30 mg Documented by: Ferrous Sulfate (Ferrous Sulfate) 325 mg PO DAILY [facility] Last Admin: 09/25/20 08:38 Dose: 325 mg Documented by: Glipizide (Glucotrol) 10 mg PO BIDMEALS [facility] Last Admin: 09/25/20 08:35 Dose: 10 mg Documented by: Glucagon (Glucagen) 1 mg IM ASDIRECTED PRN PRN Reason: Hypoglycemia Hydrocortisone (Hydrocortisone 1% Oint) 28 gm TOP Q4H PRN PRN Reason: Itching Azithromycin 500 mg/ Sodium (Chloride) 250 mls @ 250 mls/hr IV Q24H [facility] Last Infusion: 09/25/20 01:29 Dose: Infused Documented by: Ceftriaxone Sodium 1 gm/ (Sodium Chloride) 50 mls @ 100 mls/hr IV Q24H [facility] Last Infusion: 09/25/20 00:15 Dose: Infused Documented by: Insulin Human Lispro (Humalog) 0 unit SUBCUT WITHMEALSANDBED [facility]; Protocol Last Admin: 09/25/20 08:50 Dose: 2 units Documented by: Levothyroxine Sodium (Levothyroxine) 112 mcg PO ACBREAKFAST [facility] Last Admin: 09/25/20 05:35 Dose: 112 mcg Documented by: Levothyroxine Sodium (Levothyroxine) 25 mcg PO ACBREAKFAST [facility] Last Admin: 09/25/20 05:37 Dose: 25 mcg Documented by: Magnesium Oxide (Magnesium Oxide) 500 mg PO DAILY [facility] Last Admin: 09/25/20 08:38 Dose: 500 mg Documented by: Non-Formulary Medication (Insulin Detemir) 8 units SQ BEDTIME [facility] Non-Formulary Medication (Sitagliptin [Januvia]) 50 mg PO BEDTIME [facility] Omeprazole (Omeprazole) 20 mg PO ACBREAKFAST [facility] Last Admin: 09/25/20 05:36 Dose: 20 mg Documented by: Ondansetron HCl (Zofran) 4 mg IV Q6H PRN PRN Reason: VOMITING Pravastatin Sodium (Pravachol) 10 mg PO DAILY [facility] Last Admin: 09/25/20 08:39 Dose: 10 mg Documented by: Discontinued Medications Dexamethasone (Decadron) Confirm Administered Dose 8 mg .ROUTE .STK-MED ONE Stop: 09/23/20 23:10 Last Admin: 09/24/20 03:49 Dose: Not Given Documented by: Prednisone (Prednisone) 40 mg PO ONETIME ONE Stop: 09/24/20 10:46 Last Admin: 09/24/20 10:48 Dose: 40 mg Documented by: - Exam Quality Assessment: Reports: DVT Prophylaxis. Denies: Supplemental Oxygen, Urine Catheter General: Reports: Alert, Oriented, Cooperative, No Acute Distress HEENT: Reports: Pupils Equal, Pupils Reactive, EOMI, Mucous Membr. Moist/[place] Neck: Reports: No JVD, No Thyromegaly. Denies: Lymphadenopathy Lungs: Reports: Clear to Auscultation, Normal Respiratory Effort. Denies: Crackles, Wheezing Cardiovascular: Reports: Regular Rate, Regular Rhythm, No Murmurs GI/Abdominal Exam: Normal Bowel Sounds, No Distention. No: Guarding, Rigid, Rebound, Tender (Female) Exam: Deferred Rectal (Female) Exam: Deferred Back Exam: Reports: Normal Inspection, Full Range of Motion Extremities: Normal Inspection, No Pedal Edema Skin: Reports: Warm, Dry, Intact, Rash Neurological: Reports: No New Focal Deficit Psy/Mental Status: Reports: Alert, Normal Affect, Normal Mood
== END 2020-09-25 13:15 | disposition home or self-care (01) ==
LOC: DL.ED 18:58 → DL.MS 21:28
PROVIDERS: ADMIT Hospitalist; ATTEND Internal Medicine Nephrology
DX: U07.1 COVID-19 (principal); J12.89 Other viral pneumonia; R09.02 Hypoxemia; C34.91 Malignant neoplasm of unspecified part of right bronchus or lung; I13.0 Hypertensive heart and chronic kidney disease with heart failure and stage 1 through stage 4 chronic kidney disease, or unspecified chronic kidney disease; E11.22 Type 2 diabetes mellitus with diabetic chronic kidney disease; J44.9 Chronic obstructive pulmonary disease, unspecified; I42.9 Cardiomyopathy, unspecified; E78.00 Pure hypercholesterolemia, unspecified; I50.9 Heart failure, unspecified; N18.9 Chronic kidney disease, unspecified; E03.9 Hypothyroidism, unspecified; E53.8 Deficiency of other specified B group vitamins; Z88.5 Allergy status to narcotic agent; Z88.8 Allergy status to other drugs, medicaments and biological substances; Z79.84 Long term (current) use of oral hypoglycemic drugs; Z79.899 Other long term (current) drug therapy; Z79.890 Hormone replacement therapy; Z90.49 Acquired absence of other specified parts of digestive tract; Z98.890 Other specified postprocedural states; Z87.891 Personal history of nicotine dependence
CPT/HCPCS: 36415; 70450; 71250; 80053; 82150; 82962; 83605; 83690; 83880; 84145; 84484; 85025; 85379; 85610; 86140; 87040; 96365; 96367; 96372; 96375; 99285-25; A9270-GY; G0378; J0456; J0696; J1100; J1200; J1642; J1650; J1815-GY; J7050; J7512

== ENCOUNTER 2020-10-13 16:16 | Emergency (ER) | payer MEDICARE, MEDICAID | END 2020-10-13 16:27 | disposition left against medical advice (07) | LOC: DL.ED 16:16 | DX: Z53.21 Procedure and treatment not carried out due to patient leaving prior to being seen by health care provider (principal) | CPT/HCPCS: 82962 ==

== ENCOUNTER 2020-11-26 12:07 | Emergency (ER) | payer MEDICARE, MEDICAID ==
[2020-11-26 12:21] VITALS: BP 151/70; PULSE 66
[2020-11-26] MEDS ORDERED: Oxymetazoline 0.05% Nasal Spray 30 ML Bottle NAS ONE (12:47)
--- NOTE | 2020-11-26 13:12 | EDM.PDOC ---
<Jeremy Chen Jo - Last Filed: 11/26/20 13:14> ED HPI GENERAL MEDICAL PROBLEM - General Chief Complaint: General Stated Complaint: NOSEBLEED SINCE SEPTEMBER ON AND OFF Time Seen by Provider: 11/26/20 12:50 Source of Information: Reports: Patient History Limitations: Reports: No Limitations - History of Present Illness INITIAL COMMENTS - FREE TEXT/NARRATIVE: 70 y/o F c/o nose bleed since 9 am this morning. Pt has had nose bleeds off and on since September. She reports she saw ENT in [place] last month and was diagnosed with an infection in her nose and was prescribed Bacitracin which she has been using. Pt is on oxygen 25/04 at 2L for her COPD but it is not humidified. Pt reports no recent trauma to her nose. Pt finished antibiotics on Tuesday for treatment of outpatient PNA. Other hx of HTN, CAD, pacemaker, type II diabetes, R lobe lung cancer and CKD. Denies emery, vision prob, difficulty swallowing, cp, abd pn, difficulty voiding, extremity pain. Onset: Today Duration: Hour(s): Location: Reports: Head Severity: Mild Improves with: Reports: None Worsens with: Reports: None Associated Symptoms: Reports: No Other Symptoms - Related Data Allergies Allergy/AdvReac Type Severity Reaction Status Date / Time codeine Allergy Unknown Cannot Verified 11/26/20 12:22 Remember adhesive tape Allergy Rash Verified 11/26/20 12:22 sacubitril [From Entresto] Allergy Dizziness Verified 11/26/20 12:22 simvastatin [From Zocor] Allergy Muscle Verified 11/26/20 12:22 Aches valsartan [From Entresto] Allergy Dizziness Verified 11/26/20 12:22 metal Allergy Mild Rash Uncoded 11/26/20 12:22 Home Meds: Home Meds glipiZIDE [Glipizide] 10 mg PO BIDMEALS 07/09/15 [History] Omeprazole 20 mg PO ACBREAKFAST 04/15/16 [History] Albuterol [IJD: Ventolin HFA] 2 puff INH Q6H PRN 05/18/16 [History] carvediloL [Carvedilol] 6.25 mg PO BID 07/23/16 [History] Acetaminophen 1,000 mg PO BID PRN 08/08/17 [History] Albuterol [Proventil Neb Soln] 3 ml NEB Q6H PRN 08/08/17 [History] SitaGLIPtin [Januvia] 50 mg PO BEDTIME 04/11/19 [History] Insulin Detemir [Levemir Flextouch] 10 units SQ BEDTIME 04/30/19 [History] Levothyroxine 137 mcg PO ACBREAKFAST 04/30/19 [History] Pravastatin Sodium 10 mg PO DAILY 04/30/19 [History] Bumetanide 1 mg PO BIDMEALS 06/26/19 [History] B-Complex with Vitamin C [B-Complex Plus Vitamin C] 1 each PO DAILY 02/09/20 [History] Ferrous Sulfate 325 mg PO DAILY 02/09/20 [History] Magnesium Oxide 400 mg PO DAILY 02/09/20 [History] Ondansetron [Zofran] 8 mg PO Q8H PRN 02/09/20 [History] Amoxicillin/Clavulanate K [Augmentin 875-125 MG] 1 tab PO BID 09/23/20 [History] diphenhydrAMINE [Benadryl] 25 mg PO Q6H PRN 09/23/20 [History] predniSONE 40 mg PO WITHBREAKFAST 09/23/20 [History] Budesonide [Pulmicort] 0.5 mg IH BID 09/24/20 [History] Ipratropium [place] 1 spray NASBOTH TID 09/24/20 [History] Prochlorperazine [Compazine] 10 mg PO Q6H PRN 09/24/20 [History] Triamcinolone Acetonide [Triamcinolone Acetonide 0.1% Crm] 1 applic TOP TID PRN 09/24/20 [History] atorvaSTATin [Lipitor] 40 mg PO Q48H 09/24/20 [History] lisinopriL [Lisinopril] 2.5 mg PO DAILY 09/24/20 [History] metFORMIN [Glucophage] 500 mg PO BIDMEALS 09/24/20 [History] hydrOXYzine HCL [Atarax] 10 mg PO Q8H #15 tab 09/25/20 [Rx] Past Medical History HEENT History: Reports: Cataract, Impaired Vision, Otitis Media Other HEENT History: wears glasses Cardiovascular History: Reports: Cardiomyopathy, Heart Failure, High Cholesterol, Hypertension, Pacemaker, Other (See Below) Other Cardiovascular History: CARDIAC DIFIBRILLATOR PLACEMENT (2017), NONISCHEMIC CARDIOMYOPATHY Respiratory History: Reports: Bronchitis, Recurrent, COPD, Pneumonia, Recurrent, Other (See Below) Other Respiratory History: Lung CA with recent chemo and radiation Gastrointestinal History: Reports: Cholelithiasis, GERD Genitourinary History: Reports: Renal Disease, UTI, Recurrent, Other (See Below) Other Genitourinary History: CKD DISPLAY CARD WRITER 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 DISPLAY CARD WRITER History: HAS 3 KIDS Musculoskeletal History: Reports: Arthritis, Fracture, Other (See Below) Other Musculoskeletal History: SHOULDER PAIN, BILATERAL Neurological History: Reports: None Psychiatric History: Reports: Addiction Other Psychiatric History: patient states she doesn't know if she was addicted to anything Endocrine/Metabolic History: Reports: Diabetes, Type II, Hypothyroidism Hematologic History: Reports: Anemia, B12 Deficiency, Iron Deficiency Immunologic History: Reports: None Oncologic (Cancer) History: Reports: Lung Dermatologic History: Reports: None - Infectious Disease History Infectious Disease History: Reports: Measles, Novel Coronavirus - Past Surgical History Head Surgeries/Procedures: Reports: None HEENT Surgical History: Reports: Cataract Surgery Cardiovascular Surgical History: Reports: AICD Respiratory Surgical History: Reports: None GI Surgical History: Reports: Appendectomy, Cholecystectomy Female Surgical History: Reports: None Endocrine Surgical History: Reports: None Neurological Surgical History: Reports: None Musculoskeletal Surgical History: Reports: None Social & Family History - Family History Family Medical History: No Pertinent Family History - Tobacco Use Tobacco Use Status *Q: Never Tobacco User Second Hand Smoke Exposure: No - Caffeine Use Caffeine Use: Reports: None Caffeine Use Comment: decaf products - Recreational Drug Use Recreational Drug Use: No - Living Situation & Occupation Living situation: Reports: Alone Occupation: Employed ED ROS GENERAL - Review of Systems Review Of Systems: Comprehensive ROS is negative, except as noted in HPI. ED EXAM, GENERAL - Physical Exam Exam: See Below Exam Limited By: No Limitations General Appearance: Alert, WD/WN, No Apparent Distress Eye Exam: Bilateral Eye: PERRL Ears: Normal External Exam, Normal Canal, Hearing Grossly Normal, Normal TMs Nose: Other (bleeding from the R nare unable to determine exact location of the bleed) Throat/Mouth: Normal Inspection, Normal Lips, Normal Teeth, Normal Gums, Normal Oropharynx, Normal Voice, No Airway Compromise, Other (blood present in posterior oropharnyx likely from nose) Head: Atraumatic, Normocephalic Neck: Normal Inspection, Supple, Non-Tender, Full Range of Motion Respiratory/Chest: No Respiratory Distress, Lungs Clear, Normal Breath Sounds, No Accessory Muscle Use, Chest Non-Tender Cardiovascular: Normal Peripheral Pulses, Regular Rate, Rhythm, No Edema, No Gallop, No JVD, No Murmur, No Rub GI/Abdominal: Normal Bowel Sounds, Soft, Non-Tender, No Organomegaly, No Distention, No Abnormal Bruit, No Mass (Female) Exam: Deferred Rectal (Female) Exam: Deferred Back Exam: Normal Inspection, Full Range of Motion, NT Extremities: Normal Inspection, Normal Range of Motion, Non-Tender, Normal Capillary Refill, No Pedal Edema Neurological: Alert, Oriented, CN II-XII Intact, Normal Cognition, Normal Gait, Normal Reflexes, No Motor/Sensory Deficits Psychiatric: Normal Affect, Normal Mood Skin Exam: Warm, Dry, Intact, Normal Color, No Rash Departure - Departure Time of Disposition: 13:37 Disposition: Home, Self-Care 01 Condition: Good Clinical Impression: Epistaxis - Discharge Information *PRESCRIPTION DRUG MONITORING PROGRAM REVIEWED*: Not Applicable *COPY OF PRESCRIPTION DRUG MONITORING REPORT IN PATIENT VALERIE: Not Applicable Instructions: Nosebleed, [id number] Forms: ED Department Discharge Additional Instructions: Use the Afrin spray one spray in each nostril one time if you have a nose bleed. Continue to use the bacitracin in your nose as was prescribed by your ENT d nimo. Establish care with a primary care provider to obtain a prescription for humidified oxygen as that will help with your nose bleeds. Sepsis Event Note (ED) - Evaluation Sepsis Screening Result: No Definite Risk <Kenneth Casillas M - Last Filed: 11/26/20 13:59> Course - Vital Signs Last Recorded V/S: Last Vital Signs Temp 36.6 C 11/26/20 12:17 Pulse 66 11/26/20 12:17 Resp 16 11/26/20 12:17 BP 151/70 H 11/26/20 12:17 Pulse Ox 92 L 11/26/20 12:17 - Orders/Labs/Meds Meds: Medications Discontinued Medications Generic Name Dose Route Start Last Admin Trade Name Freq PRN Reason Stop Dose Admin Oxymetazoline HCl 1 ml 11/26/20 12:47 11/26/20 12:53 Nasal Decongestant [place] RADHAMES 11/26/20 12:48 2 sprays ONETIME ONE Administration - Re-Assessments/Exams Free Text/Narrative Re-Assessment/Exam: 11/26/20 13:59 I have examined the patient. I have discussed findings and treatment plan with the PA student. I agree with the assessment and plan in the following students note. Sepsis Event Note (ED) - Focused Exam Vital Signs: Vital Signs Temp Pulse Resp BP Pulse Ox 11/26/20 12:17 36.6 C 66 16 151/70 H 92 L
== END 2020-11-26 14:04 | disposition home or self-care (01) ==
LOC: DL.ED 12:07
DX: R04.0 Epistaxis (principal); I13.0 Hypertensive heart and chronic kidney disease with heart failure and stage 1 through stage 4 chronic kidney disease, or unspecified chronic kidney disease; E11.22 Type 2 diabetes mellitus with diabetic chronic kidney disease; N18.9 Chronic kidney disease, unspecified; I50.9 Heart failure, unspecified; E78.00 Pure hypercholesterolemia, unspecified; J44.9 Chronic obstructive pulmonary disease, unspecified; K21.9 Gastro-esophageal reflux disease without esophagitis; E03.9 Hypothyroidism, unspecified; Z86.16 Personal history of COVID-19; Z88.5 Allergy status to narcotic agent; Z91.048 Other nonmedicinal substance allergy status; Z88.8 Allergy status to other drugs, medicaments and biological substances; Z79.899 Other long term (current) drug therapy; Z79.4 Long term (current) use of insulin
CPT/HCPCS: 99283; A9270

== ENCOUNTER 2020-11-27 15:20 | Emergency (ER) | payer MEDICARE, MEDICAID ==
[2020-11-27 15:20] VITALS: BP 141/56; PULSE 63
--- NOTE | 2020-11-27 16:20 | CR ---
EXAMINATION: Chest 2V SEX: Female AGE: 70 years CLINICAL HISTORY: 70-year-old female with history COPD and right lateral chest wall mass ("lung cancer"). Comparison CXR's 21 April/August, and more recent CT chest 05 November 2020 now experiencing Short of breath (SOB). Interpretation: 1. Lateral chest wall mass as noted on recent CT September 21, 2020/November 2020 (smaller than on 09 August 2020). 2. Patchy ipsilateral RLL atelectasis. 3. Cardiomegaly. Cardiac pacemaker. 4. No pulmonary vascular congestion, cephalization of flow, alveolar edema or dependent new pleural fluid accumulation. 5. No new lung mass or focal lobar alveolar consolidation. No peripheral "groundglass" interstitial lung densities. 6. No pneumothorax or pneumomediastinum. CONCLUSION: No acute cardiopulmonary abnormality. Evidence of COPD and right lung malignancy.
--- NOTE | 2020-11-27 16:40 | EDM.PDOC ---
ED HPI GENERAL MEDICAL PROBLEM - General Chief Complaint: Respiratory Problem Stated Complaint: CAME BY CLINIC Time Seen by Provider: 11/27/20 15:50 Source of Information: Reports: Patient History Limitations: Reports: No Limitations - History of Present Illness INITIAL COMMENTS - FREE TEXT/NARRATIVE: This 70 yo female patient was sent directly to the ED from the [facility] due to shortness of breath. The patient arrived to the ED with her nasal cannula on, but no oxygen running to the cannula. The patient reports she was feeling short of breath, but normally feels short of breath. Once the patient's oxygen was started at 2 lpm, the patient's oxygen level went up to 99-100% and the patient reports she was feeling normal. Onset: Unknown/Unsure Duration: Chronic Location: 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 Quality: 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 Severity: Mild Improves with: Reports: None Worsens with: Reports: None - Related Data Allergies Allergy/AdvReac Type Severity Reaction Status Date / Time codeine Allergy Unknown Cannot Verified 11/26/20 12:22 Remember adhesive tape Allergy Rash Verified 11/26/20 12:22 sacubitril [From Entresto] Allergy Dizziness Verified 11/26/20 12:22 simvastatin [From Zocor] Allergy Muscle Verified 11/26/20 12:22 Aches valsartan [From Entresto] Allergy Dizziness Verified 11/26/20 12:22 metal Allergy Mild Rash Uncoded 11/26/20 12:22 Home Meds: Home Meds glipiZIDE [Glipizide] 10 mg PO BIDMEALS 07/09/15 [History] Omeprazole 20 mg PO ACBREAKFAST 04/15/16 [History] Albuterol [IJD: Ventolin HFA] 2 puff INH Q6H PRN 05/18/16 [History] carvediloL [Carvedilol] 6.25 mg PO BID 07/23/16 [History] Acetaminophen 1,000 mg PO BID PRN 08/08/17 [History] Albuterol [Proventil Neb Soln] 3 ml NEB Q6H PRN 08/08/17 [History] SitaGLIPtin [Januvia] 50 mg PO BEDTIME 04/11/19 [History] Insulin Detemir [Levemir Flextouch] 10 units SQ BEDTIME 04/30/19 [History] Levothyroxine 137 mcg PO ACBREAKFAST 04/30/19 [History] Pravastatin Sodium 10 mg PO DAILY 04/30/19 [History] Bumetanide 1 mg PO BIDMEALS 06/26/19 [History] B-Complex with Vitamin C [B-Complex Plus Vitamin C] 1 each PO DAILY 02/09/20 [History] Ferrous Sulfate 325 mg PO DAILY 02/09/20 [History] Magnesium Oxide 400 mg PO DAILY 02/09/20 [History] Ondansetron [Zofran] 8 mg PO Q8H PRN 02/09/20 [History] Amoxicillin/Clavulanate K [Augmentin 875-125 MG] 1 tab PO BID 09/23/20 [History] diphenhydrAMINE [Benadryl] 25 mg PO Q6H PRN 09/23/20 [History] predniSONE 40 mg PO WITHBREAKFAST 09/23/20 [History] Budesonide [Pulmicort] 0.5 mg IH BID 09/24/20 [History] Ipratropium [place] 1 spray NASBOTH TID 09/24/20 [History] Prochlorperazine [Compazine] 10 mg PO Q6H PRN 09/24/20 [History] Triamcinolone Acetonide [Triamcinolone Acetonide 0.1% Crm] 1 applic TOP TID PRN 09/24/20 [History] atorvaSTATin [Lipitor] 40 mg PO Q48H 09/24/20 [History] lisinopriL [Lisinopril] 2.5 mg PO DAILY 09/24/20 [History] metFORMIN [Glucophage] 500 mg PO BIDMEALS 09/24/20 [History] hydrOXYzine HCL [Atarax] 10 mg PO Q8H #15 tab 09/25/20 [Rx] Past Medical History HEENT History: Reports: Cataract, Impaired Vision, Otitis Media Other HEENT History: wears glasses Cardiovascular History: Reports: Cardiomyopathy, Heart Failure, High Cholesterol, Hypertension, Pacemaker, Other (See Below) Other Cardiovascular History: CARDIAC DIFIBRILLATOR PLACEMENT (2017), NONISCHEMIC CARDIOMYOPATHY Respiratory History: Reports: Bronchitis, Recurrent, COPD, Pneumonia, Recurrent, Other (See Below) Other Respiratory History: Lung CA with recent chemo and radiation Gastrointestinal History: Reports: Cholelithiasis, GERD Genitourinary History: Reports: Renal Disease, UTI, Recurrent, Other (See Below) Other Genitourinary History: CKD 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 Musculoskeletal History: Reports: Arthritis, Fracture, Other (See Below) Other Musculoskeletal History: SHOULDER PAIN, BILATERAL Neurological History: Reports: None Psychiatric History: Reports: Addiction Other Psychiatric History: patient states she doesn't know if she was addicted to anything Endocrine/Metabolic History: Reports: Diabetes, Type II, Hypothyroidism Hematologic History: Reports: Anemia, B12 Deficiency, Iron Deficiency Immunologic History: Reports: None Oncologic (Cancer) History: Reports: Lung Dermatologic History: Reports: None - Infectious Disease History Infectious Disease History: Reports: Measles, Novel Coronavirus - Past Surgical History Head Surgeries/Procedures: Reports: None HEENT Surgical History: Reports: Cataract Surgery Cardiovascular Surgical History: Reports: AICD Respiratory Surgical History: Reports: None GI Surgical History: Reports: Appendectomy, Cholecystectomy Female Surgical History: Reports: None Endocrine Surgical History: Reports: None Neurological Surgical History: Reports: None Musculoskeletal Surgical History: Reports: None Social & Family History - Family History Family Medical History: No Pertinent Family History - Tobacco Use Tobacco Use Status *Q: Never Tobacco User Second Hand Smoke Exposure: No - Caffeine Use Caffeine Use: Reports: None Caffeine Use Comment: decaf products - Recreational Drug Use Recreational Drug Use: No - Living Situation & Occupation Living situation: Reports: Alone Occupation: Employed ED ROS GENERAL - Review of Systems Review Of Systems: Comprehensive ROS is negative, except as noted in HPI. ED EXAM, GENERAL - Physical Exam Exam: See Below Exam Limited By: No Limitations General Appearance: Alert, WD/WN, No Apparent Distress Eye Exam: Bilateral Eye: EOMI, Normal Inspection, PERRL Ears: Normal External Exam, Normal Canal, Hearing Grossly Normal, Normal TMs Nose: Normal Inspection, Normal Mucosa, No Blood Throat/Mouth: Normal Inspection, Normal Lips, Normal Teeth, Normal Gums, Normal Oropharynx, Normal Voice, No Airway Compromise Head: Atraumatic, Normocephalic Neck: Normal Inspection, Supple, Non-Tender, Full Range of Motion Respiratory/Chest: Decreased Breath Sounds, Rhonchi (right side) Cardiovascular: Normal Peripheral Pulses, Regular Rate, Rhythm, No Edema, No Ga llop, No JVD, No Murmur, No Rub GI/Abdominal: Normal Bowel Sounds, Soft, Non-Tender, No Organomegaly, No Distention, No Abnormal Bruit, No Mass (Female) Exam: Deferred Rectal (Female) Exam: Deferred Back Exam: Normal Inspection, Full Range of Motion, NT Extremities: Normal Inspection, Normal Range of Motion, Non-Tender, Normal Capillary Refill, No Pedal Edema Neurological: Alert, Oriented, CN II-XII Intact, Normal Cognition, Normal Gait, Normal Reflexes, No Motor/Sensory Deficits Psychiatric: Normal Affect, Normal Mood Skin Exam: Warm, Dry, Intact, Normal Color, No Rash Lymphatic: No Adenopathy Course - Vital Signs Last Recorded V/S: Last Vital Signs Temp 36.8 C 11/27/20 15:10 Pulse 63 11/27/20 15:10 Resp 18 11/27/20 15:10 BP 141/56 H 11/27/20 15:10 Pulse Ox 99 11/27/20 15:10 - Orders/Labs/Meds Orders: Active Orders 24 hr Category Date Time Status CULTURE BLOOD [BC] Stat Lab 11/27/20 16:03 Received Labs: Laboratory Tests 11/27/20 11/27/20 11/27/20 Range/Units 16:03 16:03 16:03 WBC 5.8 (5.0-10.0) 10^3/uL RBC 3.51 L (4.2-5.4) 10^6/uL Hgb 11.6 L D (12.0-16.0) g/dL Hct 33.9 L (37.0-47.0) % MCV 96.6 (80-100) fL MCH 33.0 (27.0-34.0) pg MCHC 34.2 (33.0-35.0) g/dL Plt Count 144 L (150-450) 10^3/uL Neut % (Auto) 77.7 H (42.2-75.2) % Lymph % (Auto) 13.2 L (20.5-50.1) % [place] % (Auto) 5.3 (2-8) % Eos % (Auto) 3.6 H (1.0-3.0) % Baso % (Auto) 0.2 (0.0-1.0) % Sodium 136 (136-145) mmol/L Potassium 4.5 (3.5-5.1) mmol/L Chloride 101 (98-107) mmol/L Carbon Dioxide 24 (21-32) mmol/L Anion Gap 15.5 H (7-13) mEq/L BUN 33 H (7-18) mg/dL Creatinine 1.04 H (0.55-1.02) mg/dL Est Cr Clr Drug Dosing 38.46 mL/min Estimated GFR (MDRD) 52 BUN/Creatinine Ratio 31.7 (No establ ref range) Glucose 132 H (74-99) mg/dL Lactic Acid 0.5 (0.4-2.0) mmol/L Calcium 9.4 (8.5-10.1) mg/dL Total Bilirubin 0.3 (0.2-1.0) mg/dL AST 23 (15-37) U/L ALT 24 (14-59) U/L Alkaline Phosphatase 214 H (46-116) U/L Total Protein 8.0 (6.4-8.2) g/dL Albumin 3.1 L (3.4-5.0) g/dL Globulin 4.9 Albumin/Globulin Ratio 0.63 Departure - Departure Time of Disposition: 16:35 Disposition: Home, Self-Care 01 Condition: Fair Clinical Impression: Shortness of breath, COPD exacerbation - Discharge Information *PRESCRIPTION DRUG MONITORING PROGRAM REVIEWED*: Not Applicable *COPY OF PRESCRIPTION DRUG MONITORING REPORT IN PATIENT VALERIE: Not Applicable Instructions: Chronic Obstructive Pulmonary Disease, [id number] Forms: ED Department Discharge Care Plan Goals: The patient was advised of the examination, lab and x-ray results during the visit. The patient was encouraged to continue to take her medications as prescribed and use her oxygen as needed. If the patient has any additional symptoms or concerns, the patient should either return to the emergency department or visit her primary care facility. Sepsis Event Note (ED) - Evaluation Sepsis Screening Result: No Definite Risk - Focused Exam Vital Signs: Vital Signs Temp Pulse Resp BP Pulse Ox 11/27/20 15:10 36.8 C 63 18 141/56 H 99 - My Orders Last 24 Hours: My Active Orders 11/27/20 16:03 CULTURE BLOOD [BC] Stat - Assessment/Plan Last 24 Hours: My Active Orders 11/27/20 16:03 CULTURE BLOOD [BC] Stat
[2020-11-27 16:42] LABS: ANION GAP 15.5 mEq/L (7-13)
== END 2020-11-27 16:50 | disposition home or self-care (01) ==
LOC: DL.ED 15:20
DX: J44.1 Chronic obstructive pulmonary disease with (acute) exacerbation (principal); I13.0 Hypertensive heart and chronic kidney disease with heart failure and stage 1 through stage 4 chronic kidney disease, or unspecified chronic kidney disease; E11.22 Type 2 diabetes mellitus with diabetic chronic kidney disease; N18.9 Chronic kidney disease, unspecified; I50.9 Heart failure, unspecified; D63.1 Anemia in chronic kidney disease; E78.00 Pure hypercholesterolemia, unspecified; K21.9 Gastro-esophageal reflux disease without esophagitis; E03.9 Hypothyroidism, unspecified; Z88.8 Allergy status to other drugs, medicaments and biological substances; Z91.048 Other nonmedicinal substance allergy status; Z88.5 Allergy status to narcotic agent; Z79.4 Long term (current) use of insulin; Z79.899 Other long term (current) drug therapy
CPT/HCPCS: 36415; 71046; 80053; 83605; 85025; 87040; 99283; 99285-25

== ENCOUNTER 2020-12-02 10:24 | Emergency (ER) | payer MEDICARE, MEDICAID ==
[2020-12-02 11:06] VITALS: BP 111/61; PULSE 60
[2020-12-02] MEDS ORDERED: Oxymetazoline 0.05% Nasal Spray 30 ML Bottle NAS ONE (11:08)
--- NOTE | 2020-12-02 11:23 | EDM.PDOC ---
ED HPI GENERAL MEDICAL PROBLEM - General Stated Complaint: NOSE BLEED SINCE 8AM Time Seen by Provider: 12/02/20 11:05 Source of Information: Reports: Patient History Limitations: Reports: No Limitations - History of Present Illness INITIAL COMMENTS - FREE TEXT/NARRATIVE: This 70 yo female patient reports to the ED due to a nose bleed. The patient reports her symptoms started this morning. The patient reports she has been having intermittent symptoms for the past 2 months. The patient has been seen by ENT and advised to place Bacitracin in her nose daily. The patient was also encouraged to speak with her primary care facility about getting humidified oxygen. Onset: Today Duration: Intermittent Location: Reports: Face Quality: 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 Severity: Mild Improves with: Reports: None Worsens with: Reports: None Context: 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 - Related Data Allergies Allergy/AdvReac Type Severity Reaction Status Date / Time codeine Allergy Unknown Cannot Verified 12/02/20 11:02 Remember adhesive tape Allergy Rash Verified 12/02/20 11:02 sacubitril [From Entresto] Allergy Dizziness Verified 12/02/20 11:02 simvastatin [From Zocor] Allergy Muscle Verified 12/02/20 11:02 Aches valsartan [From Entresto] Allergy Dizziness Verified 12/02/20 11:02 metal Allergy Mild Rash Uncoded 12/02/20 11:02 Home Meds: Home Meds glipiZIDE [Glipizide] 10 mg PO BIDMEALS 07/09/15 [History] Omeprazole 20 mg PO ACBREAKFAST 04/15/16 [History] Albuterol [IJD: Ventolin HFA] 2 puff INH Q6H PRN 05/18/16 [History] carvediloL [Carvedilol] 6.25 mg PO BID 07/23/16 [History] Acetaminophen 1,000 mg PO BID PRN 08/08/17 [History] Albuterol [Proventil Neb Soln] 3 ml NEB Q6H PRN 08/08/17 [History] SitaGLIPtin [Januvia] 50 mg PO BEDTIME 04/11/19 [History] Insulin Detemir [Levemir Flextouch] 10 units SQ BEDTIME 04/30/19 [History] Levothyroxine 137 mcg PO ACBREAKFAST 04/30/19 [History] Pravastatin Sodium 10 mg PO DAILY 04/30/19 [History] Bumetanide 1 mg PO BIDMEALS 06/26/19 [History] B-Complex with Vitamin C [B-Complex Plus Vitamin C] 1 each PO DAILY 02/09/20 [History] Ferrous Sulfate 325 mg PO DAILY 02/09/20 [History] Magnesium Oxide 400 mg PO DAILY 02/09/20 [History] Ondansetron [Zofran] 8 mg PO Q8H PRN 02/09/20 [History] Amoxicillin/Clavulanate K [Augmentin 875-125 MG] 1 tab PO BID 09/23/20 [History] diphenhydrAMINE [Benadryl] 25 mg PO Q6H PRN 09/23/20 [History] predniSONE 40 mg PO WITHBREAKFAST 09/23/20 [History] Budesonide [Pulmicort] 0.5 mg IH BID 09/24/20 [History] Ipratropium [place] 1 spray NASBOTH TID 09/24/20 [History] Prochlorperazine [Compazine] 10 mg PO Q6H PRN 09/24/20 [History] Triamcinolone Acetonide [Triamcinolone Acetonide 0.1% Crm] 1 applic TOP TID PRN 09/24/20 [History] atorvaSTATin [Lipitor] 40 mg PO Q48H 09/24/20 [History] lisinopriL [Lisinopril] 2.5 mg PO DAILY 09/24/20 [History] metFORMIN [Glucophage] 500 mg PO BIDMEALS 09/24/20 [History] hydrOXYzine HCL [Atarax] 10 mg PO Q8H #15 tab 09/25/20 [Rx] Past Medical History HEENT History: Reports: Cataract, Impaired Vision, Otitis Media Other HEENT History: wears glasses Cardiovascular History: Reports: Cardiomyopathy, Heart Failure, High Cholesterol, Hypertension, Pacemaker, Other (See Below) Other Cardiovascular History: CARDIAC DIFIBRILLATOR PLACEMENT (2017), NONISCHEMIC CARDIOMYOPATHY Respiratory History: Reports: Bronchitis, Recurrent, COPD, Pneumonia, Recurrent, Other (See Below) Other Respiratory History: Lung CA with recent chemo and radiation Gastrointestinal History: Reports: Cholelithiasis, GERD Genitourinary History: Reports: Renal Disease, UTI, Recurrent, Other (See Below) Other Genitourinary History: CKD 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 Musculoskeletal History: Reports: Arthritis, Fracture, Other (See Below) Other Musculoskeletal History: SHOULDER PAIN, BILATERAL Neurological History: Reports: None Psychiatric History: Reports: Addiction Other Psychiatric History: patient states she doesn't know if she was addicted to anything Endocrine/Metabolic History: Reports: Diabetes, Type II, Hypothyroidism Hematologic History: Reports: Anemia, B12 Deficiency, Iron Deficiency Immunologic History: Reports: None Oncologic (Cancer) History: Reports: Lung Dermatologic History: Reports: None - Infectious Disease History Infectious Disease History: Reports: Measles, Novel Coronavirus - Past Surgical History Head Surgeries/Procedures: Reports: None HEENT Surgical History: Reports: Cataract Surgery Cardiovascular Surgical History: Reports: AICD Respiratory Surgical History: Reports: None GI Surgical History: Reports: Appendectomy, Cholecystectomy Female Surgical History: Reports: None Endocrine Surgical History: Reports: None Neurological Surgical History: Reports: None Musculoskeletal Surgical History: Reports: None Social & Family History - Family History Family Medical History: No Pertinent Family History - Caffeine Use Caffeine Use: Reports: Coffee Caffeine Use Comment: decaf products - Recreational Drug Use Recreational Drug Use: No - Living Situation & Occupation Living situation: Reports: Alone Occupation: Employed ED ROS ENT - Review of Systems Review Of Systems: Comprehensive ROS is negative, except as noted in HPI. ED EXAM, ENT - Physical Exam Exam: See Below Exam Limited By: No Limitations General Appearance: Alert, WD/WN, No Apparent Distress Eye Exam: Bilateral Eye: EOMI, Normal Inspection, PERRL Ears: Normal External Exam, Normal Canal, Hearing Grossly Normal, Normal TMs Nose: Active Bleeding (left nare) Mouth/Throat: Normal Inspection, Normal Gums, Normal Lips, Normal Oropharynx, Normal Teeth Head: Atraumatic, Normocephalic Neck: Normal Inspection, Supple, Non-Tender, Full Range of Motion Respiratory/Chest: No Respiratory Distress, Lungs Clear, Normal Breath Sounds, No Accessory Muscle Use, Chest Non-Tender Cardiovascular: Normal Peripheral Pulses, Regular Rate, Rhythm, No Edema, No Gallop, No JVD, No Murmur, No Rub GI/Abdominal: Normal Bowel Sounds, Soft, Non-Tender, No Organomegaly, No Distention, No Abnormal Bruit, No Mass (Female) Exam: Deferred Rectal (Female) Exam: Deferred Back: Normal Inspection, Full Range of Motion Extremities: Normal Inspection, Normal Range of Motion, Non-Tender, No Pedal Edema, Normal Capillary Refill Neurological: Alert, Oriented, CN II-XII Intact, Normal Cognition, Normal Gait, Normal Reflexes, No Motor/Sensory Deficits Psychiatric: Normal Affect, Normal Mood Skin: Warm, Dry, Intact, Normal Color, No Rash Lymphatic: No Adenopathy Course - Vital Signs Last Recorded V/S: Last Vital Signs Temp 36.6 C 12/02/20 11:04 Pulse 60 12/02/20 11:04 Resp 16 12/02/20 11:04 BP 111/61 12/02/20 11:04 Pulse Ox 91 L 12/02/20 11:04 - Orders/Labs/Meds Meds: Medications Discontinued Medications Generic Name Dose Route Start Last Admin Trade Name Linh PRN Reason Stop Dose Admin Oxymetazoline HCl 1 ml 12/02/20 11:08 Nasal Decongestant [place] RADHAMES 12/02/20 11:09 ONETIME ONE Departure - Departure Time of Disposition: 11:28 Disposition: Home, Self-Care 01 Condition: Fair Clinical Impression: Epistaxis - Discharge Information *PRESCRIPTION DRUG MONITORING PROGRAM REVIEWED*: Not Applicable *COPY OF PRESCRIPTION DRUG MONITORING REPORT IN PATIENT VALERIE: Not Applicable Instructions: Nosebleed, [id number] Forms: ED Department Discharge Care Plan Goals: The patient was advised of the examination results during the visit. The patient's nose was sprayed with Afrin while in the ED with no further bleeding. The patient was encouraged to speak to her primary care provider about getting humidified oxygen. If the patient has any additional symptoms or concerns, the patient should either return to the emergency department or visit her primary care facility. Sepsis Event Note (ED) - Evaluation Sepsis Screening Result: No Definite Risk - Focused Exam Vital Signs: Vital Signs Temp Pulse Resp BP Pulse Ox 12/02/20 11:04 36.6 C 60 16 111/61 91 L
== END 2020-12-02 11:33 | disposition home or self-care (01) ==
LOC: DL.ED 10:24
DX: R04.0 Epistaxis (principal); E78.00 Pure hypercholesterolemia, unspecified; I13.0 Hypertensive heart and chronic kidney disease with heart failure and stage 1 through stage 4 chronic kidney disease, or unspecified chronic kidney disease; I50.9 Heart failure, unspecified; N18.9 Chronic kidney disease, unspecified; E11.22 Type 2 diabetes mellitus with diabetic chronic kidney disease; J44.9 Chronic obstructive pulmonary disease, unspecified; K21.9 Gastro-esophageal reflux disease without esophagitis; E03.9 Hypothyroidism, unspecified; Z79.899 Other long term (current) drug therapy; Z88.5 Allergy status to narcotic agent; Z91.048 Other nonmedicinal substance allergy status; Z88.8 Allergy status to other drugs, medicaments and biological substances; Z79.4 Long term (current) use of insulin
CPT/HCPCS: 99283; A9270

== ENCOUNTER 2021-01-06 19:02 | Emergency (ER) | payer MEDICARE, MEDICAID ==
[2021-01-06 19:18] VITALS: BP 163/66; PULSE 74
[2021-01-06 20:07] LABS: ANION GAP 14.3 mEq/L (7-13); CHLORIDE,CL 101 mmol/L (98-107); SODIUM,NA 137 mmol/L (136-145)
[2021-01-06] MEDS ORDERED: Azithromycin 250 MG Tab PO ONE (20:34)
[2021-01-06] MEDS ORDERED: predniSONE 20 MG Tab PO ONE (20:37)
--- NOTE | 2021-01-06 20:42 | EDM.PDOC ---
ED HPI GENERAL MEDICAL PROBLEM - General Chief Complaint: Respiratory Problem Stated Complaint: AMBULANCE Time Seen by Provider: 01/06/21 19:20 Source of Information: Reports: Patient, EMS, EMS Notes Reviewed, RN, RN Notes Reviewed History Limitations: Reports: No Limitations - History of Present Illness INITIAL COMMENTS - FREE TEXT/NARRATIVE: Pt is a 70 year old female who presents to ER per [facility] with c/o SOB. She states over the past week her breathing has become more difficult. Patient has a history of COPD, and lung cancer. Patient had COVID-19 in September, and has not yet been vaccinated. Patient states she has been coughing up yellow/green colored phlegm. Patient denies fever, admits to chills from time to time. State she uses O2 at home at night, and has been needing the oxygen during the day as well. Denies N/V/D. States she has some chest pains with cough and inspiration. States she has been using Tylenol for this and it has been helping. Onset: Gradual - Related Data Allergies Allergy/AdvReac Type Severity Reaction Status Date / Time codeine Allergy Unknown Cannot Verified 01/06/21 19:14 Remember adhesive tape Allergy Rash Verified 01/06/21 19:14 carboplatin Allergy Shortness Verified 01/06/21 19:14 of Breath sacubitril [From Entresto] Allergy Dizziness Verified 01/06/21 19:14 simvastatin [From Zocor] Allergy Muscle Verified 01/06/21 19:14 Aches valsartan [From Entresto] Allergy Dizziness Verified 01/06/21 19:14 metal Allergy Mild Rash Uncoded 01/06/21 19:14 Home Meds: Home Meds Albuterol [Ventolin HFA] 2 puff INH Q6H PRN 01/06/21 [History] Alendronate Sodium [Fosamax] 70 mg PO ASDIRECTED 01/06/21 [History] Aspirin [Aspirin EC] 81 mg PO DAILY 01/06/21 [History] Budesonide [Pulmicort] 0.5 mg INH BID 01/06/21 [History] Bumetanide 1 mg PO Q48H 01/06/21 [History] Calcium Carbonate/Vitamin D3 [Calcium 600-Vit D3 400 Tablet] 1 tab PO BID 01/06/21 [History] Cholecalciferol (Vitamin D3) [Vitamin D3] 2,000 unit PO DAILY 01/06/21 [History] Cyanocobalamin (Vitamin B-12) [Cyanocobalamin Injection] 1,000 mcg IM ASDIRECTED 01/06/21 [History] Ferrous Sulfate [Iron] 325 mg PO DAILY 01/06/21 [History] Folic Acid 1 mg PO DAILY 01/06/21 [History] Formoterol [Perforomist] 20 mcg INH BID 01/06/21 [History] Insulin Detemir [Levemir Flextouch] 10 unit SQ BEDTIME 01/06/21 [History] Ipratropium [place] 2 sprays NS TID 01/06/21 [History] Ipratropium/Albuterol Sulfate [Iprat-Albut 0.5-3(2.5) MG/3 ML] 1 ampule NEB Q6H PRN 01/06/21 [History] Levothyroxine Sodium [Levothyroxine] 137 mcg PO ACBREAKFAST 01/06/21 [History] Magnesium Oxide [Magnesium] 400 mg PO DAILY 01/06/21 [History] Omeprazole 20 mg PO DAILY 01/06/21 [History] Ondansetron [Zofran] 8 mg PO Q8H PRN 01/06/21 [History] Prochlorperazine [Compazine] 10 mg PO Q6H PRN 01/06/21 [History] Sennosides/Docusate Sodium [Senna-Docusate Sodium Tablet] 1 tab PO BID 01/06/21 [History] Triamcinolone Acetonide [Triamcinolone Acetonide 0.1% Crm] 1 applic TOP DAILY 01/06/21 [History] amLODIPine [Norvasc] 5 mg PO DAILY 01/06/21 [History] atorvaSTATin [Lipitor] 40 mg PO Q48H 01/06/21 [History] carvediloL [Carvedilol] 6.25 mg PO BID 01/06/21 [History] glipiZIDE [Glipizide ER] 10 mg PO BID 01/06/21 [History] hydrOXYzine HCL [Atarax] 25 mg PO Q8H PRN 01/06/21 [History] lisinopriL [Lisinopril] 2.5 mg PO DAILY 01/06/21 [History] sitaGLIPtin Phosphate [Januvia] 50 mg PO DAILY 01/06/21 [History] Past Medical History HEENT History: Reports: Cataract, Impaired Vision, Otitis Media Other HEENT History: wears glasses Cardiovascular History: Reports: Cardiomyopathy, Heart Failure, High Cholesterol, Hypertension, Pacemaker, Other (See Below) Other Cardiovascular History: CARDIAC DIFIBRILLATOR PLACEMENT (2017), NONISCHEMIC CARDIOMYOPATHY Respiratory History: Reports: Bronchitis, Recurrent, COPD, Pneumonia, Recurrent, Other (See Below) Other Respiratory History: Lung CA with recent chemo and radiation Gastrointestinal History: Reports: Cholelithiasis, GERD Genitourinary History: Reports: Renal Disease, UTI, Recurrent, Other (See Below) Other Genitourinary History: CKD 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 PACKER 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 SPONGE PACKER History: HAS 3 KIDS Musculoskeletal History: Reports: Arthritis, Fracture, Other (See Below) Other Musculoskeletal History: SHOULDER PAIN, BILATERAL Neurological History: Reports: None Psychiatric History: Reports: Addiction Other Psychiatric History: patient states she doesn't know if she was addicted to anything Endocrine/Metabolic History: Reports: Diabetes, Type II, Hypothyroidism Hematologic History: Reports: Anemia, B12 Deficiency, Iron Deficiency Immunologic History: Reports: None Oncologic (Cancer) History: Reports: Lung Dermatologic History: Reports: None - Infectious Disease History Infectious Disease History: Reports: Measles, Novel Coronavirus - Past Surgical History Head Surgeries/Procedures: Reports: None HEENT Surgical History: Reports: Cataract Surgery Cardiovascular Surgical History: Reports: AICD Respiratory Surgical History: Reports: None GI Surgical History: Reports: Appendectomy, Cholecystectomy Female Surgical History: Reports: None Endocrine Surgical History: Reports: None Neurological Surgical History: Reports: None Musculoskeletal Surgical History: Reports: None Social & Family History - Family History Family Medical History: No Pertinent Family History - Tobacco Use Tobacco Use Status *Q: Former Tobacco User Used Tobacco, but Quit: Yes Month/Year Tobacco Last Used: 0 - Caffeine Use Caffeine Use: Reports: None Caffeine Use Comment: decaf products - Recreational Drug Use Recreational Drug Use: No - Living Situation & Occupation Living situation: Reports: Alone Occupation: Employed ED ROS GENERAL - Review of Systems Review Of Systems: Comprehensive ROS is negative, except as noted in HPI. ED EXAM, GENERAL - Physical Exam Exam: See Below Exam Limited By: No Limitations General Appearance: Alert, WD/WN, No Apparent Distress Eye Exam: Bilateral Eye: EOMI, Normal Inspection Ears: Normal External Exam, Hearing Grossly Normal Nose: Normal Inspection Throat/Mouth: Normal Inspection, Normal Voice, No Airway Compromise Head: Atraumatic, Normocephalic Neck: Normal Inspection, Supple, Non-Tender, Full Range of Motion Respiratory/Chest: No Respiratory Distress, Decreased Breath Sounds, Crackles, Rhonchi, Wheezing Cardiovascular: Normal Peripheral Pulses, Regular Rate, Rhythm, No Edema, No Gallop, No JVD, No Murmur, No Rub Peripheral Pulses: 2+: Radial (L), Radial (R) GI/Abdominal: Normal Bowel Sounds, Soft, Non-Tender (Female) Exam: Deferred Rectal (Female) Exam: Deferred Back Exam: Normal Inspection, Full Range of Motion, NT Extremities: Normal Inspection, Normal Range of Motion, Non-Tender, Normal Capillary Refill, No Pedal Edema Neurological: Alert, Oriented, CN II-XII Intact, Normal Cognition, Normal Gait, Normal Reflexes, No Motor/Sensory Deficits Psychiatric: Normal Affect, Normal Mood Skin Exam: Warm, Dry, Intact, Normal Color, No Rash Lymphatic: No Adenopathy Course - Vital Signs Last Recorded V/S: Last Vital Signs Temp 98.1 F 01/06/21 19:14 Pulse 74 01/06/21 19:14 Resp 20 01/06/21 19:14 BP 163/66 H 01/06/21 19:14 Pulse Ox 95 01/06/21 19:14 - Orders/Labs/Meds Orders: Active Orders 24 hr Category Date Time Status Central Line Assessment [RC] ASDIRECTED Care 01/06/21 19:52 Active Labs: Laboratory Tests 01/06/21 01/06/21 01/06/21 Range/Units 19:37 19:37 19:37 WBC 7.6 (5.0-10.0) 10^3/uL RBC 3.38 L (4.2-5.4) 10^6/uL Hgb 10.5 L (12.0-16.0) g/dL Hct 32.1 L (37.0-47.0) % MCV 95.0 (80-100) fL MCH 31.1 (27.0-34.0) pg MCHC 32.7 L (33.0-35.0) g/dL Plt Count 178 (150-450) 10^3/uL Neut % (Auto) 73.5 (42.2-75.2) % Lymph % (Auto) 12.7 L (20.5-50.1) % Floyd % (Auto) 6.8 (2-8) % Eos % (Auto) 7.0 H (1.0-3.0) % Baso % (Auto) 0.0 (0.0-1.0) % Sodium 137 (136-145) mmol/L Potassium 4.3 (3.5-5.1) mmol/L Chloride 101 (98-107) mmol/L Carbon Dioxide 26 (21-32) mmol/L Anion Gap 14.3 H (7-13) mEq/L BUN 38 H (7-18) mg/dL Creatinine 1.62 H (0.55-1.02) mg/dL Est Cr Clr Drug Dosing TNP Estimated GFR (MDRD) 31 BUN/Creatinine Ratio 23.5 (No establ ref range) Glucose 102 H (70-99) mg/dL Lactic Acid 0.4 (0.4-2.0) mmol/L Calcium 9.1 (8.5-10.1) mg/dL Total Bilirubin 0.2 (0.2-1.0) mg/dL AST 14 L (15-37) U/L ALT 18 (14-59) U/L Alkaline Phosphatase 212 H (46-116) U/L Troponin I < 0.017 (0.000-0.056) ng/mL B-Natriuretic Peptide 391 H (0-100) pg/ml Total Protein 7.9 (6.4-8.2) g/dL Albumin 3.0 L (3.4-5.0) g/dL Globulin 4.9 Albumin/Globulin Ratio 0.61 Influenza Type A RNA (NEGATIVE) Influenza Type B RNA (NEGATIVE) SARS-CoV-2 RNA (HAWA) (NEGATIVE) 01/06/21 Range/Units 20:03 WBC (5.0-10.0) 10^3/uL RBC (4.2-5.4) 10^6/uL Hgb (12.0-16.0) g/dL Hct (37.0-47.0) % MCV (80-100) fL MCH (27.0-34.0) pg MCHC (33.0-35.0) g/dL Plt Count (150-450) 10^3/uL Neut % (Auto) (42.2-75.2) % Lymph % (Auto) (20.5-50.1) % Floyd % (Auto) (2-8) % Eos % (Auto) (1.0-3.0) % Baso % (Auto) (0.0-1.0) % Sodium (136-145) mmol/L Potassium (3.5-5.1) mmol/L Chloride (98-107) mmol/L Carbon Dioxide (21-32) mmol/L Anion Gap (7-13) mEq/L BUN (7-18) mg/dL Creatinine (0.55-1.02) mg/dL Est Cr Clr Drug Dosing Estimated GFR (MDRD) BUN/Creatinine Ratio (No establ ref range) Glucose (70-99) mg/dL Lactic Acid (0.4-2.0) mmol/L Calcium (8.5-10.1) mg/dL Total Bilirubin (0.2-1.0) mg/dL AST (15-37) U/L ALT (14-59) U/L Alkaline Phosphatase (46-116) U/L Troponin I (0.000-0.056) ng/mL B-Natriuretic Peptide (0-100) pg/ml Total Protein (6.4-8.2) g/dL Albumin (3.4-5.0) g/dL Globulin Albumin/Globulin Ratio Influenza Type A RNA Negative (NEGATIVE) Influenza Type B RNA Negative (NEGATIVE) SARS-CoV-2 RNA (HAWA) Negative (NEGATIVE) Meds: Medications Discontinued Medications Generic Name Dose Route Start Last Admin Trade Name Shahramq PRN Reason Stop Dose Admin Azithromycin 500 mg 01/06/21 20:34 01/06/21 20:44 Azithromycin 250 Mg Tab PO 01/06/21 20:35 500 mg ONETIME ONE Administration Prednisone 40 mg 01/06/21 20:37 01/06/21 20:43 Prednisone 20 Mg Tab PO 01/06/21 20:38 40 mg ONETIME ONE Administration - Radiology Interpretation Free Text/Narrative:: Chest xray: PROCEDURE INFORMATION: Exam: XR Chest Exam date and time: 01/06/2021 9:04 PM Age: 70 years old Clinical indication: Chest pain; Prior surgery; Surgery type: Pacemaker, port TECHNIQUE: Imaging protocol: XR of the chest Views: 1 view. COMPARISON: 1. CR Chest 2V 11/27/2020 3:[address] thorax 09/23/2020 3. Single view chest 08/09/2020 FINDINGS: Tubes, catheters and devices: Unchanged right chest subcutaneous medication port. The intact catheter extends to superior vena cava. Left AICD device is present. Leads terminate in right atrial appendage and right ventricular apex. Lungs: Chronic mid right chest pleuroparenchymal scarring and right upper lobe volume loss. Upper lobe pulmonary emphysema. Pleural spaces: Normal. Heart/Mediastinum: Normal dimensions of the heart. Normal cardiomediastinal silhouette. Vasculature: Normal pulmonary vessels and width of the vascular pedicle. Bones/joints: Intact and normally aligned. No suspicious lesion. IMPRESSION: Emphysema and chronic mid right chest pleuroparenchymal scarring and volume loss. No acute abnormality. Thank you for allowing us to participate in the care of your patient. Dictated and Authenticated by: Bradly Waggoner MD 01/06/2021 9:40 PM Central Time ([place] & [place]) See rad report Departure - Departure Time of Disposition: 21:45 Disposition: Home, Self-Care 01 Condition: Fair Clinical Impression: COPD exacerbation - Discharge Information *PRESCRIPTION DRUG MONITORING PROGRAM REVIEWED*: No *COPY OF PRESCRIPTION DRUG MONITORING REPORT IN PATIENT VALERIE: No Instructions: Chronic Obstructive Pulmonary Disease, [id number], Chronic Obstructive Pulmonary Disease Exacerbation, [id number] Forms: ED Department Discharge Additional Instructions: RX: Prednisone 20 mg, 2 tables daily for the next 4 days Azithromycin 250mg, one tablet daily for the next 4 days Follow up with your primary care facility Sepsis Event Note (ED) - Evaluation Sepsis Screening Result: No Definite Risk - Focused Exam Vital Signs: Vital Signs Temp Pulse Resp BP Pulse Ox 01/06/21 19:14 98.1 F 74 20 163/66 H 95 - My Orders Last 24 Hours: My Active Orders 01/06/21 19:52 Central Line Assessment [RC] ASDIRECTED - Assessment/Plan Last 24 Hours: My Active Orders 01/06/21 19:52 Central Line Assessment [RC] ASDIRECTED
[2021-01-06 20:53] LABS: CORONAVIRUS COVID-19 NAA NEGATIVE (NEGATIVE)
--- NOTE | 2021-01-06 21:40 | CR ---
PROCEDURE INFORMATION: Exam: XR Chest Exam date and time: 01/06/2021 9:04 PM Age: 70 years old Clinical indication: Chest pain; Prior surgery; Surgery type: Pacemaker, port TECHNIQUE: Imaging protocol: XR of the chest Views: 1 view. COMPARISON: 1. CR Chest 2V 11/27/2020 3:[address] thorax 09/23/2020 3. Single view chest 08/09/2020 FINDINGS: Tubes, catheters and devices: Unchanged right chest subcutaneous medication port. The intact catheter extends to superior vena cava. Left AICD device is present. Leads terminate in right atrial appendage and right ventricular apex. Lungs: Chronic mid right chest pleuroparenchymal scarring and right upper lobe volume loss. Upper lobe pulmonary emphysema. Pleural spaces: Normal. Heart/Mediastinum: Normal dimensions of the heart. Normal cardiomediastinal silhouette. Vasculature: Normal pulmonary vessels and width of the vascular pedicle. Bones/joints: Intact and normally aligned. No suspicious lesion. IMPRESSION: Emphysema and chronic mid right chest pleuroparenchymal scarring and volume loss. No acute abnormality.
== END 2021-01-06 22:07 | disposition home or self-care (01) ==
LOC: DL.ED 19:02
DX: J44.1 Chronic obstructive pulmonary disease with (acute) exacerbation (principal); I13.0 Hypertensive heart and chronic kidney disease with heart failure and stage 1 through stage 4 chronic kidney disease, or unspecified chronic kidney disease; I50.9 Heart failure, unspecified; E78.00 Pure hypercholesterolemia, unspecified; K21.9 Gastro-esophageal reflux disease without esophagitis; E11.22 Type 2 diabetes mellitus with diabetic chronic kidney disease; N18.9 Chronic kidney disease, unspecified; E03.9 Hypothyroidism, unspecified; M19.90 Unspecified osteoarthritis, unspecified site; Z20.822 Contact with and (suspected) exposure to COVID-19; Z88.5 Allergy status to narcotic agent; Z91.048 Other nonmedicinal substance allergy status; Z88.8 Allergy status to other drugs, medicaments and biological substances; Z79.82 Long term (current) use of aspirin; Z79.4 Long term (current) use of insulin; Z79.899 Other long term (current) drug therapy; Z87.891 Personal history of nicotine dependence
CPT/HCPCS: 0240U; 36415; 71045; 80053; 83605; 83880; 84484; 85025; 99284; 99285-25; A9270-GY; J1642; J7512

== ENCOUNTER 2021-01-23 20:04 | Inpatient (IN) | payer MEDICARE, MEDICAID ==
--- NOTE | 2021-01-23 21:47 | EDM.PDOC ---
ED HPI GENERAL MEDICAL PROBLEM - General Stated Complaint: CANT BREATH. Time Seen by Provider: 01/23/21 21:47 Source of Information: Reports: Patient History Limitations: Reports: No Limitations - History of Present Illness INITIAL COMMENTS - FREE TEXT/NARRATIVE: Patient comes emergency department today with complaints of shortness of breath for the past 3 days. This patient is a known lung cancer patient is actively receiving chemotherapy on the outpatient basis. She has a history of COPD coronary artery disease and has a pacemaker. It is hard for her to breathe when she lays flat. She can breathe much better when she is sitting up. She has been using her rescue nebulizers without much improvement. She denies any fever or chills. No pain in her chest. She denies any increase of purulence or amount of sputum. She has received her Covid vaccines. No palpitations weakness dizziness lightheadedness. No abdominal pain nausea or vomiting. No hematuria dysuria or urinary frequency. No black or tarry stools. She has noticed over the past 3 to 4 days that she has quite a bit more peripheral edema to her lower extremities that is becoming somewhat discomforting for her. She typically does not have any pedal edema. She is had no other change in her medications recently. - Related Data Allergies Allergy/AdvReac Type Severity Reaction Status Date / Time codeine Allergy Unknown Cannot Verified 01/23/21 22:33 Remember adhesive tape Allergy Rash Verified 01/23/21 22:33 carboplatin Allergy Shortness Verified 01/23/21 22:33 of Breath sacubitril [From Entresto] Allergy Dizziness Verified 01/23/21 22:33 simvastatin [From Zocor] Allergy Muscle Verified 01/23/21 22:33 Aches valsartan [From Entresto] Allergy Dizziness Verified 01/23/21 22:33 metal Allergy Mild Rash Uncoded 01/23/21 22:33 Home Meds: Home Meds Albuterol [Ventolin HFA] 2 puff INH Q6H PRN 01/06/21 [History] Alendronate Sodium [Fosamax] 70 mg PO ASDIRECTED 01/06/21 [History] Aspirin [Aspirin EC] 81 mg PO DAILY 01/06/21 [History] Budesonide [Pulmicort] 0.5 mg INH BID 01/06/21 [History] Bumetanide 1 mg PO Q48H 01/06/21 [History] Calcium Carbonate/Vitamin D3 [Calcium 600-Vit D3 400 Tablet] 1 tab PO BID 01/06/21 [History] Cholecalciferol (Vitamin D3) [Vitamin D3] 2,000 unit PO DAILY 01/06/21 [History] Cyanocobalamin (Vitamin B-12) [Cyanocobalamin Injection] 1,000 mcg IM ASDIRECTED 01/06/21 [History] Ferrous Sulfate [Iron] 325 mg PO DAILY 01/06/21 [History] Folic Acid 1 mg PO DAILY 01/06/21 [History] Formoterol [Perforomist] 20 mcg INH BID 01/06/21 [History] Insulin Detemir [Levemir Flextouch] 10 unit SQ BEDTIME 01/06/21 [History] Ipratropium [place] 2 sprays NS TID 01/06/21 [History] Ipratropium/Albuterol Sulfate [Iprat-Albut 0.5-3(2.5) MG/3 ML] 1 ampule NEB Q6H PRN 01/06/21 [History] Magnesium Oxide [Magnesium] 400 mg PO DAILY 01/06/21 [History] Omeprazole 20 mg PO DAILY 01/06/21 [History] Ondansetron [Zofran] 8 mg PO Q8H PRN 01/06/21 [History] Prochlorperazine [Compazine] 10 mg PO Q6H PRN 01/06/21 [History] Sennosides/Docusate Sodium [Senna-Docusate Sodium Tablet] 1 tab PO BID 01/06/21 [History] Triamcinolone Acetonide [Triamcinolone Acetonide 0.1% Crm] 1 applic TOP DAILY 01/06/21 [History] amLODIPine [Norvasc] 5 mg PO DAILY 01/06/21 [History] atorvaSTATin [Lipitor] 40 mg PO Q48H 01/06/21 [History] carvediloL [Carvedilol] 6.25 mg PO BID 01/06/21 [History] glipiZIDE [Glipizide ER] 10 mg PO BID 01/06/21 [History] hydrOXYzine HCL [Atarax] 25 mg PO Q8H PRN 01/06/21 [History] lisinopriL [Lisinopril] 2.5 mg PO DAILY 01/06/21 [History] sitaGLIPtin Phosphate [Januvia] 50 mg PO DAILY 01/06/21 [History] Past Medical History HEENT History: Reports: Cataract, Impaired Vision, Otitis Media Other HEENT History: wears glasses Cardiovascular History: Reports: Cardiomyopathy, Heart Failure, High Cholesterol, Hypertension, Pacemaker, Other (See Below) Other Cardiovascular History: CARDIAC DIFIBRILLATOR PLACEMENT (2017), NONISCHEMIC CARDIOMYOPATHY Respiratory History: Reports: Bronchitis, Recurrent, COPD, Pneumonia, Recurrent, Other (See Below) Other Respiratory History: Lung CA with recent chemo and radiation Gastrointestinal History: Reports: Cholelithiasis, GERD Genitourinary History: Reports: Renal Disease, UTI, Recurrent, Other (See Below) Other Genitourinary History: CKD PROPERTY HANDLER 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 PROPERTY HANDLER History: HAS 3 KIDS Musculoskeletal History: Reports: Arthritis, Fracture, Other (See Below) Other Musculoskeletal History: SHOULDER PAIN, BILATERAL Neurological History: Reports: None Psychiatric History: Reports: Addiction Other Psychiatric History: patient states she doesn't know if she was addicted to anything Endocrine/Metabolic History: Reports: Diabetes, Type II, Hypothyroidism Hematologic History: Reports: Anemia, B12 Deficiency, Iron Deficiency Immunologic History: Reports: None Oncologic (Cancer) History: Reports: Lung Dermatologic History: Reports: None - Infectious Disease History Infectious Disease History: Reports: Measles, Novel Coronavirus - Past Surgical History Head Surgeries/Procedures: Reports: None HEENT Surgical History: Reports: Cataract Surgery Cardiovascular Surgical History: Reports: AICD Respiratory Surgical History: Reports: None GI Surgical History: Reports: Appendectomy, Cholecystectomy Female Surgical History: Reports: None Endocrine Surgical History: Reports: None Neurological Surgical History: Reports: None Musculoskeletal Surgical History: Reports: None Social & Family History - Family History Family Medical History: No Pertinent Family History - Caffeine Use Caffeine Use: Reports: None Caffeine Use Comment: decaf products - Living Situation & Occupation Living situation: Reports: Alone Occupation: Employed ED ROS GENERAL - Review of Systems Review Of Systems: Comprehensive ROS is negative, except as noted in HPI. ED EXAM, GENERAL - Physical Exam Exam: See Below Free Text/Narrative:: This patient is alert appropriate and really does not appear in much distress. She is able to talk about 7-10 word sentences when she has to stop and take a breath. There is no accessory muscle use. She typically is on 2 L of oxygen and requiring more here to keep her sats above 92%. Exam Limited By: No Limitations General Appearance: Alert, WD/WN, Mild Distress Eye Exam: Bilateral Eye: EOMI Nose: Normal Inspection Throat/Mouth: Normal Inspection, Normal Lips Head: Atraumatic, Normocephalic Neck: Normal Inspection, Supple, Non-Tender, Full Range of Motion Respiratory/Chest: No Accessory Muscle Use, Chest Non-Tender, Decreased Breath Sounds (Throughout), Rales (Bilaterally in the bases), Wheezing (Mild expiratory wheezing bilaterally). No: Rhonchi Cardiovascular: Normal Peripheral Pulses, Regular Rate, Rhythm GI/Abdominal: Normal Bowel Sounds, Soft, Non-Tender (Female) Exam: Deferred Rectal (Female) Exam: Deferred Back Exam: Normal Inspection Extremities: Pedal Edema (2+ pitting edema bilaterally up penitentiary tib-fib) Neurological: Alert, Oriented, Normal Cognition, No Motor/Sensory Deficits Psychiatric: Normal Affect, Normal Mood Skin Exam: Warm, Dry, Intact, Normal Color #1 Interpretation EKG Date: 01/23/21 Time: 21:46 Rhythm: NSR Rate (Beats/Min): 64 [place]: Normal P-Wave: Present QRS: Normal ST-T: Normal QT: Prolonged Comparison: No Change Course - Vital Signs Last Recorded V/S: Last Vital Signs Temp 97.8 F 01/23/21 23:32 Pulse 70 01/23/21 23:32 Resp 22 H 01/23/21 23:32 BP 141/63 H 01/23/21 23:32 Pulse Ox 98 01/23/21 23:32 - Orders/Labs/Meds Orders: Active Orders 24 hr Category Date Time Status Peripheral IV Care [RC] Care 01/23/21 21:46 Active RT Aerosol Therapy [RC] ASDIRECTED Care 01/23/21 22:40 Active CULTURE BLOOD [BC] Stat Lab 01/23/21 23:06 Received CULTURE BLOOD [BC] Stat Lab 01/23/21 23:10 Received PROCALCITONIN [REF] Stat Lab 01/23/21 23:06 Received Sodium Chloride 0.9% [Saline Flush] Med 01/23/21 21:43 Active 10 ml FLUSH ASDIRECTED PRN Blood Culture x2 Reflex Set [OM.PC] Stat Oth 01/23/21 22:39 Ordered Peripheral IV Insertion Adult [OM.PC] Stat Oth 01/23/21 21:44 Ordered Medication Orders Acetaminophen (Acetaminophen 325 Mg Tab) 650 mg PO Q4H PRN PRN Reason: Pain (Mild 1-3)/fever Albuterol/Ipratropium (Albuterol/Ipratropium 3.0-0.5 Mg/3 Ml Neb Soln) 3 ml NEB Q4HRRT HIGINIO Dextrose/Water (50% Dextrose In Water 50 Ml Syringe) 50 ml IV Q15M PRN PRN Reason: Hypoglycemia Furosemide (Furosemide 20 Mg/2 Ml Vial) 10 mg IVPUSH Q8H [facility] Last Admin: 01/24/21 00:39 Dose: 10 mg Documented by: VJ Glucagon (Glucagon,Human Recombinant 1 Mg Vial) 1 mg IM Q15M PRN PRN Reason: Hypoglycemia Azithromycin 500 mg/ Sodium (Chloride) 250 mls @ 250 mls/hr IV Q24H [facility] Ceftriaxone Sodium 1 gm/ (Sodium Chloride) 50 mls @ 100 mls/hr IV Q24H [facility] Insulin Human Lispro (Insulin Lispro 100 Units/Ml 3 Ml Vial) 0 unit SUBCUT WITHMEALSANDBED [facility]; Protocol Methylprednisolone Sodium Succinate (Methylprednisolone Sodium Succinate 40 Mg/1 Ml Sdv) 40 mg IVPUSH Q8H [facility] Last Admin: 01/24/21 00:39 Dose: 40 mg Documented by: VJ Ondansetron HCl (Ondansetron 4 Mg/2 Ml Sdv) 4 mg IVPUSH Q4H PRN PRN Reason: Nausea/Vomiting Pantoprazole Sodium (Pantoprazole 40 Mg Tab.Cr) 40 mg PO ACBREAKFAST [facility] Sodium Chloride (Sodium Chloride 0.9% 10 Ml Syringe) 10 ml FLUSH ASDIRECTED PRN PRN Reason: Keep Vein Open Last Admin: 01/23/21 23:10 Dose: 10 ml Documented by: CHARLIE Sodium Chloride (Sodium Chloride 0.9% 10 Ml Syringe) 10 ml FLUSH ASDIRECTED PRN PRN Reason: Keep Vein Open Zolpidem Tartrate (Zolpidem 5 Mg Tab) 5 mg PO BEDTIME PRN PRN Reason: Sleep Labs: Laboratory Tests 01/23/21 01/23/21 01/23/21 Range/Units 22:01 22:01 22:01 WBC 7.3 (5.0-10.0) 10^3/uL RBC 3.08 L (4.2-5.4) 10^6/uL Hgb 9.6 L (12.0-16.0) g/dL Hct 29.7 L (37.0-47.0) % MCV 96.4 (80-100) fL MCH 31.2 (27.0-34.0) pg MCHC 32.3 L (33.0-35.0) g/dL Plt Count 117 L (150-450) 10^3/uL Neut % (Auto) 76.8 H (42.2-75.2) % Lymph % (Auto) 11.3 L (20.5-50.1) % [place] % (Auto) 6.0 (2-8) % Eos % (Auto) 5.6 H (1.0-3.0) % Baso % (Auto) 0.3 (0.0-1.0) % Sodium 137 (136-145) mmol/L Potassium 4.6 (3.5-5.1) mmol/L Chloride 102 (98-107) mmol/L Carbon Dioxide 28 (21-32) mmol/L Anion Gap 11.6 (7-13) mEq/L BUN 22 H (7-18) mg/dL Creatinine 1.19 H (0.55-1.02) mg/dL Est Cr Clr Drug Dosing 37.44 mL/min Estimated GFR (MDRD) 45 BUN/Creatinine Ratio 18.5 (No establ ref range) Glucose 188 H (70-99) mg/dL Lactic Acid (0.4-2.0) mmol/L Calcium 8.6 (8.5-10.1) mg/dL Iron (50-175) ug/dL TIBC (250-450) ug/dL % Saturation (20.0-50.0) % Ferritin (8-252) mg/mL Total Bilirubin 0.3 (0.2-1.0) mg/dL AST 17 (15-37) U/L ALT 28 (14-59) U/L Alkaline Phosphatase 249 H (46-116) U/L Troponin I < 0.017 (0.000-0.056) ng/mL C-Reactive Protein 2.8 H (0.0-0.9) mg/dL B-Natriuretic Peptide 759 H (0-100) pg/ml Total Protein 7.3 (6.4-8.2) g/dL Albumin 2.6 L (3.4-5.0) g/dL Globulin 4.7 Albumin/Globulin Ratio 0.55 01/23/21 01/23/21 Range/Units 22:01 23:06 WBC (5.0-10.0) 10^3/uL RBC (4.2-5.4) 10^6/uL Hgb (12.0-16.0) g/dL Hct (37.0-47.0) % MCV (80-100) fL MCH (27.0-34.0) pg MCHC (33.0-35.0) g/dL Plt Count (150-450) 10^3/uL Neut % (Auto) (42.2-75.2) % Lymph % (Auto) (20.5-50.1) % [place] % (Auto) (2-8) % Eos % (Auto) (1.0-3.0) % Baso % (Auto) (0.0-1.0) % Sodium (136-145) mmol/L Potassium (3.5-5.1) mmol/L Chloride (98-107) mmol/L Carbon Dioxide (21-32) mmol/L Anion Gap (7-13) mEq/L BUN (7-18) mg/dL Creatinine (0.55-1.02) mg/dL Est Cr Clr Drug Dosing mL/min Estimated GFR (MDRD) BUN/Creatinine Ratio (No establ ref range) Glucose (70-99) mg/dL Lactic Acid 0.4 (0.4-2.0) mmol/L Calcium (8.5-10.1) mg/dL Iron 34 L (50-175) ug/dL TIBC 240 L (250-450) ug/dL % Saturation 14.2 L (20.0-50.0) % Ferritin 317 H (8-252) mg/mL Total Bilirubin (0.2-1.0) mg/dL AST (15-37) U/L ALT (14-59) U/L Alkaline Phosphatase (46-116) U/L Troponin I (0.000-0.056) ng/mL C-Reactive Protein (0.0-0.9) mg/dL B-Natriuretic Peptide (0-100) pg/ml Total Protein (6.4-8.2) g/dL Albumin (3.4-5.0) g/dL Globulin Albumin/Globulin Ratio Meds: Medications Generic Name Dose Route Start Last Admin Trade Name Freq PRN Reason Stop Dose Admin Acetaminophen 650 mg 01/23/21 23:32 Acetaminophen 325 Mg Tab PO Q4H PRN Pain (Mild 1-3)/fever Albuterol/Ipratropium 3 ml 01/24/21 03:00 Albuterol/Ipratropium 3.0-0.5 Mg/3 Ml Neb Soln NEB Q4HRRT HIGINIO Dextrose/Water 50 ml 01/23/21 23:43 50% Dextrose In Water 50 Ml Syringe IV Q15M PRN Hypoglycemia Furosemide 10 mg 01/24/21 00:00 01/24/21 00:39 Furosemide 20 Mg/2 Ml Vial IVPUSH 10 mg Q8H HIGINIO Administration Glucagon 1 mg 01/23/21 23:43 Glucagon,Human Recombinant 1 Mg Vial IM Q15M PRN Hypoglycemia Azithromycin 500 mg/ Sodium 250 mls @ 250 mls/hr 01/24/21 23:00 Chloride IV Q24H HIGINIO Ceftriaxone Sodium 1 gm/ 50 mls @ 100 mls/hr 01/24/21 23:00 Sodium Chloride IV Q24H [facility] Insulin Human Lispro 0 unit 01/24/21 08:00 Insulin Lispro 100 Units/Ml 3 Ml Vial SUBCUT WITHMEALSANDBED HIGINIO Protocol Methylprednisolone Sodium Succinate 40 mg 01/24/21 00:00 01/24/21 00:39 Methylprednisolone Sodium Succinate 40 Mg/1 Ml Sdv IVPUSH 40 mg Q8H HIGINIO Administration Ondansetron HCl 4 mg 01/23/21 23:32 Ondansetron 4 Mg/2 Ml Sdv IVPUSH Q4H PRN Nausea/Vomiting Pantoprazole Sodium 40 mg 01/24/21 06:00 Pantoprazole 40 Mg Tab.Cr PO ACBREAKFAST [facility]IO Sodium Chloride 10 ml 01/23/21 21:43 01/23/21 23:10 Sodium Chloride 0.9% 10 Ml Syringe FLUSH 10 ml ASDIRECTED PRN Administration Keep Vein Open Sodium Chloride 10 ml 01/23/21 23:32 Sodium Chloride 0.9% 10 Ml Syringe FLUSH ASDIRECTED PRN Keep Vein Open Zolpidem Tartrate 5 mg 01/23/21 23:32 Zolpidem 5 Mg Tab PO BEDTIME PRN Sleep Discontinued Medications Generic Name Dose Route Start Last Admin Trade Name Linh PRN Reason Stop Dose Admin Albuterol/Ipratropium 3 ml 01/23/21 22:40 01/23/21 23:12 Albuterol/Ipratropium 3.0-0.5 Mg/3 Ml Neb Soln NEB 01/23/21 22:41 3 ml ONETIME ONE Administration Azithromycin 500 mg 01/23/21 22:39 01/23/21 23:12 Azithromycin 250 Mg Tab PO 01/23/21 22:40 500 mg ONETIME ONE Administration Ceftriaxone Sodium 1 gm/ 50 mls @ 100 mls/hr 01/23/21 22:39 01/23/21 23:11 Sodium Chloride IV 01/23/21 23:08 100 mls/hr ONETIME ONE Administration - Radiology Interpretation Free Text/Narrative:: Chest x-ray per radiology mild cardiomegaly. Right perihilar opacity concerning for pneumonia - Re-Assessments/Exams Free Text/Narrative Re-Assessment/Exam: 01/24/21 02:32 IV was established labs are drawn. Laboratory evaluation with a WBC of 7.3, hemoglobin 9.6 at about baseline platelet count 117. CMP creatinine 1.19 with a BUN of 22 which appears to be at about baseline. Glucose 188 Troponin less than 0.017 C-reactive protein 2.8 Lactic acid normal at 0.4. B-natriuretic peptide mildly elevated at 759. Initially had concerns for the presence of congestive heart failure causing her increased shortness of breath especially with her orthopnea although her chest x-ray shows mild cardiomegaly right perihilar opacity concerning for pneumonia. At that time blood cultures were drawn and she was given ceftriaxone 1 g IV piggyback as well as azithromycin 5 mg p.o. With her rather comorbid state and frailty and living at home alone her increased oxygen demands concerns for congestive heart failure and her known lung cancer diagnosis and pneumonia I called and spoke with Dr. Lind he came and saw the patient in the ED. He visited with the patient and agreed to admit the patient here for further care management and work up. The patient was comfortable with this plan and his questions answered. Departure - Departure Time of Disposition: 22:53 Disposition: Admitted As Inpatient 65 Clinical Impression: Hypoxia, CHF, Congestive heart failure Pneumonia Qualifiers: Pneumonia type: due to unspecified organism Laterality: right Lung location: lower lobe of lung Qualified Code(s): J18.9 - Pneumonia, unspecified organism COPD (chronic obstructive pulmonary disease) Qualifiers: COPD type: chronic bronchitis Chronic bronchitis type: unspecified Qualified Code(s): J42 - Unspecified chronic bronchitis Anemia Qualifiers: Anemia type: unspecified type Qualified Code(s): D64.9 - Anemia, unspecified Sepsis Event Note (ED) - Focused Exam Vital Signs: Vital Signs Temp Pulse Resp BP Pulse Ox 01/23/21 21:31 97.6 F 69 20 140/72 89 L - My Orders Last 24 Hours: My Active Orders 01/23/21 21:43 Sodium Chloride 0.9% [Saline Flush] 10 ml FLUSH ASDIRECTED PRN 01/23/21 21:44 Peripheral IV Insertion Adult [OM.PC] Stat 01/23/21 21:46 Peripheral IV Care [RC] 01/23/21 22:39 Blood Culture x2 Reflex Set [OM.PC] Stat 01/23/21 22:40 RT Aerosol Therapy [RC] ASDIRECTED 01/23/21 23:06 CULTURE BLOOD [BC] Stat PROCALCITONIN [REF] Stat 01/23/21 23:10 CULTURE BLOOD [BC] Stat - Assessment/Plan Last 24 Hours: My Active Orders 01/23/21 21:43 Sodium Chloride 0.9% [Saline Flush] 10 ml FLUSH ASDIRECTED PRN 01/23/21 21:44 Peripheral IV Insertion Adult [OM.PC] Stat 01/23/21 21:46 Peripheral IV Care [RC] 01/23/21 22:39 Blood Culture x2 Reflex Set [OM.PC] Stat 01/23/21 22:40 RT Aerosol Therapy [RC] ASDIRECTED 01/23/21 23:06 CULTURE BLOOD [BC] Stat PROCALCITONIN [REF] Stat 01/23/21 23:10 CULTURE BLOOD [BC] Stat
--- NOTE | 2021-01-23 22:35 | CR ---
PROCEDURE INFORMATION: Exam: XR Chest Exam date and time: 01/23/2021 10:10 PM Age: 70 years old Clinical indication: Shortness of breath; Additional info: Worsening SOB TECHNIQUE: Imaging protocol: XR of the chest. Views: 1 view. COMPARISON: CT Chest Abdomen Pelvis w Cont 01/15/2021 11:08 AM FINDINGS: Tubes, catheters and devices: There is a left AICD with leads overlying the right atrium and right ventricle. Lungs: Hazy area of increased density in the right perihilar region. Stable scarring in the right lung and right pleura. Pleural spaces: Unremarkable. No pleural effusion. No pneumothorax. Heart/Mediastinum: There is mild cardiomegaly. Vasculature: Right-sided MediPort is in place with the tip in the distal superior vena cava. Bones/joints: Unremarkable. IMPRESSION: 1. Mild cardiomegaly. 2. Right perihilar opacity concerning for pneumonia.
[2021-01-23] MEDS ORDERED: cefTRIAXone 1 GM in Sodium Chloride 0.9% 50 ML IV ONE (22:39)
[2021-01-23] MEDS ORDERED: Azithromycin 250 MG Tab PO ONE (22:39)
[2021-01-23] MEDS ORDERED: Albuterol/Ipratropium 3.0-0.5 MG/3 ML Neb Soln NEB ONE (22:40)
[2021-01-23 22:44] LABS: ANION GAP 11.6 mEq/L (7-13); CHLORIDE,CL 102 mmol/L (98-107); SODIUM,NA 137 mmol/L (136-145)
[2021-01-23] MEDS: Sodium Chloride 0.9% 10 ML Syringe FLUSH PRN (23:10)
[2021-01-23] MEDS ORDERED: Zolpidem 5 MG Tab PO PRN (23:32)
[2021-01-23] MEDS ORDERED: Ondansetron 4 MG/2 ML SDV IVPUSH PRN (23:32)
[2021-01-23] MEDS ORDERED: Glucagon,Human Recombinant 1 MG Vial IM PRN (23:43)
[2021-01-23] MEDS ORDERED: 50% Dextrose in Water 50 ML Syringe IV PRN (23:43)
--- NOTE | 2021-01-23 23:43 | PCM.SN.2 ---
- Free Text/Narrative Note: START OF DOCTOR EMAMIS HISTORY AND PHYSICAL / CONSULTATION NOTE Chief Complaint: Shortness of breath History of Present Illness: Patient is a 70-year-old female who presents [place] dyspnea. She states it started gradually 2 days prior to hospitalization and has progressively worsened. She admits to onset of cough which is nonproductive. She denies fever, rigors, nausea, vomiting, wheeze, abdominal pain, diarrhea, myalgia, chest pain. She indicates that she has been experiencing some degree of bilater al lower extremity edema. Over last 4 hours she denies anosmia or dysgeusia. She presents for further evaluation Surgical History: Cholecystectomy, appendectomy, bilateral cataract surgery, AICD placement with questionable pacemaker placement Family History: Diabetes, coronary artery disease Social History: Tobacco: Former smoker Alcohol: Denies Caffeine: Denies Drugs: Never Allergies: Codeine, adhesive tape, carboplatin as documented however the patient is uncertain of this, subcu atrial, Zocor, valsartan, metal Code Status: Full code Pertinent Laboratory Results / Pertinent Radiology Results / Pertinent Diagnostic Results / Pertinent Vital Signs: Blood pressure 140/72, pulse 69, respirations 20, temperature 90.6 degrees, 89% on 2 L, hemoglobin 0.6, platelet count 117,000 Physical Examination: General: -Alert -No acute distress -No dyspnea -No tachypnea Head: -Atraumatic -Normocephalic Eyes: -Pupils equally round and reactive to light and accommodation -Extraocular muscles intact Neurological: -Cranial nerves II-XII intact Neck: -No jugular venous distention -No thyromegaly -No cervical lymphadenopathy Heart: -Regular rate -Regular rhythm -No murmurs -No gallops -No rubs Lungs: -No wheeze -No rhonchi -Trace bilateral rales -Distant breath sounds bilaterally Abdomen: -Normal bowel sounds in all four quadrants -No rebound -No guarding -No tenderness Extremities: -2/4 pulse in all four extremities -No clubbing -No cyanosis -2+ bipedal pitting edema -No calf tenderness present bilaterally -Negative Homans sign bilaterally Musculoskeletal: -5/5 bilateral upper extremity strength -5/5 bilateral lower extremity strength -Sensorium of bilateral upper extremities are equal and intact -Sensorium of bilateral lower extremities are equal and intact Additional Details / Additional Findings / Exceptions / Miscellaneous: Assessment / Plan: Dyspnea secondary to pneumonia and possibly COPD exacerbation and possibly CHF exacerbation Pneumonia. Azithromycin 500 mg IV daily plus Rocephin 1 g IV daily plus DuoNeb every 4 hours COPD, O2 dependent 2 L. Solu-Medrol 40 mg IV every 8 hours plus DuoNeb every 4 hours CHF, ejection fraction 20%, status post AICD placement with questionable pacemaker placement as well. Lasix 10 mg IV q. hours. Check daily weight. Check strict I/O. Chronic kidney disease, baseline creatinine approximately 1.2. Will monitor creatinine level intermittently Osteoporosis Hypothyroidism Constipation Right lung cancer, status post chemotherapy, status post radiation therapy. I believe the patient is currently undergoing immunotherapy. Outpatient follow-up with hematology/oncology upon discharge Arthritis Thrombocytopenia. Will monitor platelet count intermittently Anemia. Will monitor hemoglobin level intermittently. Check ferritin, iron panel, fecal occult blood Coronary artery disease, status post SC Diabetes. Will check fasting glucose before every meal and at bedtime and provi de suicide scale GERD. Protonix 40 mg p.o. daily Hyperlipidemia Hypertension. Lasix 10 mg IV every 8 hours History of vitamin B12 deficiency History of iron deficiency. Check serum ferritin and iron panel and fecal occult blood Hepatic steatosis History of TIA Diverticulosis History of medical noncompliance. Patient becomes very medical compliance DVT prophylaxis. Bilateral SCD Disposition: Anticipate discharge within 40 hours. I will await input of the patient home medications into the EMR/[facility] system. Once they are I will review and reconcile them END OF DOCTOR EMAMIS HISTORY AND PHYSICAL / CONSULTATION NOTE
[2021-01-24] MEDS: methylPREDNISolone Sodium Succinate 40 MG/1 ML SDV IVPUSH SCH ×3 (00:39→16:45)
[2021-01-24] MEDS: Furosemide 20 MG/2 ML VIAL IVPUSH SCH ×4 (00:39→23:49)
[2021-01-24] MEDS: Albuterol/Ipratropium 3.0-0.5 MG/3 ML Neb Soln NEB SCH ×6 (04:55→23:51)
[2021-01-24] MEDS: Pantoprazole 40 MG Tab.CR PO SCH (05:00)
[2021-01-24 06:41] LABS: ANION GAP 12.8 mEq/L (7-13)
--- NOTE | 2021-01-24 07:19 | PCM.SN.2 ---
- Free Text/Narrative Note: START OF DOCTOR OPAL PROGRESS NOTE Subjective: The patient Swati that her respiratory status has improved compared to my encounter with her on January 03, 2021. She currently rates her respiratory status as an 8 out of 10 of 10 to baseline. Overnight she denies fever, rigors, nausea, vomiting, wheeze, abdominal pain, chest pain. She states that she has occasional cough which is nonproductive. I explained to the patient her current medical condition and plan of care and have answered all of her questions Objective: General: -Alert -No acute distress -No dyspnea -No tachypnea Heart: -Regular rate -Regular rhythm -No murmurs -No gallops -No rubs Lungs: -No wheeze -No rhonchi -Right basilar rales present Abdomen: -Normal bowel sounds in all four quadrants -No rebound -No guarding -No tenderness Extremities: -2/4 pulse in all four extremities -No clubbing -No cyanosis -No edema Additional Details / Additional Findings / Exceptions / Miscellaneous: Pertinent Laboratory Results / Pertinent Radiology Results / Pertinent Diagnostic Results / Pertinent Vital Signs: Blood pressure 165% 4, pulse 76, respirations 22, patient saturating 86% on 2 L Assessment / Plan: Dyspnea secondary to pneumonia and possibly COPD exacerbation and possibly CHF exacerbation Pneumonia. Azithromycin 500 mg IV daily plus Rocephin 1 g IV daily plus DuoNeb every 4 hours COPD, O2 dependent 2 L. Solu-Medrol 40 mg IV every 8 hours plus DuoNeb every 4 hours CHF, ejection fraction 20%, status post AICD placement with questionable pacemaker placement as well. Check daily weight. Check strict I/O. Coreg 6.25 mg p.o. twice daily plus lisinopril 2.5 mg p.o. every 48 hours plus Lasix 10 mg IV every 8 hours Chronic kidney disease, baseline creatinine approximately 1.2. Will monitor creatinine level intermittently Osteoporosis Hypothyroidism. Synthroid 150 mcg p.o. daily Constipation. Senna/Colace: 1 tab p.o. twice daily Right lung cancer, status post chemotherapy, status post radiation therapy. I believe the patient is currently undergoing immunotherapy. Outpatient follow-up with hematology/oncology upon discharge Arthritis Thrombocytopenia. Will monitor platelet count intermittently Anemia with history of iron deficiency. Will monitor hemoglobin level intermittently. Check ferritin, iron panel, fecal occult blood. Ferrous sulfate 325 mg p.o. daily Coronary artery disease, status post ID. Aspirin 81 mg p.o. daily plus Lipitor 40 mg p.o. nightly plus Coreg 6.25 mg p.o. twice daily Diabetes. Will check fasting glucose before every meal and at bedtime and provide suicide scale plus glipizide 10 mg p.o. twice daily GERD. Protonix 40 mg p.o. daily Hyperlipidemia. Lipitor 40 mg p.o. nightly Hypertension. Lasix 10 mg IV every 8 hours plus Coreg 6.25 mg p.o. twice daily plus lisinopril 2.5 mg p.o. every 48 hours History of vitamin B12 deficiency Hepatic steatosis History of TIA. Aspirin 81 mg p.o. daily plus Lipitor 40 mg p.o. nightly Diverticulosis History of medical noncompliance. Patient becomes very medical compliance DVT prophylaxis. Bilateral SCD Disposition: Anticipate discharge on January 25, 2021 END OF DOCTOR JOSEPH PROGRESS NOTE
[2021-01-24] MEDS: Insulin Lispro 100 Units/ML 3 ML Vial SUBCUT SCH ×4 (08:46→21:44)
[2021-01-24] MEDS: atorvaSTATin 20 MG Tab PO SCH (09:06)
[2021-01-24] MEDS: Carvedilol 6.25 MG Tab PO SCH ×2 (09:07→17:42)
[2021-01-24] MEDS: Ferrous Sulfate 325 MG Tab PO SCH (09:07)
[2021-01-24] MEDS: Aspirin 81 MG Tab.EC PO SCH (09:07)
[2021-01-24] MEDS ORDERED: Glucagon,Human Recombinant 1 MG Vial IM PRN (20:55)
[2021-01-24] MEDS ORDERED: 50% Dextrose in Water 50 ML Syringe IV PRN (20:55)
[2021-01-24] MEDS: Acetaminophen 325 MG Tab PO PRN (21:21)
[2021-01-24] MEDS: Insulin Glarg,Human.Rec.Analog 100 Unit/ML SUBCUT SCH (21:22)
[2021-01-24] MEDS: cefTRIAXone 1 GM in Sodium Chloride 0.9% 50 ML IV SCH (22:10)
[2021-01-24] MEDS: Azithromycin 500 MG in Sodium Chloride 0.9% 250 ML IV SCH (22:49)
[2021-01-25] MEDS: Albuterol/Ipratropium 3.0-0.5 MG/3 ML Neb Soln NEB SCH ×6 (05:54→22:44)
[2021-01-25] MEDS: Levothyroxine 150 MCG Tab PO SCH (06:13)
[2021-01-25] MEDS: Pantoprazole 40 MG Tab.CR PO SCH (06:13)
[2021-01-25] MEDS ORDERED: glipiZIDE 5 MG Tab PO SCH ×2 (08:30→09:00)
[2021-01-25] MEDS: Insulin Lispro 100 Units/ML 3 ML Vial SUBCUT SCH ×4 (09:53→22:06)
[2021-01-25] MEDS: Furosemide 20 MG/2 ML VIAL IVPUSH SCH ×2 (09:56→17:05)
[2021-01-25] MEDS: Sodium Chloride 0.9% 10 ML Syringe FLUSH PRN ×2 (09:57→17:06)
[2021-01-25] MEDS: Lisinopril 5 MG Tab PO SCH (09:58)
[2021-01-25] MEDS: Ferrous Sulfate 325 MG Tab PO SCH (10:01)
[2021-01-25] MEDS: Carvedilol 6.25 MG Tab PO SCH ×2 (10:02→18:29)
[2021-01-25] MEDS: Aspirin 81 MG Tab.EC PO SCH (10:04)
[2021-01-25] MEDS: Acetaminophen 325 MG Tab PO PRN ×2 (12:29→22:22)
--- NOTE | 2021-01-25 17:08 | CR ---
PROCEDURE INFORMATION: Exam: XR Chest Exam date and time: 01/25/2021 4:53 PM Age: 70 years old Clinical indication: Shortness of breath; Additional info: Dyspnea TECHNIQUE: Imaging protocol: XR of the chest. Views: 2 views. Total images: 2 COMPARISON: CR Chest 1V Frontal 01/23/2021 10:10 PM FINDINGS: Tubes, catheters and devices: Cardiac leads in right venous catheter in unchanged position. Lungs: Similar appearance of small right pleural effusion with associated patchy right lower lobe atelectasis and or pneumonia. Mild central pulmonary venous congestion. Pleural spaces: Unremarkable. No pleural effusion. No pneumothorax. Heart/Mediastinum: Mild cardiomegaly. Bones/joints: Unremarkable. IMPRESSION: 1. No interval change. Redemonstration of cardiomegaly, small right pleural effusion with mild central pulmonary venous congestion. 2. Patchy atelectasis and or pneumonia in the right lower lung unchanged.
[2021-01-25] MEDS: Insulin Glarg,Human.Rec.Analog 100 Unit/ML SUBCUT SCH (22:05)
--- NOTE | 2021-01-25 22:19 | PCM.PN ---
- General Info Date of Service: 01/25/21 Subjective Update: Lindsey was admitted here with pneumonia. She has chronic obstructive pulmonary disease, and has gotten frequent exacerbations in the past. Yesterday, she also was noted to have fairly high glucose numbers. There was some confusion upon admission as to what her home medications actually entailed as far as her diabetic regimen was concerned. She was not immediately put on glipizide, we did start that yesterday as well as started her on Lantus which she takes at home as well. Her glucose has come down and been more controlled today. She tells me this morning that she is much more short of breath today than she has been. She also states that she has been coughing more today than usual. - Patient Data Vitals - Most Recent: Last Vital Signs Temp 97.4 F 01/25/21 16:00 Pulse 73 01/25/21 18:29 Resp 22 H 01/25/21 16:00 BP 130/78 01/25/21 18:29 Pulse Ox 97 01/25/21 16:00 Weight - Most Recent: 118 lb 6.4 oz I&O - Last 24 Hours: Intake & Output 01/25/21 01/25/21 01/25/21 06:59 14:59 22:59 Intake Total 500 900 240 Balance 500 900 240 Lab Results Last 24 Hours: Laboratory Results - last 24 hr 01/25/21 01/25/21 01/25/21 Range/Units 07:53 11:50 16:39 POC Glucose 257 H 185 H 82 (70-99) mg/dL [facility] Results Last 24 Hours: Microbiology 01/23/21 23:10 Aerobic Blood Culture - Preliminary Blood - Arm, Right NO GROWTH AFTER 1 DAY Anaerobic Blood Culture - Preliminary NO GROWTH AFTER 1 DAY 01/23/21 23:06 Aerobic Blood Culture - Preliminary Blood - Arm, Left NO GROWTH AFTER 1 DAY Anaerobic Blood Culture - Preliminary NO GROWTH AFTER 1 DAY Med Orders - Current: Current Medications Acetaminophen (Acetaminophen 325 Mg Tab) 650 mg PO Q4H PRN PRN Reason: Pain (Mild 1-3)/fever Last Admin: 01/25/21 12:29 Dose: 650 mg Documented by: Albuterol/Ipratropium (Albuterol/Ipratropium 3.0-0.5 Mg/3 Ml Neb Soln) 3 ml NEB Q4HRRT [facility] Last Admin: 01/25/21 22:08 Dose: Not Given Documented by: Aspirin (Aspirin 81 Mg Tab.Ec) 81 mg PO DAILY [facility] Last Admin: 01/25/21 10:04 Dose: 81 mg Documented by: Atorvastatin Calcium (Atorvastatin 20 Mg Tab) 40 mg PO Q48H [facility] Last Admin: 01/24/21 09:06 Dose: 40 mg Documented by: Carvedilol (Carvedilol 6.25 Mg Tab) 6.25 mg PO BIDMEALS [facility] Last Admin: 01/25/21 18:29 Dose: 6.25 mg Documented by: Dextrose/Water (50% Dextrose In Water 50 Ml Syringe) 50 ml IV Q15M PRN PRN Reason: Hypoglycemia Dextrose/Water (50% Dextrose In Water 50 Ml Syringe) 50 ml IV Q15M PRN PRN Reason: Hypoglycemia Ferrous Sulfate (Ferrous Sulfate 325 Mg Tab) 325 mg PO DAILY [facility] Last Admin: 01/25/21 10:01 Dose: 325 mg Documented by: Furosemide (Furosemide 20 Mg/2 Ml Vial) 10 mg IVPUSH Q8H [facility] Last Admin: 01/25/21 17:05 Dose: 10 mg Documented by: Glucagon (Glucagon,Human Recombinant 1 Mg Vial) 1 mg IM Q15M PRN PRN Reason: Hypoglycemia Glucagon (Glucagon,Human Recombinant 1 Mg Vial) 1 mg IM Q15M PRN PRN Reason: Hypoglycemia Azithromycin 500 mg/ Sodium (Chloride) 250 mls @ 250 mls/hr IV Q24H [facility] Last Admin: 01/24/21 22:49 Dose: 250 mls/hr Documented by: Ceftriaxone Sodium 1 gm/ (Sodium Chloride) 50 mls @ 100 mls/hr IV Q24H [facility] Last Admin: 01/24/21 22:10 Dose: 100 mls/hr Documented by: Insulin Glargine (Insulin Glarg,Human.Rec.Analog 100 Unit/Ml) 15 unit SUBCUT BEDTIME [facility] Last Admin: 01/25/21 22:05 Dose: 15 units Documented by: Insulin Human Lispro (Insulin Lispro 100 Units/Ml 3 Ml Vial) 0 unit SUBCUT WITHMEALSANDBED [facility]; Protocol Last Admin: 01/25/21 22:06 Dose: 2 units Documented by: Levothyroxine Sodium (Levothyroxine 150 Mcg Tab) 150 mcg PO ACBREAKFAST [facility] Last Admin: 01/25/21 06:13 Dose: 150 mcg Documented by: Lisinopril (Lisinopril 5 Mg Tab) 2.5 mg PO Q48H [facility] Last Admin: 01/25/21 09:58 Dose: 2.5 mg Documented by: Ondansetron HCl (Ondansetron 4 Mg/2 Ml Sdv) 4 mg IVPUSH Q4H PRN PRN Reason: Nausea/Vomiting Pantoprazole Sodium (Pantoprazole 40 Mg Tab.Cr) 40 mg PO ACBREAKFAST [facility] Last Admin: 01/25/21 06:13 Dose: 40 mg Documented by: Senna/Docusate Sodium (Docusate Sodium/Sennosides 50-8.6 Mg Tab) 1 tab PO BID [facility] Last Admin: 01/25/21 22:08 Dose: 1 tab Documented by: Sodium Chloride (Sodium Chloride 0.9% 10 Ml Syringe) 10 ml FLUSH ASDIRECTED PRN PRN Reason: Keep Vein Open Last Admin: 01/25/21 17:06 Dose: 10 ml Documented by: Sodium Chloride (Sodium Chloride 0.9% 10 Ml Syringe) 10 ml FLUSH ASDIRECTED PRN PRN Reason: Keep Vein Open Tiotropium [place] (Tiotropium Inhaler 18 Mcg Inhalation Powder Cap Kit Of 5) 18 mcg INH DAILY [facility] Zolpidem Tartrate (Zolpidem 5 Mg Tab) 5 mg PO BEDTIME PRN PRN Reason: Sleep Discontinued Medications Albuterol/Ipratropium (Albuterol/Ipratropium 3.0-0.5 Mg/3 Ml Neb Soln) 3 ml NEB ONETIME ONE Stop: 01/23/21 22:41 Last Admin: 01/23/21 23:12 Dose: 3 ml Documented by: Azithromycin (Azithromycin 250 Mg Tab) 500 mg PO ONETIME ONE Stop: 01/23/21 22:40 Last Admin: 01/23/21 23:12 Dose: 500 mg Documented by: Glipizide ([facility] 5 Mg Tab) [facility] Glipizide (Glipizide 5 Mg Tab) 10 mg PO BID [facility] Last Admin: 01/25/21 10:00 Dose: 10 mg Documented by: Ceftriaxone Sodium 1 gm/ (Sodium Chloride) 50 mls @ 100 mls/hr IV ONETIME ONE Stop: 01/23/21 23:08 Last Admin: 01/23/21 23:11 Dose: 100 mls/hr Documented by: Methylprednisolone Sodium Succinate (Methylprednisolone Sodium Succinate 40 Mg/1 Ml Sdv) 40 mg IVPUSH Q8H [facility] Last Admin: 01/24/21 16:45 Dose: 40 mg Documented by: - Exam Physical Findings Comments:: General: Lindsey is a 70-year-old woman in no acute distress. She is showing no signs of respiratory distress, no tachypnea or accessory muscle use Oropharynx is clear, no exudates or petechia noted Neck: Supple, no lymphadenopathy Heart: Regular rate and rhythm, 1 out of 6 systolic murmur heard over the left sternal border Lungs: She does have some crackles in the right lower lobe with some rhonchi present as well. No expiratory wheezing noted - Patient Data Lab Results Last 24 hrs: Laboratory Results - last 24 hr 01/25/21 01/25/21 01/25/21 Range/Units 07:53 11:50 16:39 POC Glucose 257 H 185 H 82 (70-99) mg/dL Result Diagrams: 01/24/21 06:05 01/24/21 06:05 [facility] Results Last 24 hrs: Microbiology 01/23/21 23:10 Aerobic Blood Culture - Preliminary Blood - Arm, Right NO GROWTH AFTER 1 DAY Anaerobic Blood Culture - Preliminary NO GROWTH AFTER 1 DAY 01/23/21 23:06 Aerobic Blood Culture - Preliminary Blood - Arm, Left NO GROWTH AFTER 1 DAY Anaerobic Blood Culture - Preliminary NO GROWTH AFTER 1 DAY Sepsis Event Note - Evaluation Sepsis Screening Result: No Definite Risk - Focused Exam Vital Signs: Vital Signs Temp Pulse Pulse Resp BP BP BP 01/25/21 18:29 73 130/78 01/25/21 16:00 97.4 F 73 22 H 138/60 01/25/21 12:39 96.9 F 67 20 146/73 H Pulse Ox 01/25/21 18:29 01/25/21 16:00 97 01/25/21 12:39 100 - Problem List & Annotations (1) COPD (chronic obstructive pulmonary disease) SNOMED Code(s): 48802476 Code(s): J44.9 - CHRONIC OBSTRUCTIVE PULMONARY DISEASE, UNSPECIFIED Status: Acute Current Visit: Yes Qualifiers: COPD type: chronic bronchitis Chronic bronchitis type: unspecified Qualified Code(s): J42 - Unspecified chronic bronchitis (2) Pneumonia SNOMED Code(s): 301539122 Code(s): J18.9 - PNEUMONIA, UNSPECIFIED ORGANISM Status: Acute Current Visit: No Qualifiers: Laterality: right Lung location: lower lobe of lung Qualified Code(s): J18.9 - Pneumonia, unspecified organism (3) Type 2 diabetes mellitus SNOMED Code(s): 57891126 Code(s): E11.9 - TYPE 2 DIABETES MELLITUS WITHOUT COMPLICATIONS Status: Acute Current Visit: Yes - Problem List Review Problem List Initiated/Reviewed/Updated: Yes - My Orders Last 24 Hours: My Active Orders 01/26/21 09:00 Tiotropium [Spiriva HandiHaler] 18 mcg INH DAILY - Assessment Assessment:: Assessment: 1. 70-year-old woman with right lobar pneumonia 2. Chronic obstructive pulmonary disease with acute exacerbation 3. Type 2 diabetes mellitus 4. Chronic kidney disease stage I Plan: 1. Will recheck a chest x-ray today with her increased symptoms and still present findings on physical exam 2. I may restart her steroids which were stopped yesterday 3. As far as her diabetes is concerned, she was restarted on Lantus 15 units at bedtime. I had initially restarted her glipizide, however she has told me today that she was having numerous hypoglycemic events at home while on the glipizide. In my opinion this means we need to stop this immediately and look for a different agent. Unfortunately we do not have any other alternatives on the formulary. Her Metformin was stopped by previous physicians due to her advancing kidney disease. I think she would be an excellent candidate for something like oral Januvia at home.
[2021-01-25] MEDS: cefTRIAXone 1 GM in Sodium Chloride 0.9% 50 ML IV SCH (22:44)
[2021-01-25] MEDS: Azithromycin 500 MG in Sodium Chloride 0.9% 250 ML IV SCH (23:13)
[2021-01-26] MEDS: Albuterol/Ipratropium 3.0-0.5 MG/3 ML Neb Soln NEB SCH ×6 (03:59→22:58)
[2021-01-26] MEDS: Pantoprazole 40 MG Tab.CR PO SCH (05:20)
[2021-01-26] MEDS: Levothyroxine 150 MCG Tab PO SCH (05:20)
[2021-01-26] MEDS: Acetaminophen 325 MG Tab PO PRN (07:14)
[2021-01-26] MEDS: atorvaSTATin 20 MG Tab PO SCH (09:03)
[2021-01-26] MEDS: Aspirin 81 MG Tab.EC PO SCH (09:03)
[2021-01-26] MEDS: Ferrous Sulfate 325 MG Tab PO SCH (09:04)
[2021-01-26] MEDS: Carvedilol 6.25 MG Tab PO SCH ×2 (09:04→18:48)
[2021-01-26] MEDS: Furosemide 20 MG/2 ML VIAL IVPUSH SCH ×4 (09:04→23:19)
[2021-01-26] MEDS: Insulin Lispro 100 Units/ML 3 ML Vial SUBCUT SCH ×3 (09:05→17:47)
[2021-01-26] MEDS: Tiotropium Inhaler 18 MCG Inhalation Powder Cap Kit of 5 INH SCH (13:40)
--- NOTE | 2021-01-26 19:25 | PCM.PN ---
- General Info Date of Service: 01/26/21 Admission Dx/Problem (Free Text): Acute COPD exacerbation, pneumonia Subjective Update: Lindsey is a 70-year-old woman who is here with a significant pneumonia causing an exacerbation of her COPD. She is continuing to be very short of breath with activity, this is making her very anxious. We fortunately have got her blood sugars under control, when she was admitted there was an issue with which diabetic agent she was actually on, this has now been straightened out and she is doing well with the evening Lantus. Therapy and nursing report her dyspnea is noticeable with any activity. - Patient Data Vitals - Most Recent: Last Vital Signs Temp 98.8 F 01/26/21 12:00 Pulse 85 01/26/21 18:48 Resp 20 01/26/21 12:00 BP 166/69 H 01/26/21 18:48 Pulse Ox 94 L 01/26/21 12:00 Weight - Most Recent: 118 lb 6.4 oz I&O - Last 24 Hours: Intake & Output 01/26/21 01/26/21 01/26/21 06:59 14:59 22:59 Intake Total 100 235 Output Total 300 Balance 100 -65 Lab Results Last 24 Hours: Laboratory Results - last 24 hr 01/25/21 01/26/21 01/26/21 Range/Units 22:02 00:44 07:32 POC Glucose 200 H 182 H 81 (70-99) mg/dL 01/26/21 01/26/21 Range/Units 11:16 16:47 POC Glucose 116 H 130 H (70-99) mg/dL [facility] Results Last 24 Hours: Microbiology 01/23/21 23:10 Aerobic Blood Culture - Preliminary Blood - Arm, Right NO GROWTH AFTER 2 DAYS Anaerobic Blood Culture - Preliminary NO GROWTH AFTER 2 DAYS 01/23/21 23:06 Aerobic Blood Culture - Preliminary Blood - Arm, Left NO GROWTH AFTER 2 DAYS Anaerobic Blood Culture - Preliminary NO GROWTH AFTER 2 DAYS Med Orders - Current: Current Medications Acetaminophen (Acetaminophen 325 Mg Tab) 650 mg PO Q4H PRN PRN Reason: Pain (Mild 1-3)/fever Last Admin: 01/26/21 07:14 Dose: 650 mg Documented by: Albuterol/Ipratropium (Albuterol/Ipratropium 3.0-0.5 Mg/3 Ml Neb Soln) 3 ml NEB Q4HRRT [facility] Last Admin: 01/26/21 15:50 Dose: Not Given Documented by: Aspirin (Aspirin 81 Mg Tab.Ec) 81 mg PO DAILY [facility] Last Admin: 01/26/21 09:03 Dose: 81 mg Documented by: Atorvastatin Calcium (Atorvastatin 20 Mg Tab) 40 mg PO Q48H [facility] Last Admin: 01/26/21 09:03 Dose: 40 mg Documented by: Carvedilol (Carvedilol 6.25 Mg Tab) 6.25 mg PO BIDMEALS [facility] Last Admin: 01/26/21 18:48 Dose: 6.25 mg Documented by: Dextrose/Water (50% Dextrose In Water 50 Ml Syringe) 50 ml IV Q15M PRN PRN Reason: Hypoglycemia Enoxaparin Sodium (Enoxaparin 30 Mg/0.3 Ml Syringe) 30 mg SUBCUT BEDTIME [facility] Ferrous Sulfate (Ferrous Sulfate 325 Mg Tab) 325 mg PO DAILY [facility] Last Admin: 01/26/21 09:04 Dose: 325 mg Documented by: Furosemide (Furosemide 20 Mg/2 Ml Vial) 10 mg IVPUSH Q8H [facility] Last Admin: 01/26/21 16:52 Dose: 10 mg Documented by: Glucagon (Glucagon,Human Recombinant 1 Mg Vial) 1 mg IM Q15M PRN PRN Reason: Hypoglycemia Azithromycin 500 mg/ Sodium (Chloride) 250 mls @ 250 mls/hr IV Q24H [facility] Last Admin: 01/25/21 23:13 Dose: 250 mls/hr Documented by: Ceftriaxone Sodium 1 gm/ (Sodium Chloride) 50 mls @ 100 mls/hr IV Q24H [facility] Last Admin: 01/25/21 22:44 Dose: 100 mls/hr Documented by: Insulin Glargine (Insulin Glarg,Human.Rec.Analog 100 Unit/Ml) 15 unit SUBCUT BEDTIME [facility] Last Admin: 01/25/21 22:05 Dose: 15 units Documented by: Levothyroxine Sodium (Levothyroxine 150 Mcg Tab) 150 mcg PO ACBREAKFAST [facility] Last Admin: 01/26/21 05:20 Dose: 150 mcg Documented by: Lisinopril (Lisinopril 5 Mg Tab) 2.5 mg PO Q48H [facility] Last Admin: 01/25/21 09:58 Dose: 2.5 mg Documented by: Ondansetron HCl (Ondansetron 4 Mg/2 Ml Sdv) 4 mg IVPUSH Q4H PRN PRN Reason: Nausea/Vomiting Pantoprazole Sodium (Pantoprazole 40 Mg Tab.Cr) 40 mg PO ACBREAKFAST [facility] Last Admin: 01/26/21 05:20 Dose: 40 mg Documented by: Prednisone (Prednisone 20 Mg Tab) 20 mg PO DAILY [facility] Senna/Docusate Sodium (Docusate Sodium/Sennosides 50-8.6 Mg Tab) 1 tab PO BID [facility] Last Admin: 01/26/21 09:03 Dose: 1 tab Documented by: Sodium Chloride (Sodium Chloride 0.9% 10 Ml Syringe) 10 ml FLUSH ASDIRECTED PRN PRN Reason: Keep Vein Open Tiotropium [place] (Tiotropium Inhaler 18 Mcg Inhalation Powder Cap Kit Of 5) 18 mcg INH DAILY [facility] Last Admin: 01/26/21 13:40 Dose: Not Given Documented by: Zolpidem Tartrate (Zolpidem 5 Mg Tab) 5 mg PO BEDTIME PRN PRN Reason: Sleep Discontinued Medications Albuterol/Ipratropium (Albuterol/Ipratropium 3.0-0.5 Mg/3 Ml Neb Soln) 3 ml NEB ONETIME ONE Stop: 01/23/21 22:41 Last Admin: 01/23/21 23:12 Dose: 3 ml Documented by: Azithromycin (Azithromycin 250 Mg Tab) 500 mg PO ONETIME ONE Stop: 01/23/21 22:40 Last Admin: 01/23/21 23:12 Dose: 500 mg Documented by: [facility] (Glipizide 5 Mg Tab) 10 mg PO BID [facility] Last Admin: 01/25/21 10:00 Dose: 10 mg Documented by: Ceftriaxone Sodium 1 gm/ (Sodium Chloride) 50 mls @ 100 mls/hr IV ONETIME ONE Stop: 01/23/21 23:08 Last Admin: 01/23/21 23:11 Dose: 100 mls/hr Documented by: Insulin Human Lispro (Insulin Lispro 100 Units/Ml 3 Ml Vial) 0 unit SUBCUT WITHMEALSANDBED [facility]; Protocol Last Admin: 01/26/21 17:47 Dose: Not Given Documented by: Methylprednisolone Sodium Succinate (Methylprednisolone Sodium Succinate 40 Mg/1 Ml Sdv) 40 mg IVPUSH Q8H [facility] Last Admin: 01/24/21 16:45 Dose: 40 mg Documented by: Sodium Chloride (Sodium Chloride 0.9% 10 Ml Syringe) 10 ml FLUSH ASDIRECTED PRN PRN Reason: Keep Vein Open Last Admin: 01/25/21 17:06 Dose: 10 ml Documented by: - Exam Physical Findings Comments:: General: Lindsey is a 70-year-old woman in no acute distress Oropharynx is clear, mucous membranes are moist Heart: Regular rate and rhythm, 1 out of 6 systolic murmur heard over the left sternal border Lungs: Mild expiratory wheezing at both bases, good air movement heard throughout Abdomen: Soft, nontender to palpation, normal bowel sounds throughout Repeat chest x-ray yesterday did show that that pneumonia still has not resolved - Patient Data Lab Results Last 24 hrs: Laboratory Results - last 24 hr 01/25/21 01/26/21 01/26/21 Range/Units 22:02 00:44 07:32 POC Glucose 200 H 182 H 81 (70-99) mg/dL 01/26/21 01/26/21 Range/Units 11:16 16:47 POC Glucose 116 H 130 H (70-99) mg/dL Result Diagrams: 01/24/21 06:05 01/24/21 06:05 [facility] Results Last 24 hrs: Microbiology 01/23/21 23:10 Aerobic Blood Culture - Preliminary Blood - Arm, Right NO GROWTH AFTER 2 DAYS Anaerobic Blood Culture - Preliminary NO GROWTH AFTER 2 DAYS 01/23/21 23:06 Aerobic Blood Culture - Preliminary Blood - Arm, Left NO GROWTH AFTER 2 DAYS Anaerobic Blood Culture - Preliminary NO GROWTH AFTER 2 DAYS Sepsis Event Note - Evaluation Sepsis Screening Result: No Definite Risk - Focused Exam Vital Signs: Vital Signs Temp Pulse Pulse Resp BP BP Pulse Ox 01/26/21 18:48 85 166/69 H 01/26/21 12:00 98.8 F 81 20 138/81 94 L 01/26/21 09:04 79 141/69 H 01/26/21 08:05 99.1 F 79 20 141/69 H 93 L - Problem List & Annotations (1) COPD (chronic obstructive pulmonary disease) SNOMED Code(s): 32195646 Code(s): J44.9 - CHRONIC OBSTRUCTIVE PULMONARY DISEASE, UNSPECIFIED Status: Acute Current Visit: Yes Qualifiers: COPD type: chronic bronchitis Chronic bronchitis type: unspecified Qualified Code(s): J42 - Unspecified chronic bronchitis (2) Pneumonia SNOMED Code(s): 177149057 Code(s): J18.9 - PNEUMONIA, UNSPECIFIED ORGANISM Status: Acute Current Visit: No Qualifiers: Laterality: right Lung location: lower lobe of lung Qualified Code(s): J18.9 - Pneumonia, unspecified organism (3) Type 2 diabetes mellitus SNOMED Code(s): 13257711 Code(s): E11.9 - TYPE 2 DIABETES MELLITUS WITHOUT COMPLICATIONS Status: Acute Current Visit: Yes - Problem List Review Problem List Initiated/Reviewed/Updated: Yes - My Orders Last 24 Hours: My Active Orders 01/26/21 09:00 Tiotropium [Spiriva HandiHaler] 18 mcg INH DAILY 01/26/21 21:00 Enoxaparin [Lovenox] 30 mg SUBCUT BEDTIME 01/27/21 09:00 predniSONE 20 mg PO DAILY - Assessment Assessment:: Assessment: 1. 70-year-old woman with right lobar pneumonia 2. Chronic obstructive pulmonary disease with acute exacerbation 3. Type 2 diabetes mellitus 4. Chronic kidney disease stage I Plan: 1. She started on Spiriva this morning, hopefully this will make a big dent in her symptoms. 2. Continue ceftriaxone IV 3. We will start prednisone, 20 mg daily tomorrow a.m. Since she is oxygen dependent with her COPD, she may be also steroid-dependent. She may not improve unless we give her daily steroid 4. If we can get her symptoms to the point where she is more active and able to do her ADLs independently, she may be appropriate for discharge. She does have home oxygen including a portable system
[2021-01-26] MEDS: cefTRIAXone 1 GM in Sodium Chloride 0.9% 50 ML IV SCH (22:48)
[2021-01-26] MEDS: Sodium Chloride 0.9% 10 ML Syringe FLUSH PRN ×2 (22:48→23:23)
[2021-01-26] MEDS: Enoxaparin 30 MG/0.3 ML Syringe SUBCUT SCH (22:57)
[2021-01-26] MEDS: Insulin Glarg,Human.Rec.Analog 100 Unit/ML SUBCUT SCH (22:58)
[2021-01-26] MEDS: Azithromycin 500 MG in Sodium Chloride 0.9% 250 ML IV SCH (23:22)
[2021-01-27] MEDS: Sodium Chloride 0.9% 10 ML Syringe FLUSH PRN ×3 (01:07→23:17)
[2021-01-27] MEDS: Albuterol/Ipratropium 3.0-0.5 MG/3 ML Neb Soln NEB SCH ×6 (03:08→22:49)
[2021-01-27] MEDS: Pantoprazole 40 MG Tab.CR PO SCH (06:32)
[2021-01-27] MEDS: Levothyroxine 150 MCG Tab PO SCH (06:32)
[2021-01-27] MEDS: Acetaminophen 325 MG Tab PO PRN ×2 (08:26→23:29)
[2021-01-27] MEDS: predniSONE 20 MG Tab PO SCH (08:27)
[2021-01-27] MEDS: Lisinopril 5 MG Tab PO SCH (08:27)
[2021-01-27] MEDS: Aspirin 81 MG Tab.EC PO SCH (08:27)
[2021-01-27] MEDS: Carvedilol 6.25 MG Tab PO SCH ×2 (08:28→17:33)
[2021-01-27] MEDS: Furosemide 20 MG/2 ML VIAL IVPUSH SCH ×3 (08:28→23:12)
[2021-01-27] MEDS: Ferrous Sulfate 325 MG Tab PO SCH (08:28)
[2021-01-27] MEDS: Tiotropium Inhaler 18 MCG Inhalation Powder Cap Kit of 5 INH SCH (08:31)
[2021-01-27] MEDS: Insulin Glarg,Human.Rec.Analog 100 Unit/ML SUBCUT SCH (22:26)
[2021-01-27] MEDS: Enoxaparin 30 MG/0.3 ML Syringe SUBCUT SCH (22:29)
[2021-01-27] MEDS: cefTRIAXone 1 GM in Sodium Chloride 0.9% 50 ML IV SCH (22:40)
[2021-01-27] MEDS: Azithromycin 500 MG in Sodium Chloride 0.9% 250 ML IV SCH (23:18)
[2021-01-28] MEDS: Albuterol/Ipratropium 3.0-0.5 MG/3 ML Neb Soln NEB SCH ×6 (03:12→23:32)
[2021-01-28] MEDS: Levothyroxine 150 MCG Tab PO SCH (05:30)
[2021-01-28] MEDS: Pantoprazole 40 MG Tab.CR PO SCH (05:30)
[2021-01-28] MEDS: Acetaminophen 325 MG Tab PO PRN ×2 (05:35→23:32)
[2021-01-28] MEDS: Tiotropium Inhaler 18 MCG Inhalation Powder Cap Kit of 5 INH SCH (08:31)
[2021-01-28] MEDS: Sodium Chloride 0.9% 10 ML Syringe FLUSH PRN (08:31)
[2021-01-28] MEDS: Ferrous Sulfate 325 MG Tab PO SCH (08:32)
[2021-01-28] MEDS: atorvaSTATin 20 MG Tab PO SCH (08:32)
[2021-01-28] MEDS: Carvedilol 6.25 MG Tab PO SCH ×2 (08:32→17:21)
[2021-01-28] MEDS: Furosemide 20 MG/2 ML VIAL IVPUSH SCH (08:33)
[2021-01-28] MEDS: Aspirin 81 MG Tab.EC PO SCH (08:33)
[2021-01-28] MEDS: predniSONE 20 MG Tab PO SCH (08:33)
[2021-01-28] MEDS ORDERED: Carboxymethylcellulose Sodium 1% Ophth Gel 0.4 ML UD EYEBOTH PRN (15:38)
[2021-01-28] MEDS: Enoxaparin 30 MG/0.3 ML Syringe SUBCUT SCH (21:33)
[2021-01-28] MEDS: Doxycycline Monohydrate 100 MG Cap PO SCH (21:34)
[2021-01-28] MEDS: Insulin Glarg,Human.Rec.Analog 100 Unit/ML SUBCUT SCH (21:48)
[2021-01-29] MEDS: Albuterol/Ipratropium 3.0-0.5 MG/3 ML Neb Soln NEB SCH ×2 (03:05→07:52)
[2021-01-29] MEDS: Pantoprazole 40 MG Tab.CR PO SCH (05:39)
[2021-01-29] MEDS: Levothyroxine 150 MCG Tab PO SCH (05:39)
[2021-01-29 07:54] VITALS: BP 117/57; PULSE 60
[2021-01-29] MEDS: Carvedilol 6.25 MG Tab PO SCH (08:08)
[2021-01-29] MEDS: Ferrous Sulfate 325 MG Tab PO SCH (08:09)
[2021-01-29] MEDS: Doxycycline Monohydrate 100 MG Cap PO SCH (08:09)
[2021-01-29] MEDS: Aspirin 81 MG Tab.EC PO SCH (08:09)
[2021-01-29] MEDS: Lisinopril 5 MG Tab PO SCH (08:09)
[2021-01-29] MEDS: predniSONE 20 MG Tab PO SCH (08:10)
[2021-01-29] MEDS: Tiotropium Inhaler 18 MCG Inhalation Powder Cap Kit of 5 INH SCH (08:13)
--- NOTE | 2021-01-29 09:55 | PCM.DCSUM1 ---
Discharge Summary - Hospital Course Free Text/Narrative:: Nilsa is a 70-year-old woman who has been admitted here with acute pneumonia and exacerbation of her severe, oxygen dependent chronic obstructive pulmonary disease. We have also been clarifying and stabilizing her diabetes regiment to make it safer and simpler for her at home. Initially, she was admitted with IV steroids as well as IV Rocephin and a azithromycin. She improved on hospital days #1 through 3, and because of hyperglycemia, steroids were stopped on hospital day #4. I restarted her prednisone yesterday, and her breathing has significantly improved. According to the long conversations I had with her on multiple occasions, she does not want to consider assisted living or assisted, but is interested in possibly getting home health when she is discharged today. - Discharge Data Discharge Date: 01/29/21 Discharge Disposition: Home, Self-Care 01 Condition: Good - Referral to Home Health Date of Face to Face Encounter: 01/29/21 Reason for Homebound Status: Oxygen dependent COPD Primary Care Physician: PCP None - Discharge Diagnosis/Problem(s) (1) COPD (chronic obstructive pulmonary disease) SNOMED Code(s): 05863466 ICD Code: J44.9 - CHRONIC OBSTRUCTIVE PULMONARY DISEASE, UNSPECIFIED Status: Acute Qualifiers: COPD type: chronic bronchitis Chronic bronchitis type: unspecified Qualified Code(s): J42 - Unspecified chronic bronchitis (2) Pneumonia SNOMED Code(s): 424648589 ICD Code: J18.9 - PNEUMONIA, UNSPECIFIED ORGANISM Status: Acute Qualifiers: Laterality: right Lung location: lower lobe of lung (3) Type 2 diabetes mellitus SNOMED Code(s): 59986098 ICD Code: E11.9 - TYPE 2 DIABETES MELLITUS WITHOUT COMPLICATIONS Status: Acute - Discharge Plan *PRESCRIPTION DRUG MONITORING PROGRAM REVIEWED*: Not Applicable *COPY OF PRESCRIPTION DRUG MONITORING REPORT IN PATIENT VALERIE: Not Applicable Prescriptions/Med Rec: Doxycycline Monohydrate 100 mg PO BID 5 Days #10 cap predniSONE 5 mg PO DAILY #30 tablet Home Medications: Home Meds Alendronate Sodium [Fosamax] 70 mg PO WEEKLY 01/06/21 [History] Aspirin [Aspirin EC] 81 mg PO DAILY 01/06/21 [History] Bumetanide 1 mg PO Q48H 01/06/21 [History] Calcium Carbonate/Vitamin D3 [Calcium 600-Vit D3 400 Tablet] 1 tab PO BID 01/06/21 [History] Cholecalciferol (Vitamin D3) [Vitamin D3] 2,000 unit PO DAILY 01/06/21 [History] Cyanocobalamin (Vitamin B-12) [Cyanocobalamin Injection] 1,000 mcg IM .MONTHLY 01/06/21 [History] Ferrous Sulfate [Iron] 325 mg PO DAILY 01/06/21 [History] Folic Acid 1 mg PO DAILY 01/06/21 [History] Formoterol [Perforomist] 2 ml INH BID 01/06/21 [History] Ipratropium/Albuterol Sulfate [Iprat-Albut 0.5-3(2.5) MG/3 ML] 3 ml NEB Q6H PRN 01/06/21 [History] Omeprazole 20 mg PO DAILY 01/06/21 [History] Sennosides/Docusate Sodium [Senna-Docusate Sodium Tablet] 1 tab PO BID 01/06/21 [History] atorvaSTATin [Lipitor] 40 mg PO Q48H 01/06/21 [History] carvediloL [Carvedilol] 6.25 mg PO BID 01/06/21 [History] lisinopriL [Lisinopril] 2.5 mg PO Q48H 01/06/21 [History] Levothyroxine 150 mcg PO ACBREAKFAST 01/24/21 [History] Losartan [Cozaar] 25 mg PO DAILY 01/24/21 [History] Umeclidinium Hancock [Incruse Ellipta] 1 puff IN DAILY 01/24/21 [History] Insulin Detemir [Levemir Flextouch] 10 units SUBCUT BEDTIME 01/25/21 [History] sitaGLIPtin Phosphate [Januvia] 50 mg PO DAILY 01/25/21 [History] Budesonide [Pulmicort] 0.5 mg IH BID 01/27/21 [History] Magnesium Oxide 400 mg PO DAILY 01/27/21 [History] Ondansetron [Zofran] 8 mg PO Q8H PRN 01/27/21 [History] Prochlorperazine [Compazine] 10 mg PO Q6H PRN 01/27/21 [History] amLODIPine [Norvasc] 2.5 mg PO DAILY 01/27/21 [History] hydrOXYzine HCL [hydrOXYzine] 25 mg PO TID PRN 01/27/21 [History] Doxycycline Monohydrate 100 mg PO BID 5 Days #10 cap 01/29/21 [Rx] predniSONE 5 mg PO DAILY #30 tablet 01/29/21 [Rx] Patient Handouts: Chronic Obstructive Pulmonary Disease Exacerbation, [id number], Heart Failure, Self Care, [id number], Doxycycline tablets or capsules, Prednisone tablets, Community-Acquired Pneumonia, Adult, [id number] Referrals: Leora Can MD [Physician] - - Discharge Summary/Plan Comment DC Time >30 min.: No Discharge Summary/Plan Comment: Discharge Diagnoses/Plan: 1. 70-year-old woman with severe, oxygen dependent chronic obstructive pulmonary disease with acute exacerbation, improved; based on her clinical course here in the hospital, and her rate of exacerbations in the recent future, I do think she is now steroid-dependent as well. I discussed her case with the primary physician who she has recently established care with, Dr. Can. Based on that discussion, we will start her on 5 mg of prednisone daily to see if it will overall increase her quality of life at home and decrease her rate of exacerbations and complications. 2. Type 2 diabetes mellitus: She has had a couple of different diabetic agents stopped recently because of a worsening of her chronic kidney disease. She had been put back on her glipizide at home, but she reported to me that she has been having hypoglycemic events at home sometimes into the 30s. We will therefore stop her glipizide, have her stick with the insulin, 15 units at night, as well as the Januvia during the day. If nephrology does not want her to be on Metformin going forward, we may need to also consider adding another agent to the Januvia. I am not sure if she would able to do mealtime insulin very well on her own - Patient Data Vitals - Most Recent: Last Vital Signs Temp 96.7 F L 01/29/21 07:53 Pulse 60 01/29/21 08:08 Resp 20 01/29/21 07:53 BP 117/57 L 01/29/21 08:09 Pulse Ox 100 01/29/21 07:53 Weight - Most Recent: 115 lb 6.4 oz I&O - Last 24 hours: Intake & Output 01/28/21 01/29/21 01/29/21 22:59 06:59 14:59 Intake Total 200 350 400 Balance 200 350 400 Lab Results - Last 24 hrs: Laboratory Results - last 24 hr 01/28/21 Range/Units 16:41 POC Glucose 334 H (70-99) mg/dL PAT Results - Last 24 hrs: Microbiology 01/23/21 23:10 Aerobic Blood Culture - Final Blood - Arm, Right NO GROWTH AFTER 5 DAYS Anaerobic Blood Culture - Final NO GROWTH AFTER 5 DAYS 01/23/21 23:06 Aerobic Blood Culture - Final Blood - Arm, Left NO GROWTH AFTER 5 DAYS Anaerobic Blood Culture - Final NO GROWTH AFTER 5 DAYS Med Orders - Current: Current Medications Acetaminophen (Acetaminophen 325 Mg Tab) 650 mg PO Q4H PRN PRN Reason: Pain (Mild 1-3)/fever Last Admin: 01/28/21 23:32 Dose: 650 mg Documented by: Albuterol/Ipratropium (Albuterol/Ipratropium 3.0-0.5 Mg/3 Ml Neb Soln) 3 ml NEB Q4HRRT [facility] Last Admin: 01/29/21 07:52 Dose: 3 ml Documented by: Artificial Tears (Carboxymethylcellulose Sodium 1% Ophth Gel 0.4 Ml Ud) 1 each EYEBOTH Q1H PRN PRN Reason: Dry Eyes Last Admin: 01/28/21 21:35 Dose: 1 each Documented by: Aspirin (Aspirin 81 Mg Tab.Ec) 81 mg PO DAILY [facility] Last Admin: 01/29/21 08:09 Dose: 81 mg Documented by: Atorvastatin Calcium (Atorvastatin 20 Mg Tab) 40 mg PO Q48H [facility] Last Admin: 01/28/21 08:32 Dose: 40 mg Documented by: Carvedilol (Carvedilol 6.25 Mg Tab) 6.25 mg PO BIDMEALS [facility] Last Admin: 01/29/21 08:08 Dose: 6.25 mg Documented by: Doxycycline Monohydrate (Doxycycline Monohydrate 100 Mg Cap) 100 mg PO BID [facility] Last Admin: 01/29/21 08:09 Dose: 100 mg Documented by: Enoxaparin Sodium (Enoxaparin 30 Mg/0.3 Ml Syringe) 30 mg SUBCUT BEDTIME [facility] Last Admin: 01/28/21 21:33 Dose: 30 mg Documented by: Ferrous Sulfate (Ferrous Sulfate 325 Mg Tab) 325 mg PO DAILY [facility] Last Admin: 01/29/21 08:09 Dose: 325 mg Documented by: Glucagon (Glucagon,Human Recombinant 1 Mg Vial) 1 mg IM Q15M PRN PRN Reason: Hypoglycemia Heparin Sodium (Porcine) (Heparin Sodium 100 Units/Ml 5 Ml Syringe) 500 units FLUSH ASDIRECTED PRN PRN Reason: DEACESSING AND ACESSING PORT Last Admin: 01/28/21 13:58 Dose: 500 units Documented by: Insulin Glargine (Insulin Glarg,Human.Rec.Analog 100 Unit/Ml) 15 unit SUBCUT BEDTIME [facility] Last Admin: 01/28/21 21:48 Dose: 15 units Documented by: Levothyroxine Sodium (Levothyroxine 150 Mcg Tab) 150 mcg PO ACBREAKFAST [facility] Last Admin: 01/29/21 05:39 Dose: 150 mcg Documented by: Lisinopril (Lisinopril 5 Mg Tab) 2.5 mg PO Q48H [facility] Last Admin: 01/29/21 08:09 Dose: 2.5 mg Documented by: Pantoprazole Sodium (Pantoprazole 40 Mg Tab.Cr) 40 mg PO ACBREAKFAST [facility] Last Admin: 01/29/21 05:39 Dose: 40 mg Documented by: Prednisone (Prednisone 20 Mg Tab) 20 mg PO DAILY [facility] Last Admin: 01/29/21 08:10 Dose: 20 mg Documented by: Senna/Docusate Sodium (Docusate Sodium/Sennosides 50-8.6 Mg Tab) 1 tab PO BID [facility] Last Admin: 01/29/21 08:09 Dose: 1 tab Documented by: Sodium Chloride (Sodium Chloride 0.9% 10 Ml Syringe) 10 ml FLUSH ASDIRECTED PRN PRN Reason: Keep Vein Open Last Admin: 01/28/21 08:31 Dose: 10 ml Documented by: Tiotropium Hancock (Tiotropium Inhaler 18 Mcg Inhalation Powder Cap Kit Of 5) 18 mcg INH DAILY [facility] Last Admin: 01/29/21 08:13 Dose: 18 mcg Documented by: Zolpidem Tartrate (Zolpidem 5 Mg Tab) 5 mg PO BEDTIME PRN PRN Reason: Sleep Discontinued Medications Albuterol/Ipratropium (Albuterol/Ipratropium 3.0-0.5 Mg/3 Ml Neb Soln) 3 ml NEB ONETIME ONE Stop: 01/23/21 22:41 Last Admin: 01/23/21 23:12 Dose: 3 ml Documented by: Azithromycin (Azithromycin 250 Mg Tab) 500 mg PO ONETIME ONE Stop: 01/23/21 22:40 Last Admin: 01/23/21 23:12 Dose: 500 mg Documented by: Dextrose/Water (50% Dextrose In Water 50 Ml Syringe) 50 ml IV Q15M PRN PRN Reason: Hypoglycemia Furosemide (Furosemide 20 Mg/2 Ml Vial) 10 mg IVPUSH Q8H [facility] Last Admin: 01/28/21 08:33 Dose: 10 mg Documented by: Glipizide ([facility] 5 Mg Tab) [facility] Glipizide (Glipizide 5 Mg Tab) 10 mg PO BID [facility] Last Admin: 01/25/21 10:00 Dose: 10 mg Documented by: Ceftriaxone Sodium 1 gm/ (Sodium Chloride) 50 mls @ 100 mls/hr IV ONETIME ONE Stop: 01/23/21 23:08 Last Admin: 01/23/21 23:11 Dose: 100 mls/hr Documented by: Azithromycin 500 mg/ Sodium (Chloride) 250 mls @ 250 mls/hr IV Q24H [facility] Last Infusion: 01/28/21 01:51 Dose: Infused Documented by: Ceftriaxone Sodium 1 gm/ (Sodium Chloride) 50 mls @ 100 mls/hr IV Q24H [facility] Last Infusion: 01/27/21 23:18 Dose: Infused Documented by: Insulin Human Lispro (Insulin Lispro 100 Units/Ml 3 Ml Vial) 0 unit SUBCUT WITHMEALSANDBED [facility]; Protocol Last Admin: 01/26/21 17:47 Dose: Not Given Documented by: Methylprednisolone Sodium Succinate (Methylprednisolone Sodium Succinate 40 Mg/1 Ml Sdv) 40 mg IVPUSH Q8H [facility] Last Admin: 01/24/21 16:45 Dose: 40 mg Documented by: Ondansetron HCl (Ondansetron 4 Mg/2 Ml Sdv) 4 mg IVPUSH Q4H PRN PRN Reason: Nausea/Vomiting Sodium Chloride (Sodium Chloride 0.9% 10 Ml Syringe) 10 ml FLUSH ASDIRECTED PRN PRN Reason: Keep Vein Open Last Admin: 01/25/21 17:06 Dose: 10 ml Documented by:
--- NOTE | 2021-01-29 15:28 | PCM.PN ---
- General Info Date of Service: 01/27/21 Admission Dx/Problem (Free Text): Acute COPD exacerbation, pneumonia Subjective Update: Nilsa has been admitted here with acute exacerbation of her COPD. She was started on prednisone 20 mg this morning. We started her on Spiriva in the hospital yesterday, she is on Incruse at home, but we do not have access to that in her formulary. She seems to be doing better with her breathing, she is no longer audibly dyspneic. When asked how she is doing however, she still continues to state that she feels very poorly and "I cannot breathe". Her oxygen saturations have been doing well with [address] This is what she is on at home as well - Patient Data Vitals - Most Recent: Last Vital Signs Temp 96.7 F L 01/29/21 07:53 Pulse 60 01/29/21 08:08 Resp 20 01/29/21 07:53 BP 117/57 L 01/29/21 08:09 Pulse Ox 100 01/29/21 07:53 Weight - Most Recent: 115 lb 6.4 oz I&O - Last 24 Hours: Intake & Output 01/29/21 01/29/21 01/29/21 06:59 14:59 22:59 Intake Total 350 400 Balance 350 400 Lab Results Last 24 Hours: Laboratory Results - last 24 hr 01/28/21 01/28/21 01/29/21 Range/Units 16:41 21:48 07:37 POC Glucose 334 H 391 H 193 H (70-99) mg/dL [facility] Results Last 24 Hours: Microbiology 01/23/21 23:10 Aerobic Blood Culture - Final Blood - Arm, Right NO GROWTH AFTER 5 DAYS Anaerobic Blood Culture - Final NO GROWTH AFTER 5 DAYS 01/23/21 23:06 Aerobic Blood Culture - Final Blood - Arm, Left NO GROWTH AFTER 5 DAYS Anaerobic Blood Culture - Final NO GROWTH AFTER 5 DAYS Med Orders - Current: Current Medications Discontinued Medications Acetaminophen (Acetaminophen 325 Mg Tab) 650 mg PO Q4H PRN PRN Reason: Pain (Mild 1-3)/fever Last Admin: 01/28/21 23:32 Dose: 650 mg Documented by: Albuterol/Ipratropium (Albuterol/Ipratropium 3.0-0.5 Mg/3 Ml Neb Soln) 3 ml NEB ONETIME ONE Stop: 01/23/21 22:41 Last Admin: 01/23/21 23:12 Dose: 3 ml Documented by: Albuterol/Ipratropium (Albuterol/Ipratropium 3.0-0.5 Mg/3 Ml Neb Soln) 3 ml NEB Q4HRRT [facility] Last Admin: 01/29/21 07:52 Dose: 3 ml Documented by: Artificial Tears (Carboxymethylcellulose Sodium 1% Ophth Gel 0.4 Ml Ud) 1 each EYEBOTH Q1H PRN PRN Reason: Dry Eyes Last Admin: 01/28/21 21:35 Dose: 1 each Documented by: Aspirin (Aspirin 81 Mg Tab.Ec) 81 mg PO DAILY [facility] Last Admin: 01/29/21 08:09 Dose: 81 mg Documented by: Atorvastatin Calcium (Atorvastatin 20 Mg Tab) 40 mg PO Q48H [facility] Last Admin: 01/28/21 08:32 Dose: 40 mg Documented by: Azithromycin (Azithromycin 250 Mg Tab) 500 mg PO ONETIME ONE Stop: 01/23/21 22:40 Last Admin: 01/23/21 23:12 Dose: 500 mg Documented by: Carvedilol (Carvedilol 6.25 Mg Tab) 6.25 mg PO BIDMEALS [facility] Last Admin: 01/29/21 08:08 Dose: 6.25 mg Documented by: Dextrose/Water (50% Dextrose In Water 50 Ml Syringe) 50 ml IV Q15M PRN PRN Reason: Hypoglycemia Doxycycline Monohydrate (Doxycycline Monohydrate 100 Mg Cap) 100 mg PO BID [facility] Last Admin: 01/29/21 08:09 Dose: 100 mg Documented by: Enoxaparin Sodium (Enoxaparin 30 Mg/0.3 Ml Syringe) 30 mg SUBCUT BEDTIME [facility] Last Admin: 01/28/21 21:33 Dose: 30 mg Documented by: Ferrous Sulfate (Ferrous Sulfate 325 Mg Tab) 325 mg PO DAILY [facility] Last Admin: 01/29/21 08:09 Dose: 325 mg Documented by: Furosemide (Furosemide 20 Mg/2 Ml Vial) 10 mg IVPUSH Q8H [facility] Last Admin: 01/28/21 08:33 Dose: 10 mg Documented by: Glipizide (Glipizide 5 Mg Tab) [facility] Glip[facility] (Glipizide 5 Mg Tab) 10 mg PO BID [facility] Last Admin: 01/25/21 10:00 Dose: 10 mg Documented by: Glucagon (Glucagon,Human Recombinant 1 Mg Vial) 1 mg IM Q15M PRN PRN Reason: Hypoglycemia Heparin Sodium (Porcine) (Heparin Sodium 100 Units/Ml 5 Ml Syringe) 500 units FLUSH ASDIRECTED PRN PRN Reason: DEACESSING AND ACESSING PORT Last Admin: 01/28/21 13:58 Dose: 500 units Documented by: Ceftriaxone Sodium 1 gm/ (Sodium Chloride) 50 mls @ 100 mls/hr IV ONETIME ONE Stop: 01/23/21 23:08 Last Admin: 01/23/21 23:11 Dose: 100 mls/hr Documented by: Azithromycin 500 mg/ Sodium (Chloride) 250 mls @ 250 mls/hr IV Q24H [facility] Last Infusion: 01/28/21 01:51 Dose: Infused Documented by: Ceftriaxone Sodium 1 gm/ (Sodium Chloride) 50 mls @ 100 mls/hr IV Q24H [facility] Last Infusion: 01/27/21 23:18 Dose: Infused Documented by: Insulin Glargine (Insulin Glarg,Human.Rec.Analog 100 Unit/Ml) 15 unit SUBCUT BEDTIME [facility] Last Admin: 01/28/21 21:48 Dose: 15 units Documented by: Insulin Human Lispro (Insulin Lispro 100 Units/Ml 3 Ml Vial) 0 unit SUBCUT WITHMEALSANDBED [facility]; Protocol Last Admin: 01/26/21 17:47 Dose: Not Given Documented by: Levothyroxine Sodium (Levothyroxine 150 Mcg Tab) 150 mcg PO ACBREAKFAST [facility] Last Admin: 01/29/21 05:39 Dose: 150 mcg Documented by: Lisinopril (Lisinopril 5 Mg Tab) 2.5 mg PO Q48H [facility] Last Admin: 01/29/21 08:09 Dose: 2.5 mg Documented by: Methylprednisolone Sodium Succinate (Methylprednisolone Sodium Succinate 40 Mg/1 Ml Sdv) 40 mg IVPUSH Q8H [facility] Last Admin: 01/24/21 16:45 Dose: 40 mg Documented by: Ondansetron HCl (Ondansetron 4 Mg/2 Ml Sdv) 4 mg IVPUSH Q4H PRN PRN Reason: Nausea/Vomiting Pantoprazole Sodium (Pantoprazole 40 Mg Tab.Cr) 40 mg PO ACBREAKFAST [facility] Last Admin: 01/29/21 05:39 Dose: 40 mg Documented by: Prednisone (Prednisone 20 Mg Tab) 20 mg PO DAILY [facility] Last Admin: 01/29/21 08:10 Dose: 20 mg Documented by: Senna/Docusate Sodium (Docusate Sodium/Sennosides 50-8.6 Mg Tab) 1 tab PO BID [facility] Last Admin: 01/29/21 08:09 Dose: 1 tab Documented by: Sodium Chloride (Sodium Chloride 0.9% 10 Ml Syringe) 10 ml FLUSH ASDIRECTED PRN PRN Reason: Keep Vein Open Last Admin: 01/25/21 17:06 Dose: 10 ml Documented by: Sodium Chloride (Sodium Chloride 0.9% 10 Ml Syringe) 10 ml FLUSH ASDIRECTED PRN PRN Reason: Keep Vein Open Last Admin: 01/28/21 08:31 Dose: 10 ml Documented by: Tiotropium [place]orton (Tiotropium Inhaler 18 Mcg Inhalation Powder Cap Kit Of 5) 18 mcg INH DAILY [facility] Last Admin: 01/29/21 08:13 Dose: 18 mcg Documented by: Zolpidem Tartrate (Zolpidem 5 Mg Tab) 5 mg PO BEDTIME PRN PRN Reason: Sleep - Exam Physical Findings Comments:: General: Va is a 70-year-old woman in no acute distress Oropharynx is clear, mucous membranes are moist Neck: Supple, no lymphadenopathy Lungs: She does still have significant expiratory wheezing throughout. - Patient Data Lab Results Last 24 hrs: Laboratory Results - last 24 hr 01/28/21 01/28/21 01/29/21 Range/Units 16:41 21:48 07:37 POC Glucose 334 H 391 H 193 H (70-99) mg/dL Result Diagrams: 01/24/21 06:05 01/24/21 06:05 [facility] Results Last 24 hrs: Microbiology 01/23/21 23:10 Aerobic Blood Culture - Final Blood - Arm, Right NO GROWTH AFTER 5 DAYS Anaerobic Blood Culture - Final NO GROWTH AFTER 5 DAYS 01/23/21 23:06 Aerobic Blood Culture - Final Blood - Arm, Left NO GROWTH AFTER 5 DAYS Anaerobic Blood Culture - Final NO GROWTH AFTER 5 DAYS Sepsis Event Note - Evaluation Sepsis Screening Result: No Definite Risk - Focused Exam Vital Signs: Vital Signs Temp Pulse Pulse Resp BP BP Pulse Ox 01/29/21 08:09 117/57 L 01/29/21 08:08 60 117/57 L 01/29/21 07:53 96.7 F L 60 20 117/57 L 100 01/29/21 07:00 75 01/29/21 04:00 98.0 F 66 20 118/52 L 100 - Problem List & Annotations (1) COPD (chronic obstructive pulmonary disease) SNOMED Code(s): 02624326 Code(s): J44.9 - CHRONIC OBSTRUCTIVE PULMONARY DISEASE, UNSPECIFIED Status: Acute Qualifiers: COPD type: chronic bronchitis Chronic bronchitis type: unspecified Qualified Code(s): J42 - Unspecified chronic bronchitis (2) Pneumonia SNOMED Code(s): 415321514 Code(s): J18.9 - PNEUMONIA, UNSPECIFIED ORGANISM Status: Acute Qualifiers: Laterality: right Lung location: lower lobe of lung (3) Type 2 diabetes mellitus SNOMED Code(s): 52249658 Code(s): E11.9 - TYPE 2 DIABETES MELLITUS WITHOUT COMPLICATIONS Status: Acute - Problem List Review Problem List Initiated/Reviewed/Updated: Yes - Assessment Assessment:: Assessment: 1. 70-year-old woman with right lobar pneumonia 2. Chronic obstructive pulmonary disease with acute exacerbation 3. Type 2 diabetes mellitus 4. Chronic kidney disease stage I Plan: 1. Prednisone 20 mg daily started 2. Is doing well on the Spiriva as a replacement for the Incruse that she takes at home 3. Continues to receive IV ceftriaxone and IV azithromycin, chest x-ray 36 hours ago still showed a significant pneumonia in her right lower lung 4. We will continue to work towards discharge, however I am concerned that discharging her prematurely will lead to bounce back readmission which would like to avoid in her case. She will not consider admission to an assisted living or penitentiary, and I believe she is having great difficulty taking care of herself at home even with the home oxygen in place
--- NOTE | 2021-01-29 15:39 | PCM.PN ---
- General Info Date of Service: 01/28/21 Admission Dx/Problem (Free Text): Acute COPD exacerbation, pneumonia Subjective Update: Va is very anxious and withdrawn this morning. She wants to remain independent at home, but I have the feeling that she is having great difficulty at home, even on her home oxygen. She will not consider admission even on a short-term basis to the assisted living or halfway. We have been trying to get her motivated and focused towards getting discharged home, but she is very anxious about this. Nursing reports no issues overnight. - Patient Data Vitals - Most Recent: Last Vital Signs Temp 96.7 F L 01/29/21 07:53 Pulse 60 01/29/21 08:08 Resp 20 01/29/21 07:53 BP 117/57 L 01/29/21 08:09 Pulse Ox 100 01/29/21 07:53 Weight - Most Recent: 115 lb 6.4 oz I&O - Last 24 Hours: Intake & Output 01/29/21 01/29/21 01/29/21 06:59 14:59 22:59 Intake Total 350 400 Balance 350 400 Lab Results Last 24 Hours: Laboratory Results - last 24 hr 01/28/21 01/28/21 01/29/21 Range/Units 16:41 21:48 07:37 POC Glucose 334 H 391 H 193 H (70-99) mg/dL [facility] Results Last 24 Hours: Microbiology 01/23/21 23:10 Aerobic Blood Culture - Final Blood - Arm, Right NO GROWTH AFTER 5 DAYS Anaerobic Blood Culture - Final NO GROWTH AFTER 5 DAYS 01/23/21 23:06 Aerobic Blood Culture - Final Blood - Arm, Left NO GROWTH AFTER 5 DAYS Anaerobic Blood Culture - Final NO GROWTH AFTER 5 DAYS Med Orders - Current: Current Medications Discontinued Medications Acetaminophen (Acetaminophen 325 Mg Tab) 650 mg PO Q4H PRN PRN Reason: Pain (Mild 1-3)/fever Last Admin: 01/28/21 23:32 Dose: 650 mg Documented by: Albuterol/Ipratropium (Albuterol/Ipratropium 3.0-0.5 Mg/3 Ml Neb Soln) 3 ml NEB ONETIME ONE Stop: 01/23/21 22:41 Last Admin: 01/23/21 23:12 Dose: 3 ml Documented by: Albuterol/Ipratropium (Albuterol/Ipratropium 3.0-0.5 Mg/3 Ml Neb Soln) 3 ml NEB Q4HRRT [facility] Last Admin: 01/29/21 07:52 Dose: 3 ml Documented by: Artificial Tears (Carboxymethylcellulose Sodium 1% Ophth Gel 0.4 Ml Ud) 1 each EYEBOTH Q1H PRN PRN Reason: Dry Eyes Last Admin: 01/28/21 21:35 Dose: 1 each Documented by: Aspirin (Aspirin 81 Mg Tab.Ec) 81 mg PO DAILY [facility] Last Admin: 01/29/21 08:09 Dose: 81 mg Documented by: Atorvastatin Calcium (Atorvastatin 20 Mg Tab) 40 mg PO Q48H [facility] Last Admin: 01/28/21 08:32 Dose: 40 mg Documented by: Azithromycin (Azithromycin 250 Mg Tab) 500 mg PO ONETIME ONE Stop: 01/23/21 22:40 Last Admin: 01/23/21 23:12 Dose: 500 mg Documented by: Carvedilol (Carvedilol 6.25 Mg Tab) 6.25 mg PO BIDMEALS [facility] Last Admin: 01/29/21 08:08 Dose: 6.25 mg Documented by: Dextrose/Water (50% Dextrose In Water 50 Ml Syringe) 50 ml IV Q15M PRN PRN Reason: Hypoglycemia Doxycycline Monohydrate (Doxycycline Monohydrate 100 Mg Cap) 100 mg PO BID [facility] Last Admin: 01/29/21 08:09 Dose: 100 mg Documented by: Enoxaparin Sodium (Enoxaparin 30 Mg/0.3 Ml Syringe) 30 mg SUBCUT BEDTIME [facility] Last Admin: 01/28/21 21:33 Dose: 30 mg Documented by: Ferrous Sulfate (Ferrous Sulfate 325 Mg Tab) 325 mg PO DAILY [facility] Last Admin: 01/29/21 08:09 Dose: 325 mg Documented by: Furosemide (Furosemide 20 Mg/2 Ml Vial) 10 mg IVPUSH Q8H [facility] Last Admin: 01/28/21 08:33 Dose: 10 mg Documented by: Glipizide (Glipizide 5 Mg Tab) 10 mg PO BIDAC [facility] Glipizide (Glipizide 5 Mg Tab) 10 mg PO BID [facility] Last Admin: 01/25/21 10:00 Dose: 10 mg Documented by: Glucagon (Glucagon,Human Recombinant 1 Mg Vial) 1 mg IM Q15M PRN PRN Reason: Hypoglycemia Heparin Sodium (Porcine) (Heparin Sodium 100 Units/Ml 5 Ml Syringe) 500 units FLUSH ASDIRECTED PRN PRN Reason: DEACESSING AND ACESSING PORT Last Admin: 01/28/21 13:58 Dose: 500 units Documented by: Ceftriaxone Sodium 1 gm/ (Sodium Chloride) 50 mls @ 100 mls/hr IV ONETIME ONE Stop: 01/23/21 23:08 Last Admin: 01/23/21 23:11 Dose: 100 mls/hr Documented by: Azithromycin 500 mg/ Sodium (Chloride) 250 mls @ 250 mls/hr IV Q24H [facility] Last Infusion: 01/28/21 01:51 Dose: Infused Documented by: Ceftriaxone Sodium 1 gm/ (Sodium Chloride) 50 mls @ 100 mls/hr IV Q24H [facility] Last Infusion: 01/27/21 23:18 Dose: Infused Documented by: Insulin Glargine (Insulin Glarg,Human.Rec.Analog 100 Unit/Ml) 15 unit SUBCUT BEDTIME [facility] Last Admin: 01/28/21 21:48 Dose: 15 units Documented by: Insulin Human Lispro (Insulin Lispro 100 Units/Ml 3 Ml Vial) 0 unit SUBCUT WITHMEALSANDBED [facility]; Protocol Last Admin: 01/26/21 17:47 Dose: Not Given Documented by: Levothyroxine Sodium (Levothyroxine 150 Mcg Tab) 150 mcg PO ACBREAKFAST [facility] Last Admin: 01/29/21 05:39 Dose: 150 mcg Documented by: Lisinopril (Lisinopril 5 Mg Tab) 2.5 mg PO Q48H [facility] Last Admin: 01/29/21 08:09 Dose: 2.5 mg Documented by: Methylprednisolone Sodium Succinate (Methylprednisolone Sodium Succinate 40 Mg/1 Ml Sdv) 40 mg IVPUSH Q8H [facility] Last Admin: 01/24/21 16:45 Dose: 40 mg Documented by: Ondansetron HCl (Ondansetron 4 Mg/2 Ml Sdv) 4 mg IVPUSH Q4H PRN PRN Reason: Nausea/Vomiting Pantoprazole Sodium (Pantoprazole 40 Mg Tab.Cr) 40 mg PO ACBREAKFAST [facility] Last Admin: 01/29/21 05:39 Dose: 40 mg Documented by: Prednisone (Prednisone 20 Mg Tab) 20 mg PO DAILY [facility] Last Admin: 01/29/21 08:10 Dose: 20 mg Documented by: Senna/Docusate Sodium (Docusate Sodium/Sennosides 50-8.6 Mg Tab) 1 tab PO BID [facility] Last Admin: 01/29/21 08:09 Dose: 1 tab Documented by: Sodium Chloride (Sodium Chloride 0.9% 10 Ml Syringe) 10 ml FLUSH ASDIRECTED PRN PRN Reason: Keep Vein Open Last Admin: 01/25/21 17:06 Dose: 10 ml Documented by: Sodium Chloride (Sodium Chloride 0.9% 10 Ml Syringe) 10 ml FLUSH ASDIRECTED PRN PRN Reason: Keep Vein Open Last Admin: 01/28/21 08:31 Dose: 10 ml Documented by: Tiotropium [place] (Tiotropium Inhaler 18 Mcg Inhalation Powder Cap Kit Of 5) 18 mcg INH DAILY [facility] Last Admin: 01/29/21 08:13 Dose: 18 mcg Documented by: Zolpidem Tartrate (Zolpidem 5 Mg Tab) 5 mg PO BEDTIME PRN PRN Reason: Sleep - Exam Physical Findings Comments:: General: Va is a 70-year-old woman in no acute distress Oropharynx is clear, mucous membranes are moist Heart: Regular rate and rhythm, no murmurs Lungs: Significant expiratory wheezing bilaterally but improved air movement into both bases today. I do not hear any further consolidation over the right lower lobe - Patient Data Lab Results Last 24 hrs: Laboratory Results - last 24 hr 01/28/21 01/28/21 01/29/21 Range/Units 16:41 21:48 07:37 POC Glucose 334 H 391 H 193 H (70-99) mg/dL Result Diagrams: 01/24/21 06:05 01/24/21 06:05 [facility] Results Last 24 hrs: Microbiology 01/23/21 23:10 Aerobic Blood Culture - Final Blood - Arm, Right NO GROWTH AFTER 5 DAYS Anaerobic Blood Culture - Final NO GROWTH AFTER 5 DAYS 01/23/21 23:06 Aerobic Blood Culture - Final Blood - Arm, Left NO GROWTH AFTER 5 DAYS Anaerobic Blood Culture - Final NO GROWTH AFTER 5 DAYS Sepsis Event Note - Evaluation Sepsis Screening Result: No Definite Risk - Focused Exam Vital Signs: Vital Signs Temp Pulse Pulse Resp BP BP Pulse Ox 01/29/21 08:09 117/57 L 01/29/21 08:08 60 117/57 L 01/29/21 07:53 96.7 F L 60 20 117/57 L 100 01/29/21 07:00 75 01/29/21 04:00 98.0 F 66 20 118/52 L 100 - Problem List & Annotations (1) COPD (chronic obstructive pulmonary disease) SNOMED Code(s): 73166229 Code(s): J44.9 - CHRONIC OBSTRUCTIVE PULMONARY DISEASE, UNSPECIFIED Status: Acute Qualifiers: COPD type: chronic bronchitis Chronic bronchitis type: unspecified Qualified Code(s): J42 - Unspecified chronic bronchitis (2) Pneumonia SNOMED Code(s): 580378592 Code(s): J18.9 - PNEUMONIA, UNSPECIFIED ORGANISM Status: Acute Qualifiers: Laterality: right Lung location: lower lobe of lung (3) Type 2 diabetes mellitus SNOMED Code(s): 72592257 Code(s): E11.9 - TYPE 2 DIABETES MELLITUS WITHOUT COMPLICATIONS Status: Acute - Problem List Review Problem List Initiated/Reviewed/Updated: Yes - Assessment Assessment:: Assessment: 1. 70-year-old woman with right lobar pneumonia 2. Chronic obstructive pulmonary disease with acute exacerbation 3. Type 2 diabetes mellitus 4. Chronic kidney disease stage I Plan: 1. Prednisone 20 mg daily 2. Is doing well on the Spiriva as a replacement for the Incruse that she takes at home 3. Continues to receive IV ceftriaxone and IV azithromycin 4. We will continue to work towards discharge, however I am concerned that discharging her prematurely will lead to bounce back readmission which would like to avoid in her case. She will not consider admission to an assisted living or halfway, and I believe she is having great difficulty taking care of herself at home even with the home oxygen in place. Anticipate possible discharge home tomorrow a.m.
== END 2021-01-29 11:00 | disposition home or self-care (01) | DRG 193 ==
LOC: DL.ED 20:04 → DL.MS 23:10
PROVIDERS: ADMIT Internal Medicine; ATTEND Family Medicine
DX: J18.9 Pneumonia, unspecified organism (principal); J42 Unspecified chronic bronchitis; D64.9 Anemia, unspecified; R09.02 Hypoxemia; I50.43 Acute on chronic combined systolic (congestive) and diastolic (congestive) heart failure; J44.0 Chronic obstructive pulmonary disease with (acute) lower respiratory infection; C34.91 Malignant neoplasm of unspecified part of right bronchus or lung; I13.0 Hypertensive heart and chronic kidney disease with heart failure and stage 1 through stage 4 chronic kidney disease, or unspecified chronic kidney disease; C34.90 Malignant neoplasm of unspecified part of unspecified bronchus or lung; I42.8 Other cardiomyopathies; N18.9 Chronic kidney disease, unspecified; J44.1 Chronic obstructive pulmonary disease with (acute) exacerbation; M81.0 Age-related osteoporosis without current pathological fracture; E03.9 Hypothyroidism, unspecified; K59.00 Constipation, unspecified; Z20.822 Contact with and (suspected) exposure to COVID-19; I50.9 Heart failure, unspecified; M19.90 Unspecified osteoarthritis, unspecified site; D63.1 Anemia in chronic kidney disease; N18.1 Chronic kidney disease, stage 1; I25.10 Atherosclerotic heart disease of native coronary artery without angina pectoris; D69.6 Thrombocytopenia, unspecified; E11.22 Type 2 diabetes mellitus with diabetic chronic kidney disease; K57.90 Diverticulosis of intestine, part unspecified, without perforation or abscess without bleeding; K76.0 Fatty (change of) liver, not elsewhere classified; Z90.49 Acquired absence of other specified parts of digestive tract; Z98.49 Cataract extraction status, unspecified eye; Z95.810 Presence of automatic (implantable) cardiac defibrillator; Z87.891 Personal history of nicotine dependence; Z88.5 Allergy status to narcotic agent; Z91.09 Other allergy status, other than to drugs and biological substances; Z88.8 Allergy status to other drugs, medicaments and biological substances; I25.2 Old myocardial infarction; Z86.73 Personal history of transient ischemic attack (TIA), and cerebral infarction without residual deficits; Z91.14 Patient's other noncompliance with medication regimen; H54.7 Unspecified visual loss; Z95.0 Presence of cardiac pacemaker; Z91.048 Other nonmedicinal substance allergy status; Z79.82 Long term (current) use of aspirin; Z79.4 Long term (current) use of insulin; Z79.51 Long term (current) use of inhaled steroids; Z79.899 Other long term (current) drug therapy; Z28.82 Immunization not carried out because of caregiver refusal
CPT/HCPCS: 36415; 71045; 71046; 80048; 80053; 82728; 82947; 83540; 83550; 83605; 83880; 84145; 84484; 85025; 86140; 87040; 93005; 93010; 94640; 99285; 99285-25; A9270-GY; J0456; J0696; J1642; J1650; J1815-GY; J1940; J2920; J7050; J7512; J7620-GY; U0002

== ENCOUNTER 2021-02-14 18:12 | Emergency (ER) | payer MEDICARE, MEDICAID ==
[2021-02-14 18:21] VITALS: BP 148/66
[2021-02-14 18:23] VITALS: PULSE 68
--- NOTE | 2021-02-14 19:04 | EDM.PDOC ---
ED HPI GENERAL MEDICAL PROBLEM - General Chief Complaint: Respiratory Problem Stated Complaint: [facility] Time Seen by Provider: 02/14/21 19:02 Source of Information: Reports: Patient, EMS, EMS Notes Reviewed, RN, RN Notes Reviewed History Limitations: Reports: No Limitations - History of Present Illness INITIAL COMMENTS - FREE TEXT/NARRATIVE: Pt presents to the ER per [facility] with c/o increased SOB and fluid build up in her lower extremities. She states this has been gradually happening over the past week. Patient was discharged home from the hospital recently after a 7 day stay for pneumonia. 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 Patient states she had COVID in September and has not been vaccinated. Patient denies any chest pains, fever or chills, N/V/D. Patient states she also doctors with oncology for lung cancer. Patient is on home O2 at 2L at all times. Onset: Gradual - Related Data Allergies Allergy/AdvReac Type Severity Reaction Status Date / Time codeine Allergy Unknown Cannot Verified 02/14/21 18:24 Remember adhesive tape Allergy Rash Verified 02/14/21 18:24 carboplatin Allergy Shortness Verified 02/14/21 18:24 of Breath sacubitril [From Entresto] Allergy Dizziness Verified 02/14/21 18:24 simvastatin [From Zocor] Allergy Muscle Verified 02/14/21 18:24 Aches valsartan [From Entresto] Allergy Dizziness Verified 02/14/21 18:24 metal Allergy Mild Rash Uncoded 02/14/21 18:24 Home Meds: Home Meds Alendronate Sodium [Fosamax] 70 mg PO WEEKLY 01/06/21 [History] Aspirin [Aspirin EC] 81 mg PO DAILY 01/06/21 [History] Bumetanide 1 mg PO Q48H 01/06/21 [History] Calcium Carbonate/Vitamin D3 [Calcium 600-Vit D3 400 Tablet] 1 tab PO BID 01/06/21 [History] Cholecalciferol (Vitamin D3) [Vitamin D3] 2,000 unit PO DAILY 01/06/21 [History] Cyanocobalamin (Vitamin B-12) [Cyanocobalamin Injection] 1,000 mcg IM .MONTHLY 01/06/21 [History] Ferrous Sulfate [Iron] 325 mg PO DAILY 01/06/21 [History] Folic Acid 1 mg PO DAILY 01/06/21 [History] Formoterol [Perforomist] 2 ml INH BID 01/06/21 [History] Ipratropium/Albuterol Sulfate [Iprat-Albut 0.5-3(2.5) MG/3 ML] 3 ml NEB Q6H PRN 01/06/21 [History] Omeprazole 20 mg PO DAILY 01/06/21 [History] Sennosides/Docusate Sodium [Senna-Docusate Sodium Tablet] 1 tab PO BID 01/06/21 [History] atorvaSTATin [Lipitor] 40 mg PO Q48H 01/06/21 [History] carvediloL [Carvedilol] 6.25 mg PO BID 01/06/21 [History] lisinopriL [Lisinopril] 2.5 mg PO Q48H 01/06/21 [History] Levothyroxine 150 mcg PO ACBREAKFAST 01/24/21 [History] Losartan [Cozaar] 25 mg PO DAILY 01/24/21 [History] Umeclidinium [place] [Incruse Ellipta] 1 puff IN DAILY 01/24/21 [History] Insulin Detemir [Levemir Flextouch] 10 units SUBCUT BEDTIME 01/25/21 [History] sitaGLIPtin Phosphate [Januvia] 50 mg PO DAILY 01/25/21 [History] Budesonide [Pulmicort] 0.5 mg IH BID 01/27/21 [History] Magnesium Oxide 400 mg PO DAILY 01/27/21 [History] Ondansetron [Zofran] 8 mg PO Q8H PRN 01/27/21 [History] Prochlorperazine [Compazine] 10 mg PO Q6H PRN 01/27/21 [History] amLODIPine [Norvasc] 2.5 mg PO DAILY 01/27/21 [History] hydrOXYzine HCL [hydrOXYzine] 25 mg PO TID PRN 01/27/21 [History] Doxycycline Monohydrate 100 mg PO BID 5 Days #10 cap 01/29/21 [Rx] predniSONE 5 mg PO DAILY #30 tablet 01/29/21 [Rx] Past Medical History HEENT History: Reports: Cataract, Impaired Vision, Otitis Media Other HEENT History: wears glasses Cardiovascular History: Reports: Cardiomyopathy, Heart Failure, High Cholesterol, Hypertension, Pacemaker, Other (See Below) Other Cardiovascular History: CARDIAC DIFIBRILLATOR PLACEMENT (2017), NONISCHEMIC CARDIOMYOPATHY Respiratory History: Reports: Bronchitis, Recurrent, COPD, Pneumonia, Recurrent, Other (See Below) Other Respiratory History: Lung CA with recent chemo and radiation Gastrointestinal History: Reports: Cholelithiasis, GERD Genitourinary History: Reports: Renal Disease, UTI, Recurrent, Other (See Below) Other Genitourinary History: CKD GENERAL PRACTITIONER 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 GENERAL PRACTITIONER History: HAS 3 KIDS Musculoskeletal History: Reports: Arthritis, Fracture, Other (See Below) Other Musculoskeletal History: SHOULDER PAIN, BILATERAL Neurological History: Reports: TIA Psychiatric History: Reports: Addiction Other Psychiatric History: patient states she doesn't know if she was addicted to anything Endocrine/Metabolic History: Reports: Diabetes, Type II, Hypothyroidism Hematologic History: Reports: Anemia, B12 Deficiency, Iron Deficiency Immunologic History: Reports: None Oncologic (Cancer) History: Reports: Lung Dermatologic History: Reports: None - Infectious Disease History Infectious Disease History: Reports: Measles, Novel Coronavirus - Past Surgical History Head Surgeries/Procedures: Reports: None HEENT Surgical History: Reports: Cataract Surgery Cardiovascular Surgical History: Reports: AICD, Pacer Respiratory Surgical History: Reports: None GI Surgical History: Reports: Appendectomy, Cholecystectomy Female Surgical History: Reports: None Endocrine Surgical History: Reports: None Neurological Surgical History: Reports: None Musculoskeletal Surgical History: Reports: None Social & Family History - Family History Family Medical History: No Pertinent Family History - Tobacco Use Tobacco Use Status *Q: Former Tobacco User Used Tobacco, but Quit: Yes Month/Year Tobacco Last Used: 2011 - Caffeine Use Caffeine Use: Reports: Coffee Caffeine Use Comment: decaf products - Recreational Drug Use Recreational Drug Use: No - Living Situation & Occupation Living situation: Reports: Alone Occupation: Employed ED ROS GENERAL - Review of Systems Review Of Systems: Comprehensive ROS is negative, except as noted in HPI. ED EXAM, GENERAL - Physical Exam Exam: See Below Exam Limited By: No Limitations General Appearance: Alert, WD/WN, No Apparent Distress Eye Exam: Bilateral Eye: EOMI, Normal Inspection Ears: Normal External Exam, Hearing Grossly Normal Nose: Normal Inspection Throat/Mouth: Normal Inspection, Normal Voice, No Airway Compromise Head: Atraumatic, Normocephalic Neck: Normal Inspection, Supple, Non-Tender, Full Range of Motion Respiratory/Chest: No Respiratory Distress, No Accessory Muscle Use, Chest Non- Tender, Crackles (throughout) Cardiovascular: Normal Peripheral Pulses, Regular Rate, Rhythm, No Gallop, No JVD, No Murmur, No Rub, Other (lower extremity edema +2) Peripheral Pulses: 2+: Radial (L), Radial (R) GI/Abdominal: Normal Bowel Sounds, Soft, Non-Tender (Female) Exam: Deferred Rectal (Female) Exam: Deferred Back Exam: Normal Inspection, Full Range of Motion Extremities: Normal Range of Motion, Non-Tender, Normal Capillary Refill, Pedal Edema (+2, bilaterally) Neurological: Alert, Oriented, CN II-XII Intact, Normal Cognition, Normal Gait, Normal Reflexes, No Motor/Sensory Deficits Psychiatric: Normal Affect, Normal Mood Skin Exam: Warm, Dry, Intact, Normal Color, No Rash Lymphatic: No Adenopathy #1 Interpretation EKG Date: 02/14/21 Time: 18:52 Rhythm: NSR Rate (Beats/Min): 67 [place]: Normal P-Wave: Present QRS: Normal ST-T: Normal QT: Normal Comparison: No Change Course - Vital Signs Last Recorded V/S: Last Vital Signs Temp 98.3 F 02/14/21 18:21 Pulse 68 02/14/21 18:21 Resp 20 02/14/21 18:21 BP 148/66 H 02/14/21 18:21 Pulse Ox 97 02/14/21 18:21 - Orders/Labs/Meds Labs: Laboratory Tests 02/14/21 02/14/21 Range/Units 18:55 18:55 WBC 8.3 (5.0-10.0) 10^3/uL RBC 3.10 L (4.2-5.4) 10^6/uL Hgb 9.6 L (12.0-16.0) g/dL Hct 29.3 L (37.0-47.0) % MCV 94.5 (80-100) fL MCH 31.0 (27.0-34.0) pg MCHC 32.8 L (33.0-35.0) g/dL Plt Count 114 L (150-450) 10^3/uL Neut % (Auto) 81.6 H (42.2-75.2) % Lymph % (Auto) 9.1 L (20.5-50.1) % [place] % (Auto) 6.2 (2-8) % Eos % (Auto) 3.0 (1.0-3.0) % Baso % (Auto) 0.1 (0.0-1.0) % Sodium 132 L (136-145) mmol/L Potassium 4.1 (3.5-5.1) mmol/L Chloride 97 L (98-107) mmol/L Carbon Dioxide 25 (21-32) mmol/L Anion Gap 14.1 H (7-13) mEq/L BUN 21 H (7-18) mg/dL Creatinine 1.41 H (0.55-1.02) mg/dL Est Cr Clr Drug Dosing 31.60 mL/min Estimated GFR (MDRD) 37 BUN/Creatinine Ratio 14.9 (No establ ref range) Glucose 302 H (70-99) mg/dL Calcium 8.2 L (8.5-10.1) mg/dL Total Bilirubin 0.3 (0.2-1.0) mg/dL AST 9 L (15-37) U/L ALT 16 (14-59) U/L Alkaline Phosphatase 190 H (46-116) U/L Troponin I 0.007 (0.000-0.056) ng/mL C-Reactive Protein 5.1 H (0.0-0.9) mg/dL B-Natriuretic Peptide 986 H (0-100) pg/ml Total Protein 6.9 (6.4-8.2) g/dL Albumin 2.5 L (3.4-5.0) g/dL Globulin 4.4 Albumin/Globulin Ratio 0.57 Meds: Medications Discontinued Medications Generic Name Dose Route Start Last Admin Trade Name Freq PRN Reason Stop Dose Admin Azithromycin 500 mg 02/14/21 20:59 02/14/21 21:12 Azithromycin 250 Mg Tab PO 02/14/21 21:00 500 mg ONETIME ONE Administration Furosemide 80 mg 02/14/21 20:01 02/14/21 20:50 Furosemide 40 Mg/4 Ml Vial IVPUSH 02/14/21 20:02 80 mg NOW ONE Administration - Radiology Interpretation Free Text/Narrative:: Chest xray: PROCEDURE INFORMATION: Exam: XR Chest Exam date and time: 02/14/2021 8:13 PM Age: 70 years old Clinical indication: Shortness of breath; Additional info: Chest pain TECHNIQUE: Imaging protocol: XR of the chest. Views: 1 view. COMPARISON: CR Chest 2V 01/25/2021 4:53 PM FINDINGS: Tubes, catheters and devices: AICD cardiac pacer demonstrated with intact pacer wires. Lungs: Right lower lobe infiltrate. Pleural spaces: Blunting of the right costophrenic angle consistent with a pleural effusion. Heart/Mediastinum: Cardiomegaly. Vasculature: MediPort catheter tip in the superior vena cava. Bones/joints: Absent segments of the 7th through 10th ribs on the right may be related to previous rib resections although destructive rib lesions not excluded in the appropriate clinical setting. IMPRESSION: 1. Right lower lobe infiltrate. 2. Cardiomegaly. 3. Blunting of the right costophrenic angle consistent with a pleural effusion. 4. Absent segments of the 7th through 10th ribs on the right may be related to previous rib resections although destructive rib lesions not excluded in the appropriate clinical setting. Thank you for allowing us to participate in the care of your patient. Dictated and Authenticated by: Vazquez Farris MD 02/14/2021 8:32 PM Central Time ([place] & [place]) See rad report Departure - Departure Time of Disposition: 21:01 Disposition: Admitted As Inpatient 65 Condition: Fair Clinical Impression: CHF (congestive heart failure) Qualifiers: Heart failure type: unspecified Heart failure chronicity: acute on chronic Qualified Code(s): I50.9 - Heart failure, unspecified Pneumonia Qualifiers: Pneumonia type: due to unspecified organism Laterality: right Lung location: lower lobe of lung Qualified Code(s): J18.9 - Pneumonia, unspecified organism - Discharge Information *PRESCRIPTION DRUG MONITORING PROGRAM REVIEWED*: No *COPY OF PRESCRIPTION DRUG MONITORING REPORT IN PATIENT VALERIE: No Instructions: Shortness of Breath, Adult, [id number], Heart Failure, Self Care, [id number], Community-Acquired Pneumonia, Adult, [id number] Forms: ED Department Discharge Additional Instructions: Make an appointment to see your primary care provider RX: Azithromycin for the next for days Return to the ER with any worsening of symptoms Sepsis Event Note (ED) - Evaluation Sepsis Screening Result: No Definite Risk - Focused Exam Vital Signs: Vital Signs Temp Pulse Resp BP Pulse Ox 02/14/21 18:21 98.3 F 68 20 148/66 H 97 02/14/21 18:19 97.6 F 70 20 148/66 H 100
[2021-02-14 19:16] LABS: ANION GAP 14.1 mEq/L (7-13)
[2021-02-14] MEDS ORDERED: Furosemide 40 MG/4 ML VIAL IVPUSH ONE (20:01)
--- NOTE | 2021-02-14 20:32 | CR ---
PROCEDURE INFORMATION: Exam: XR Chest Exam date and time: 02/14/2021 8:13 PM Age: 70 years old Clinical indication: Shortness of breath; Additional info: Chest pain TECHNIQUE: Imaging protocol: XR of the chest. Views: 1 view. COMPARISON: CR Chest 2V 01/25/2021 4:53 PM FINDINGS: Tubes, catheters and devices: AICD cardiac pacer demonstrated with intact pacer wires. Lungs: Right lower lobe infiltrate. Pleural spaces: Blunting of the right costophrenic angle consistent with a pleural effusion. Heart/Mediastinum: Cardiomegaly. Vasculature: MediPort catheter tip in the superior vena cava. Bones/joints: Absent segments of the 7th through 10th ribs on the right may be related to previous rib resections although destructive rib lesions not excluded in the appropriate clinical setting. IMPRESSION: 1. Right lower lobe infiltrate. 2. Cardiomegaly. 3. Blunting of the right costophrenic angle consistent with a pleural effusion. 4. Absent segments of the 7th through 10th ribs on the right may be related to previous rib resections although destructive rib lesions not excluded in the appropriate clinical setting.
[2021-02-14] MEDS ORDERED: Azithromycin 250 MG Tab PO ONE (20:59)
== END 2021-02-14 22:15 | disposition critical access hospital (66) ==
LOC: DL.ED 18:12
DX: J18.9 Pneumonia, unspecified organism (principal); I13.0 Hypertensive heart and chronic kidney disease with heart failure and stage 1 through stage 4 chronic kidney disease, or unspecified chronic kidney disease; I50.9 Heart failure, unspecified; N18.9 Chronic kidney disease, unspecified; E11.22 Type 2 diabetes mellitus with diabetic chronic kidney disease; E78.00 Pure hypercholesterolemia, unspecified; J44.9 Chronic obstructive pulmonary disease, unspecified; K21.9 Gastro-esophageal reflux disease without esophagitis; M19.90 Unspecified osteoarthritis, unspecified site; E03.9 Hypothyroidism, unspecified; Z88.5 Allergy status to narcotic agent; Z91.048 Other nonmedicinal substance allergy status; Z88.8 Allergy status to other drugs, medicaments and biological substances; Z79.899 Other long term (current) drug therapy; Z86.73 Personal history of transient ischemic attack (TIA), and cerebral infarction without residual deficits; Z79.82 Long term (current) use of aspirin; Z87.891 Personal history of nicotine dependence
CPT/HCPCS: 36415; 71045; 80053; 83880; 84484; 85025; 86140; 93005; 93010; 96374; 99284; 99285-25; A9270-GY; J1940

== ENCOUNTER 2021-04-01 17:03 | Emergency (ER) | payer MEDICARE, MEDICAID ==
--- NOTE | 2021-04-01 17:24 | EDM.PDOC ---
<Jovana Martinez - Last Filed: 04/11/21 20:43> ED HPI GENERAL MEDICAL PROBLEM - General Stated Complaint: SPLK - AMBULANCE Time Seen by Provider: 04/01/21 17:18 - Related Data Allergies Allergy/AdvReac Type Severity Reaction Status Date / Time codeine Allergy Unknown Cannot Verified 03/15/21 07:50 Remember adhesive tape Allergy Rash Verified 03/15/21 07:50 carboplatin Allergy Shortness Verified 03/15/21 07:50 of Breath sacubitril [From Entresto] Allergy Dizziness Verified 03/15/21 07:50 simvastatin [From Zocor] Allergy Muscle Verified 03/15/21 07:50 Aches valsartan [From Entresto] Allergy Dizziness Verified 03/15/21 07:50 metal Allergy Mild Rash Uncoded 03/15/21 07:50 Home Meds: Home Meds Alendronate Sodium [Fosamax] 70 mg PO WEEKLY 01/06/21 [History] Aspirin [Aspirin EC] 81 mg PO DAILY 01/06/21 [History] Bumetanide 1 mg PO BID 01/06/21 [History] Calcium Carbonate/Vitamin D3 [Calcium 600-Vit D3 400 Tablet] 1 tab PO BID 01/06/21 [History] Folic Acid 1 mg PO DAILY 01/06/21 [History] Formoterol [Perforomist] 2 ml INH BID 01/06/21 [History] Ipratropium/Albuterol Sulfate [Iprat-Albut 0.5-3(2.5) MG/3 ML] 3 ml NEB Q6H PRN 01/06/21 [History] Omeprazole 20 mg PO DAILY 01/06/21 [History] Sennosides/Docusate Sodium [Senna-Docusate Sodium Tablet] 1 tab PO BID 01/06/21 [History] carvediloL [Carvedilol] 6.25 mg PO BID 01/06/21 [History] Levothyroxine 150 mcg PO ACBREAKFAST 01/24/21 [History] Losartan [Cozaar] 25 mg PO BID 01/24/21 [History] Insulin Detemir [Levemir Flextouch] 10 units SUBCUT BEDTIME 01/25/21 [History] Budesonide [Pulmicort] 0.5 mg IH BID 01/27/21 [History] Magnesium Oxide 400 mg PO DAILY 01/27/21 [History] Ondansetron [Zofran] 8 mg PO Q8H PRN 01/27/21 [History] hydrOXYzine HCL [hydrOXYzine] 25 mg PO TID PRN 01/27/21 [History] Potassium Chloride 10 meq PO DAILY 03/15/21 [History] predniSONE [Prednisone] 1 mg PO DAILY 03/15/21 [History] Albuterol [Ventolin HFA] 2 puff INH Q6H PRN 03/16/21 [History] Alogliptin Benzoate [Alogliptin] 12.5 mg PO DAILY 03/16/21 [History] Cholecalciferol (Vitamin D3) [Vitamin D3] 50 mcg PO BID 03/16/21 [History] Ferrous Gluconate 324 mg PO DAILY 03/16/21 [History] Tiotropium [Spiriva HandiHaler] 18 mcg INH DAILY 03/16/21 [History] Ascorbic Acid [Vitamin C] 250 mg PO DAILY 30 Days #30 tablet 03/17/21 [Rx] Departure - Departure Disposition: DC/Tfer to Acute Hospital 02 Condition: Poor Clinical Impression: Respiratory distress, Hx of cancer of lung Ascites Qualifiers: Ascites type: other type Qualified Code(s): R18.8 - Other ascites - Discharge Information *PRESCRIPTION DRUG MONITORING PROGRAM REVIEWED*: No *COPY OF PRESCRIPTION DRUG MONITORING REPORT IN PATIENT VALERIE: No Referrals: PCP,None [Primary Care Provider] - Forms: ED Department Discharge <Deisy Matos - Last Filed: 04/12/21 07:38> ED HPI GENERAL MEDICAL PROBLEM - General Source of Information: Reports: Patient, EMS, Old Records, RN, RN Notes Reviewed History Limitations: Reports: No Limitations - History of Present Illness INITIAL COMMENTS - FREE TEXT/NARRATIVE: Va is a 71 y/o female with a history of COPD, CHF, lung cancer currently in remission, who presents to the ED via [facility] with complaints of shortness of breath with exertion. Additionally, the patient has noticed an increase in her abdominal distention and bilateral pedal edema. The patient was admitted to this facility two weeks ago for CHF exacerbation and was instructed to follow up with primary care provider, oncologist, and flask maker. She had an appointment with her oncologist, Dr. Lyn, seven days ago who told her the mass in her right lung is stable. She has not followed up with the other providers for management of her chronic health conditions. The patient denies fever, shaking chills, vision changes, palpitations, nausea, vomiting, dysuria, diarrhea, or constipation. She does attest to right lateral chest pain that she associates with her lung mass. She feels she is requiring her home oxygen more frequently, although she does not wear it while up walking as her concentrator is too heavy. Past Medical History HEENT History: Reports: Cataract, Impaired Vision, Otitis Media Other HEENT History: wears glasses Cardiovascular History: Reports: Cardiomyopathy, Heart Failure, High Cholesterol, Hypertension, Pacemaker, Other (See Below) Other Cardiovascular History: CARDIAC DIFIBRILLATOR PLACEMENT (2017), NO NISCHEMIC CARDIOMYOPATHY Respiratory History: Reports: Bronchitis, Recurrent, COPD, Pneumonia, Recurrent, Other (See Below) Other Respiratory History: Lung CA with recent chemo and radiation Gastrointestinal History: Reports: Cholelithiasis, GERD Genitourinary History: Reports: Renal Disease, UTI, Recurrent, Other (See Below) Other Genitourinary History: CKD SUBASSEMBLIES WIRER 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 SUBASSEMBLIES WIRER History: HAS 3 KIDS Musculoskeletal History: Reports: Arthritis, Fracture, Other (See Below) Other Musculoskeletal History: SHOULDER PAIN, BILATERAL Neurological History: Reports: TIA Psychiatric History: Reports: Addiction Other Psychiatric History: patient states she doesn't know if she was addicted to anything Endocrine/Metabolic History: Reports: Diabetes, Type II, Hypothyroidism Hematologic History: Reports: Anemia, B12 Deficiency, Iron Deficiency Immunologic History: Reports: None Oncologic (Cancer) History: Reports: Lung Dermatologic History: Reports: None - Infectious Disease History Infectious Disease History: Reports: Measles, Novel Coronavirus - Past Surgical History Head Surgeries/Procedures: Reports: None HEENT Surgical History: Reports: Cataract Surgery Cardiovascular Surgical History: Reports: AICD, Pacer Respiratory Surgical History: Reports: None GI Surgical History: Reports: Appendectomy, Cholecystectomy Female Surgical History: Reports: None Endocrine Surgical History: Reports: None Neurological Surgical History: Reports: None Musculoskeletal Surgical History: Reports: None Social & Family History - Family History Family Medical History: No Pertinent Family History - Caffeine Use Caffeine Use: Reports: Coffee Caffeine Use Comment: decaf products - Living Situation & Occupation Living situation: Reports: Alone Occupation: Employed ED ROS GENERAL - Review of Systems Review Of Systems: Comprehensive ROS is negative, except as noted in HPI. ED EXAM, GENERAL - Physical Exam Exam: See Below Exam Limited By: No Limitations General Appearance: Alert, No Apparent Distress Eye Exam: Bilateral Eye: EOMI, Normal Inspection, PERRL (3mm) Ears: Normal External Exam, Hearing Grossly Normal Nose: Normal Inspection, Normal Mucosa, No Blood Throat/Mouth: Normal Lips, Normal Gums, Normal Voice, No Airway Compromise. No: Normal Teeth (Poor dentition), Normal Oropharynx (Dry mucous membranes) Head: Atraumatic Neck: Normal Inspection, Supple, Non-Tender, Full Range of Motion. No: Lymphadenopathy (L), Lymphadenopathy (R) Respiratory/Chest: No Respiratory Distress, No Accessory Muscle Use, Crackles (F ine to left base). No: Chest Non-Tender, Rales, Rhonchi, Wheezing, Stridor, Prolonged Expiration Cardiovascular: Normal Peripheral Pulses, Regular Rate, Rhythm, No Edema, No Gallop, No JVD, No Rub, Systolic Murmur (2/6 loudest over the pulmonic area; No radiation into carotids) Peripheral Pulses: 2+: Radial (L), Radial (R) GI/Abdominal: Soft, Non-Tender, No Abnormal Bruit, No Mass, Pelvis Stable, Distended, Abnormal Bowel Sounds (Hypoactive bowel sounds) Back Exam: Normal Inspection, Full Range of Motion. No: CVA Tenderness (L), CVA Tenderness (R) Extremities: Normal Inspection, Normal Range of Motion, Normal Capillary Refill, Pedal Edema (+2 pitting edema, bilaterally). No: Joint Swelling, Increased Warmth, Mottled, Pallor, Redness Neurological: Alert, Oriented, CN II-XII Intact, Normal Cognition, Normal Gait, No Motor/Sensory Deficits Psychiatric: Normal Affect, Normal Mood Skin Exam: Warm, Dry, Intact, Normal Color, No Rash. No: Cyanosis, Ecchymosis, Mottled, Pallor #1 Interpretation EKG Date: 04/01/21 Time: 17:36 Rhythm: NSR Rate (Beats/Min): 67 [place]: Normal P-Wave: Present QRS: Normal ST-T: Normal QT: Normal ND/PQ Interval: 0.201 Comparison: No Change EKG Interpretation Comments: NSR; No evidence of acute myocardial ischemia Course - Vital Signs Last Recorded V/S: Last Vital Signs Temp 98.7 F 04/01/21 17:26 Pulse 65 04/01/21 17:26 Resp 21 H 04/01/21 17:26 BP 142/52 H 04/01/21 17:26 Pulse Ox 100 04/01/21 17:26 - Orders/Labs/Meds Labs: Laboratory Tests 04/01/21 04/01/21 04/01/21 Range/Units 17:20 17:20 17:20 WBC 10.4 H (5.0-10.0) 10^3/uL RBC 2.86 L (4.2-5.4) 10^6/uL Hgb 8.5 L (12.0-16.0) g/dL Hct 27.1 L (37.0-47.0) % MCV 94.8 (80-100) fL MCH 29.7 (27.0-34.0) pg MCHC 31.4 L (33.0-35.0) g/dL Plt Count 145 L (150-450) 10^3/uL Neut % (Auto) 84.9 H (42.2-75.2) % Lymph % (Auto) 6.7 L (20.5-50.1) % [place] % (Auto) 5.2 (2-8) % Eos % (Auto) 3.1 H (1.0-3.0) % Baso % (Auto) 0.1 (0.0-1.0) % Sodium 133 L (136-145) mmol/L Potassium 4.0 (3.5-5.1) mmol/L Chloride 96 L (98-107) mmol/L Carbon Dioxide 27 (21-32) mmol/L Anion Gap 14.0 H (7-13) mEq/L BUN 31 H (7-18) mg/dL Creatinine 1.55 H (0.55-1.02) mg/dL Est Cr Clr Drug Dosing 23.57 mL/min Estimated GFR (MDRD) 33 BUN/Creatinine Ratio 20.0 (No establ ref range) Glucose 371 H (70-99) mg/dL Lactic Acid 0.8 (0.4-2.0) mmol/L Calcium 8.0 L (8.5-10.1) mg/dL Total Bilirubin 0.4 (0.2-1.0) mg/dL AST 8 L (15-37) U/L ALT 9 L (14-59) U/L Alkaline Phosphatase 202 H (46-116) U/L Troponin I High Sens 13 (<=51) pg/mL C-Reactive Protein 6.1 H (0.0-0.9) mg/dL B-Natriuretic Peptide 701 H (0-100) pg/ml Total Protein 7.2 (6.4-8.2) g/dL Albumin 2.3 L (3.4-5.0) g/dL Globulin 4.9 Albumin/Globulin Ratio 0.47 Influenza Type A RNA (NEGATIVE) Influenza Type B RNA (NEGATIVE) SARS-CoV-2 RNA (HAWA) (NEGATIVE) 04/01/21 Range/Units 17:57 WBC (5.0-10.0) 10^3/uL RBC (4.2-5.4) 10^6/uL Hgb (12.0-16.0) g/dL Hct (37.0-47.0) % MCV (80-100) fL MCH (27.0-34.0) pg MCHC (33.0-35.0) g/dL Plt Count (150-450) 10^3/uL Neut % (Auto) (42.2-75.2) % Lymph % (Auto) (20.5-50.1) % [place] % (Auto) (2-8) % Eos % (Auto) (1.0-3.0) % Baso % (Auto) (0.0-1.0) % Sodium (136-145) mmol/L Potassium (3.5-5.1) mmol/L Chloride (98-107) mmol/L Carbon Dioxide (21-32) mmol/L Anion Gap (7-13) mEq/L BUN (7-18) mg/dL Creatinine (0.55-1.02) mg/dL Est Cr Clr Drug Dosing mL/min Estimated GFR (MDRD) BUN/Creatinine Ratio (No establ ref range) Glucose (70-99) mg/dL Lactic Acid (0.4-2.0) mmol/L Calcium (8.5-10.1) mg/dL Total Bilirubin (0.2-1.0) mg/dL AST (15-37) U/L ALT (14-59) U/L Alkaline Phosphatase (46-116) U/L Troponin I High Sens (<=51) pg/mL C-Reactive Protein (0.0-0.9) mg/dL B-Natriuretic Peptide (0-100) pg/ml Total Protein (6.4-8.2) g/dL Albumin (3.4-5.0) g/dL Globulin Albumin/Globulin Ratio Influenza Type A RNA Negative (NEGATIVE) Influenza Type B RNA Negative (NEGATIVE) SARS-CoV-2 RNA (HAWA) Negative (NEGATIVE) Meds: Medications Discontinued Medications Generic Name Dose Route Start Last Admin Trade Name Freq PRN Reason Stop Dose Admin Acetaminophen 500 mg 04/01/21 20:37 04/01/21 21:00 Acetaminophen 500 Mg Tab PO 04/01/21 20:38 500 mg ONETIME ONE Administration Bumetanide 1 mg 04/01/21 20:38 04/01/21 21:00 Bumetanide 1 Mg/4 Ml Mdv IVPUSH 04/01/21 20:39 1 mg ONETIME ONE Administration - Re-Assessments/Exams Free Text/Narrative Re-Assessment/Exam: 04/01/21 Care of patient transferred to Jennifer Martinez PA-C at 1900 Departure - Departure Time of Disposition: 21:10
[2021-04-01 17:32] VITALS: BP 142/52; PULSE 65
[2021-04-01 18:31] LABS: CORONAVIRUS COVID-19 NAA NEGATIVE (NEGATIVE)
--- NOTE | 2021-04-01 19:28 | CT ---
PROCEDURE INFORMATION: Exam: CT Chest Without Contrast; Diagnostic Exam date and time: 04/01/2021 6:38 PM Age: 71 years old Clinical indication: Other: SOB, R/O ascites increase or pneumonia; Shortness of breath; Prior surgery; Surgery date: 6+ months; Surgery type: Cholecystectomy, appendectomy; Additional info: Shortness of breath; HX right lung cancer TECHNIQUE: Imaging protocol: Diagnostic computed tomography of the chest without contrast. Radiation optimization: All CT scans at this facility use at least one of these dose optimization techniques: automated exposure control; mA and/or kV adjustment per patient size (includes targeted exams where dose is matched to clinical indication); or iterative reconstruction. COMPARISON: CT Chest Abdomen Pelvis w Cont 01/15/2021 11:08 AM FINDINGS: Lungs: There is also peripheral area atelectasis or consolidation in right lower lobe in inferior margin of right middle lobe. Pleural spaces: Increase in size of partially loculated moderate right pleural effusion. Suggestion of increase in right lateral mid lung mass extending through the chest w Heart: There is cardiomegaly Aorta: Unremarkable. No aortic aneurysm. Lymph nodes: Persistent moderate adenopathy in mediastinum predominantly in AP window and pretracheal space Bones/joints: all and again demonstrating destructive changes through right 6th, 7th and 8th ribs. Difficult to measure mass on this noncontrast examination. In transaxial dimension measures roughly 8.1 x 4.1 cm. Soft tissues: Unremarkable. IMPRESSION: 1. Progression in size of peripheral mass in right mid lung extending through the chest wall with erosive changes in several ribs. 2. Unchanged associated mediastinal adenopathy 3. Increase in size of loculated right pleural effusion 4. Associated areas of consolidation/atelectasis in right lower lung 5. Cardiomegaly PROCEDURE INFORMATION: Exam: CT Abdomen And Pelvis Without Contrast Exam date and time: 04/01/2021 6:38 PM Age: 71 years old Clinical indication: Other: SOB, R/O ascites increase or pneumonia; Shortness of breath; Prior surgery; Surgery date: 6+ months; Surgery type: Cholecystectomy, appendectomy; Additional info: Shortness of breath; HX right lung cancer TECHNIQUE: Imaging protocol: Computed tomography of the abdomen and pelvis without contrast. Radiation optimization: All CT scans at this facility use at least one of these dose optimization techniques: automated exposure control; mA and/or kV adjustment per patient size (includes targeted exams where dose is matched to clinical indication); or iterative reconstruction. COMPARISON: CT Chest Abdomen Pelvis w Cont 01/15/2021 11:08 AM FINDINGS: Liver: Normal. No mass. Gallbladder and bile ducts: Gallbladder surgically absent Pancreas: Normal. No ductal dilation. Spleen: Normal. No splenomegaly. Adrenal glands: Normal. No mass. Kidneys and ureters: Mild right hydroureteronephrosis. No urolithiasis Stomach and bowel: Unremarkable. No obstruction. No mucosal thickening. Appendix: No evidence of appendicitis. Intraperitoneal space: Small amount of free fluid throughout abdomen and pelvis Vasculature: Unremarkable. No abdominal aortic aneurysm. Lymph nodes: Unremarkable. No enlarged lymph nodes. Urinary bladder: Unremarkable as visualized. Reproductive: Unremarkable as visualized. Bones/joints: Unremarkable. No acute fracture. Soft tissues: There is anasarca IMPRESSION: 1. Small amount of free fluid 2. Mild right hydro ureteral nephrosis
[2021-04-01] MEDS ORDERED: Acetaminophen 500 MG Tab PO ONE (20:37)
[2021-04-01] MEDS ORDERED: Bumetanide 1 MG/4 ML MDV IVPUSH ONE (20:38)
== END 2021-04-01 21:10 ==
LOC: DL.ED 17:03
DX: R06.03 Acute respiratory distress (principal); R18.8 Other ascites; I13.0 Hypertensive heart and chronic kidney disease with heart failure and stage 1 through stage 4 chronic kidney disease, or unspecified chronic kidney disease; E11.22 Type 2 diabetes mellitus with diabetic chronic kidney disease; N18.9 Chronic kidney disease, unspecified; I50.9 Heart failure, unspecified; E78.00 Pure hypercholesterolemia, unspecified; E03.9 Hypothyroidism, unspecified; J44.9 Chronic obstructive pulmonary disease, unspecified; Z95.0 Presence of cardiac pacemaker; Z79.82 Long term (current) use of aspirin; Z79.899 Other long term (current) drug therapy; Z88.5 Allergy status to narcotic agent; Z91.048 Other nonmedicinal substance allergy status; Z91.09 Other allergy status, other than to drugs and biological substances; Z88.8 Allergy status to other drugs, medicaments and biological substances; Z20.822 Contact with and (suspected) exposure to COVID-19; Z85.118 Personal history of other malignant neoplasm of bronchus and lung
CPT/HCPCS: 0240U; 36415; 36556; 51702; 71250; 74176; 80053; 83605; 83880; 84484; 85025; 86140; 93005; 96374; 99285; A9270; J3490

== ENCOUNTER 2021-04-20 21:18 | Emergency (ER) | payer MEDICARE, MEDICAID ==
[2021-04-20] MEDS ORDERED: Acetaminophen/HYDROcodone 325-5 MG Tab PO ONE (21:19)
[2021-04-20 21:34] VITALS: BP 134/60; PULSE 61
[2021-04-20 23:24] LABS: ANION GAP 13.9 mEq/L (7-13)
--- NOTE | 2021-04-21 01:07 | EDM.PDOC ---
ED HPI GENERAL MEDICAL PROBLEM - General Chief Complaint: Back Pain or Injury Stated Complaint: AMBULANCE Time Seen by Provider: 04/20/21 21:40 Source of Information: Reports: Patient, EMS History Limitations: Reports: No Limitations - History of Present Illness INITIAL COMMENTS - FREE TEXT/NARRATIVE: ED with c/o right side pain radiating to back. Ongoing for month at least. Has appointments set for CT this week and follow up with cancer DrBerny Longoria PCP has not met but appointment set for next week. Tylenol not helping. Had oxy in past but never used but returned medicatons. No fever chills, No nausea or vomiting. Denies constipation, Denies urinary sx. Right Back Pain Score (Numeric/FACES): 10 - Related Data Allergies Allergy/AdvReac Type Severity Reaction Status Date / Time codeine Allergy Unknown Cannot Verified 04/21/21 15:05 Remember adhesive tape Allergy Rash Verified 04/21/21 15:05 carboplatin Allergy Shortness Verified 04/21/21 15:05 of Breath sacubitril [From Entresto] Allergy Dizziness Verified 04/21/21 15:05 simvastatin [From Zocor] Allergy Muscle Verified 04/21/21 15:05 Aches valsartan [From Entresto] Allergy Dizziness Verified 04/21/21 15:05 metal Allergy Mild Rash Uncoded 04/21/21 15:05 Home Meds: Home Meds Alendronate Sodium [Fosamax] 70 mg PO WEEKLY 01/06/21 [History] Aspirin [Aspirin EC] 81 mg PO DAILY 01/06/21 [History] Bumetanide 1 mg PO BID 01/06/21 [History] Calcium Carbonate/Vitamin D3 [Calcium 600-Vit D3 400 Tablet] 1 tab PO BID 01/06/21 [History] Folic Acid 1 mg PO DAILY 01/06/21 [History] Formoterol [Perforomist] 2 ml INH BID 01/06/21 [History] Ipratropium/Albuterol Sulfate [Iprat-Albut 0.5-3(2.5) MG/3 ML] 3 ml NEB Q6H PRN 01/06/21 [History] Omeprazole 20 mg PO DAILY 01/06/21 [History] Sennosides/Docusate Sodium [Senna-Docusate Sodium Tablet] 1 tab PO BID 01/06/21 [History] carvediloL [Carvedilol] 6.25 mg PO BID 01/06/21 [History] Levothyroxine 150 mcg PO ACBREAKFAST 01/24/21 [History] Losartan [Cozaar] 25 mg PO BID 01/24/21 [History] Insulin Detemir [Levemir Flextouch] 10 units SUBCUT BEDTIME 01/25/21 [History] Budesonide [Pulmicort] 0.5 mg IH BID 01/27/21 [History] Magnesium Oxide 400 mg PO DAILY 01/27/21 [History] Ondansetron [Zofran] 8 mg PO Q8H PRN 01/27/21 [History] hydrOXYzine HCL [hydrOXYzine] 25 mg PO TID PRN 01/27/21 [History] Potassium Chloride 10 meq PO DAILY 03/15/21 [History] predniSONE [Prednisone] 1 mg PO DAILY 03/15/21 [History] Albuterol [Ventolin HFA] 2 puff INH Q6H PRN 03/16/21 [History] Alogliptin Benzoate [Alogliptin] 12.5 mg PO DAILY 03/16/21 [History] Cholecalciferol (Vitamin D3) [Vitamin D3] 50 mcg PO BID 03/16/21 [History] Ferrous Gluconate 324 mg PO DAILY 03/16/21 [History] Tiotropium [Spiriva HandiHaler] 18 mcg INH DAILY 03/16/21 [History] Ascorbic Acid [Vitamin C] 250 mg PO DAILY 30 Days #30 tablet 03/17/21 [Rx] Past Medical History HEENT History: Reports: Cataract, Impaired Vision, Otitis Media Other HEENT History: wears glasses Cardiovascular History: Reports: Cardiomyopathy, High Cholesterol, Heart Failure, Hypertension, Other (See Below), Pacemaker Other Cardiovascular History: CARDIAC DIFIBRILLATOR PLACEMENT (2017), NONISCHEMIC CARDIOMYOPATHY Respiratory History: Reports: Bronchitis, Recurrent, COPD, Other (See Below), Pneumonia, Recurrent Other Respiratory History: Lung CA with recent chemo and radiation Gastrointestinal History: Reports: Cholelithiasis, GERD Genitourinary 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 (See Below), Renal Disease, UTI, Recurrent Other Genitourinary History: CKD 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 Musculoskeletal History: Reports: Arthritis, Fracture, Other (See Below) Other Musculoskeletal History: SHOULDER PAIN, BILATERAL Neurological History: Reports: TIA Psychiatric History: Reports: Addiction Other Psychiatric History: patient states she doesn't know if she was addicted to anything Endocrine/Metabolic History: Reports: Diabetes, Type II, Hypothyroidism Hematologic History: Reports: Anemia, B12 Deficiency, Iron Deficiency Immunologic History: Reports: None Oncologic (Cancer) History: Reports: Lung Dermatologic History: Reports: None - Infectious Disease History Infectious Disease History: Reports: Measles, Novel Coronavirus - Past Surgical History Head Surgeries/Procedures: Reports: None HEENT Surgical History: Reports: Cataract Surgery Cardiovascular Surgical History: Reports: AICD, Pacer Respiratory Surgical History: Reports: None GI Surgical History: Reports: Appendectomy, Cholecystectomy Female Surgical History: Reports: None Endocrine Surgical History: Reports: None Neurological Surgical History: Reports: None Musculoskeletal Surgical History: Reports: None Social & Family History - Family History Family Medical History: No Pertinent Family History - Tobacco Use Tobacco Use Status *Q: Never Tobacco User - Caffeine Use Caffeine Use: Reports: None Caffeine Use Comment: decaf products - Recreational Drug Use Recreational Drug Use: No - Living Situation & Occupation Living situation: Reports: Alone Occupation: Employed ED ROS GENERAL - Review of Systems Review Of Systems: Comprehensive ROS is negative, except as noted in HPI. ED EXAM,LOWER BACK PAIN/INJURY - Physical Exam Exam: See Below Exam Limited By: No Limitations General Appearance: Alert, No Apparent Distress Eye Exam: Bilateral Eye: PERRL Ears: Normal External Exam, Normal TMs Nose: Normal Inspection. No: Nasal Drainage Throat/Mouth: Normal Inspection, Normal Lips, Normal Gums, Normal Oropharynx, Normal Voice Head: Atraumatic, Normocephalic Neck: Normal Inspection, Full Range of Motion Respiratory/Chest: No Respiratory Distress, Lungs Clear, Normal Breath Sounds Cardiovascular: Normal Peripheral Pulses, Regular Rate, Rhythm, No Edema GI/Abdominal: Normal Bowel Sounds, Soft, Tender (mild deep palpation RUQ) Back Exam: Normal Inspection, Full Range of Motion Extremities: Normal Inspection Neurological: Alert, Normal Mood/Affect, Oriented x 3 Psychiatric: Anxious, Flat Affect Skin Exam: Warm, Dry, Intact, Normal Color Course - Vital Signs Last Recorded V/S: Last Vital Signs Temp 97.7 F 04/20/21 21:33 Pulse 61 04/20/21 21:33 Resp 16 07/19/21 21:33 BP 134/60 04/20/21 21:33 Pulse Ox 95 04/20/21 21:33 - Orders/Labs/Meds Labs: Laboratory Tests 04/20/21 04/20/21 04/20/21 Range/Units 22:58 22:58 23:22 WBC 13.1 H (5.0-10.0) 10^3/uL RBC 3.38 L (4.2-5.4) 10^6/uL Hgb 10.0 L D (12.0-16.0) g/dL Hct 31.0 L (37.0-47.0) % MCV 91.7 D (80-100) fL MCH 29.6 (27.0-34.0) pg MCHC 32.3 L (33.0-35.0) g/dL Plt Count 144 L (150-450) 10^3/uL Neut % (Auto) 84.8 H (42.2-75.2) % Lymph % (Auto) 4.7 L (20.5-50.1) % [place] % (Auto) 5.7 (2-8) % Eos % (Auto) 4.7 H (1.0-3.0) % Baso % (Auto) 0.1 (0.0-1.0) % Sodium 132 L (136-145) mmol/L Potassium 3.9 (3.5-5.1) mmol/L Chloride 95 L (98-107) mmol/L Carbon Dioxide 27 (21-32) mmol/L Anion Gap 13.9 H (7-13) mEq/L BUN 40 H (7-18) mg/dL Creatinine 1.48 H (0.55-1.02) mg/dL Est Cr Clr Drug Dosing 29.52 mL/min Estimated GFR (MDRD) 35 BUN/Creatinine Ratio 27.0 (No establ ref range) Glucose 298 H (70-99) mg/dL Calcium 9.2 (8.5-10.1) mg/dL Magnesium 1.2 L (1.8-2.4) mg/dL Total Bilirubin 0.4 (0.2-1.0) mg/dL AST 8 L (15-37) U/L ALT 10 L (14-59) U/L Alkaline Phosphatase 226 H (46-116) U/L Total Protein 7.8 (6.4-8.2) g/dL Albumin 2.3 L (3.4-5.0) g/dL Globulin 5.5 Albumin/Globulin Ratio 0.42 Amylase 14 L (25-115) U/L Lipase 80 (73-393) U/L Urine Color Yellow (YELLOW) Urine Appearance Slightly cloudy (CLEAR) Urine pH 6.0 (5.0-9.0) Ur Specific [place] 1.020 (1.005-1.030) Urine Protein 30 H (NEGATIVE) Urine Glucose (UA) Negative (NEGATIVE) Urine Ketones Negative (NEGATIVE) Urine Occult Blood Negative (NEGATIVE) Urine Nitrite Negative (NEGATIVE) Urine Bilirubin Negative (NEGATIVE) Urine Urobilinogen 0.2 (0.2-1.0) mg/dL Ur Leukocyte Esterase Trace H (NEGATIVE) Urine RBC 0-5 /HPF Urine WBC 0-5 (0-5/HPF) /HPF Ur Epithelial Cells Rare (NOT SEEN) /HPF Amorphous Sediment Rare (NOT SEEN) /HPF Urine Bacteria Occasional (0-FEW/HPF) /HPF Urine Mucus Not seen (NOT SEEN) /LPF Meds: Medications Discontinued Medications Generic Name Dose Route Start Last Admin Trade Name Freq PRN Reason Stop Dose Admin Hydrocodone Bitart/Acetaminophen 1 tab 04/20/21 21:19 Acetaminophen/Hydrocodone 325-5 Mg Tab PO 04/20/21 21:20 .STK-MED ONE Oxycodone/Acetaminophen Confirm 04/21/21 01:13 Acetaminophen/Oxycodone 325-5 Mg Tab Administered 04/21/21 01:14 Dose 3 tab .ROUTE .STK-MED ONE Departure - Departure Time of Disposition: 01:04 Disposition: Home, Self-Care 01 Condition: Fair Clinical Impression: Back pain Qualifiers: Back pain location: low back pain Chronicity: acute Back pain laterality: right Sciatica presence: without sciatica Qualified Code(s): M54.5 - Low back pain Metastatic cancer Qualifiers: Area of secondary neoplastic involvement: unspecified site Qualified Code(s): C79.9 - Secondary malignant neoplasm of unspecified site - Discharge Information *PRESCRIPTION DRUG MONITORING PROGRAM REVIEWED*: No *COPY OF PRESCRIPTION DRUG MONITORING REPORT IN PATIENT VALERIE: No Instructions: Chronic Back Pain, [id number] Referrals: PCP,None [Primary Care Provider] - Forms: ED Department Discharge Additional Instructions: establish prmary care follow up with appointments as scheduled clinic follow up for any medication changes or refills diet as tolerated norco/apap 5/325 one every 6 hours as needed for severe pain Sepsis Event Note (ED) - Evaluation Sepsis Screening Result: No Definite Risk
[2021-04-21] MEDS ORDERED: Acetaminophen/oxyCODONE 325-5 MG Tab ONE (01:13)
== END 2021-04-21 01:23 | disposition home or self-care (01) ==
LOC: DL.ED 21:18
DX: M54.5 Low back pain (principal); C78.00 Secondary malignant neoplasm of unspecified lung; I13.0 Hypertensive heart and chronic kidney disease with heart failure and stage 1 through stage 4 chronic kidney disease, or unspecified chronic kidney disease; E11.22 Type 2 diabetes mellitus with diabetic chronic kidney disease; N18.9 Chronic kidney disease, unspecified; I50.9 Heart failure, unspecified; D63.1 Anemia in chronic kidney disease; J44.9 Chronic obstructive pulmonary disease, unspecified; K21.9 Gastro-esophageal reflux disease without esophagitis; M19.90 Unspecified osteoarthritis, unspecified site; E03.9 Hypothyroidism, unspecified; D64.9 Anemia, unspecified; Z86.16 Personal history of COVID-19; Z88.5 Allergy status to narcotic agent; Z91.048 Other nonmedicinal substance allergy status; Z88.8 Allergy status to other drugs, medicaments and biological substances; Z79.82 Long term (current) use of aspirin; Z79.4 Long term (current) use of insulin; Z79.899 Other long term (current) drug therapy
CPT/HCPCS: 36415; 80053; 81001; 82150; 83690; 83735; 85025; 87086; 99283; A9270-GY

== ENCOUNTER 2021-05-28 12:58 | Emergency (ER) | payer MEDICARE, MEDICAID ==
[2021-05-28 13:31] VITALS: BP 169/57; PULSE 66
[2021-05-28] MEDS ORDERED: traMADol 50 MG Tab PO ONE (13:43)
--- NOTE | 2021-05-28 14:23 | CR ---
PROCEDURE INFORMATION: Exam: XR Lumbosacral Spine Exam date and time: 05/28/2021 1:58 PM Age: 71 years old Clinical indication: Injury or trauma; Fall; Blunt trauma (contusions or hematomas); Additional info: Fall at home, left lower back hurting TECHNIQUE: Imaging protocol: XR of the lumbosacral spine. Views: 2 or 3 views. COMPARISON: CT Chest Abdomen Pelvis wo Cont 04/01/2021 6:38 PM FINDINGS: Bones/joints: Vertebral body heights are intact. There is a grade 1 spondylolisthesis at L4-L5. Alignment is otherwise maintained. The pedicles appear intact. It is difficult to evaluate for pars defects without oblique views. No acute fracture is identified. There is mild multilevel facet arthrosis, disc space narrowing and marginal osteophyte formation. Soft tissues: Grossly unremarkable. Heart/Mediastinum: Cardiac AICD wires are noted. Vasculature: Atherosclerotic vascular calcifications are noted. Other findings: The bones appear osteopenic. IMPRESSION: 1. Mild spondylosis. 2. Apparent osteopenia.
--- NOTE | 2021-05-28 14:31 | EDM.PDOC ---
ED HPI GENERAL MEDICAL PROBLEM - General Chief Complaint: Back Pain or Injury Stated Complaint: IN BY AMBULANCE Time Seen by Provider: 05/28/21 14:00 Source of Information: Reports: Patient, RN, RN Notes Reviewed History Limitations: Reports: No Limitations - History of Present Illness INITIAL COMMENTS - FREE TEXT/NARRATIVE: Va is a 71 y/o female with a history of COPD, CHF, CKD, and metastatic lung cancer who presents to the ED via [facility] with complaints of low back pain following a fall this morning. The patient reports she was walking into her home when she tripped over her vacuum cleaner and presser and landed on her left lateral side and left arm. She states the back pain started to that side immediately after her fall. She denies striking her head and did not lose consciousness. The patient states she has not taken any medication for the pain, but became nervous about fracture so immediately called EMS. She denies inability to void, saddle paraesthesia, or decrease in motor/sensory function to the lower extremities from baseline. - Related Data Allergies Allergy/AdvReac Type Severity Reaction Status Date / Time codeine Allergy Unknown Cannot Verified 05/28/21 12:59 Remember adhesive tape Allergy Rash Verified 05/28/21 12:59 carboplatin Allergy Shortness Verified 05/28/21 12:59 of Breath sacubitril [From Entresto] Allergy Dizziness Verified 05/28/21 12:59 simvastatin [From Zocor] Allergy Muscle Verified 05/28/21 12:59 Aches valsartan [From Entresto] Allergy Dizziness Verified 05/28/21 12:59 metal Allergy Mild Rash Uncoded 05/28/21 12:59 Home Meds: Home Meds Alendronate Sodium [Fosamax] 70 mg PO WEEKLY 01/06/21 [History] Aspirin [Aspirin EC] 81 mg PO DAILY 01/06/21 [History] Bumetanide 1 mg PO BID 01/06/21 [History] Calcium Carbonate/Vitamin D3 [Calcium 600-Vit D3 400 Tablet] 1 tab PO BID 01/06/21 [History] Folic Acid 1 mg PO DAILY 01/06/21 [History] Formoterol [Perforomist] 2 ml INH BID 01/06/21 [History] Ipratropium/Albuterol Sulfate [Iprat-Albut 0.5-3(2.5) MG/3 ML] 3 ml NEB Q6H PRN 01/06/21 [History] Omeprazole 20 mg PO DAILY 01/06/21 [History] Sennosides/Docusate Sodium [Senna-Docusate Sodium Tablet] 1 tab PO BID 01/06/21 [History] carvediloL [Carvedilol] 6.25 mg PO BID 01/06/21 [History] Levothyroxine 150 mcg PO ACBREAKFAST 01/24/21 [History] Losartan [Cozaar] 25 mg PO BID 01/24/21 [History] Insulin Detemir [Levemir Flextouch] 10 units SUBCUT BEDTIME 01/25/21 [History] Budesonide [Pulmicort] 0.5 mg IH BID 01/27/21 [History] Magnesium Oxide 400 mg PO DAILY 01/27/21 [History] Ondansetron [Zofran] 8 mg PO Q8H PRN 01/27/21 [History] hydrOXYzine HCL [hydrOXYzine] 25 mg PO TID PRN 01/27/21 [History] Potassium Chloride 10 meq PO DAILY 03/15/21 [History] predniSONE [Prednisone] 1 mg PO DAILY 03/15/21 [History] Albuterol [Ventolin HFA] 2 puff INH Q6H PRN 03/16/21 [History] Alogliptin Benzoate [Alogliptin] 12.5 mg PO DAILY 03/16/21 [History] Cholecalciferol (Vitamin D3) [Vitamin D3] 50 mcg PO BID 03/16/21 [History] Ferrous Gluconate 324 mg PO DAILY 03/16/21 [History] Tiotropium [Spiriva HandiHaler] 18 mcg INH DAILY 03/16/21 [History] Ascorbic Acid [Vitamin C] 250 mg PO DAILY 30 Days #30 tablet 03/17/21 [Rx] Past Medical History HEENT History: Reports: Cataract, Impaired Vision, Otitis Media Other HEENT History: wears glasses Cardiovascular History: Reports: Cardiomyopathy, High Cholesterol, Heart Failure, Hypertension, Other (See Below), Pacemaker Other Cardiovascular History: CARDIAC DIFIBRILLATOR PLACEMENT (2017), NONISCHEMIC CARDIOMYOPATHY Respiratory History: Reports: Bronchitis, Recurrent, COPD, Other (See Below), Pneumonia, Recurrent Other Respiratory History: Lung CA with recent chemo and radiation Gastrointestinal History: Reports: Cholelithiasis, GERD Genitourinary 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 (See Below), Renal Disease, UTI, Recurrent Other Genitourinary History: CKD 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 Musculoskeletal History: Reports: Arthritis, Fracture, Other (See Below) Other Musculoskeletal History: SHOULDER PAIN, BILATERAL Neurological History: Reports: TIA Psychiatric History: Reports: Addiction Other Psychiatric History: patient states she doesn't know if she was addicted to anything Endocrine/Metabolic History: Reports: Diabetes, Type II, Hypothyroidism Hematologic History: Reports: Anemia, B12 Deficiency, Iron Deficiency Immunologic History: Reports: None Oncologic (Cancer) History: Reports: Lung Dermatologic History: Reports: None - Infectious Disease History Infectious Disease History: Reports: Measles, Novel Coronavirus - Past Surgical History Head Surgeries/Procedures: Reports: None HEENT Surgical History: Reports: Cataract Surgery Cardiovascular Surgical History: Reports: AICD, Pacer Respiratory Surgical History: Reports: None GI Surgical History: Reports: Appendectomy, Cholecystectomy Female Surgical History: Reports: None Endocrine Surgical History: Reports: None Neurological Surgical History: Reports: None Musculoskeletal Surgical History: Reports: None Social & Family History - Family History Family Medical History: No Pertinent Family History - Tobacco Use Tobacco Use Status *Q: Never Tobacco User Second Hand Smoke Exposure: No - Caffeine Use Caffeine Use: Reports: Coffee Caffeine Use Comment: decaf products - Recreational Drug Use Recreational Drug Use: No - Living Situation & Occupation Living situation: Reports: Alone Occupation: Employed ED ROS GENERAL - Review of Systems Review Of Systems: Comprehensive ROS is negative, except as noted in HPI. ED EXAM,LOWER BACK PAIN/INJURY - Physical Exam Exam: See Below Exam Limited By: No Limitations General Appearance: Alert, Thin, Cachetic (Chronically ill-appearing elderly female) Eye Exam: Bilateral Eye: EOMI (4mm), Other (Cataracts) Ears: Normal External Exam, Normal Canal, Hearing Grossly Normal, Normal TMs Nose: Normal Inspection, Normal Mucosa, No Blood Throat/Mouth: Normal Inspection, Normal Oropharynx, Normal Voice, No Airway Compromise Head: Atraumatic, Normocephalic Neck: Normal Inspection, Supple, Non-Tender, Full Range of Motion. No: Lymphadenopathy (L), Lymphadenopathy (R) Respiratory/Chest: No Accessory Muscle Use, Chest Non-Tender, Rhonchi (Clears with cough), Other (Productive cough; On home O2). No: Crackles, Rales, Stridor Cardiovascular: Normal Peripheral Pulses, Regular Rate, Rhythm, No Gallop, No JVD, No Murmur, No Rub. No: No Edema GI/Abdominal: Normal Bowel Sounds, Soft, Non-Tender, No Abnormal Bruit, No Mass, Pelvis Stable (Female) Exam: Deferred Rectal (Female) Exam: Deferred Back Exam: Other (Sacral pressure sore with dressing in place, changed to padded sacral dressing (Alevene); No evidence of infection) Extremities: Normal Capillary Refill, Pedal Edema (Trace, bilaterally), Arm Pain (Superficial scabbed abrasion to right posterior forearm), Limited Range of Motion (At baseline). No: Increased Warmth, Mottled, Pallor, Redness Neurological: Alert, No Motor/Sensory Deficits, Oriented x 3, Straight Leg Raise (L), Straight Leg Raise (R), Difficulty Walking (Patient uses wheelchair at baseline). No: Saddle Anesthesia Psychiatric: Normal Affect, Normal Mood Skin Exam: Warm, Dry, Normal Color, No Rash, Wound/Incision (As above). No: Increased Warmth, Jaundice, Mottled, Pallor, Petechiae Lymphatic: No Adenopathy Course - Vital Signs Last Recorded V/S: Last Vital Signs Temp 97.6 F 05/28/21 13:30 Pulse 66 05/28/21 13:30 Resp 18 05/28/21 13:30 BP 169/57 H 05/28/21 13:30 Pulse Ox 100 05/28/21 13:30 - Orders/Labs/Meds Meds: Medications Discontinued Medications Generic Name Dose Route Start Last Admin Trade Name Linh PRN Reason Stop Dose Admin Tramadol HCl 25 mg 05/28/21 13:43 05/28/21 13:51 Tramadol 50 Mg Tab PO 05/28/21 13:44 25 mg ONETIME ONE Administration - Radiology Interpretation Free Text/Narrative:: [facility] Final Radiology Report Call: [phone] assistance Online chat: [email or web address] Name: VA CHILDRESS Age: 71Years F Date: 05/28/2021 SSN: -- : [id number] Study: CR LUMBAR SPINE 2 OR 3V Requesting Physician: Deisy Matos Images: 3 Addl Studies: Provided Clinical History: Fall at home, left lower back hurting Contrast: Contrast Medium: Contrast Amount: Contrast Method: Page 1 of 2 PROCEDURE INFORMATION: Exam: XR Lumbosacral Spine Exam date and time: 05/28/2021 1:58 PM Age: 71 years old Clinical indication: Injury or trauma; Fall; Blunt trauma (contusions or hematomas); Additional info: Fall at home, left lower back hurting TECHNIQUE: Imaging protocol: XR of the lumbosacral spine. Views: 2 or 3 views. COMPARISON: CT Chest Abdomen Pelvis wo Cont 04/01/2021 6:38 PM FINDINGS: Bones/joints: Vertebral body heights are intact. There is a grade 1 spondylolisthesis at L4-L5. Alignment is otherwise maintained. The pedicles appear intact. It is difficult to evaluate for pars defects without oblique views. No acute fracture is identified. There is mild multilevel facet arthrosis, disc space narrowing and marginal osteophyte formation. Soft tissues: Grossly unremarkable. Heart/Mediastinum: Cardiac AICD wires are noted. Vasculature: Atherosclerotic vascular calcifications are noted. Other findings: The bones appear osteopenic. IMPRESSION: 1. Mild spondylosis. 2. Apparent osteopenia. Thank you for allowing us to participate in the care of your patient. Dictated and Authenticated by: José Luis Boudreaux MD 05/28/2021 2:22 PM Central Time ([place] & [place]) - Re-Assessments/Exams Free Text/Narrative Re-Assessment/Exam: 05/28/21 Xray of lumbar spine obtained. Findings of examination and imaging reviewed with patient. During discussion patient states she missed her biopsy appointment today as "..she did not know she had it until they called me after." Per her report, the [facility] called her to tell her she missed her appointment this afternoon; she fell shortly thereafter. Link Cutter called Dr. Bowles, her PCP, to arrange for a post-ED appointment for which she can arrange to reschedule appointment and discuss plan for cares as her daughter is currently incarcerated. Message left with [facility] to check on Va tomorrow and Tuesday. Discussed supportive cares for back pain as well as red flag signs and symptoms which would warrant reevaluation reviewed. Patient verbalized understanding and agreement with the plan of care. Departure - Departure Time of Disposition: 15:53 Disposition: Home, Self-Care 01 Condition: Fair Clinical Impression: Fall from ground level, History of lung cancer, Cough Low back pain Qualifiers: Chronicity: acute Back pain laterality: left Sciatica presence: without sciatica Qualified Code(s): M54.5 - Low back pain Metastatic cancer Qualifiers: Area of secondary neoplastic involvement: unspecified site Qualified Code(s): C79.9 - Secondary malignant neoplasm of unspecified site - Discharge Information *PRESCRIPTION DRUG MONITORING PROGRAM REVIEWED*: Not Applicable *COPY OF PRESCRIPTION DRUG MONITORING REPORT IN PATIENT VALERIE: Not Applicable Instructions: Fall Prevention in the Home, Adult, [id number] Referrals: PCP,None [Primary Care Provider] - Forms: ED Department Discharge Additional Instructions: 1.) You have an appointment with Dr. Bowles for June 02 at 1130am. 2.) Continue on your previously scheduled medications. 3.) You may take acetaminophen (Tylenol) 1000mg every six hours, as pain persists. 4.) You may alternated heat/ice compresses as pain persists; 20 minutes, every hour. 5.) You may apply Biofreeze (or similar cream/ointment) to affected area, as pain persists. Sepsis Event Note (ED) - Evaluation Sepsis Screening Result: No Definite Risk - Focused Exam Vital Signs: Vital Signs Temp Pulse Resp BP Pulse Ox 05/28/21 13:30 97.6 F 66 18 169/57 H 100
== END 2021-05-28 17:14 | disposition home or self-care (01) ==
LOC: DL.ED 12:58
DX: M54.5 Low back pain (principal); C34.90 Malignant neoplasm of unspecified part of unspecified bronchus or lung; C79.9 Secondary malignant neoplasm of unspecified site; I13.0 Hypertensive heart and chronic kidney disease with heart failure and stage 1 through stage 4 chronic kidney disease, or unspecified chronic kidney disease; N18.9 Chronic kidney disease, unspecified; I50.9 Heart failure, unspecified; E78.00 Pure hypercholesterolemia, unspecified; J44.9 Chronic obstructive pulmonary disease, unspecified; Z79.82 Long term (current) use of aspirin; Z79.899 Other long term (current) drug therapy; Z91.09 Other allergy status, other than to drugs and biological substances; Z91.048 Other nonmedicinal substance allergy status; Z88.8 Allergy status to other drugs, medicaments and biological substances; Z88.5 Allergy status to narcotic agent; W01.0XXA Fall on same level from slipping, tripping and stumbling without subsequent striking against object, initial encounter; Y92.009 Unspecified place in unspecified non-institutional (private) residence as the place of occurrence of the external cause
CPT/HCPCS: 72100; 99283-25; A9270-GY